=== PATIENT | female | born 1975 | race Caucasian/White ===

== ENCOUNTER 2016-07-17 21:05 | Emergency (ER) | payer OTHER ==
[2016-07-17 21:16] VITALS: BP 144/73
--- NOTE | 2016-07-17 21:48 | UC ---
Complaint Female HPI - HPI Summary HPI Summary: Having pressure and lump coming out of vagina, has noticed for a few days. Worse when she has to pee. - History Of Current Complaint Chief Complaint: UCGU Stated Complaint: PRIVATE ISSUE Time Seen by Provider: 07/17/16 21:17 Hx Obtained From: Patient Hx Last Menstrual Period: 05/14/16 ?: No Onset/Duration: Gradual Onset, Lasting Days Timing: Constant Severity Initially: Mild Severity Currently: Moderate Character: Dull Aggravating Factor(s): Urination Associated Signs And Symptoms: Positive: Vaginal Discharge - Allergies/Home Medications Allergies/Adverse Reactions: Allergies Allergy/AdvReac Type Severity Reaction Status Date / Time Sulfamethoxazole Allergy Rash Verified 05/14/16 19:28 w/Trimethoprim [From Bactrim] Home Medications: Home Medications Ibuprofen [Advil] 200 mg PO 07/17/16 [History] PMH/Surg Hx/FS Hx/Imm Hx Endocrine History Of: Reports: Diabetes - type 1 for about 8 years. Denies: Thyroid Disease, Hyperthyroidism, Hypothyroidism, Dyslipidemia Cardiovascular History Of: Denies: Cardiac Disorders, Hypertension, Pacemaker/ICD, Myocardial Infarction , Congestive Heart Failure, Atrial Fibrillation, Deep Vein Thrombosis, Bleeding Disorders Respiratory History Of: Denies: COPD, Asthma, Bronchitis, Pneumonia, Pulmonary Embolism GI/ History Of: Denies: Gastroesophageal Reflux, Ulcer, Gastrointestinal Bleed, Gall Bladder Disease, Kidney Stones, Diverticulitis, Renal Disease, Urosepsis Neurological History Of: Denies: TIA, CVA, Dementia, Seizures, Migraine Psychological History Of: Denies: Anxiety, Depression, Bipolar Disorder, Schizophrenia, Post Traumatic Stress Disorder Cancer History Of: Denies: Lung Cancer, Colorectal Cancer, Breast Cancer, Prostate Cancer, Cervical Cancer Other History Of: HIV Negative For: Hepatitis B, Hepatitis C, Anticoagulant Therapy - Surgical History Surgical History: Yes Surgery Procedure, Year, and Place: RIGHT THUMB SURGERY 1997, , MOVED LEFT OVARY TO RIGHT SIDE, lymph node removed, mediport -placed and removed - Family History Known Family History: Positive: None, Hypertension, Diabetes Family History: R & n/C - Social History Lives: With Family Alcohol Use: None Substance Use Type: None Smoking Status (MU): Light Every Day Tobacco Smoker Type: Cigarettes Amount Used/How Often: 7-10 cig./day Have You Smoked in the Last Year: Yes Household Exposure Type: Cigarettes - Immunization History Most Recent Influenza Vaccination: unk Most Recent Tetanus Shot: unk Most Recent Pneumonia Vaccination: unk Review of Systems Constitutional: Negative Skin: Negative Eyes: Negative ENT: Negative Respiratory: Negative Cardiovascular: Negative Gastrointestinal: Negative Genitourinary: Other - vaginal lump Motor: Negative Neurovascular: Negative Musculoskeletal: Negative Neurological: Negative Psychological: Negative All Other Systems Reviewed And Are Negative: Yes Physical Exam Triage Information Reviewed: Yes Appearance: Well-Appearing, No Pain Distress, Well-Nourished Vital Signs: Initial Vital Signs Temp 98.2 F 07/17/16 21:10 Pulse 103 07/17/16 21:10 Resp 18 07/17/16 21:10 BP 144/73 07/17/16 21:10 Pulse Ox 99 07/17/16 21:10 Vital Signs Reviewed: Yes Eye Exam: Normal Eyes: Positive: Conjunctiva Clear ENT Exam: Normal ENT: Positive: Normal ENT inspection, Hearing grossly normal, Pharynx normal, TMs normal Dental Exam: Normal Neck exam: Normal Neck: Positive: Supple, Nontender, No Lymphadenopathy Respiratory Exam: Normal Respiratory: Positive: Chest non-tender, Lungs clear, Normal breath sounds, No respiratory distress, No accessory muscle use Cardiovascular Exam: Normal Cardiovascular: Positive: RRR Musculoskeletal Exam: Normal Neurological Exam: Normal Psychological Exam: Normal Skin Exam: Normal - Additional Comments External vaginal exam performed, normal labia without masses or erythema. Significant cystocele noted, fully moving out of body with valsalva maneuver. Complaint Female Dx - Course Course Of Treatment: Pt is concerned about STIs with her current partner, but does not want HIV/Hep C testing tonight. - Differential Dx/Diagnosis Provider Diagnoses: cystocele Discharge - Discharge Plan Condition: Stable Disposition: HOME Patient Education Materials: Cystocele (ED), Kegel Exercises for Women (GEN) Referrals: Melinda Sherman MD [Primary Care Provider] - Kallie Covington MD [Medical Doctor] - 1 Week Additional Instructions: You can start kegel exercises now while you wait for an appointment with the trackman. If you develop pain with urination or blood in the urine, please return right away.
== END 2016-07-17 21:53 | disposition home or self-care (01) ==
LOC: UCEAST 21:05
DX: N81.10 Cystocele, unspecified (principal); Z32.02 Encounter for pregnancy test, result negative; Z88.2 Allergy status to sulfonamides; F17.210 Nicotine dependence, cigarettes, uncomplicated
CPT/HCPCS: 81025; 87491; 87591; 99211; G0463

== ENCOUNTER 2017-07-01 14:36 | Emergency (ER) | payer BC ==
[2017-07-01] MEDS ORDERED: Ketorolac INJ* 30 MG/ML 1 ML VIAL IV PUSH ONE (14:50)
[2017-07-01] MEDS ORDERED: Ondansetron INJ* 2 MG/ML VIAL IV ONE (14:51)
[2017-07-01] MEDS ORDERED: Ondansetron ODT TAB* 4 MG SL ONE ×2 (14:55→15:45)
[2017-07-01] MEDS ORDERED: Acetaminophen TAB* 325 MG PO ONE (14:55)
[2017-07-01 15:34] LABS: ABS Basophils 0 10^3/ul (0-0.2); ABS Eosinophils 0 10^3/ul (0-0.6); ABS Lymphocytes 0.3 10^3/ul (1.0-4.8); ABS Monocytes 0.8 10^3/ul (0-0.8); ABS Neutrophils 9.3 10^3/ul (1.5-7.7); ABS Nucleated RBC 0.01 10^3/ul; Eosinophil % 0.2 % (0-6); Hematocrit 40 % (35-47); Hemoglobin 13.8 g/dl (12.0-16.0); Mean Corpuscular HGB Conc 34 g/dl (31-36); Mean Corpuscular Hemoglobin 34 pg (27-31); Mean Corpuscular Volume 98 fL (80-97); Mean Platelet Volume 8 um3 (7.4-10.4); Nucleated Red Blood Cells % 0.1; Platelet Count 193 10^3/ul (150-450); Red Blood Count 4.12 10^6/ul (4.0-5.4); Red Cell Distribution Width 13 % (10.5-15); White Blood Count 10.4 10^3/ul (3.5-10.8)
[2017-07-01 15:38] LABS: EGFR Non-African American 120.5 (>60)
[2017-07-01 15:45] LABS: Urine Appearance Cloudy; Urine Blood 3+ (Negative); Urine Color Yellow; Urine Ketones 2+ (Negative); Urine Protein 1+(30 mg/dL) (Negative); Urine Specific Gravity 1.015 (1.010-1.030); Urine Urobilinogen Negative (Negative)
[2017-07-01 15:52] VITALS: BP 122/65
[2017-07-01] MEDS ORDERED: Nitrofurantoin Macrocrystals* 50 MG CAP PO ONE (15:54)
[2017-07-01] MEDS ORDERED: Nitrofurantoin Macrocrystals* 100 MG CAP PO ONE (15:55)
--- NOTE | 2017-07-01 16:13 | ED ---
Influenza-Like Illness - HPI Summary HPI Summary: Patient presents to the ED with CC of influenza like symptoms x 2-3 days. She notes to body aches, sweats and chills, pain in bilateral ribs with coughing and extreme fatigue. Denies sick contacts. She denies known fevers. Denies sore throat. She has been otherwise healthy, although has a history of kidney infection and diabetes. She takes insulin daily and checks her sugars. - History of Current Complaint Chief Complaint: EDGeneral Time Seen by Provider: 07/01/17 14:51 Hx Obtained From: Patient Onset/Duration: Sudden Onset Severity: Moderate Associated Signs & Symptoms: F/C, Myalgia, Cough, Headache - Risk Factors Influenza Risk Factors: Negative - Allergy/Home Medications Allergies/Adverse Reactions: Allergies Allergy/AdvReac Type Severity Reaction Status Date / Time Sulfamethoxazole Allergy Rash Verified 05/14/16 19:28 w/Trimethoprim [From Bactrim] PMH/Surg Hx/FS Hx/Imm Hx Previously Healthy: Yes Endocrine/Hematology History: Reports: Hx Diabetes - type 1 for about 8 years. Denies: Hx Anticoagulant Therapy, Hx Thyroid Disease Cardiovascular History: Denies: Hx Congestive Heart Failure, Hx Deep Vein Thrombosis, Hx Embolism, Hx Hypertension, Hx Myocardial Infarction, Hx Pacemaker/ICD Respiratory History: Denies: Hx Asthma, Hx Chronic Obstructive Pulmonary Disease (COPD), Hx Lung Cancer, Hx Pneumonia, Hx Pulmonary Embolism GI History: Reports: Hx Gastroesophageal Reflux Disease - per pt Denies: Hx Gall Bladder Disease, Hx Gastrointestinal Bleed, Hx Ulcer, Hx Urosepsis History: Denies: Hx Kidney Stones, Hx Renal Disease Musculoskeletal History: Reports: Other Musculoskeletal History - Carpal tunnel Denies: Hx Bursitis, Hx Congenital Bone Abnormalities, Hx Fibromyalgia, Hx Gout, Hx Orthopedic Injury, Hx Osteoporosis, Hx Scoliosis, Hx Tendonitis Neurological History: Reports: Other Neuro Impairments/Disorders - CARPAL TUNNEL Denies: Hx Dementia, Hx Developmental Delay, Hx Headaches, Hx Migraine, Hx Nerve Disease, Hx Seizures, Hx Spinal Cord Injury, Hx Transient Ischemic Attacks (TIA) Psychiatric History: Denies: Hx Anxiety, Hx Depression, Hx Schizophrenia, Hx Bipolar Disorder - Cancer History Cancer Type, Location and Year: NON-[facility] Hx Chemotherapy: No Hx Radiation Therapy: No Hx Palliative Cancer Treatment: No - Surgical History Surgery Procedure, Year, and Place: RIGHT THUMB SURGERY 1997, , MOVED LEFT OVARY TO RIGHT SIDE, lymph node removed, mediport -placed and removed Hx Anesthesia Reactions: No - Immunization History Date of Tetanus Vaccine: PT STATES UNSURE Date of Influenza Vaccine: NONE Infectious Disease History: No Infectious Disease History: Denies: Hx Clostridium Difficile, Hx Hepatitis, Hx Human Immunodeficiency Virus (HIV), Hx of Known/Suspected MRSA, Hx Shingles, Hx Tuberculosis, History Other Infectious Disease, Traveled Outside the [place] in Last 30 Days - Family History Known Family History: Positive: None, Hypertension, Diabetes Family History: R & n/C - Social History Occupation: Employed Full-time Lives: With Family Alcohol Use: None Hx Substance Use: No Substance Use Type: Reports: None Hx Tobacco Use: Yes Smoking Status (MU): Light Every Day Tobacco Smoker Type: Cigarettes Amount Used/How Often: 7-10 cig./day Have You Smoked in the Last Year: Yes Review of Systems Positive: Chills, Fatigue. Negative: Fever Eyes: Negative Cardiovascular: Negative Respiratory: Negative Positive: Nausea Positive: no symptoms reported, see HPI Positive: Myalgia Skin: Negative Positive: Headache All Other Systems Reviewed And Are Negative: Yes Physical Exam Triage Information Reviewed: Yes Vital Signs On Initial Exam: Initial Vitals Temp Pulse Resp BP Pulse Ox 97.4 F 98 17 120/62 98 07/01/17 14:39 07/01/17 14:39 07/01/17 14:39 07/01/17 14:39 07/01/17 14:39 Vital Signs Reviewed: Yes Appearance: Positive: Ill-Appearing, Cachectic Skin: Positive: Skin Color Reflects Adequate Perfusion Head/Face: Positive: Temporal Artery Tenderness Eyes: Positive: EOMI, Conjunctiva Clear ENT: Positive: Pharynx normal Neck: Positive: Supple, No Lymphadenopathy Respiratory/Lung Sounds: Positive: Clear to Auscultation, Breath Sounds Present Cardiovascular: Positive: RRR, Pulses are Symmetrical in both Upper and Lower Extremities Musculoskeletal: Positive: Strength/ROM Intact Neurological: Positive: Speech Normal Psychiatric: Positive: Normal, Affect/Mood Appropriate - Angelia Coma Scale Coma Scale Total: 15 Diagnostics - Vital Signs Vital Signs Temp Pulse Resp BP Pulse Ox 07/01/17 15:51 101 F 102 18 122/65 96 07/01/17 14:39 97.4 F 98 17 120/62 98 - Laboratory Lab Results: Lab Results 07/01/17 07/01/17 07/01/17 Range/Units 14:29 14:29 14:29 WBC 10.4 (3.5-10.8) 10^3/ul RBC 4.12 (4.0-5.4) 10^6/ul Hgb 13.8 (12.0-16.0) g/dl Hct 40 (35-47) % MCV 98 H (80-97) fL MCH 34 H (27-31) pg MCHC 34 (31-36) g/dl RDW 13 (10.5-15) % Plt Count 193 (150-450) 10^3/ul MPV 8 (7.4-10.4) um3 Neut % (Auto) 89.1 H (38-83) % Lymph % (Auto) 3.0 L (25-47) % [place] % (Auto) 7.5 (1-9) % Eos % (Auto) 0.2 (0-6) % Baso % (Auto) 0.2 (0-2) % Absolute Neuts (auto) 9.3 H (1.5-7.7) 10^3/ul Absolute Lymphs (auto) 0.3 L (1.0-4.8) 10^3/ul Absolute Monos (auto) 0.8 (0-0.8) 10^3/ul Absolute Eos (auto) 0 (0-0.6) 10^3/ul Absolute Basos (auto) 0 (0-0.2) 10^3/ul Absolute Nucleated RBC 0.01 10^3/ul Nucleated RBC % 0.1 Sodium 131 L (133-145) mmol/L Potassium 3.7 (3.5-5.0) mmol/L Chloride 99 L (101-111) mmol/L Carbon Dioxide 22 (22-32) mmol/L Anion Gap 10 (2-11) mmol/L BUN 9 (6-24) mg/dL Creatinine 0.56 (0.51-0.95) mg/dL Est GFR ( Amer) 155.0 (>60) Est GFR (Non-Af Amer) 120.5 (>60) BUN/Creatinine Ratio 16.1 (8-20) Glucose 239 H (70-100) mg/dL Lactic Acid 0.9 (0.5-2.0) mmol/L Calcium 8.7 (8.6-10.3) mg/dL Total Bilirubin 0.70 (0.2-1.0) mg/dL AST 53 H (13-39) U/L ALT 63 H (7-52) U/L Alkaline Phosphatase 66 (34-104) U/L Total Protein 6.6 (6.4-8.9) g/dL Albumin 3.6 (3.2-5.2) g/dL Globulin 3.0 (2-4) g/dL Albumin/Globulin Ratio 1.2 (1-3) Urine Color Urine Appearance Urine pH (5-9) Ur Specific [place] (1.010-1.030) Urine Protein (Negative) Urine Ketones (Negative) Urine Blood (Negative) Urine Nitrate (Negative) Urine Bilirubin (Negative) Urine Urobilinogen (Negative) Ur Leukocyte Esterase (Negative) Urine WBC (Auto) (Absent) Urine RBC (Auto) (Absent) Ur Squamous Epith Cells (Absent) Urine Bacteria (Absent) Urine Glucose (Negative) Influenza A (Rapid) (Negative) Influenza B (Rapid) (Negative) 07/01/17 07/01/17 Range/Units 14:58 15:20 WBC (3.5-10.8) 10^3/ul RBC (4.0-5.4) 10^6/ul Hgb (12.0-16.0) g/dl Hct (35-47) % MCV (80-97) fL MCH (27-31) pg MCHC (31-36) g/dl RDW (10.5-15) % Plt Count (150-450) 10^3/ul MPV (7.4-10.4) um3 Neut % (Auto) (38-83) % Lymph % (Auto) (25-47) % [place] % (Auto) (1-9) % Eos % (Auto) (0-6) % Baso % (Auto) (0-2) % Absolute Neuts (auto) (1.5-7.7) 10^3/ul Absolute Lymphs (auto) (1.0-4.8) 10^3/ul Absolute Monos (auto) (0-0.8) 10^3/ul Absolute Eos (auto) (0-0.6) 10^3/ul Absolute Basos (auto) (0-0.2) 10^3/ul Absolute Nucleated RBC 10^3/ul Nucleated RBC % Sodium (133-145) mmol/L Potassium (3.5-5.0) mmol/L Chloride (101-111) mmol/L Carbon Dioxide (22-32) mmol/L Anion Gap (2-11) mmol/L BUN (6-24) mg/dL Creatinine (0.51-0.95) mg/dL Est GFR ( Amer) (>60) Est GFR (Non-Af Amer) (>60) BUN/Creatinine Ratio (8-20) Glucose (70-100) mg/dL Lactic Acid (0.5-2.0) mmol/L Calcium (8.6-10.3) mg/dL Total Bilirubin (0.2-1.0) mg/dL AST (13-39) U/L ALT (7-52) U/L Alkaline Phosphatase (34-104) U/L Total Protein (6.4-8.9) g/dL Albumin (3.2-5.2) g/dL Globulin (2-4) g/dL Albumin/Globulin Ratio (1-3) Urine Color Yellow Urine Appearance Cloudy Urine pH 6.0 (5-9) Ur Specific [place] 1.015 (1.010-1.030) Urine Protein 1+(30 mg/dl) H (Negative) Urine Ketones 2+ H (Negative) Urine Blood 3+ H (Negative) Urine Nitrate Positive H (Negative) Urine Bilirubin Negative (Negative) Urine Urobilinogen Negative (Negative) Ur Leukocyte Esterase 2+ H (Negative) Urine WBC (Auto) 3+(>20/hpf) H (Absent) Urine RBC (Auto) 3+(>10/hpf) H (Absent) Ur Squamous Epith Cells Present H (Absent) Urine Bacteria Absent (Absent) Urine Glucose 3+(>=500 mg/dl) H (Negative) Influenza A (Rapid) Positive H (Negative) Influenza B (Rapid) Negative (Negative) Result Diagrams: 07/01/17 14:29 07/01/17 14:29 Lab Statement: Any lab studies that have been ordered have been reviewed, and results considered in the medical decision making process. Flu Symptom Course/Dx - Course Course Of Treatment: Patient presents with flu like symptoms. Flu postivie. UA shows leuks and wbc with glucose. She is a diabetic, but is compliant and checks sugars. She is encouraged plenty of fluid and given note for work. She encouraged ibuprofen and tylenol intermittently. She agrees to these parameters and with history of diabetes strict return precautions given. She is agreeable. She is given 1 dose macrodantin in ED and 1 to go. Prescribed Macrobid x 5 days. - Diagnoses Differential Diagnosis/HQI/PQRI: Positive: Influenza Provider Diagnoses: Influenza Discharge - Discharge Plan Condition: Stable Disposition: HOME Prescriptions: Nitrofurantoin Monohyd Macro [Macrobid] 100 mg PO BID #10 cap MDD 2 Ondansetron ODT TAB* [Zofran 4 MG Odt TAB*] 4 mg PO Q6H PRN #12 tab.odt MDD 4 PRN Reason: Nausea Patient Education Materials: Influenza (ED) Forms: *Work Release Referrals: Percy Zurita MD [Primary Care Provider] - Additional Instructions: Drink small amounts of fluid as tolerated - but drink plenty of it! Zofran as needed for nausea Tylenol 650mg and ibuprofen 600mg intermittently (take one medication every 4 hours, swapping between the two) Nyquil before bed will help *although do NOT take Tylenol in addition to nyquil as it has this ingredient) You should begin to feel better in 2-3 days When able to eat follow BRAT diet: Bananas, rice, applesauce, toast, chicken noodle soup and gingerale Return to ED if develop fever that does not respond to Tylenol or ibuprofen, severe abdominal pain, or any new or worsening symptoms
--- NOTE | 2017-07-03 10:02 | PN ---
Progress Note - Progress Note Date of Service: 07/01/17 Note: Urine culture grew E. Coli Patient placed on Macrobid prior to discharge. Will await sensitivities. Nothing further at this time. Jaja Dominguez PA-C
--- NOTE | 2017-07-04 12:16 | PN ---
Progress Note - Progress Note Date of Service: 07/01/17 Note: Urine culture grew E. Coli Patient placed on Macrobid prior to discharge Macrobid is sensitive to organism. Nothing further at this time. Jaja Dominguez PA-C
== END 2017-07-01 15:51 | disposition home or self-care (01) ==
LOC: ED 14:36
DX: J11.1 Influenza due to unidentified influenza virus with other respiratory manifestations (principal); E11.9 Type 2 diabetes mellitus without complications; C81.00 Nodular lymphocyte predominant Hodgkin lymphoma, unspecified site; F17.210 Nicotine dependence, cigarettes, uncomplicated; N39.0 Urinary tract infection, site not specified; B96.20 Unspecified Escherichia coli [E. coli] as the cause of diseases classified elsewhere
CPT/HCPCS: 36415; 80053; 81003; 81015; 83605; 85025; 87077; 87086; 87186; 87502; 96374; 96375; 99283; A9270-GY

== ENCOUNTER 2017-07-04 10:48 | Inpatient (IN) | payer BC ==
[2017-07-04] MEDS ORDERED: NS 0.9% 1000 ML* 2,000 ML IV ONE (12:10)
[2017-07-04] MEDS ORDERED: Ondansetron INJ* 2 MG/ML VIAL IV ONE (12:10)
[2017-07-04] MEDS ORDERED: cefTRIAXone(*) 1 GM in NS 0.9% 50 ML* 50 ML IVPB ONE (12:17)
[2017-07-04 13:35] LABS: Urine Appearance Clear; Urine Blood 2+ (Negative); Urine Color Yellow; Urine Ketones 2+ (Negative); Urine Protein 2+(100 mg/dL) (Negative); Urine Urobilinogen Positive (Negative)
--- NOTE | 2017-07-04 13:39 | RAD ---
INDICATION: Bilateral flank pain. Recent UTI. Diabetic. COMPARISON: April 29, 2014 TECHNIQUE: Multidetector CT images were obtained from the lung bases to the ischial tuberosities. Evaluation of the viscera is limited without IV contrast. Multiplanar reformation. REPORT: Minimal dependent basilar atelectasis. Mildly enlarged 19.7 cm cephalocaudal liver without additional CT abnormality within limits of noncontrast exam. No CT abnormality of the unenhanced gallbladder, pancreas, or spleen. Negative for CT abnormality of the upper GI, small bowel, appendix visualized along the RIGHT pelvic sidewall, or colon. Moderate volume of stool in the colon. Physiologic small volume of free fluid in the dependent pelvis. Negative for free air or significant hernias. Unremarkable adrenal glands. Mild edema in the LEFT perinephric fat. No renal or ureteral stones evident. Negative for hydronephrosis. Pelvic phleboliths noted. Unremarkable anteverted uterus and adnexal regions. Multiple pelvic surgical clips. Negative for lymphadenopathy. Normal diameter abdominal aorta and iliac arteries with mild calcific plaque. Physiologic distention of the IVC. Negative for suspicious osseous lesions. IMPRESSION: Mild soft tissue edema surrounding the LEFT kidney concerning for potential LEFT pyelonephritis. Correlate with urinalysis. Negative for urolithiasis or hydronephrosis.
[2017-07-04 14:06] LABS: ABS Basophils 0 10^3/ul (0-0.2); ABS Eosinophils 0 10^3/ul (0-0.6); ABS Lymphocytes 0.8 10^3/ul (1.0-4.8); ABS Monocytes 0.9 10^3/ul (0-0.8); ABS Neutrophils 7.1 10^3/ul (1.5-7.7); ABS Nucleated RBC 0 10^3/ul; Eosinophil % 0 % (0-6); Hematocrit 39 % (35-47); Lymphocyte % 9.5 % (25-47); Mean Corpuscular HGB Conc 33 g/dl (31-36); Mean Corpuscular Hemoglobin 33 pg (27-31); Mean Corpuscular Volume 99 fL (80-97); Mean Platelet Volume 8 um3 (7.4-10.4); Nucleated Red Blood Cells % 0; Platelet Count 175 10^3/ul (150-450); Red Blood Count 3.93 10^6/ul (4.0-5.4); Red Cell Distribution Width 13 % (10.5-15); White Blood Count 8.8 10^3/ul (3.5-10.8)
[2017-07-04 14:19] LABS: INR 0.98 (0.77-1.02)
[2017-07-04 14:33] LABS: EGFR Non-African American 109.2 (>60)
[2017-07-04] MEDS ORDERED: Ketorolac INJ* 30 MG/ML 1 ML VIAL IV ONE (14:39)
[2017-07-04] MEDS ORDERED: Insulin REGULAR(*) 1 UNITS UNIT IV PUSH ONE (15:15)
[2017-07-04] MEDS ORDERED: NS 0.9% 1000 ML* 1,000 ML IV ONE (15:23)
[2017-07-04] MEDS ORDERED: NS 0.9% 1000 ML* 1,000 ML IV SCH (15:30)
[2017-07-04] MEDS ORDERED: Mouth Piece, Nicotine* 1 EACH CARTRIDGE INH PRN (16:07)
[2017-07-04] MEDS ORDERED: Nicotine Inhaler* 10 MG AMP INH PRN (16:07)
[2017-07-04] MEDS: Insulin REGULAR(*) 100 UNITS in NS 0.9% 100 ML* 100 ML IVPB ONE ×2 (16:36→17:22)
[2017-07-04] MEDS: Morphine INJ* 4 MG/ML 1 ML CARPUJECT IV PRN ×2 (17:34→21:48)
[2017-07-04] MEDS ORDERED: Insulin REGULAR(*) 100 UNITS in NS 0.9% 100 ML* 100 ML IVPB ONE (17:51)
--- NOTE | 2017-07-04 18:09 | ED ---
Seth Moseley Abhishek, scribed for Cl Gates MD on 07/04/17 at 1216 . Complex/Multi-Sys Presentation - HPI Summary HPI Summary: This patient is a 41 year old F presenting to [facility] with a chief complaint of weakness since 07/01/17. Pt states she is IDDM, and her sugars are in the 260 range. Pt states she has not eaten since Bubba (07/01/17). Pt states she is influenza A positive and has a UTI. The patient rates the pain 7/10 in severity. Symptoms aggravated by nothing. Symptoms alleviated by nothing. Patient reports dehydration, nausea, urinary frequency, decreased appetite, weakness, and back pain. - History Of Current Complaint Chief Complaint: EDAbdPain Time Seen by Provider: 07/04/17 11:55 Hx Obtained From: Patient Onset/Duration: Gradual Onset, Lasting Days - Since 07/01/17, Still Present Timing: Constant, Days - since 07/01/17 Severity Currently: Moderate Severity Initially: Moderate - pain is 7/10 in severity Aggravating Factor(s): nothing Alleviating Factor(s): nothing Associated Signs And Symptoms: Positive: Weakness, Nausea, Back Pain, Other - dehydration, urinary frequency, and decreased appetite - Allergies/Home Medications Allergies/Adverse Reactions: Allergies Allergy/AdvReac Type Severity Reaction Status Date / Time Sulfamethoxazole Allergy Rash Verified 05/14/16 19:28 w/Trimethoprim [From Bactrim] PMH/Surg Hx/FS Hx/Imm Hx Endocrine/Hematology History: Reports: Hx Diabetes - type 1 for about 8 years. Denies: Hx Anticoagulant Therapy, Hx Thyroid Disease Cardiovascular History: Denies: Hx Congestive Heart Failure, Hx Deep Vein Thrombosis, Hx Embolism, Hx Hypertension, Hx Myocardial Infarction, Hx Pacemaker/ICD Respiratory History: Denies: Hx Asthma, Hx Chronic Obstructive Pulmonary Disease (COPD), Hx Lung Cancer, Hx Pneumonia, Hx Pulmonary Embolism GI History: Reports: Hx Gastroesophageal Reflux Disease - per pt Denies: Hx Gall Bladder Disease, Hx Gastrointestinal Bleed, Hx Ulcer, Hx Urosepsis History: Denies: Hx Kidney Stones, Hx Renal Disease Musculoskeletal History: Reports: Other Musculoskeletal History - Carpal tunnel Denies: Hx Bursitis, Hx Congenital Bone Abnormalities, Hx Fibromyalgia, Hx Gout, Hx Orthopedic Injury, Hx Osteoporosis, Hx Scoliosis, Hx Tendonitis Neurological History: Reports: Other Neuro Impairments/Disorders - CARPAL TUNNEL Denies: Hx Dementia, Hx Developmental Delay, Hx Headaches, Hx Migraine, Hx Nerve Disease, Hx Seizures, Hx Spinal Cord Injury, Hx Transient Ischemic Attacks (TIA) Psychiatric History: Denies: Hx Anxiety, Hx Depression, Hx Schizophrenia, Hx Bipolar Disorder - Cancer History Cancer Type, Location and Year: NON-[facility]'S LYMPHOMA Hx Chemotherapy: No Hx Radiation Therapy: No Hx Palliative Cancer Treatment: No - Surgical History Surgery Procedure, Year, and Place: RIGHT THUMB SURGERY 1997, , MOVED LEFT OVARY TO RIGHT SIDE, lymph node removed, mediport -placed and removed Hx Anesthesia Reactions: No - Immunization History Date of Tetanus Vaccine: PT STATES UNSURE Date of Influenza Vaccine: NONE Infectious Disease History: No Infectious Disease History: Denies: Hx Clostridium Difficile, Hx Hepatitis, Hx Human Immunodeficiency Virus (HIV), Hx of Known/Suspected MRSA, Hx Shingles, Hx Tuberculosis, History Other Infectious Disease, Traveled Outside the [place] in Last 30 Days - Family History Known Family History: Positive: Hypertension, Diabetes - Social History Alcohol Use: None Hx Substance Use: No Substance Use Type: Reports: None Hx Tobacco Use: Yes Smoking Status (MU): Light Every Day Tobacco Smoker Type: Cigarettes Amount Used/How Often: 7-10 cig./day Have You Smoked in the Last Year: Yes Review of Systems Positive: Other - dehydration Eyes: Negative ENT: Negative Cardiovascular: Negative Respiratory: Negative Gastrointestinal: Other - decreased appetite Positive: Nausea Positive: frequency Positive: Myalgia - back pain Skin: Negative Positive: Weakness Psychological: Normal All Other Systems Reviewed And Are Negative: Yes Physical Exam - Summary Physical Exam Summary: General: Moderately ill appearing , no pain distress Skin: warm, color reflects adequate perfusion, dry Head: normal Eyes: EOMI, ISMAEL ENT: normal, Oral mucosa dry Neck: supple, nontender Respiratory: CTA, breath sounds present Cardiovascular: Tachycardia Abdomen: Non tender abd Bilateral flank tenderness to percussion Bowel: present Musculoskeletal: normal, strength/ROM intact Neurological: normal, sensory/motor intact, A&O x3 Psychological: affect/mood appropriate Triage Information Reviewed: Yes Vital Signs On Initial Exam: Initial Vitals Temp Pulse Resp BP Pulse Ox 99.4 F 94 22 123/73 100 07/04/17 10:57 07/04/17 10:57 07/04/17 10:57 07/04/17 10:57 07/04/17 10:57 Vital Signs Reviewed: Yes - [place] Coma Scale Coma Scale Total: 15 Diagnostics - Vital Signs Vital Signs Temp Pulse Resp BP Pulse Ox 07/04/17 11:30 97 33 132/70 99 07/04/17 11:13 95 100 07/04/17 11:11 127/72 07/04/17 10:57 99.4 F 94 22 123/73 100 - Laboratory Lab Results: Lab Results 07/04/17 07/04/17 07/04/17 Range/Units 12:44 12:55 12:55 WBC (3.5-10.8) 10^3/ul RBC (4.0-5.4) 10^6/ul Hgb (12.0-16.0) g/dl Hct (35-47) % MCV (80-97) fL MCH (27-31) pg MCHC (31-36) g/dl RDW (10.5-15) % Plt Count (150-450) 10^3/ul MPV (7.4-10.4) um3 Neut % (Auto) (38-83) % Lymph % (Auto) (25-47) % Lane % (Auto) (1-9) % Eos % (Auto) (0-6) % Baso % (Auto) (0-2) % Absolute Neuts (auto) (1.5-7.7) 10^3/ul Absolute Lymphs (auto) (1.0-4.8) 10^3/ul Absolute Monos (auto) (0-0.8) 10^3/ul Absolute Eos (auto) (0-0.6) 10^3/ul Absolute Basos (auto) (0-0.2) 10^3/ul Absolute Nucleated RBC 10^3/ul Nucleated RBC % INR (Anticoag Therapy) 0.98 (0.77-1.02) APTT 23.0 L (26.0-36.3) seconds VBG pH 7.28 L (7.33-7.43) VBG pCO2 38 L (41-51) mmHg VBG pO2 23 L (35-45) mmHg VBG HCO3 17.0 L (24-28) mmol/L VBG O2 Saturation 43.0 L (70-80) % VBG Base Excess -8.2 L (0-4) Sodium 130 L (133-145) mmol/L Potassium 4.0 (3.5-5.0) mmol/L Chloride 100 L (101-111) mmol/L Carbon Dioxide 15 L (22-32) mmol/L Anion Gap 15 H (2-11) mmol/L BUN 10 (6-24) mg/dL Creatinine 0.61 (0.51-0.95) mg/dL Est GFR ( Amer) 140.4 (>60) Est GFR (Non-Af Amer) 109.2 (>60) BUN/Creatinine Ratio 16.4 (8-20) Glucose 237 H (70-100) mg/dL POC Glucose (mg/dL) (70-100) mg/dL Lactic Acid (0.5-2.0) mmol/L Calcium 8.5 L (8.6-10.3) mg/dL Total Bilirubin 0.40 (0.2-1.0) mg/dL AST 26 (13-39) U/L ALT 37 (7-52) U/L Alkaline Phosphatase 125 H (34-104) U/L Troponin I 0.03 (<0.04) ng/mL C-Reactive Protein 287.09 H (< 5.00) mg/L Total Protein 6.8 (6.4-8.9) g/dL Albumin 3.3 (3.2-5.2) g/dL Globulin 3.5 (2-4) g/dL Albumin/Globulin Ratio 0.9 L (1-3) Lipase < 10 L (11.0-82.0) U/L Beta HCG, Quant < 0.60 mIU/mL Urine Color Urine Appearance Urine pH (5-9) Ur Specific [place] (1.010-1.030) Urine Protein (Negative) Urine Ketones (Negative) Urine Blood (Negative) Urine Nitrate (Negative) Urine Bilirubin (Negative) Urine Urobilinogen (Negative) Ur Leukocyte Esterase (Negative) Urine WBC (Auto) (Absent) Urine RBC (Auto) (Absent) Urine Bacteria (Absent) Urine Glucose (Negative) 07/04/17 07/04/17 07/04/17 Range/Units 12:55 12:55 13:00 WBC 8.8 (3.5-10.8) 10^3/ul RBC 3.93 L (4.0-5.4) 10^6/ul Hgb 13.0 (12.0-16.0) g/dl Hct 39 (35-47) % MCV 99 H (80-97) fL MCH 33 H (27-31) pg MCHC 33 (31-36) g/dl RDW 13 (10.5-15) % Plt Count 175 (150-450) 10^3/ul MPV 8 (7.4-10.4) um3 Neut % (Auto) 80.0 (38-83) % Lymph % (Auto) 9.5 L (25-47) % Lane % (Auto) 10.3 H (1-9) % Eos % (Auto) 0 (0-6) % Baso % (Auto) 0.2 (0-2) % Absolute Neuts (auto) 7.1 (1.5-7.7) 10^3/ul Absolute Lymphs (auto) 0.8 L (1.0-4.8) 10^3/ul Absolute Monos (auto) 0.9 H (0-0.8) 10^3/ul Absolute Eos (auto) 0 (0-0.6) 10^3/ul Absolute Basos (auto) 0 (0-0.2) 10^3/ul Absolute Nucleated RBC 0 10^3/ul Nucleated RBC % 0 INR (Anticoag Therapy) (0.77-1.02) APTT (26.0-36.3) seconds VBG pH (7.33-7.43) VBG pCO2 (41-51) mmHg VBG pO2 (35-45) mmHg VBG HCO3 (24-28) mmol/L VBG O2 Saturation (70-80) % VBG Base Excess (0-4) Sodium (133-145) mmol/L Potassium (3.5-5.0) mmol/L Chloride (101-111) mmol/L Carbon Dioxide (22-32) mmol/L Anion Gap (2-11) mmol/L BUN (6-24) mg/dL Creatinine (0.51-0.95) mg/dL Est GFR ( Amer) (>60) Est GFR (Non-Af Amer) (>60) BUN/Creatinine Ratio (8-20) Glucose (70-100) mg/dL POC Glucose (mg/dL) (70-100) mg/dL Lactic Acid 0.7 (0.5-2.0) mmol/L Calcium (8.6-10.3) mg/dL Total Bilirubin (0.2-1.0) mg/dL AST (13-39) U/L ALT (7-52) U/L Alkaline Phosphatase (34-104) U/L Troponin I (<0.04) ng/mL C-Reactive Protein (< 5.00) mg/L Total Protein (6.4-8.9) g/dL Albumin (3.2-5.2) g/dL Globulin (2-4) g/dL Albumin/Globulin Ratio (1-3) Lipase (11.0-82.0) U/L Beta HCG, Quant mIU/mL Urine Color Yellow Urine Appearance Clear Urine pH 6.0 (5-9) Ur Specific [place] 1.020 (1.010-1.030) Urine Protein 2+(100 mg/dl) H (Negative) Urine Ketones 2+ H (Negative) Urine Blood 2+ H (Negative) Urine Nitrate Negative (Negative) Urine Bilirubin Negative (Negative) Urine Urobilinogen Positive H (Negative) Ur Leukocyte Esterase Negative (Negative) Urine WBC (Auto) Trace(0-5/hpf) (Absent) Urine RBC (Auto) 2+(6-10/hpf) H (Absent) Urine Bacteria Absent (Absent) Urine Glucose 3+(>=500 mg/dl) H (Negative) 07/04/ Range/Units 16:17 WBC (3.5-10.8) 10^3/ul RBC (4.0-5.4) 10^6/ul Hgb (12.0-16.0) g/dl Hct (35-47) % MCV (80-97) fL MCH (27-31) pg MCHC (31-36) g/dl RDW (10.5-15) % Plt Count (150-450) 10^3/ul MPV (7.4-10.4) um3 Neut % (Auto) (38-83) % Lymph % (Auto) (25-47) % Lane % (Auto) (1-9) % Eos % (Auto) (0-6) % Baso % (Auto) (0-2) % Absolute Neuts (auto) (1.5-7.7) 10^3/ul Absolute Lymphs (auto) (1.0-4.8) 10^3/ul Absolute Monos (auto) (0-0.8) 10^3/ul Absolute Eos (auto) (0-0.6) 10^3/ul Absolute Basos (auto) (0-0.2) 10^3/ul Absolute Nucleated RBC 10^3/ul Nucleated RBC % INR (Anticoag Therapy) (0.77-1.02) APTT (26.0-36.3) seconds VBG pH (7.33-7.43) VBG pCO2 (41-51) mmHg VBG pO2 (35-45) mmHg VBG HCO3 (24-28) mmol/L VBG O2 Saturation (70-80) % VBG Base Excess (0-4) Sodium (133-145) mmol/L Potassium (3.5-5.0) mmol/L Chloride (101-111) mmol/L Carbon Dioxide (22-32) mmol/L Anion Gap (2-11) mmol/L BUN (6-24) mg/dL Creatinine (0.51-0.95) mg/dL Est GFR ( Amer) (>60) Est GFR (Non-Af Amer) (>60) BUN/Creatinine Ratio (8-20) Glucose (70-100) mg/dL POC Glucose (mg/dL) 245 H (70-100) mg/dL Lactic Acid (0.5-2.0) mmol/L Calcium (8.6-10.3) mg/dL Total Bilirubin (0.2-1.0) mg/dL AST (13-39) U/L ALT (7-52) U/L Alkaline Phosphatase (34-104) U/L Troponin I (<0.04) ng/mL C-Reactive Protein (< 5.00) mg/L Total Protein (6.4-8.9) g/dL Albumin (3.2-5.2) g/dL Globulin (2-4) g/dL Albumin/Globulin Ratio (1-3) Lipase (11.0-82.0) U/L Beta HCG, Quant mIU/mL Urine Color Urine Appearance Urine pH (5-9) Ur Specific [place] (1.010-1.030) Urine Protein (Negative) Urine Ketones (Negative) Urine Blood (Negative) Urine Nitrate (Negative) Urine Bilirubin (Negative) Urine Urobilinogen (Negative) Ur Leukocyte Esterase (Negative) Urine WBC (Auto) (Absent) Urine RBC (Auto) (Absent) Urine Bacteria (Absent) Urine Glucose (Negative) Result Diagrams: 07/04/17 12:55 07/04/17 12:55 Lab Statement: Any lab studies that have been ordered have been reviewed, and results considered in the medical decision making process. - CT CT A/P CT Interpretation Completed By: Radiologist - CT A/P reveals Mild soft tissue edema surrounding the LEFT kidney concerning for potential LEFT pyelonephritis. Correlate with urinalysis. Negative for urolithiasis or hydronephrosis. ED Physician has reviewed the radiology report. - EKG 1224 EKG Rhythm: Sinus Rhythm - 93 bpm Ectopy: None EKG Interpretation: An EKG at 1224 reveals flat T-waves at III (3) and AVF Complex Multi-Symp Course/Dx Course Of Treatment: ADMIT HOSPITALIST. - Diagnoses Provider Diagnoses: DKA (diabetic ketoacidoses), UTI (urinary tract infection) - Critical Care Time Critical Care Time: 30-74 min Discharge - Discharge Plan Condition: Stable Disposition: ADMITTED TO [facility] The documentation as recorded by the Seth price Abhishek accurately reflects the service I personally performed and the decisions made by , Cl Gates MD.
[2017-07-04 18:13] LABS: EGFR Non-African American 125.7 (>60)
[2017-07-04] MEDS ORDERED: Dextrose 50% Syringe 50 ML* 25 GM/50 ML SYRINGE IV PUSH PRN (18:29)
[2017-07-04] MEDS ORDERED: KCL 20 MEQ/100 ML IVPREMIX* 20 MEQ/100 ML BAG IV ONE (18:29)
[2017-07-04] MEDS ORDERED: D5W 1/2 NS 40 Meq KCL 1000 ML* 1,000 ML IV SCH (19:00)
[2017-07-04] MEDS: Insulin GLARGINE(*) 1 UNITS UNIT SUBCUT SCH (19:32)
[2017-07-04] MEDS: KCL premix 10MEQ/50 ML x 2 BAGS IV SCH ×2 (19:33→22:05)
--- NOTE | 2017-07-04 20:39 | HP ---
CC: Dr. Sherman * [facility] MEDICINE HISTORY AND PHYSICAL: DATE OF ADMISSION: 07/04/17 PRIMARY CARE PHYSICIAN: Dr. Sherman. ATTENDING PHYSICIAN: Dr. Genia Berger * (dictation provided by Katerina Koenig NP ). CHIEF COMPLAINT: Left back and flank pain with fever. HISTORY OF PRESENT ILLNESS: Ms. Nash is a 41-year-old female with a past medical history of diabetes with three admissions to our hospital for DKA, who presents today to the hospital with concern for left flank pain and fever. Ms. Nash was in our emergency room on 07/01/17 complaining of left flank pain. At that time, she had a UA which was positive with 2+ leuk esterase and nitrites. She was started on nitrofurantoin and ondansetron for nausea and was discharged to home. The patient states that since returning home she has had persistent left-sided flank pain. She has had fever, she has had malaise. She has felt very dehydrated with very dry oral mucosa. Her blood sugars are running about 260. She states she has been taking her insulin per routine. She decided to come to the hospital today when discomfort in her back was too severe and she felt so dehydrated that she knew she likely had dietetic ketoacidosis again. In the emergency room, Ms. Nash was found to have a blood gas showing an acidosis with pH 7.28, pCO2 of 38, pO2 of 23, and bicarbonate 17. She has an anion gap of 15. Her sodium is 130, potassium is 4.0, BUN and creatinine are normal, blood glucose is 237. Her CRP is 287.09. Her beta hCG is negative. She has no leukocytosis. She has a fever to 101. She is slightly tachycardic and tachypneic. She went on for an abdomen and pelvis CT showing mild soft tissue edema surrounding the left kidney concerning for potential left pyelonephritis. PAST MEDICAL HISTORY: 1. Diabetes, unclear type. 2. Carpal tunnel syndrome. MEDICATIONS: Outpatient are: 1. Lantus insulin 32 units subcutaneously b.i.d. 2. Ondansetron p.r.n. 3. Nitrofurantoin 100 mg p.o. b.i.d. 4. Lispro insulin with meals via sliding scale. 5. Ibuprofen p.r.n. 6. Tylenol p.r.n. ALLERGIES: SULFAMETHOXAZOLE, TRIMETHOPRIM. FAMILY HISTORY: The patient's mother is at the bedside, but they are not really able to provide much in the way of history. There is no history of diabetes in the family. SOCIAL HISTORY: The patient is a continued pack a day smoker. She denies any alcohol or drug use. She states that her sister, Shereen Fischer would be her healthcare proxy. REVIEW OF SYSTEMS: A 14-point review of systems was completed with Ms. Nash and all those not mentioned above were negative. PHYSICAL EXAMINATION GENERAL: Ms. Nash is lying on her stomach in the bed. She is in no acute distress. She is initially drowsy, but awakens well after I speak with her for a few minutes. VITAL SIGNS: Temperature 101, pulse rate 103, respiratory rate 28, O2 saturation 98% on room air, and blood pressure 119/57. LUNGS: Clear to auscultation bilaterally with no accessory muscle use and good aeration. HEART: S1 and S2. No murmur, rub, or gallop and regular. ABDOMEN: Soft and nontender with bowel sounds positive x4. The patient does have flank pain to palpation along the left back at the CVA point. EXTREMITIES: No cyanosis or edema. NEURO: She moves all extremities equally. There is no facial asymmetry or focal weakness. She is oriented x3. Pupils are equal and reactive. SKIN: Intact. DIAGNOSTIC STUDIES/LAB DATA: WBC 8.8, hemoglobin 13.0, hematocrit 39, platelet count 175. INR 0.98. Blood glucose shows pH 7.28, pCO2 of 38, pO2 of 23, bicarbonate 17. Sodium 130, potassium 4.0, chloride 100, serum bicarbonate 15, anion gap 15, BUN 10, creatinine 0.61, glucose 237. Alk phos 125, CRP 287.09. Beta hCG is negative. Urine shows no bacteria, no leuk esterase, and no nitrites. The CT abdomen and pelvis is read as follows: "Mild soft tissue edema surrounding the left kidney concerning for potential left pyelonephritis, correlate with urinalysis, negative for urolithiasis or hydronephrosis. ASSESSMENT: Ms. Nash is a 41-year-old female with a past medical history of diabetes, who presents to the hospital today with left flank pain and fever who has been found to have diabetic ketoacidosis and sepsis secondary to pyelonephritis. Our plans are for inpatient admission as I expect her length of stay to be greater than 2 days for the followin. Diabetic ketoacidosis: The patient will be admitted to the intensive care unit. She will be given 3 L of IV fluid and then on to normal saline at 250 mL per hour. When her blood glucose is consistently below 250, she will switch over to D5 half normal saline. I think she needs this aggressive hydration despite her reasonably low blood sugar based on her anion gap and her sepsis. She will have regular insulin infusion per protocol with adjustment based on q.1 hour blood sugars. She will have a basic metabolic panel q.4 hours until her anion gap is closed. I will monitor her potassium closely. She will have sips of clears only now until she is off the insulin drip. 2. Sepsis secondary to pyelonephritis. CT of the abdomen shows soft tissue edema about the left kidney. The patient has a positive urinalysis from with Escherichia coli. It does show sensitivity to nitrofurantoin, but certainly the patient shows evidence of persistent infection despite her normal UA today. Plan to treat with ceftriaxone. Her lactic acid is normal. She will be given 30 mL/kg fluid. The patient will have morphine p.r.n. for pain. 3. DVT prophylaxis with SCDs given her low risk. TIME SPENT: Approximately 75 minutes were spent on the admission of this patient, more than half the time spent with the patient at the bedside reviewing the events leading up to this hospitalization, performing the physical examination, and reviewing my plan of care. KATERINA KOENIG NP [id number]/[facility] #: [id number] JEAN
[2017-07-04] MEDS: Nicotine Patch Removal NOTE PATCH OFF SCH (20:44)
[2017-07-04] MEDS: Acetaminophen TAB* 325 MG PO PRN (21:00)
[2017-07-04] MEDS: Heparin VIAL(*) 5000 UNITS/ML VIAL (FIVE THOUSAND) SUBCUT SCH (21:01)
[2017-07-04] MEDS: Insulin LISPRO* 1 UNITS UNIT SUBCUT SCH (21:12)
[2017-07-04] MEDS: NS 0.9% 1000 ML* 1,000 ML IV SCH (22:10)
[2017-07-05] MEDS: Insulin LISPRO* 1 UNITS UNIT SUBCUT SCH ×6 (01:01→21:57)
[2017-07-05] MEDS: NS 0.9% 1000 ML* 1,000 ML IV SCH ×4 (01:30→13:57)
[2017-07-05] MEDS: Morphine INJ* 4 MG/ML 1 ML CARPUJECT IV PRN ×4 (03:30→21:12)
[2017-07-05] MEDS: Acetaminophen TAB* 325 MG PO PRN ×4 (04:28→21:57)
[2017-07-05] MEDS: Heparin VIAL(*) 5000 UNITS/ML VIAL (FIVE THOUSAND) SUBCUT SCH ×3 (05:03→21:57)
[2017-07-05 06:15] LABS: EGFR Non-African American 207.3 (>60)
[2017-07-05] MEDS: Insulin GLARGINE(*) 1 UNITS UNIT SUBCUT SCH ×2 (06:58→18:06)
[2017-07-05] MEDS: Nicotine PATCH 14 MG/24 HR* PATCH TRANSDERM SCH (10:30)
--- NOTE | 2017-07-05 10:39 | PN ---
Subjective Date of Service: 07/05/17 Interval History: Patient seen and examined. Sleepy, c/o back and flank pain, no n/v, no headache , no SOB, no chest pain, no urinary complaints. Sugars improved with IVF, states she has overnight sweats and chills. Objective Active Medications: Acetaminophen (Tylenol Tab*) 650 mg PO Q6H PRN PRN Reason: pain/fever Last Admin: 07/05/17 10:12 Dose: 650 mg Device (Nicotine Mouth Piece*) 1 each INH .USE WITH NICOTROL PRN PRN Reason: CRAVING Dextrose (D50w Syringe 50 Ml*) 12.5 gm IV PUSH .FOR FS < 60 - SS PRN PRN Reason: FS < 60 Heparin Sodium (Porcine) (Heparin Vial(*)) 5,000 units SUBCUT Q8HR [facility] Last Admin: 07/05/17 05:03 Dose: 5,000 units Ceftriaxone Sodium 1 gm/ (Sodium Chloride) 50 mls @ 200 mls/hr IVPB Q24H [facility] Potassium Chloride/Dextrose (D5w 1/2 Ns 40 Meq Kcl 1000 Ml*) 1,000 mls @ 75 mls /hr IV PER RATE [facility] Last Admin: 07/04/17 18:31 Dose: 75 mls/hr Sodium Chloride (Ns 0.9% 1000 Ml*) 1,000 mls @ 300 mls/hr IV PER RATE [facility] Stop: 07/07/17 01:19 Last Admin: 07/05/17 10:27 Dose: 300 mls/hr Sodium Chloride (Ns 0.9% 1000 Ml*) 1,000 mls @ 150 mls/hr IV PER RATE [facility] Stop: 07/05/17 15:24 Insulin Glargine (Lantus(*)) 30 units SUBCUT Q12H [facility] Last Admin: 07/05/17 06:58 Dose: 30 units Insulin Human Lispro (Humalog*) 0 units SUBCUT Q4HR [facility] PRN Reason: Protocol Last Admin: 07/05/17 10:32 Dose: 1 units Morphine Sulfate (Morphine Inj (Syringe)*) 4 mg IV Q4H PRN PRN Reason: PAIN Last Admin: 07/05/17 10:24 Dose: 4 mg Nicotine (Nicotine Inhaler*) 10 mg INH Q2H PRN PRN Reason: CRAVING Nicotine (Nicotine Patch 14 Mg/24 Hr*) 1 patch TRANSDERM DAILY [facility] Last Admin: 07/05/17 10:30 Dose: 1 patch Ondansetron HCl (Zofran Inj*) 4 mg IV Q4H PRN PRN Reason: NAUSEA Pharmacy Profile Note (Nicotine Patch Removal Note*) 1 note PATCH OFF 2100 [facility] Last Admin: 07/04/17 20:44 Dose: Not Given Vital Signs - 8 hr 07/05/17 07/05/17 07/05/17 02:47 03:00 03:12 Temperature 99.1 F 99.5 F Pulse Rate 79 80 Respiratory 25 29 30 Rate Blood Pressure 114/68 (mmHg) O2 Sat by Pulse 93 94 Oximetry 07/05/17 07/05/17 07/05/17 03:30 04:00 04:25 Temperature 99.9 F 100.6 F 100.9 F Pulse Rate 84 78 81 Respiratory 25 31 17 Rate Blood Pressure 124/79 111/73 (mmHg) O2 Sat by Pulse 94 94 97 Oximetry 07/05/17 07/05/17 07/05/17 04:31 04:57 05:00 Temperature 101.1 F 101.5 F Pulse Rate 88 91 Respiratory 27 35 21 Rate Blood Pressure 133/80 (mmHg) O2 Sat by Pulse 98 89 Oximetry 07/05/17 07/05/17 07/05/17 05:01 05:30 06:00 Temperature 101.5 F 101.1 F 100.9 F Pulse Rate 84 90 99 Respiratory 32 27 24 Rate Blood Pressure 111/66 118/67 115/71 (mmHg) O2 Sat by Pulse 93 95 94 Oximetry 07/05/17 07/05/17 07/05/17 06:07 06:30 07:00 Temperature 100.8 F 100.4 F 100.2 F Pulse Rate 90 88 86 Respiratory 28 7 29 Rate Blood Pressure 109/68 109/64 (mmHg) O2 Sat by Pulse 96 94 94 Oximetry 07/05/17 07/05/17 07/05/17 07:30 08:00 08:20 Temperature 100.2 F 100.6 F 100.8 F Pulse Rate 96 85 84 Respiratory 25 29 35 Rate Blood Pressure 112/68 119/72 (mmHg) O2 Sat by Pulse 96 92 93 Oximetry 07/05/17 07/05/17 07/05/17 08:30 09:00 09:30 Temperature 100.8 F 101.1 F 101.8 F Pulse Rate 89 95 87 Respiratory 29 20 12 Rate Blood Pressure 115/57 118/76 121/70 (mmHg) O2 Sat by Pulse 92 96 95 Oximetry 07/05/17 07/05/17 07/05/17 09:58 10:00 10:02 Temperature 102.4 F 102.4 F 102.4 F Pulse Rate 92 106 105 Respiratory 42 24 24 Rate Blood Pressure 125/71 (mmHg) O2 Sat by Pulse 95 97 97 Oximetry 07/05/17 10:24 Temperature Pulse Rate Respiratory 22 Rate Blood Pressure (mmHg) O2 Sat by Pulse Oximetry Oxygen Devices in Use Now: None Eyes: No Scleral Icterus, PERRLA Ears/Nose/Mouth/Throat: NL Teeth, Lips, Gums, - - dry oral mucosa Neck: NL Appearance and Movements; NL JVP, Trachea Midline Respiratory: Symmetrical Chest Expansion and Respiratory Effort, Clear to Auscultation Cardiovascular: NL Sounds; No Murmurs; No JVD, No Edema Abdominal: NL Sounds; No Tenderness; No Distention, No Hepatosplenomegaly Extremities: No Edema, No Clubbing, Cyanosis Skin: No Rash or Ulcers Neurological: Alert and Oriented x 3, NL Sensation, NL Muscle Strength and Tone Nutrition: Taking PO's Result Diagrams: 07/04/17 12:55 07/05/17 05:50 Additional Lab and Data: Lab Results 07/04/17 07/04/17 07/04/17 Range/Units 12:44 12:55 12:55 WBC (3.5-10.8) 10^3/ul RBC (4.0-5.4) 10^6/ul Hgb (12.0-16.0) g/dl Hct (35-47) % MCV (80-97) fL MCH (27-31) pg MCHC (31-36) g/dl RDW (10.5-15) % Plt Count (150-450) 10^3/ul MPV (7.4-10.4) um3 Neut % (Auto) (38-83) % Lymph % (Auto) (25-47) % Ashe % (Auto) (1-9) % Eos % (Auto) (0-6) % Baso % (Auto) (0-2) % Absolute Neuts (auto) (1.5-7.7) 10^3/ul Absolute Lymphs (auto) (1.0-4.8) 10^3/ul Absolute Monos (auto) (0-0.8) 10^3/ul Absolute Eos (auto) (0-0.6) 10^3/ul Absolute Basos (auto) (0-0.2) 10^3/ul Absolute Nucleated RBC 10^3/ul Nucleated RBC % INR (Anticoag Therapy) 0.98 (0.77-1.02) APTT 23.0 L (26.0-36.3) seconds VBG pH 7.28 L (7.33-7.43) VBG pCO2 38 L (41-51) mmHg VBG pO2 23 L (35-45) mmHg VBG HCO3 17.0 L (24-28) mmol/L VBG O2 Saturation 43.0 L (70-80) % VBG Base Excess -8.2 L (0-4) Sodium 130 L (133-145) mmol/L Potassium 4.0 (3.5-5.0) mmol/L Chloride 100 L (101-111) mmol/L Carbon Dioxide 15 L (22-32) mmol/L Anion Gap 15 H (2-11) mmol/L BUN 10 (6-24) mg/dL Creatinine 0.61 (0.51-0.95) mg/dL Est GFR ( Amer) 140.4 (>60) Est GFR (Non-Af Amer) 109.2 (>60) BUN/Creatinine Ratio 16.4 (8-20) Glucose 237 H (70-100) mg/dL POC Glucose (mg/dL) (70-100) mg/dL Lactic Acid (0.5-2.0) mmol/L Calcium 8.5 L (8.6-10.3) mg/dL Total Bilirubin 0.40 (0.2-1.0) mg/dL AST 26 (13-39) U/L ALT 37 (7-52) U/L Alkaline Phosphatase 125 H (34-104) U/L Troponin I 0.03 (<0.04) ng/mL C-Reactive Protein 287.09 H (< 5.00) mg/L Total Protein 6.8 (6.4-8.9) g/dL Albumin 3.3 (3.2-5.2) g/dL Globulin 3.5 (2-4) g/dL Albumin/Globulin Ratio 0.9 L (1-3) Lipase < 10 L (11.0-82.0) U/L Beta HCG, Quant < 0.60 mIU/mL Urine Color Urine Appearance Urine pH (5-9) Ur Specific [place] (1.010-1.030) Urine Protein (Negative) Urine Ketones (Negative) Urine Blood (Negative) Urine Nitrate (Negative) Urine Bilirubin (Negative) Urine Urobilinogen (Negative) Ur Leukocyte Esterase (Negative) Urine WBC (Auto) (Absent) Urine RBC (Auto) (Absent) Urine Bacteria (Absent) Urine Glucose (Negative) 07/04/17 07/04/17 07/04/17 Range/Units 12:55 12:55 13:00 WBC 8.8 (3.5-10.8) 10^3/ul RBC 3.93 L (4.0-5.4) 10^6/ul Hgb 13.0 (12.0-16.0) g/dl Hct 39 (35-47) % MCV 99 H (80-97) fL MCH 33 H (27-31) pg MCHC 33 (31-36) g/dl RDW 13 (10.5-15) % Plt Count 175 (150-450) 10^3/ul MPV 8 (7.4-10.4) um3 Neut % (Auto) 80.0 (38-83) % Lymph % (Auto) 9.5 L (25-47) % Ashe % (Auto) 10.3 H (1-9) % Eos % (Auto) 0 (0-6) % Baso % (Auto) 0.2 (0-2) % Absolute Neuts (auto) 7.1 (1.5-7.7) 10^3/ul Absolute Lymphs (auto) 0.8 L (1.0-4.8) 10^3/ul Absolute Monos (auto) 0.9 H (0-0.8) 10^3/ul Absolute Eos (auto) 0 (0-0.6) 10^3/ul Absolute Basos (auto) 0 (0-0.2) 10^3/ul Absolute Nucleated RBC 0 10^3/ul Nucleated RBC % 0 INR (Anticoag Therapy) (0.77-1.02) APTT (26.0-36.3) seconds VBG pH (7.33-7.43) VBG pCO2 (41-51) mmHg VBG pO2 (35-45) mmHg VBG HCO3 (24-28) mmol/L VBG O2 Saturation (70-80) % VBG Base Excess (0-4) Sodium (133-145) mmol/L Potassium (3.5-5.0) mmol/L Chloride (101-111) mmol/L Carbon Dioxide (22-32) mmol/L Anion Gap (2-11) mmol/L BUN (6-24) mg/dL Creatinine (0.51-0.95) mg/dL Est GFR ( Amer) (>60) Est GFR (Non-Af Amer) (>60) BUN/Creatinine Ratio (8-20) Glucose (70-100) mg/dL POC Glucose (mg/dL) (70-100) mg/dL Lactic Acid 0.7 (0.5-2.0) mmol/L Calcium (8.6-10.3) mg/dL Total Bilirubin (0.2-1.0) mg/dL AST (13-39) U/L ALT (7-52) U/L Alkaline Phosphatase (34-104) U/L Troponin I (<0.04) ng/mL C-Reactive Protein (< 5.00) mg/L Total Protein (6.4-8.9) g/dL Albumin (3.2-5.2) g/dL Globulin (2-4) g/dL Albumin/Globulin Ratio (1-3) Lipase (11.0-82.0) U/L Beta HCG, Quant mIU/mL Urine Color Yellow Urine Appearance Clear Urine pH 6.0 (5-9) Ur Specific [place] 1.020 (1.010-1.030) Urine Protein 2+(100 mg/dl) H (Negative) Urine Ketones 2+ H (Negative) Urine Blood 2+ H (Negative) Urine Nitrate Negative (Negative) Urine Bilirubin Negative (Negative) Urine Urobilinogen Positive H (Negative) Ur Leukocyte Esterase Negative (Negative) Urine WBC (Auto) Trace(0-5/hpf) (Absent) Urine RBC (Auto) 2+(6-10/hpf) H (Absent) Urine Bacteria Absent (Absent) Urine Glucose 3+(>=500 mg/dl) H (Negative) 07/04/17 Range/Units 16:17 WBC (3.5-10.8) 10^3/ul RBC (4.0-5.4) 10^6/ul Hgb (12.0-16.0) g/dl Hct (35-47) % MCV (80-97) fL MCH (27-31) pg MCHC (31-36) g/dl RDW (10.5-15) % Plt Count (150-450) 10^3/ul MPV (7.4-10.4) um3 Neut % (Auto) (38-83) % Lymph % (Auto) (25-47) % Ashe % (Auto) (1-9) % Eos % (Auto) (0-6) % Baso % (Auto) (0-2) % Absolute Neuts (auto) (1.5-7.7) 10^3/ul Absolute Lymphs (auto) (1.0-4.8) 10^3/ul Absolute Monos (auto) (0-0.8) 10^3/ul Absolute Eos (auto) (0-0.6) 10^3/ul Absolute Basos (auto) (0-0.2) 10^3/ul Absolute Nucleated RBC 10^3/ul Nucleated RBC % INR (Anticoag Therapy) (0.77-1.02) APTT (26.0-36.3) seconds VBG pH (7.33-7.43) VBG pCO2 (41-51) mmHg VBG pO2 (35-45) mmHg VBG HCO3 (24-28) mmol/L VBG O2 Saturation (70-80) % VBG Base Excess (0-4) Sodium (133-145) mmol/L Potassium (3.5-5.0) mmol/L Chloride (101-111) mmol/L Carbon Dioxide (22-32) mmol/L Anion Gap (2-11) mmol/L BUN (6-24) mg/dL Creatinine (0.51-0.95) mg/dL Est GFR ( Amer) (>60) Est GFR (Non-Af Amer) (>60) BUN/Creatinine Ratio (8-20) Glucose (70-100) mg/dL POC Glucose (mg/dL) 245 H (70-100) mg/dL Lactic Acid (0.5-2.0) mmol/L Calcium (8.6-10.3) mg/dL Total Bilirubin (0.2-1.0) mg/dL AST (13-39) U/L ALT (7-52) U/L Alkaline Phosphatase (34-104) U/L Troponin I (<0.04) ng/mL C-Reactive Protein (< 5.00) mg/L Total Protein (6.4-8.9) g/dL Albumin (3.2-5.2) g/dL Globulin (2-4) g/dL Albumin/Globulin Ratio (1-3) Lipase (11.0-82.0) U/L Beta HCG, Quant mIU/mL Urine Color Urine Appearance Urine pH (5-9) Ur Specific [place] (1.010-1.030) Urine Protein (Negative) Urine Ketones (Negative) Urine Blood (Negative) Urine Nitrate (Negative) Urine Bilirubin (Negative) Urine Urobilinogen (Negative) Ur Leukocyte Esterase (Negative) Urine WBC (Auto) (Absent) Urine RBC (Auto) (Absent) Urine Bacteria (Absent) Urine Glucose (Negative) Microbiology and Other Data: Microbiology 07/04/17 17:15 Nasal Screen MRSA (PCR)(PRACHI) - Final Nasal Mrsa Negative Diagnostic Imaging: Patient Name: SHAWN ZHOU Medical Record#: [id number] Ordering Physician: Cl Gates MD Acct.#: [id number] : 1975 Age: 41 Sex: F Location: EMERGENCY DEPARTMENT Exam Date: 07/04/17 1211 ADM Status: REG ER Order Information: CT ABD/PEL W/O Accession Number: [id number] CPT: 67200 INDICATION: Bilateral flank pain. Recent UTI. Diabetic. COMPARISON: April 29, 2014 TECHNIQUE: Multidetector CT images were obtained from the lung bases to the ischial tuberosities. Evaluation of the viscera is limited without IV contrast. Multiplanar reformation. REPORT: Minimal dependent basilar atelectasis. Mildly enlarged 19.7 cm cephalocaudal liver without additional CT abnormality within limits of noncontrast exam. No CT abnormality of the unenhanced gallbladder, pancreas, or spleen. Negative for CT abnormality of the upper GI, small bowel, appendix visualized along the RIGHT pelvic sidewall, or colon. Moderate volume of stool in the colon. Physiologic small volume of free fluid in the dependent pelvis. Negative for free air or significant hernias. Unremarkable adrenal glands. Mild edema in the LEFT perinephric fat. No renal or ureteral stones evident. Negative for hydronephrosis. Pelvic phleboliths noted. Unremarkable anteverted uterus and adnexal regions. Multiple pelvic surgical clips. Negative for lymphadenopathy. Normal diameter abdominal aorta and iliac arteries with mild calcific plaque. Physiologic distention of the IVC. Negative for suspicious osseous lesions. IMPRESSION: Mild soft tissue edema surrounding the LEFT kidney concerning for potential LEFT pyelonephritis. Correlate with urinalysis. Negative for urolithiasis or hydronephrosis. <Electronically signed by Erick Robbins MD in [place]> 07/04/17 1336 Dictated By: Erick Robbins MD Dictated Date/Time: 07/04/17 1336 Transcribed Date/Time: 07/04/17 1328 Copy to: CC:Percy Zurita MD; Cl Gates MD Imaging - [facility] Imaging - [place] [facility] - [facility] [address] [address] ph [phone] ph [phone] ph [phone]) 1 of 1 Assess/Plan/Problems-Billing Assessment: - Patient Problems (1) Pyelonephritis Code(s): N12 - TUBULO-INTERSTITIAL NEPHRITIS, NOT SPCF ACUTE OR CHRONIC SNOMED Code(s): 80923076 Comment: - Failed outpatient tx for UTI - Pending consult with Dr. Cassidy - Continue ceftriaxone for now - trend temps and WBCs - Morphine PRN pain (2) Ketoacidosis in insulin-dependent diabetes mellitus without coma Code(s): E11.10 - TYPE 2 DIABETES MELLITUS WITH KETOACIDOSIS WITHOUT COMA; Z79.4 - MDS RN (CURRENT) USE OF INSULIN SNOMED Code(s): 28209737 Comment: - s/p 3L IVNS for fluid resuscitation - Continue 4th bag IVNS at 150ml per hour, gap was 15 now 6 - VBG at 1300 - Last BG 138 - Insulin drip DCd last night - continue to monitor BG Q4 h with long acting insulin with SS coverage (3) Urinary tract infection Comment: - Failed outpatient tx - Continue ceftriaxone (4) Fever Code(s): R50.9 - FEVER, UNSPECIFIED SNOMED Code(s): 331948277 Comment: - 2/2 Pyelo/UTI - Tylenol PRN - Continue IVF - Supportive care (5) Tachycardia Code(s): R00.0 - TACHYCARDIA, UNSPECIFIED SNOMED Code(s): 7050155 Comment: - 2/2 Fever and dehydration - Tylenol PRN - Continue fluids - Telemetry monitoring Status and Disposition: Remain inpatient for IVF and antibiotic therapy. Counseling and/or Coordination of Care Minutes: Coordinated with patient and staff. Time spent >45mins
[2017-07-05] MEDS: cefTRIAXone(*) 1 GM in NS 0.9% 50 ML* 50 ML IVPB SCH (12:50)
[2017-07-05] MEDS: Nicotine Patch Removal NOTE PATCH OFF SCH (21:15)
[2017-07-06] MEDS: Morphine INJ* 4 MG/ML 1 ML CARPUJECT IV PRN ×3 (01:14→17:13)
[2017-07-06] MEDS: Insulin LISPRO* 1 UNITS UNIT SUBCUT SCH ×6 (01:19→23:18)
[2017-07-06] MEDS: Acetaminophen TAB* 325 MG PO PRN ×3 (03:53→20:35)
[2017-07-06] MEDS: Heparin VIAL(*) 5000 UNITS/ML VIAL (FIVE THOUSAND) SUBCUT SCH ×3 (06:21→23:17)
[2017-07-06] MEDS: Insulin GLARGINE(*) 1 UNITS UNIT SUBCUT SCH ×2 (08:03→17:50)
[2017-07-06] MEDS: Nicotine PATCH 14 MG/24 HR* PATCH TRANSDERM SCH (08:03)
--- NOTE | 2017-07-06 12:03 | PN ---
Subjective Date of Service: 07/06/17 Interval History: Ms. Zhou states that she feels about the same. Her biggest complaint today is of a persistent headache. She continues to have some left flank pain but it is less. She denies chest pain or SOB. She is tolerating oral intake. Objective Active Medications: Acetaminophen (Tylenol Tab*) 650 mg PO Q6H PRN Device (Nicotine Mouth Piece*) 1 each INH .USE WITH NICOTROL PRN Dextrose (D50w Syringe 50 Ml*) 12.5 gm IV PUSH .FOR FS < 60 - SS PRN Heparin Sodium (Porcine) (Heparin Vial(*)) 5,000 units SUBCUT Q8HR [facility] Ceftriaxone Sodium 1 gm/ (Sodium Chloride) 50 mls @ 200 mls/hr IVPB Q24H [facility] Sodium Chloride (Ns 0.9% 1000 Ml*) 1,000 mls @ 300 mls/hr IV PER RATE [facility] Insulin Glargine (Lantus(*)) 30 units SUBCUT Q12H [facility] Insulin Human Lispro (Humalog*) 0 units SUBCUT Q4HR [facility] Morphine Sulfate (Morphine Inj (Syringe)*) 4 mg IV Q4H PRN Nicotine (Nicotine Inhaler*) 10 mg INH Q2H PRN Nicotine (Nicotine Patch 14 Mg/24 Hr*) 1 patch TRANSDERM DAILY [facility] Ondansetron HCl (Zofran Inj*) 4 mg IV Q4H PRN Pharmacy Profile Note (Nicotine Patch Removal Note*) 1 note PATCH OFF 2100 [facility] Vital Signs: Temp Pulse Resp BP Pulse Ox 102.0 F 97 22 115/80 95 07/06/17 11:00 07/06/17 11:00 07/06/17 11:00 07/06/17 11:00 07/06/17 11:00 Oxygen Devices in Use Now: None, Nasal Cannula, Other - Wears NC when sleeping Appearance: Female lying in bed, appears tired but in no acute distress Eyes: No Scleral Icterus Ears/Nose/Mouth/Throat: Mucous Membranes Moist Neck: Trachea Midline Respiratory: Symmetrical Chest Expansion and Respiratory Effort, Clear to Auscultation Cardiovascular: NL Sounds; No Murmurs; No JVD, No Edema Abdominal: NL Sounds; No Tenderness; No Distention Lymphatic: No Cervical Adenopathy Extremities: No Edema Skin: No Rash or Ulcers Neurological: NL Muscle Strength and Tone, - - Drowsy but oriented x 3 and appropriate in conversation, follows all commands Nutrition: Taking PO's Result Diagrams: 07/06/17 12:40 07/06/17 12:40 Additional Lab and Data: . Microbiology and Other Data: . Diagnostic Imaging: Patient Name: SHAWN ZHOU Medical Record#: [id number] Ordering Physician: Cl Gates MD Acct.#: [id number] : 1975 Age: 41 Sex: F Location: EMERGENCY DEPARTMENT Exam Date: 07/04/17 1211 ADM Status: REG ER Order Information: CT ABD/PEL W/O Accession Number: [id number] CPT: 54682 INDICATION: Bilateral flank pain. Recent UTI. Diabetic. COMPARISON: April 29, 2014 TECHNIQUE: Multidetector CT images were obtained from the lung bases to the ischial tuberosities. Evaluation of the viscera is limited without IV contrast. Multiplanar reformation. REPORT: Minimal dependent basilar atelectasis. Mildly enlarged 19.7 cm cephalocaudal liver without additional CT abnormality within limits of noncontrast exam. No CT abnormality of the unenhanced gallbladder, pancreas, or spleen. Negative for CT abnormality of the upper GI, small bowel, appendix visualized along the RIGHT pelvic sidewall, or colon. Moderate volume of stool in the colon. Physiologic small volume of free fluid in the dependent pelvis. Negative for free air or significant hernias. Unremarkable adrenal glands. Mild edema in the LEFT perinephric fat. No renal or ureteral stones evident. Negative for hydronephrosis. Pelvic phleboliths noted. Unremarkable anteverted uterus and adnexal regions. Multiple pelvic surgical clips. Negative for lymphadenopathy. Normal diameter abdominal aorta and iliac arteries with mild calcific plaque. Physiologic distention of the IVC. Negative for suspicious osseous lesions. IMPRESSION: Mild soft tissue edema surrounding the LEFT kidney concerning for potential LEFT pyelonephritis. Correlate with urinalysis. Negative for urolithiasis or hydronephrosis. <Electronically signed by Erick Robbins MD in [facility]> 07/04/17 1336 Dictated By: Erick Robbins MD Dictated Date/Time: 07/04/17 1336 Transcribed Date/Time: 07/04/17 1328 Copy to: Assess/Plan/Problems-Billing Assessment: Ms. Zhou is a 41 yo female with a PMH of DM with frequent episodes of DKA who was admitted on 07/04/17 with DKA with sepsis secondary to pyelonephritis. - Patient Problems (1) Sepsis Comment: - Persistent fevers with tachypnea. - Continue to suspect secondary to pyelonephritis, continue ceftriaxone awaiting ID consult. - Will check cxray now to r/o pneumonia, pleural effusions. (2) DKA (diabetic ketoacidoses) Comment: - Resolved. - BGs 60-70 this AM. Decrease lantus, suspect patient with less oral intake while ill and inpatient. Continue lispro SSI coverage with meals. - Consistent carb diet. (3) Pyelonephritis Comment: - Persistent fevers. - Failed outpatient tx with nitrofurantoin for UTI. - CT with mild soft tissue edema around left kidney only. - Pending consult with Dr. Cassidy. - Continue ceftriaxone. - Morphine PRN pain. (4) DVT prophylaxis Comment: - SQ Heparin (5) Full code status Status and Disposition: Remain inpatient for IVF and antibiotic therapy. Transfer to medical floor.
[2017-07-06] MEDS: cefTRIAXone(*) 1 GM in NS 0.9% 50 ML* 50 ML IVPB SCH (12:10)
[2017-07-06 13:08] LABS: ABS Basophils 0 10^3/ul (0-0.2); ABS Eosinophils 0 10^3/ul (0-0.6); ABS Lymphocytes 1.1 10^3/ul (1.0-4.8); ABS Monocytes 0.5 10^3/ul (0-0.8); ABS Neutrophils 4.9 10^3/ul (1.5-7.7); ABS Nucleated RBC 0 10^3/ul; Eosinophil % 0.2 % (0-6); Hematocrit 33 % (35-47); Hemoglobin 11.2 g/dl (12.0-16.0); Lymphocyte % 16.6 % (25-47); Mean Corpuscular HGB Conc 34 g/dl (31-36); Mean Corpuscular Hemoglobin 33 pg (27-31); Mean Corpuscular Volume 97 fL (80-97); Mean Platelet Volume 8 um3 (7.4-10.4); Nucleated Red Blood Cells % 0; Platelet Count 171 10^3/ul (150-450); Red Blood Count 3.36 10^6/ul (4.0-5.4); Red Cell Distribution Width 13 % (10.5-15); White Blood Count 6.5 10^3/ul (3.5-10.8)
[2017-07-06 13:20] LABS: EGFR Non-African American 172.7 (>60)
--- NOTE | 2017-07-06 13:34 | RAD ---
INDICATION: Hypoxia COMPARISON: Most recent comparison chest x-ray is dated May 14, 2016 TECHNIQUE: Single AP portable view of the chest was obtained. FINDINGS: Image quality is compromised due to the relative inferiority of a portable chest x-ray. The heart and mediastinum exhibit normal size and contour. Faint densities obscuring the bilateral lower lungs not seen on the previous chest x-ray. Otherwise the lungs are grossly clear. There is no evidence of a large pleural effusion. Visualized bones are normal for the patient's age. IMPRESSION: Faint density seen in the bilateral lung bases could be seen in the setting of mild pulmonary edema or may simply be the consequence of the relatively poor penetration of portable chest x-ray.
[2017-07-06] MEDS: Nicotine Patch Removal NOTE PATCH OFF SCH (22:26)
[2017-07-07] MEDS: Insulin LISPRO* 1 UNITS UNIT SUBCUT SCH ×6 (02:11→21:45)
[2017-07-07] MEDS: Acetaminophen TAB* 325 MG PO PRN ×2 (04:15→17:29)
[2017-07-07] MEDS: Morphine INJ* 4 MG/ML 1 ML CARPUJECT IV PRN ×3 (05:22→21:45)
[2017-07-07] MEDS: Insulin GLARGINE(*) 1 UNITS UNIT SUBCUT SCH ×2 (05:35→17:22)
[2017-07-07] MEDS: Heparin VIAL(*) 5000 UNITS/ML VIAL (FIVE THOUSAND) SUBCUT SCH ×3 (05:36→21:45)
[2017-07-07] MEDS: Nicotine PATCH 14 MG/24 HR* PATCH TRANSDERM SCH (08:50)
[2017-07-07] MEDS: Ondansetron INJ* 2 MG/ML VIAL IV PRN ×2 (11:00→17:22)
[2017-07-07] MEDS ORDERED: Metoclopramide IV* 5 MG/ML 2 ML VIAL IV PRN (11:42)
[2017-07-07] MEDS: D5W 1/2 NS 1000 ML BAG* 1,000 ML IV SCH (11:53)
[2017-07-07] MEDS: cefTRIAXone(*) 1 GM in NS 0.9% 50 ML* 50 ML IVPB SCH (11:53)
--- NOTE | 2017-07-07 19:07 | PN ---
Subjective Date of Service: 07/07/17 Interval History: Patient seen and examined. Intermittent vomiting today with headache. Unable to keep much down, sugars labile. No fever, no chills, pain improved. Overall malaise, less fatigue. No SOB, no chest pain. No further complaints. Objective Active Medications: Acetaminophen (Tylenol Tab*) 650 mg PO Q6H PRN PRN Reason: pain/fever Last Admin: 07/07/17 17:29 Dose: 650 mg Device (Nicotine Mouth Piece*) 1 each INH .USE WITH NICOTROL PRN PRN Reason: CRAVING Dextrose (D50w Syringe 50 Ml*) 12.5 gm IV PUSH .FOR FS < 60 - SS PRN PRN Reason: FS < 60 Heparin Sodium (Porcine) (Heparin Vial(*)) 5,000 units SUBCUT Q8HR [facility] Last Admin: 07/07/17 13:27 Dose: 5,000 units Ceftriaxone Sodium 1 gm/ (Sodium Chloride) 50 mls @ 200 mls/hr IVPB Q24H [facility] Last Admin: 07/07/17 11:53 Dose: 200 mls/hr Dextrose/Sodium Chloride (D5w 1/2 Ns 1000 Ml Bag*) 1,000 mls @ 75 mls/hr IV PER RATE [facility] Last Admin: 07/07/17 11:53 Dose: 75 mls/hr Insulin Glargine (Lantus(*)) 25 units SUBCUT Q12H [facility] Last Admin: 07/07/17 17:22 Dose: 25 units Insulin Human Lispro (Humalog*) 0 units SUBCUT Q4HR [facility] PRN Reason: Protocol Last Admin: 07/07/17 17:22 Dose: 4 units Metoclopramide HCl (Reglan Iv*) 10 mg IV Q6H PRN PRN Reason: NAUSEA/VOMITING Last Admin: 07/07/17 11:53 Dose: 10 mg Morphine Sulfate (Morphine Inj (Syringe)*) 4 mg IV Q4H PRN PRN Reason: PAIN Last Admin: 07/07/17 11:53 Dose: 4 mg Nicotine (Nicotine Inhaler*) 10 mg INH Q2H PRN PRN Reason: CRAVING Nicotine (Nicotine Patch 14 Mg/24 Hr*) 1 patch TRANSDERM DAILY [facility] Last Admin: 07/07/17 08:50 Dose: 1 patch Ondansetron HCl (Zofran Inj*) 4 mg IV Q4H PRN PRN Reason: NAUSEA Last Admin: 07/07/17 17:22 Dose: 4 mg Pharmacy Profile Note (Nicotine Patch Removal Note*) 1 note PATCH OFF [address] [facility] Last Admin: 07/06/17 22:26 Dose: 1 note Vital Signs - 8 hr 07/07/17 07/07/17 07/07/17 11:53 12:59 13:16 Temperature 98.2 F Pulse Rate 84 Respiratory 16 16 14 Rate Blood Pressure 121/67 (mmHg) O2 Sat by Pulse 97 Oximetry 07/07/17 16:12 Temperature 98.8 F Pulse Rate 88 Respiratory 17 Rate Blood Pressure 126/72 (mmHg) O2 Sat by Pulse 86 Oximetry Oxygen Devices in Use Now: None Appearance: Alert, NAD Eyes: No Scleral Icterus, PERRLA Ears/Nose/Mouth/Throat: NL Teeth, Lips, Gums, Mucous Membranes Moist Neck: NL Appearance and Movements; NL JVP, Trachea Midline Respiratory: Symmetrical Chest Expansion and Respiratory Effort, Clear to Auscultation Cardiovascular: NL Sounds; No Murmurs; No JVD, RRR Abdominal: NL Sounds; No Tenderness; No Distention, No Hepatosplenomegaly Extremities: No Edema, No Clubbing, Cyanosis Skin: No Rash or Ulcers Neurological: Alert and Oriented x 3, NL Sensation, NL Muscle Strength and Tone Result Diagrams: 07/06/17 12:40 07/06/17 12:40 Additional Lab and Data: . Microbiology and Other Data: . Diagnostic Imaging: Patient Name: SHAWN ZHOU Medical Record#: [id number] Ordering Physician: Cl Gates MD Acct.#: [id number] : 1975 Age: 41 Sex: F Location: EMERGENCY DEPARTMENT Exam Date: 07/04/171 ADM Status: REG ER Order Information: CT ABD/PEL W/O Accession Number: [id number] CPT: 12519 INDICATION: Bilateral flank pain. Recent UTI. Diabetic. COMPARISON: April 29, 2014 TECHNIQUE: Multidetector CT images were obtained from the lung bases to the ischial tuberosities. Evaluation of the viscera is limited without IV contrast. Multiplanar reformation. REPORT: Minimal dependent basilar atelectasis. Mildly enlarged 19.7 cm cephalocaudal liver without additional CT abnormality within limits of noncontrast exam. No CT abnormality of the unenhanced gallbladder, pancreas, or spleen. Negative for CT abnormality of the upper GI, small bowel, appendix visualized along the RIGHT pelvic sidewall, or colon. Moderate volume of stool in the colon. Physiologic small volume of free fluid in the dependent pelvis. Negative for free air or significant hernias. Unremarkable adrenal glands. Mild edema in the LEFT perinephric fat. No renal or ureteral stones evident. Negative for hydronephrosis. Pelvic phleboliths noted. Unremarkable anteverted uterus and adnexal regions. Multiple pelvic surgical clips. Negative for lymphadenopathy. Normal diameter abdominal aorta and iliac arteries with mild calcific plaque. Physiologic distention of the IVC. Negative for suspicious osseous lesions. IMPRESSION: Mild soft tissue edema surrounding the LEFT kidney concerning for potential LEFT pyelonephritis. Correlate with urinalysis. Negative for urolithiasis or hydronephrosis. <Electronically signed by Erick Robbins MD in [place]> 07/04/17 1336 Dictated By: Erick Robbins MD Dictated Date/Time: 07/04/17 1336 Transcribed Date/Time: 07/04/17 1328 Copy to: Assess/Plan/Problems-Billing Assessment: Ms. Zhou is a 41 yo female with a PMH of DM with frequent episodes of DKA who was admitted on 07/04/17 with DKA with sepsis secondary to pyelonephritis, now with recurrent vomiting and headache. - Patient Problems (1) Pyelonephritis Code(s): N12 - TUBULO-INTERSTITIAL NEPHRITIS, NOT SPCF ACUTE OR CHRONIC SNOMED Code(s): 21603499 Comment: - Fevers improved - CT as above - Pending consult with Dr. Cassidy/ID, continue ceftriaxone. 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 SNOMED Code(s): 72487864 Comment: - Resolved with fluid resuscitation in ICU - Started D51/2NS as patient is vomiting and not tolerating PO - continue insulin regimen and BG AC and HS (3) Urinary tract infection Comment: - Failed outpatient tx with macrobid - Continue ceftriaxone (4) Fever Code(s): R50.9 - FEVER, UNSPECIFIED SNOMED Code(s): 129808273 Comment: - resolved (5) Tachycardia Code(s): R00.0 - TACHYCARDIA, UNSPECIFIED SNOMED Code(s): 3543059 Comment: - resolved (6) Nausea & vomiting Code(s): R11.2 - NAUSEA WITH VOMITING, UNSPECIFIED SNOMED Code(s): 39215468 Comment: - alternate zofran and reglan Status and Disposition: Remain inpatient for atbx and diabetic care. Counseling and/or Coordination of Care Minutes: coordinated with patient and staff
[2017-07-07] MEDS: Nicotine Patch Removal NOTE PATCH OFF SCH (21:46)
[2017-07-08] MEDS: Ondansetron INJ* 2 MG/ML VIAL IV PRN (01:34)
[2017-07-08] MEDS: D5W 1/2 NS 1000 ML BAG* 1,000 ML IV SCH ×2 (01:34→16:35)
[2017-07-08] MEDS: Insulin LISPRO* 1 UNITS UNIT SUBCUT SCH ×6 (02:00→21:16)
[2017-07-08] MEDS: Acetaminophen TAB* 325 MG PO PRN ×2 (02:03→11:30)
[2017-07-08] MEDS: Insulin GLARGINE(*) 1 UNITS UNIT SUBCUT SCH ×2 (05:55→18:04)
[2017-07-08] MEDS: Heparin VIAL(*) 5000 UNITS/ML VIAL (FIVE THOUSAND) SUBCUT SCH ×3 (05:55→22:25)
[2017-07-08] MEDS: Nicotine PATCH 14 MG/24 HR* PATCH TRANSDERM SCH (08:49)
[2017-07-08] MEDS: cefTRIAXone(*) 1 GM in NS 0.9% 50 ML* 50 ML IVPB SCH (11:36)
--- NOTE | 2017-07-08 17:53 | PN ---
Subjective Date of Service: 07/08/17 Interval History: Patient seen and examined. Vomiting ceased. Tolerating PO intake again so sugars running higher. No chest pain, no SOB, no abdominal pain. No acute overnight events. Afebrile, no chills. Daughter at bedside for visit, patient seems much more upbeat and alert. Objective Active Medications: Acetaminophen (Tylenol Tab*) 650 mg PO Q6H PRN PRN Reason: pain/fever Last Admin: 07/08/17 11:30 Dose: 650 mg Device (Nicotine Mouth Piece*) 1 each INH .USE WITH NICOTROL PRN PRN Reason: CRAVING Dextrose (D50w Syringe 50 Ml*) 12.5 gm IV PUSH .FOR FS < 60 - SS PRN PRN Reason: FS < 60 Heparin Sodium (Porcine) (Heparin Vial(*)) 5,000 units SUBCUT Q8HR [facility] Last Admin: 07/08/17 14:26 Dose: 5,000 units Ceftriaxone Sodium 1 gm/ (Sodium Chloride) 50 mls @ 200 mls/hr IVPB Q24H [facility] Last Admin: 07/08/17 11:36 Dose: 200 mls/hr Insulin Glargine (Lantus(*)) 25 units SUBCUT Q12H [facility] Last Admin: 07/08/17 05:55 Dose: 25 units Insulin Human Lispro (Humalog*) 0 units SUBCUT Q4HR [facility] PRN Reason: Protocol Last Admin: 07/08/17 14:26 Dose: 6 units Metoclopramide HCl (Reglan Iv*) 10 mg IV Q6H PRN PRN Reason: NAUSEA/VOMITING Last Admin: 07/07/17 11:53 Dose: 10 mg Morphine Sulfate (Morphine Inj (Syringe)*) 4 mg IV Q4H PRN PRN Reason: PAIN Last Admin: 07/07/17 21:45 Dose: 4 mg Nicotine (Nicotine Inhaler*) 10 mg INH Q2H PRN PRN Reason: CRAVING Nicotine (Nicotine Patch 14 Mg/24 Hr*) 1 patch TRANSDERM DAILY [facility] Last Admin: 07/08/17 08:49 Dose: Not Given Ondansetron HCl (Zofran Inj*) 4 mg IV Q4H PRN PRN Reason: NAUSEA Last Admin: 07/08/17 01:34 Dose: 4 mg Pharmacy Profile Note (Nicotine Patch Removal Note*) 1 note PATCH OFF [address] Last Admin: 07/07/17 21:46 Dose: 1 note Vital Signs - 8 hr 07/08/17 07/08/17 09:55 15:56 Temperature 98.3 F 98.8 F Pulse Rate 69 76 Respiratory 16 16 Rate Blood Pressure 106/53 116/71 (mmHg) O2 Sat by Pulse 91 92 Oximetry Oxygen Devices in Use Now: None Appearance: Alert, NAD Eyes: No Scleral Icterus, PERRLA Ears/Nose/Mouth/Throat: NL Teeth, Lips, Gums, Mucous Membranes Moist Neck: NL Appearance and Movements; NL JVP, Trachea Midline Respiratory: Symmetrical Chest Expansion and Respiratory Effort, Clear to Auscultation Cardiovascular: NL Sounds; No Murmurs; No JVD, RRR Abdominal: NL Sounds; No Tenderness; No Distention, - - no CVA tenderness Extremities: No Edema, No Clubbing, Cyanosis Skin: No Rash or Ulcers, No Nodules or Sclerosis Neurological: Alert and Oriented x 3, NL Muscle Strength and Tone Nutrition: Taking PO's Result Diagrams: 07/06/17 12:40 07/06/17 12:40 Additional Lab and Data: . Microbiology and Other Data: . Diagnostic Imaging: Patient Name: SHAWN ZHOU Medical Record#: [id number] Ordering Physician: Cl Gates MD Acct.#: [id number] : 1975 Age: 41 Sex: F Location: EMERGENCY DEPARTMENT Exam Date: 07/04/17 1211 ADM Status: REG ER Order Information: CT ABD/PEL W/O Accession Number: [id number] CPT: 86655 INDICATION: Bilateral flank pain. Recent UTI. Diabetic. COMPARISON: April 29, 2014 TECHNIQUE: Multidetector CT images were obtained from the lung bases to the ischial tuberosities. Evaluation of the viscera is limited without IV contrast. Multiplanar reformation. REPORT: Minimal dependent basilar atelectasis. Mildly enlarged 19.7 cm cephalocaudal liver without additional CT abnormality within limits of noncontrast exam. No CT abnormality of the unenhanced gallbladder, pancreas, or spleen. Negative for CT abnormality of the upper GI, small bowel, appendix visualized along the RIGHT pelvic sidewall, or colon. Moderate volume of stool in the colon. Physiologic small volume of free fluid in the dependent pelvis. Negative for free air or significant hernias. Unremarkable adrenal glands. Mild edema in the LEFT perinephric fat. No renal or ureteral stones evident. Negative for hydronephrosis. Pelvic phleboliths noted. Unremarkable anteverted uterus and adnexal regions. Multiple pelvic surgical clips. Negative for lymphadenopathy. Normal diameter abdominal aorta and iliac arteries with mild calcific plaque. Physiologic distention of the IVC. Negative for suspicious osseous lesions. IMPRESSION: Mild soft tissue edema surrounding the LEFT kidney concerning for potential LEFT pyelonephritis. Correlate with urinalysis. Negative for urolithiasis or hydronephrosis. <Electronically signed by Erick Robbins MD in [place]> 07/04/17 1336 Dictated By: Erick Robbins MD Dictated Date/Time: 07/04/17 1336 Transcribed Date/Time: 07/04/17 1328 Copy to: Assess/Plan/Problems-Billing Assessment: Ms. Zhou is a 41 yo female with a PMH of DM with frequent episodes of DKA who was admitted on 07/04/17 with DKA with sepsis secondary to pyelonephritis, and last 24 hours with recurrent vomiting and headache which seems to be improving. - Patient Problems (1) Pyelonephritis Code(s): N12 - TUBULO-INTERSTITIAL NEPHRITIS, NOT SPCF ACUTE OR CHRONIC SNOMED Code(s): 34484703 Comment: - Fevers improved - CT as above - Pending consult with Dr. 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 SNOMED Code(s): 49817648 Comment: - Resolved with fluid resuscitation in ICU - DC D51/2NS as patient is tolerating PO and vomiting has ceased - Continue insulin regimen and BG AC and HS, BG 148 at present - DC mullen catheter - Check A1c, CBC and CMP in AM (3) Urinary tract infection Comment: - Failed outpatient tx with macrobid - Continue ceftriaxone day 5 (4) Fever Code(s): R50.9 - FEVER, UNSPECIFIED SNOMED Code(s): 626642394 Comment: - resolved (5) Tachycardia Code(s): R00.0 - TACHYCARDIA, UNSPECIFIED SNOMED Code(s): 9761284 Comment: - resolved (6) Nausea & vomiting Code(s): R11.2 - NAUSEA WITH VOMITING, UNSPECIFIED SNOMED Code(s): 13461088 Comment: - alternate zofran and reglan - improved today Status and Disposition: Remain inpatient for continued IV atbx Counseling and/or Coordination of Care Minutes: Coordinated with patient and staff.
[2017-07-08] MEDS ORDERED: Potassium Chlor TAB* 20 MEQ TAB.ER PO ONE (18:39)
[2017-07-08] MEDS: Nicotine Patch Removal NOTE PATCH OFF SCH (22:59)
[2017-07-09] MEDS: Insulin LISPRO* 1 UNITS UNIT SUBCUT SCH ×6 (01:37→21:38)
[2017-07-09] MEDS: Acetaminophen TAB* 325 MG PO PRN ×2 (03:36→09:47)
--- NOTE | 2017-07-09 03:53 | CONS ---
CONSULTATION REPORT: DATE OF CONSULT: 07/06/17 REQUESTING PHYSICIAN: Shannan Cheney NP. CONSULTING SERVICE: Infectious Disease. REASON FOR CONSULT: Fever and sepsis. IMPRESSION: 1. Left flank pain, recently diagnosed with urinary tract infection at the beginning of her illness, at which time she had a urinalysis that showed blood, leukocyte esterase, and nitrites on 07/01/17. Urine culture at that time grew E. coli, which was sensitive to everything other than ampicillin and Bactrim. She was given Macrodantin, which has good bladder penetration, but does not penetrate the kidney. Now she is here with left flank pain, sepsis, and diabetic ketoacidosis. Blood cultures are negative. She has left-sided pyelonephritis. There was no hydronephrosis, obstruction, or stone disease seen on the CT scan on 07/04/17. She has ongoing fevers despite being on ceftriaxone which is expected of pyelonephritis. 2. Neck pain, headache, myalgia secondary to infection. There is no focal spine tenderness to palpation and she does not have nuchal rigidity. 3. Diabetes, type 2, insulin dependent, admitted with anion gap acidosis. Blood sugar of 237. 4. Sepsis present on admission, ongoing due to pyelonephritis. RECOMMENDATIONS: Continue ceftriaxone 1 g a day, expect over the next 2 or 3 days her fever, overall malaise, and left-sided flank pain will gradually improve. HISTORY OF PRESENT ILLNESS: This is a 41-year-old diabetic woman admitted with fever, malaise, DKA. She was well until last week, she developed malaise, fever , aches, decreased appetite and she was seen in the ER, diagnosed with urinary tract infection and treated with Macrobid for a E. coli urinary tract infection , which she started on 07/02/17 and has taken until yesterday. She also had a positive influenza PCR and I do not see the history of Tamiflu, she cannot remember. She returned to the hospital because of worsening fever and the development of severe left flank pain on 07/03/17, persisted to 07/04/17. She had a CT scan on 07/04/17 with findings as above. She has not had a cough until today. She is going to have a chest x- ray shortly. She does not have any chest pain. The left flank pain is still improving. She has headache, neck pain, diffuse body aches which are overall improved compared to a week ago. She has had fever every few hours and was treated with insulin infusion, IV hydration. She ate some this afternoon. PAST MEDICAL HISTORY: 1. Insulin dependent diabetes. 2. Carpal tunnel syndrome. MEDICATIONS: 1. Tylenol. 2. Heparin subcutaneous injection. 3. Insulin glargine. 4. Nicotine patch. 5. Nicotine inhaler. 6. Ceftriaxone 1 g a day. ALLERGIES: BACTRIM. FAMILY HISTORY: Mother is healthy and there is no diabetes. Unclear of father' s history. SOCIAL HISTORY: She smokes a pack a day. She does not drink alcohol or use injection drugs. REVIEW OF SYSTEMS: A 14-point review of systems was negative except as noted above. PHYSICAL EXAM: Vital Signs: Temperature 38.2, heart rate 96, respiratory rate 20, blood pressure 116/79, O2 sat 95% on 2 L of oxygen. General: She is awake , not in distress. Neurologic: She is oriented x3. Follows commands. Moves all extremities. HEENT: There is no conjunctival hemorrhage. Oropharynx without lesions. Neck: Supple without nuchal rigidity. Lymph Nodes: There is no inguinal, axillary, or epitrochlear lymphadenopathy. Heart: Regular and tachycardic without murmurs. Lungs: Clear to auscultation bilaterally. Abdomen: Soft, nontender, and nondistended. There is left flank tenderness to palpation. No right flank tenderness to palpation. Skin: There is no rash or splinter hemorrhages. Musculoskeletal: There is no joint synovitis. On exam, there is cervical paraspinal muscle tenderness to palpation in left and right. There is no spine tenderness to palpation. LABORATORY DATA: Creatinine 0.4, ALT 118, alkaline phosphatase 192. CRP 145, down from 290 on 07/04/17. White blood cell count 6, hemoglobin 11, and platelets of 171,000. Please see impressions and recommendations outlined above. Thanks for asking me to see Ms. Nash in consultation. [id number]/[facility] #: [id number] [facility] CENTERElsy
[2017-07-09] MEDS: Insulin GLARGINE(*) 1 UNITS UNIT SUBCUT SCH ×2 (06:12→18:11)
[2017-07-09] MEDS: Heparin VIAL(*) 5000 UNITS/ML VIAL (FIVE THOUSAND) SUBCUT SCH ×3 (06:12→21:38)
[2017-07-09 06:59] LABS: ABS Basophils 0 10^3/ul (0-0.2); ABS Eosinophils 0.1 10^3/ul (0-0.6); ABS Lymphocytes 2.2 10^3/ul (1.0-4.8); ABS Monocytes 0.4 10^3/ul (0-0.8); ABS Neutrophils 2.5 10^3/ul (1.5-7.7); ABS Nucleated RBC 0 10^3/ul; Eosinophil % 2.8 % (0-6); Hematocrit 31 % (35-47); Hemoglobin 10.7 g/dl (12.0-16.0); Lymphocyte % 40.9 % (25-47); Mean Corpuscular HGB Conc 34 g/dl (31-36); Mean Corpuscular Hemoglobin 33 pg (27-31); Mean Corpuscular Volume 96 fL (80-97); Mean Platelet Volume 8 um3 (7.4-10.4); Nucleated Red Blood Cells % 0.1; Platelet Count 310 10^3/ul (150-450); Red Blood Count 3.25 10^6/ul (4.0-5.4); Red Cell Distribution Width 13 % (10.5-15); White Blood Count 5.3 10^3/ul (3.5-10.8)
[2017-07-09 07:26] LABS: EGFR Non-African American 137.4 (>60)
[2017-07-09] MEDS: Nicotine PATCH 14 MG/24 HR* PATCH TRANSDERM SCH (08:59)
[2017-07-09] MEDS: cefTRIAXone(*) 1 GM in NS 0.9% 50 ML* 50 ML IVPB SCH (12:19)
--- NOTE | 2017-07-09 21:22 | PN ---
Subjective Date of Service: 07/09/17 Interval History: Patient has no complaints. No Back pain, Fevers, Dysuria, N/V. Patient has no abdominal pain, constipation, diarrhea, heartburn or other gastrointestinal abnormality. Family History: Unchanged from Admission Social History: Unchanged from Admission Past Medical History: Unchanged from Admission Objective Active Medications: Acetaminophen (Tylenol Tab*) 650 mg PO Q6H PRN PRN Reason: pain/fever Last Admin: 07/09/17 09:47 Dose: 650 mg Ciprofloxacin (Cipro Tab*) 500 mg PO Q12HR [facility] Device (Nicotine Mouth Piece*) 1 each INH .USE WITH NICOTROL PRN PRN Reason: CRAVING Dextrose (D50w Syringe 50 Ml*) 12.5 gm IV PUSH .FOR FS < 60 - SS PRN PRN Reason: FS < 60 Heparin Sodium (Porcine) (Heparin Vial(*)) 5,000 units SUBCUT Q8HR [facility] Last Admin: 07/09/17 14:26 Dose: 5,000 units Insulin Glargine (Lantus(*)) 25 units SUBCUT Q12H [facility] Last Admin: 07/09/17 18:11 Dose: 25 units Insulin Human Lispro (Humalog*) 0 units SUBCUT Q4HR [facility] PRN Reason: Protocol Last Admin: 07/09/17 18:11 Dose: 2 units Metoclopramide HCl (Reglan Iv*) 10 mg IV Q6H PRN PRN Reason: NAUSEA/VOMITING Last Admin: 07/07/17 11:53 Dose: 10 mg Morphine Sulfate (Morphine Inj (Syringe)*) 4 mg IV Q4H PRN PRN Reason: PAIN Last Admin: 07/07/17 21:45 Dose: 4 mg Nicotine (Nicotine Inhaler*) 10 mg INH Q2H PRN PRN Reason: CRAVING Nicotine (Nicotine Patch 14 Mg/24 Hr*) 1 patch TRANSDERM DAILY [facility] Last Admin: 07/09/17 08:59 Dose: Not Given Ondansetron HCl (Zofran Inj*) 4 mg IV Q4H PRN PRN Reason: NAUSEA Last Admin: 07/08/17 01:34 Dose: 4 mg Pharmacy Profile Note (Nicotine Patch Removal Note*) 1 note PATCH OFF 2100 [facility] Last Admin: 07/08/17 22:59 Dose: Not Given Vital Signs - 8 hr 07/09/17 07/09/17 15:20 20:06 Temperature 98.2 F 97.8 F Pulse Rate 64 80 Respiratory 16 20 Rate Blood Pressure 131/79 113/56 (mmHg) O2 Sat by Pulse 99 95 Oximetry Oxygen Devices in Use Now: None Appearance: Patient is a 41yo female who appears stated age and is sitting in the bed in NAD. Eyes: No Scleral Icterus, PERRLA Ears/Nose/Mouth/Throat: NL Teeth, Lips, Gums, Clear Oropharnyx, Mucous Membranes Moist Neck: NL Appearance and Movements; NL JVP, Trachea Midline, No Thyroid Enlargement, Masses Respiratory: Symmetrical Chest Expansion and Respiratory Effort, Clear to Auscultation Cardiovascular: NL Sounds; No Murmurs; No JVD, RRR, No Edema Abdominal: NL Sounds; No Tenderness; No Distention, No Hepatosplenomegaly, - - Negative Delcid's sign Lymphatic: No Cervical Adenopathy Extremities: No Edema, No Clubbing, Cyanosis Skin: No Rash or Ulcers, No Nodules or Sclerosis Neurological: Alert and Oriented x 3, NL Sensation, NL Muscle Strength and Tone Result Diagrams: 07/09/17 06:50 07/09/17 06:50 Additional Lab and Data: . Microbiology and Other Data: . Diagnostic Imaging: Patient Name: SHAWN ZHOU Medical Record#: [id number] Ordering Physician: Cl Gates MD Acct.#: [id number] : 1975 Age: 41 Sex: F Location: EMERGENCY DEPARTMENT Exam Date: 07/04/17 1211 ADM Status: REG ER Order Information: CT ABD/PEL W/O Accession Number: [id number] CPT: 40370 INDICATION: Bilateral flank pain. Recent UTI. Diabetic. COMPARISON: April 29, 2014 TECHNIQUE: Multidetector CT images were obtained from the lung bases to the ischial tuberosities. Evaluation of the viscera is limited without IV contrast. Multiplanar reformation. REPORT: Minimal dependent basilar atelectasis. Mildly enlarged 19.7 cm cephalocaudal liver without additional CT abnormality within limits of noncontrast exam. No CT abnormality of the unenhanced gallbladder, pancreas, or spleen. Negative for CT abnormality of the upper GI, small bowel, appendix visualized along the RIGHT pelvic sidewall, or colon. Moderate volume of stool in the colon. Physiologic small volume of free fluid in the dependent pelvis. Negative for free air or significant hernias. Unremarkable adrenal glands. Mild edema in the LEFT perinephric fat. No renal or ureteral stones evident. Negative for hydronephrosis. Pelvic phleboliths noted. Unremarkable anteverted uterus and adnexal regions. Multiple pelvic surgical clips. Negative for lymphadenopathy. Normal diameter abdominal aorta and iliac arteries with mild calcific plaque. Physiologic distention of the IVC. Negative for suspicious osseous lesions. IMPRESSION: Mild soft tissue edema surrounding the LEFT kidney concerning for potential LEFT pyelonephritis. Correlate with urinalysis. Negative for urolithiasis or hydronephrosis. <Electronically signed by Erick Robbins MD in [place]> 07/04/17 1336 Dictated By: Erick Robbins MD Dictated Date/Time: 07/04/17 1336 Transcribed Date/Time: 07/04/17 1328 Copy to: Assess/Plan/Problems-Billing Assessment: Ms. Zhou is a 41 yo female with a PMH of DM with frequent episodes of DKA who was admitted on 07/04/17 with DKA with sepsis secondary to pyelonephritis, and last 24 hours with recurrent vomiting and headache which seems to be improving. - Patient Problems (1) Pyelonephritis Current Visit: Yes Status: Acute Code(s): N12 - TUBULO-INTERSTITIAL NEPHRITIS, NOT SPCF ACUTE OR CHRONIC SNOMED Code(s): 76417353 Comment: Was Septic, now resolved. Much improved on Ceftriaxone. Apprecaite ID consult. Switched to Ciprofloxacin for 1 week. (2) Transaminitis Current Visit: Yes Status: Acute Code(s): R74.0 - NONSPEC ELEV OF LEVELS OF TRANSAMNS & LACTIC ACID DEHYDRGNSE SNOMED Code(s): 488327210 Comment: Progressively elevated transaminases. Viral hepatitis panel ordered. Possibly due to Ceftriaxone. Will switch to Ciprofloxacin and recheck in AM. 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 HbA1c 10.4 (4) Nausea & vomiting Current Visit: Yes Status: Acute Code(s): R11.2 - NAUSEA WITH VOMITING, UNSPECIFIED SNOMED Code(s): 88410612 Comment: Improved, continue antiemetics PRN. (5) Sepsis Current Visit: Yes Status: Acute Comment: Resolved, likely due to pyelonephritis. (6) DVT prophylaxis Current Visit: No Status: Acute Priority: Medium Code(s): QSE2867 - SNOMED Code(s): 873571980 Comment: - SQ Heparin (7) Full code status Current Visit: No Status: Acute Priority: Medium Code(s): Z78.9 - OTHER SPECIFIED HEALTH STATUS SNOMED Code(s): 240101299 Status and Disposition: Inpatient, hopeful discharge tomorrow.
[2017-07-09] MEDS: Ciprofloxacin TAB* 500 MG PO SCH (21:38)
[2017-07-09] MEDS: Nicotine Patch Removal NOTE PATCH OFF SCH (21:41)
[2017-07-10] MEDS: Insulin LISPRO* 1 UNITS UNIT SUBCUT SCH ×3 (01:40→09:39)
[2017-07-10] MEDS ORDERED: Insulin GLARGINE(*) 1 UNITS UNIT ONE (05:54)
[2017-07-10] MEDS: Heparin VIAL(*) 5000 UNITS/ML VIAL (FIVE THOUSAND) SUBCUT SCH ×2 (05:59→13:52)
[2017-07-10] MEDS ORDERED: Insulin GLARGINE(*) 1 UNITS UNIT SUBCUT SCH (06:00)
[2017-07-10 08:51] LABS: ABS Basophils 0 10^3/ul (0-0.2); ABS Eosinophils 0.2 10^3/ul (0-0.6); ABS Monocytes 0.4 10^3/ul (0-0.8); ABS Neutrophils 3.4 10^3/ul (1.5-7.7); ABS Nucleated RBC 0 10^3/ul; Eosinophil % 3.1 % (0-6); Hematocrit 32 % (35-47); Lymphocyte % 33.2 % (25-47); Mean Corpuscular HGB Conc 34 g/dl (31-36); Mean Corpuscular Hemoglobin 33 pg (27-31); Mean Corpuscular Volume 97 fL (80-97); Mean Platelet Volume 8 um3 (7.4-10.4); Nucleated Red Blood Cells % 0; Platelet Count 367 10^3/ul (150-450); Red Blood Count 3.33 10^6/ul (4.0-5.4); Red Cell Distribution Width 13 % (10.5-15)
[2017-07-10] MEDS: Ciprofloxacin TAB* 500 MG PO SCH (09:10)
[2017-07-10] MEDS: Nicotine PATCH 14 MG/24 HR* PATCH TRANSDERM SCH (09:12)
[2017-07-10] MEDS: Acetaminophen TAB* 325 MG PO PRN (09:40)
[2017-07-10 12:25] VITALS: BP 122/68
[2017-07-10 13:16] LABS: EGFR Non-African American 163.5 (>60)
[2017-07-10] MEDS ORDERED: Insulin LISPRO* 1 UNITS UNIT SUBCUT SCH (16:30)
--- NOTE | 2017-07-11 12:40 | DS ---
CC: Dr. Sherman * DISCHARGE SUMMARY: DATE OF ADMISSION: 07/04/17 DATE OF DISCHARGE: 07/10/17 PRIMARY CARE PROVIDER: Dr. Sherman. MY ATTENDING WHILE IN THE HOSPITAL: Dr. Andres Roman * (DICTATED BY OCHOA RUBALCAVA) CONSULTING PROVIDER: Dr. Morgan Cassidy. PRIMARY DISCHARGE DIAGNOSES: 1. Pyelonephritis. 2. Diabetic ketoacidosis. 3. Acute liver injury. SECONDARY DISCHARGE DIAGNOSIS: Diabetes, type 2. STUDIES DONE WHILE IN THE HOSPITAL: Electrocardiogram from 07/04/17 shows normal sinus rhythm, no ST-segment changes, normal axis, no other abnormality. Abdomen and pelvis CT from 07/04/17 read as mild soft tissue edema surrounding the left kidney concerning for potential left pyelonephritis, correlate with urinalysis, negative for urolithiasis or hydronephrosis. Chest x-ray from 07/06/17 read as faint density seen in the bilateral lung base , mild pulmonary edema or may simply be consequence of relatively poor penetration of portable chest x-ray. MEDICATIONS AT DISCHARGE: 1. Insulin lispro 1 unit subcutaneous t.i.d. with meals on a sliding scale. 2. Advil 200 mg p.o. q.6 hours as needed. 3. Zofran ODT 4 mg p.o. q.6 hours as needed. 4. Tylenol 650 mg p.o. q.6 hours as needed. 5. Ciprofloxacin 500 mg p.o. q.12 hours x11. 6. Insulin glargine 22 units subcutaneously q.12 hours. New medications at discharge: 1. Tylenol. 2. Ciprofloxacin. 3. Insulin glargine. Medications discontinued at discharge: 1. Insulin glargine 32 units b.i.d. 2. Nitrofurantoin 100 mg p.o. b.i.d. HOSPITAL COURSE: This is a brief summary of the patient's presentation. For more details, please see the history and physical from Katerina Koenig NP, from . In brief, the patient is a 41-year-old female with past medical history significant for the above, who presented to the hospital on 07/04/17 with left flank pain. The patient had been in the emergency room on 07/01/17 with complaint of flank pain. She had positive urinalysis with leukocyte esterase and nitrites, was started on Macrobid. Continued to worsen clinically. The patient had 5 blood sugars around 260. She had been taking her insulin and felt nausea and vomiting, felt that she had diabetic ketoacidosis and came into the emergency department, it was found that she was acidotic, anion gap of 15, fever, tachycardia, tachypnea. Abdomen and pelvis CT was read as above. The patient was admitted for an insulin drip. The patient was lethargic. The patient was able to continue off the insulin drip on her first day in the ICU and given 6 units of normal saline. The patient was started on ceftriaxone for her pyelonephritis, Infectious Disease was consulted. The patient improved greatly over her first 2 days in the hospital. The patient had some hypoglycemia and her Lantus was decreased. The patient had no other symptoms. The patient was recommended to continue ceftriaxone from Infectious Disease. The patient at this time continued to have general malaise, fevers. The patient 's hemoglobin A1c was found to be 10.4, the patient continued to improve. The patient was transferred to the floor. The patient had intermittent vomiting, which responded to Reglan and Zofran IV. It was related to her diabetic ketoacidosis. The patient had elevated transaminases on 07/08/17, which was read as AST of 177, ALT of 162. The patient also had an elevated alkaline phosphatase, normal bilirubin. On 07/10/17, the patient's AST decreased to 149 , the patient's ALT increased to 227. This was believed at the time of a rare adverse reaction to ceftriaxone. The patient had viral hepatitis panel, which was negative. The patient had no symptoms. There is only mild upper abdominal pain, which she described as aching more in the epigastric area than the right upper quadrant. The patient had no other complaints until 07/10/17 and states she liked to go home. PHYSICAL EXAMINATION ON DAY OF DISCHARGE: General: The patient is a 41-year- old female, who appears stated age and sitting comfortably in the bed, in no acute distress. Vital Signs: At the time of discharge, temperature 98.1, heart rate 61, respiratory rate 15, oxygen saturation 94% on room air, blood pressure 122/68. HEENT: Head: Normocephalic, atraumatic. Sclerae anicteric. No conjunctival injection. Nasal mucosa moist. Oral mucosa moist. No pharyngeal erythema. Neck: Supple, nontender. No lymphadenopathy. No carotid bruit auscultated. Cardiac: Regular rate and rhythm without clicks, murmurs, gallops, or rubs. Pulses 2+ in the bilateral dorsalis pedis, posterior tibialis , and radial areas. No edema in bilateral lower extremities. Respiratory: Clear to auscultation bilaterally. No wheezes, rales, or rhonchi. Good air exchange bilaterally. Abdomen: Soft, nondistended. No hepatosplenomegaly. Bowel sounds present and normoactive in all 4 quadrants. Slight tenderness to palpation about the epigastric area, no Delcid's sign. No abdominal bruits auscultated. Genitourinary: No suprapubic tenderness or CVA tenderness. Skin : Clean, dry, intact. No rash. Neuro: Cranial nerves II through XII grossly intact. Alert and oriented x3. No focal deficits. Psychiatric: Pleasant and cooperative. LABORATORY DATA: On day of discharge, white blood cell count 6.0, hemoglobin 11.0, platelet count 367. Sodium 136, potassium 3.8, chloride 102, carbon dioxide 29, anion gap 5, BUN 8, creatinine 0.43, glucose 63, magnesium 1.8, calcium 8.6. Bilirubin 0.4, AST 149, ALT 227, alkaline phosphatase 316. Protein 5.8, albumin 2.7, globulin 3.1. Other laboratory abnormalities, of note , positive hepatitis B antibody, negative core antibody, hepatitis C antibody nonreactive. Impaired blood glucoses ranging from 245 down to 61, right down to 57, labile. DISCHARGE PLAN: The patient will be discharged to home. The patient should follow up with primary care provider within 1 week for general medical management with repeat CMP to assess for resolution of transaminitis. The patient should follow up with her bag sealer as soon as possible for long- term control of her blood glucoses. The patient's hemoglobin was 10.4, which shows very poor control of her blood sugars. The patient's Lantus decreased due to well-controlled morning preprandial insulin. However, the patient's diet is probably worse outside the hospital and the patient should plan to check her blood sugars 3 times a day for the first week after discharge from the hospital until her primary care provider increases her Lantus if she is having persistently elevated blood sugars above 200. The patient is to return to hospital for alarming symptoms such as chest pain, shortness of breath, or symptoms of recurrent diabetic ketoacidosis. The patient should continue her ciprofloxacin for 11 additional doses 12 hours apart. The patient should engage in activity as tolerated and have consistent carbohydrate diet. TIME SPENT: Approximately 60 minutes was spent on this discharge, 30 of which was spent [id number] with the patient obtaining history and physical and discussing treatment plan. OCHOA RUBALCAVA [id number]/[facility] #: [id number] MTDElsy
== END 2017-07-10 16:15 | disposition home or self-care (01) | DRG 420 ==
LOC: ED 10:48 → ICU 17:00 → MED 07-06 11:59
PROVIDERS: ADMIT Hospitalist; ATTEND Internal Medicine
DX: E11.10 Type 2 diabetes mellitus with ketoacidosis without coma (principal); A41.9 Sepsis, unspecified organism; N17.9 Acute kidney failure, unspecified; N12 Tubulo-interstitial nephritis, not specified as acute or chronic; N39.0 Urinary tract infection, site not specified; B96.20 Unspecified Escherichia coli [E. coli] as the cause of diseases classified elsewhere; F17.210 Nicotine dependence, cigarettes, uncomplicated; R74.0 Nonspecific elevation of levels of transaminase and lactic acid dehydrogenase [LDH]; G56.00 Carpal tunnel syndrome, unspecified upper limb; Z79.1 Long term (current) use of non-steroidal anti-inflammatories (NSAID); Z79.899 Other long term (current) drug therapy; Z88.2 Allergy status to sulfonamides; Z79.4 Long term (current) use of insulin; Z88.8 Allergy status to other drugs, medicaments and biological substances
CPT/HCPCS: 36415; 71010; 74176; 80048; 80053; 81003; 81015; 82803; 83036; 83605; 83690; 83735; 84484; 84702; 85025; 85610; 85730; 86140; 86704; 86706; 86803; 87040; 87340; 87641; 93005; 99406; A9270-GY; J0696; J1644; J1815; J1885; J2270; J2405; J2765; J3480

== ENCOUNTER 2017-12-22 21:09 | Emergency (ER) | payer BC ==
[2017-12-22 21:27] VITALS: BP 116/74
[2017-12-22] MEDS ORDERED: Cephalexin CAP* 500 MG PO ONE (21:35)
--- NOTE | 2017-12-22 21:41 | UC ---
Skin Complaint HPI - HPI Summary HPI Summary: Has area on L lower lip that she routinely picks at (calls it a "white head"); states she did this a little over a week ago, then there was a flap of skin that she pulled and it bled a lot. The next day the area started getting red and sore. Continues to be swollen and red, says she has tried picking at it in recent days, nothing is draining. Has T1DM, blood sugars overall improved from usual but still has some highs and lows. - History of Current Complaint Chief Complaint: UCSkin Time Seen by Provider: 12/22/17 21:22 Stated Complaint: LIP COMPLAINT Hx Obtained From: Patient Hx Last Menstrual Period: [id number] Onset/Duration: Gradual Onset, Lasting Days Skin Exposure Onset/Duration: Days Ago Timing: Constant Onset Severity: Mild Current Severity: Mild Pain Intensity: 5 Location: Discrete Character: Swelling, Pain, Redness, Raised, Painful Aggravating Factor(s): Touch Associated Signs & Symptoms: Positive: Tenderness. Negative: Thirst, Fever, Chills, Syncope Related History: Trauma - Allergy/Home Medications Allergies/Adverse Reactions: Allergies Allergy/AdvReac Type Severity Reaction Status Date / Time sulfamethoxazole Allergy Rash Verified 12/22/17 21:29 [From Bactrim] trimethoprim [From Bactrim] Allergy Rash Verified 12/22/17 21:29 Review of Systems Constitutional: Negative Skin: Other - painful bump Eyes: Negative ENT: Negative Respiratory: Negative Cardiovascular: Negative Gastrointestinal: Negative Genitourinary: Negative Motor: Negative Neurovascular: Negative Musculoskeletal: Negative Neurological: Negative Psychological: Negative Is Patient Immunocompromised?: No All Other Systems Reviewed And Are Negative: Yes PMH/Surg Hx/FS Hx/Imm Hx Endocrine History: Diabetes Other Cancer History: Non-hudgkins lymphoma Other History Of: HIV Negative For: Hepatitis B, Hepatitis C, Anticoagulant Therapy - Surgical History Surgical History: Yes Surgery Procedure, Year, and Place: RIGHT THUMB SURGERY 1997, , MOVED LEFT OVARY TO RIGHT SIDE, lymph node removed, mediport -placed and removed - Family History Known Family History: Positive: Hypertension, Diabetes - Social History Alcohol Use: None Substance Use Type: None Smoking Status (MU): Light Every Day Tobacco Smoker Type: Cigarettes Amount Used/How Often: 7-10 cig./day Have You Smoked in the Last Year: Yes Household Exposure Type: Cigarettes Cessation Counseling: Patient Advised to Stop - Immunization History Most Recent Influenza Vaccination: unk Most Recent Tetanus Shot: unk Most Recent Pneumonia Vaccination: unk Physical Exam Triage Information Reviewed: Yes Appearance: Well-Appearing, No Pain Distress, Well-Nourished Vital Signs: Initial Vital Signs Temp 98.2 F 12/22/17 21:21 Pulse 96 12/22/17 21:21 Resp 16 12/22/17 21:21 BP 116/74 12/22/17 21:21 Pulse Ox 97 12/22/17 21:21 Vital Signs Reviewed: Yes Eye Exam: Normal Eyes: Positive: Conjunctiva Clear ENT: Positive: Pharynx normal, Other - indurated, erythematous nodule on L corner of lower lip. No drainage or pointing.. Negative: Nasal congestion, Nasal drainage Dental: Positive: Gross Decay/Caries @ Neck exam: Normal Neck: Positive: Supple, Nontender, No Lymphadenopathy Respiratory Exam: Normal Respiratory: Positive: Chest non-tender, Lungs clear, Normal breath sounds, No respiratory distress, No accessory muscle use Cardiovascular Exam: Normal Cardiovascular: Positive: RRR, No Murmur Musculoskeletal Exam: Normal Neurological Exam: Normal Neurological: Positive: Alert Psychological Exam: Normal Skin Exam: Other - Lower lip as above Course/Dx - Differential Diagnoses - Skin Complaint Differential Diagnoses: Cellulitis, Drug Rash, Impetigo, Local Allergic Reaction , MRSA, Poison [place], Viral Ex[place]hem - Diagnoses Provider Diagnoses: Skin infection L lower lip Discharge - Sign-Out/Discharge Documenting (check all that apply): Discharge/Admit/Transfer - Discharge Plan Condition: Stable Disposition: HOME Prescriptions: Cephalexin CAP* [Keflex 500 CAP*] 1,000 mg PO BID #24 cap Patient Education Materials: Cellulitis (ED) Referrals: Melinda Sherman MD [Primary Care Provider] - - Billing Disposition and Condition Condition: STABLE Disposition: Home
== END 2017-12-22 21:50 | disposition home or self-care (01) ==
LOC: UCEAST 21:09
DX: K13.0 Diseases of lips (principal); E10.9 Type 1 diabetes mellitus without complications; Z79.4 Long term (current) use of insulin; Z85.72 Personal history of non-Hodgkin lymphomas; Z21 Asymptomatic human immunodeficiency virus [HIV] infection status; Z88.2 Allergy status to sulfonamides; F17.210 Nicotine dependence, cigarettes, uncomplicated; Z82.49 Family history of ischemic heart disease and other diseases of the circulatory system; Z83.3 Family history of diabetes mellitus
CPT/HCPCS: 99212; A9270-GY; G0463

== ENCOUNTER 2018-01-14 21:55 | Emergency (ER) | payer BC ==
[2018-01-14] MEDS ORDERED: Ketorolac INJ* 60 MG/2 ML VIAL IM ONE (23:37)
[2018-01-14] MEDS ORDERED: Cyclobenzaprine TAB* 10 MG PO ONE (23:38)
--- NOTE | 2018-01-14 23:40 | ED ---
Upper Extremity Pain - HPI Summary HPI Summary: 42-year-old female presents to ER with complaints of left shoulder pain that has been ongoing for the past 2 weeks. Patient states over the past couple days. More painful. Denies any known trauma or specific injury. States she has low heavy lifting at work and believes that from overuse. Denies any recent falls. Denies any numbness or tingling. Denies neck pain. Is right- hand dominant. Has not taken any medication for the pain. States pain is exacerbated by movement. No past medical history other than diabetes. No other complaints. - History of Current Complaint Chief Complaint: EDShouRicardo Stated Complaint: LT SHOULDER PAIN Time Seen by Provider: 01/14/18 22:29 Hx Obtained From: Patient Hx Last Menstrual Period: [id number] Mechanism Of Injury: Unknown Onset/Duration: Started Weeks Ago, Still Present, Worse Since Timing: Intermittent Severity Initially: Mild Severity Currently: Mild Pain Location: Shoulder - Last Character: Sharp, Aching Aggravating Factor(s): Movement, Lifting Alleviating Factor(s): Rest Associated Signs & Symptoms: Negative: Swelling, Redness, Bruising, Numbness/ Tingling, Nausea, Vomiting Related History: Dominant Hand Right - Allergies/Home Medications Allergies/Adverse Reactions: Allergies Allergy/AdvReac Type Severity Reaction Status Date / Time sulfamethoxazole Allergy Rash Verified 01/14/18 22:04 [From Bactrim] trimethoprim [From Bactrim] Allergy Rash Verified 01/14/18 22:04 PMH/Surg Hx/FS Hx/Imm Hx Endocrine/Hematology History: Reports: Hx Diabetes - type 1 for about 10 years. Denies: Hx Anticoagulant Therapy, Hx Thyroid Disease Cardiovascular History: Denies: Hx Congestive Heart Failure, Hx Deep Vein Thrombosis, Hx Embolism, Hx Hypertension, Hx Myocardial Infarction, Hx Pacemaker/ICD, Other Cardiovascular Problems/Disorders Respiratory History: Denies: Hx Asthma, Hx Chronic Obstructive Pulmonary Disease (COPD), Hx Lung Cancer, Hx Pneumonia, Hx Pulmonary Embolism GI History: Reports: Hx Gastroesophageal Reflux Disease - per pt Denies: Hx Gall Bladder Disease, Hx Gastrointestinal Bleed, Hx Ulcer, Hx Urosepsis History: Reports: Other Problems/Disorders - States has stress incontinence with cough/sneeze Denies: Hx Kidney Stones, Hx Renal Disease Musculoskeletal History: Reports: Other Musculoskeletal History - Carpal tunnel Denies: Hx Bursitis, Hx Congenital Bone Abnormalities, Hx Fibromyalgia, Hx Gout, Hx Orthopedic Injury, Hx Osteoporosis, Hx Scoliosis, Hx Tendonitis Sensory History: Denies: Hx Contacts or Glasses, Hx Hearing Aid Opthamlomology History: Denies: Hx Contacts or Glasses Neurological History: Reports: Other Neuro Impairments/Disorders - CARPAL TUNNEL Denies: Hx Dementia, Hx Developmental Delay, Hx Headaches, Hx Migraine, Hx Nerve Disease, Hx Seizures, Hx Spinal Cord Injury, Hx Transient Ischemic Attacks (TIA) Psychiatric History: Denies: Hx Anxiety, Hx Depression, Hx Schizophrenia, Hx Bipolar Disorder - Cancer History Cancer Type, Location and Year: NON-HODGKIN'S LYMPHOMA Hx Chemotherapy: No Hx Radiation Therapy: No Hx Palliative Cancer Treatment: No - Surgical History Surgery Procedure, Year, and Place: RIGHT THUMB SURGERY 1997, , MOVED LEFT OVARY TO RIGHT SIDE, lymph node removed, mediport -placed and removed Hx Anesthesia Reactions: No - Immunization History Date of Tetanus Vaccine: PT STATES UNSURE Date of Influenza Vaccine: Never Infectious Disease History: No Infectious Disease History: Denies: Hx Clostridium Difficile, Hx Hepatitis, Hx Human Immunodeficiency Virus (HIV), Hx of Known/Suspected MRSA, Hx Shingles, Hx Tuberculosis, History Other Infectious Disease, Traveled Outside the [place] in Last 30 Days - Family History Known Family History: Positive: Hypertension, Diabetes - Social History Alcohol Use: Rare Hx Substance Use: No Substance Use Type: Reports: None Hx Tobacco Use: Yes Smoking Status (MU): Light Every Day Tobacco Smoker Type: Cigarettes Amount Used/How Often: 7-10 cig./day Have You Smoked in the Last Year: Yes Review of Systems Constitutional: Negative Cardiovascular: Negative Respiratory: Negative Positive: Arthralgia, Myalgia, Decreased ROM - left shoulder Skin: Negative Neurological: Negative All Other Systems Reviewed And Are Negative: Yes Physical Exam Triage Information Reviewed: Yes Vital Signs On Initial Exam: Initial Vitals Temp Pulse Resp BP Pulse Ox 97.6 F 82 16 124/73 98 01/14/18 21:59 01/14/18 21:59 01/14/18 21:59 01/14/18 21:59 01/14/18 21:59 Vital Signs Reviewed: Yes Appearance: Positive: Well-Appearing, No Pain Distress, Well-Nourished Skin: Positive: Warm, Skin Color Reflects Adequate Perfusion, Dry. Negative: Cold, Numb, Cyanosis @, Pale, Dharmesh Tracts - disease given Head/Face: Positive: Normal Head/Face Inspection Eyes: Positive: Normal ENT: Positive: Pharynx normal Neck: Positive: Supple, Nontender Respiratory/Lung Sounds: Positive: Clear to Auscultation, Breath Sounds Present. Negative: Rales, Rhonchi, Wheezes Cardiovascular: Positive: Normal, RRR, Pulses are Symmetrical in both Upper and Lower Extremities. Negative: Murmur, Rub Abdomen Description: Positive: Soft Bowel Sounds: Positive: Present Musculoskeletal: Positive: Limited @ - ROM with left shoulder flexion and extension due to pain, Pain @ - left shoulder anterior, Other - no crepitus step off or obvious deformity. rest of MSK exam normal. Negative: Interruption @, Edema Left, Edema Right Neurological: Positive: Normal, Sensory/Motor Intact, Alert, Oriented to Person Place, Time, Reflexes Intact, NV Bundle Intact Distally Diagnostics - Vital Signs Vital Signs Temp Pulse Resp BP Pulse Ox 01/14/18 21:59 97.6 F 82 16 124/73 98 - Laboratory Lab Statement: Any lab studies that have been ordered have been reviewed, and results considered in the medical decision making process. - Radiology left shoulder Xray Interpretation: No Acute Changes - normal Radiology Interpretation Completed By: ED Physician - Dr Vences and Myself Course/Dx - Course Course Of Treatment: given toradol and sling. muscle relaxer. continue at home. RICE and topical OTC anesthetics. follow up ortho. recommended PT. no concern for other emergent etiology at this time. no other complaints. aware of worsening signs and symptoms to watch out for. - Diagnoses Differential Diagnosis/HQI/PQRI: Positive: Strain, Sprain Provider Diagnoses: Shoulder pain, left Discharge - Sign-Out/Discharge Documenting (check all that apply): Patient Departure - Discharge Plan Condition: Good Disposition: HOME Prescriptions: Cyclobenzaprine TAB* [Flexeril 10 MG TAB*] 10 mg PO BEDTIME PRN #[id number] tab PRN Reason: Spasms Patient Education Materials: Shoulder Pain (ED) Forms: *Work Release Referrals: Melinda Sherman MD [Primary Care Provider] - Additional Instructions: Take prescribed medication as directed. Recommend taking ibuprofen 600 mg every 6 hours with food. Starting tomorrow at noon. Rest, ice/heat, use topical anesthetics such as Icey/hot sold [id number]. Avoid heavy lifting. Follow-up with orthopedics, call make an appointment tomorrow. Recommend trying physical therapy. Any new or worsening symptoms please seek medical attention as we discussed. Follow-up with primary care provider. - Billing Disposition and Condition Condition: GOOD Disposition: Home
[2018-01-15 05:42] VITALS: BP 126/73
--- NOTE | 2018-01-15 07:31 | RAD ---
INDICATION: 2 weeks of left shoulder pain COMPARISON: None. TECHNIQUE: 5 views of the left shoulder were obtained. FINDINGS: The adequately corticated bones are in normal alignment. Joint spaces appear maintained. No fracture, dislocation or focal bony abnormality is seen. IMPRESSION: Normal radiograph of the left shoulder. If the patient's symptoms persist, follow-up imaging is recommended.
== END 2018-01-14 23:53 | disposition home or self-care (01) ==
LOC: ED 21:55
DX: M25.512 Pain in left shoulder (principal); F17.210 Nicotine dependence, cigarettes, uncomplicated
CPT/HCPCS: 99282; A9270-GY; J1885

== ENCOUNTER → 2018-06-10 12:16 | Emergency (ER) | payer BC ==
[~2018-06-10 12:16] MED LIST: Acetaminophen TAB* 325 MG PO ONE; NS 0.9% 1000 ML* 1,000 ML IV ONE; cefTRIAXone(*) 1 GM in NS 0.9% 50 ML* 50 ML IVPB ONE
--- OUTSIDE RECORDS SUMMARY | 2018-06-10 12:32 | XMS REPORT ---
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 Phosphatase 59 U/L 34-104 Alt 18 U/L 7-52 Ast 16 U/L 13-39 Egfr Non- 126.3 >60 Egfr 162.5 >60 34 Laboratory test finding 12/13/2015 Magnesium 1.5 mg/dL Low 1.9-2.7 CBC Auto Diff 12/13/2015 White Blood Count 12.3 10^3/uL High 3.5-10.8 Red Blood Count 4.31 10^6/uL 4.0-5.4 Hemoglobin 14.0 g/dL 12.0-16.0 Hematocrit 42 % 35-47 Mean Corpuscular Volume 98 fL High 80-97 Mean Corpuscular Hemoglobin 32 pg High 27-31 Mean Corpuscular HGB Conc 33 g/dL 31-36 Red Cell Distribution Width 13 % 10.5-15 Platelet Count 207 10^3/uL 150-450 Mean Platelet Volume 8 um3 7.4-10.4 Abs Neutrophils 10.6 10^3/uL High 1.5-7.7 Abs Lymphocytes 1.3 10^3/uL 1.0-4.8 Abs Monocytes 0.5 10^3/uL 0-0.8 Abs Eosinophils 0 10^3/uL 0-0.6 Abs Basophils 0 10^3/uL 0-0.2 Abs Nucleated RBC 0 10^3/uL Granulocyte % 85.5 % High 38-83 Lymphocyte % 10.3 % Low 25-47 Monocyte % 4.0 % 1-9 Eosinophil % 0 % 0-6 Basophil % 0.2 % 0-2 Nucleated Red Blood Cells % 0 Laboratory test 12/13/2015 Blood Culture SEE RESULT BELOW 35 finding Rapid Influenza A & B 10/05/2015 Influenza A NEGATIVE Negative 36 Molecular Molecular Influenza B Molecular NEGATIVE Negative HIV 1/2 AB Evaluation 10/05/2015 HIV 1 2 Antibody Nonreactive Nonreactive 37 Laboratory test 10/05/2015 Blood Culture SEE RESULT BELOW 38 finding CBC Auto Diff 10/05/2015 White Blood Count 4.7 10^3/uL 3.5-10.8 Red Blood Count 4.53 10^6/uL 4.0-5.4 Hemoglobin 14.7 g/dL 12.0-16.0 Hematocrit 44 % 35-47 Mean Corpuscular Volume 96 fL 80-97 Mean Corpuscular Hemoglobin 33 pg High 27-31 Mean Corpuscular HGB Conc 34 g/dL 31-36 Red Cell Distribution Width 13 % 10.5-15 Platelet Count 195 10^3/uL 150-450 Mean Platelet Volume 8 um3 7.4-10.4 Abs Neutrophils 2.8 10^3/uL 1.5-7.7 Abs Lymphocytes 1.6 10^3/uL 1.0-4.8 Abs Monocytes 0.2 10^3/uL 0-0.8 Abs Eosinophils 0 10^3/uL 0-0.6 Abs Basophils 0 10^3/uL 0-0.2 Abs Nucleated RBC 0.01 10^3/uL Granulocyte % 59.5 % 38-83 Lymphocyte % 33.7 % 25-47 Monocyte % 5.2 % 1-9 Eosinophil % 1.0 % 0-6 Basophil % 0.6 % 0-2 Nucleated Red Blood Cells % 0.1 Comp Metabolic Panel 10/05/2015 Sodium 136 mmol/L 133-145 Potassium 4.2 mmol/L 3.5-5.0 Chloride 103 mmol/L 101-111 Co2 Carbon Dioxide 26 mmol/L 22-32 Anion Gap 7 mmol/L 2-11 Glucose 141 mg/dL High 70-100 Blood Urea Nitrogen 9 mg/dL 6-24 Creatinine 0.58 mg/dL 0.51-0.95 BUN/Creatinine Ratio 15.5 8-20 Calcium 9.1 mg/dL 8.6-10.3 Total Protein 6.7 g/dL 6.4-8.9 Albumin 4.1 g/dL 3.2-5.2 Globulin 2.6 g/dL 2-4 Albumin/Globulin Ratio 1.6 1-3 Total Bilirubin 0.40 mg/dL 0.2-1.0 Alkaline Phosphatase 54 U/L 34-104 Alt 17 U/L 7-52 Ast 16 U/L 13-39 Egfr Non- 117.0 >60 Egfr 150.4 >60 39 Laboratory test 10/05/2015 Rapid Influenza A B SEE RESULT BELOW 40 finding Antigen CBC Auto Diff 03/21/2015 White Blood Count 5.9 10^3/uL 4.8-10.8 Red Blood Count 3.96 10^6/uL Low 4.0-5.4 Hemoglobin 13.3 g/dL 12.0-16.0 Hematocrit 40 % 35-47 Mean Corpuscular Volume 100 fL High 80-97 Mean Corpuscular Hemoglobin 34 pg High 27-31 Mean Corpuscular HGB Conc 34 g/dL 31-36 Red Cell Distribution Width 13 % 10.5-15 Platelet Count 222 10^3/uL 150-450 Mean Platelet Volume 7 um3 Low 7.4-10.4 Abs Neutrophils 4.6 10^3/uL 1.5-7.7 Abs Lymphocytes 1.1 10^3/uL 1.0-4.8 Abs Monocytes 0.1 10^3/uL 0-0.8 Abs Eosinophils 0 10^3/uL 0-0.6 Abs Basophils 0 10^3/uL 0-0.2 Abs Nucleated RBC 0 10^3/uL Granulocyte % 78.6 % 38-83 Lymphocyte % 18.1 % Low 25-47 Monocyte % 2.2 % 1-9 Eosinophil % 0.8 % 0-6 Basophil % 0.3 % 0-2 Nucleated Red Blood Cells % 0 Laboratory test finding 03/21/2015 Lactic Acid 0.8 mmol/L 0.5-2.2 Comp Metabolic Panel 03/21/2015 Sodium 135 mmol/L 133-145 Potassium 3.8 mmol/L 3.5-5.0 Chloride 101 mmol/L 101-111 Co2 Carbon Dioxide 30 mmol/L 22-32 Anion Gap 4 mmol/L 2-11 Glucose 136 mg/dL High 70-100 Blood Urea Nitrogen 8 mg/dL 6-24 Creatinine 0.51 mg/dL 0.51-0.95 BUN/Creatinine Ratio 15.7 8-20 Calcium 8.9 mg/dL 8.6-10.3 Total Protein 6.5 g/dL 6.4-8.9 Albumin 3.9 g/dL 3.2-5.2 Globulin 2.6 g/dL 2-4 Albumin/Globulin Ratio 1.5 1-3 Total Bilirubin 0.50 mg/dL 0.2-1.0 Alkaline Phosphatase 51 U/L 34-104 Alt 37 U/L 7-52 Ast 26 U/L 13-39 Egfr Non- 135.7 >60 Egfr 174.5 >60 41 Laboratory test finding 03/21/2015 C Reactive Protein 9.03 mg/L High < 5.00 42 Laboratory test finding 03/21/2015 Point of Care Glucose 130 mg/dL High 74 -106 43 Laboratory test finding 03/19/2015 Point of Care Glucose 395 mg/dL High 74 -106 44 Urinalysis Profile 03/19/2015 Urine Color Straw Urine Appearance Clear Urine Specific Souris 1.025 1.010-1.030 Urine pH 5.0 5-9 Urine Urobilinogen Negative Negative Urine Ketones 2+ Negative Urine Protein Negative Negative Urine Leukocytes Negative Negative Urine Blood 1+ Negative Urine Nitrite Negative Negative Urine Bilirubin Negative Negative Urine Glucose 3+(>=500 mg/dL) Negative Urine White Blood Cell Absent Absent Urine Red Blood Cell 1+(3-5/hpf) Absent Urine Bacteria Absent Absent CBC Auto Diff 03/19/2015 White Blood Count 13.7 10^3/uL High 4.8-10.8 Red Blood Count 4.07 10^6/uL 4.0-5.4 Hemoglobin 13.2 g/dL 12.0-16.0 Hematocrit 41 % 35-47 Mean Corpuscular Volume 101 fL High 80-97 Mean Corpuscular Hemoglobin 32 pg High 27-31 Mean Corpuscular HGB Conc 32 g/dL 31-36 Red Cell Distribution Width 13 % 10.5-15 Platelet Count 231 10^3/uL 150-450 Mean Platelet Volume 8 um3 7.4-10.4 Abs Neutrophils 12.3 10^3/uL High 1.5-7.7 Abs Lymphocytes 0.9 10^3/uL Low 1.0-4.8 Abs Monocytes 0.5 10^3/uL 0-0.8 Abs Eosinophils 0 10^3/uL 0-0.6 Abs Basophils 0 10^3/uL 0-0.2 Abs Nucleated RBC 0.01 10^3/uL Granulocyte % 89.7 % High 38-83 Lymphocyte % 6.5 % Low 25-47 Monocyte % 3.4 % 1-9 Eosinophil % 0.1 % 0-6 Basophil % 0.3 % 0-2 Nucleated Red Blood Cells % 0 Laboratory test finding 03/19/2015 Lactic Acid 2.0 mmol/L 0.5-2.2 Comp Metabolic Panel 03/19/2015 Sodium 129 mmol/L Low 133-145 Potassium 4.6 mmol/L 3.5-5.0 Chloride 94 mmol/L Low 101-111 Co2 Carbon Dioxide 18 mmol/L Low 22-32 Anion Gap 17 mmol/L High 2-11 Blood Urea Nitrogen 21 mg/dL 6-24 Creatinine 0.89 mg/dL 0.51-0.95 BUN/Creatinine Ratio 23.6 High 8-20 Calcium 8.9 mg/dL 8.6-10.3 Total Protein 6.4 g/dL 6.4-8.9 Albumin 3.9 g/dL 3.2-5.2 Globulin 2.5 g/dL 2-4 Albumin/Globulin Ratio 1.6 1-3 Total Bilirubin 0.90 mg/dL 0.2-1.0 Alkaline Phosphatase 58 U/L 34-104 Alt 15 U/L 7-52 Ast 13 U/L 13-39 Egfr Non- 71.4 >60 Egfr 91.8 >60 45 Glucose 598 mg/dL High 70-100 46 Laboratory test finding 03/19/2015 C Reactive Protein 11.88 mg/L High < 5.00 47 Venous Blood Gas 03/19/2015 Venous Blood pH 7.29 Low 7.33-7.43 Venous Pco2 36 mmHg Low 41-51 Venous Po2 173 mmHg High 35-45 Venous O2 Saturation 98.3 % High 70-80 Venous Blood Base Excess -8.5 Low 0-4 48 Venous Bicarbonate Hco3 18.2 mmol/L Low 24-28 Laboratory test finding 03/19/2015 Point of Care Glucose > 444 mg/dL High 74-106 49 Basic Metabolic Panel 08/17/2014 Sodium 137 mmol/L 133-145 Potassium 4.2 mmol/L 3.5-5.0 Chloride 103 mmol/L 101-111 Co2 Carbon Dioxide 29 mmol/L 22-32 Anion Gap 5 mmol/L 2-11 Glucose 87 mg/dL 70-100 Blood Urea Nitrogen 13 mg/dL 6-24 Creatinine 0.64 mg/dL 0.51-0.95 BUN/Creatinine Ratio 20.3 High 8-20 Calcium 9.4 mg/dL 8.6-10.3 Egfr Non- 105.0 >60 Egfr 135.0 >60 50 Laboratory test 08/17/2014 Gardnerella/Yeast: Vaginal (SEE NOTE) 51 finding Dna GC/Chlamydia 08/17/2014 Chlamydia trachomatis Rna Negative Negative Amplified Rna Neisseria gonorrhoeae (GC) Rna Negative Negative 52 Laboratory test finding 08/17/2014 Trichomonas vaginalis Rna Positive Negative 53 Ua Routine 08/17/2014 Ua Specific Souris 1.000 Ua PH 5 Ua Color lt yellow Ua Appera clear Ua WBC small Ua Protein negative Ua Glucose negative Ua Ketones negative Ua Bilirubin negative Ua Urobilinogen normal Ua Nitrite negative Ua Occult Blood negative Venous Blood Gas 08/07/2014 Venous Blood pH 7.08 Low 7.33-7.43 Venous Pco2 29 mmHg Low 41-51 Venous Po2 141 mmHg High 35-45 Venous O2 Saturation 98.8 % High 70-80 Venous Blood Base Excess -20.2 Low 0-4 54 Venous Bicarbonate Hco3 9.1 mmol/L Low 24-28 Arterial Blood Gas 08/07/2014 PH Arterial 7.15 Low 7.35-7.45 55 Pco2 Arterial 21 mmHg Low 35-45 Po2 Arterial 110 mmHg High 80-100 O2 Saturation Arterial 98.4 % High 95-98 Base Excess Arterial -19.6 Low -2.0-2.0 56 Hco3 Arterial 9.5 mmol/L Low 19-31 Urinalysis Profile 08/07/2014 Urine Color Straw Urine Appearance Cloudy Urine Specific Souris 1.021 1.010-1.030 Urine pH 5.0 5-9 Urine Urobilinogen Negative Negative Urine Ketones 2+ Negative Urine Protein Negative Negative Urine Leukocytes 2+ Negative Urine Blood 2+ Negative Urine Nitrite Negative Negative Urine Bilirubin Negative Negative Urine Glucose 3+(>=500 mg/dL) Negative Urine White Blood Cell 3+(>20/hpf) Absent Urine Red Blood Cell 3+(>10/hpf) Absent Urine Bacteria 1+ Absent Urine Squamous Epithelial Cell Present Absent Urine Hyaline Casts Present Absent Urine Amorphous Crystals Present Absent Laboratory test finding 08/07/2014 Potassium Redraw 5.6 mmol/L High 3.5- 5.0 Ast Redraw 22 U/L 13-39 CBC Auto Diff 08/07/2014 White Blood Count 19.8 10^3/uL High 4.8-10.8 57 Red Blood Count 4.47 10^6/uL 4.0-5.4 57 Hemoglobin 14.8 g/dL 12.0-16.0 57 Hematocrit 45 % 35-47 57 Mean Corpuscular Volume 100 fL High 80-97 57 Mean Corpuscular Hemoglobin 33 pg High 27-31 57 Mean Corpuscular HGB Conc 33 g/dL 31-36 57 Red Cell Distribution Width 13 % 10.5-15 57 Platelet Count 255 10^3/uL 150-450 57 Mean Platelet Volume 8 um3 7.4-10.4 57 Abs Neutrophils 18.4 10^3/uL High 1.5-7.7 57 Abs Lymphocytes 0.8 10^3/uL Low 1.0-4.8 57 Abs Monocytes 0.6 10^3/uL 0-0.8 57 Abs Eosinophils 0 10^3/uL 0-0.6 57 Abs Basophils 0 10^3/uL 0-0.2 57 Abs Nucleated RBC 0 10^3/uL 57 Granulocyte % 92.9 % High 38-83 57 Lymphocyte % 4.0 % Low 25-47 57 Monocyte % 2.9 % 1-9 57 Eosinophil % 0 % 0-6 57 Basophil % 0.2 % 0-2 57 Nucleated Red Blood Cells % 0 57 Laboratory test finding 08/07/2014 Serum Negative Negative 57 , 58 Comp Metabolic Panel 08/07/2014 Sodium 126 mmol/L Low 133-145 57 Potassium TNP mmol/L 3.5-5.0 57, 59 Chloride 93 mmol/L Low 101-111 57 Co2 Carbon Dioxide 11 mmol/L Low 22-32 57, 60 Anion Gap TNP mmol/L 2-11 57 Glucose 540 mg/dL High 70-100 57, 61 Blood Urea Nitrogen 26 mg/dL High 6-24 57 Creatinine 1.16 mg/dL High 0.51-0.95 57 BUN/Creatinine Ratio 22.4 High 8-20 57 Calcium 9.4 mg/dL 8.6-10.3 57 Total Protein 7.5 g/dL 6.4-8.9 57 Albumin 4.4 g/dL 3.2-5.2 57 Globulin 3.1 g/dL 2-4 57 Albumin/Globulin Ratio 1.4 1-3 57 Total Bilirubin 0.50 mg/dL 0.2-1.0 57 Alkaline Phosphatase 80 U/L 34-104 57 Alt 31 U/L 7-52 57 Ast TNP U/L 13-39 57, 62 Egfr Non- 52.9 >60 57 Egfr 68.0 >60 57, 63 Laboratory test finding 08/07/2014 C Reactive Protein 10.84 mg/L High < 5.00 57, 64 Rapid Influenza A B 08/06/2014 Rapid Influenza A (SEE NOTE) 65 Antigen B Antigen Urine Culture And 08/06/2014 Urine Culture (SEE NOTE) 66 Sensitivities CBC Auto Diff 06/09/2014 White Blood Count 6.7 10^3/uL 4.8-10.8 Red Blood Count 4.43 10^6/uL 4.0-5.4 Hemoglobin 14.8 g/dL 12.0-16.0 Hematocrit 43 % 35-47 Mean Corpuscular Volume 98 fL High 80-97 Mean Corpuscular Hemoglobin 33 pg High 27-31 Mean Corpuscular HGB Conc 34 g/dL 31-36 Red Cell Distribution Width 13 % 10.5-15 Platelet Count 260 10^3/uL 150-450 Mean Platelet Volume 8 um3 7.4-10.4 Abs Neutrophils 3.9 10^3/uL 1.5-7.7 Abs Lymphocytes 2.3 10^3/uL 1.0-4.8 Abs Monocytes 0.3 10^3/uL 0-0.8 Abs Eosinophils 0.1 10^3/uL 0-0.6 Abs Basophils 0 10^3/uL 0-0.2 Abs Nucleated RBC 0 10^3/uL Granulocyte % 58.8 % 38-83 Lymphocyte % 34.4 % 25-47 Monocyte % 4.5 % 1-9 Eosinophil % 1.7 % 0-6 Basophil % 0.6 % 0-2 Nucleated Red Blood Cells % 0.1 Comp Metabolic Panel 06/09/2014 Sodium 131 mmol/L Low 133-145 Potassium 4.9 mmol/L 3.5-5.0 Chloride 99 mmol/L Low 101-111 Co2 Carbon Dioxide 28 mmol/L 22-32 Anion Gap 4 mmol/L 2-11 Glucose 346 mg/dL High 70-100 Blood Urea Nitrogen 15 mg/dL 6-24 Creatinine 0.70 mg/dL 0.51-0.95 BUN/Creatinine Ratio 21.4 High 8-20 Calcium 9.6 mg/dL 8.6-10.3 Total Protein 6.8 g/dL 6.4-8.9 Albumin 4.2 g/dL 3.2-5.2 Globulin 2.6 g/dL 2-4 Albumin/Globulin Ratio 1.6 1-3 Total Bilirubin 0.60 mg/dL 0.2-1.0 Alkaline Phosphatase 54 U/L 34-104 Alt 21 U/L 7-52 Ast 14 U/L 13-39 Egfr Non- 94.7 >60 Egfr 121.8 >60 67 Laboratory test finding 06/09/2014 C Reactive Protein < 1.00 mg/L < 5.00 68 Arterial Blood Gas 04/28/2014 PH Arterial 7.36 7.35-7.45 Pco2 Arterial 30 mmHg Low 35-45 Po2 Arterial 80 mmHg 80-100 O2 Saturation Arterial 97.6 % 95-98 Base Excess Arterial -7.3 Low -2.0-2.0 69 Hco3 Arterial 19.1 mmol/L 19-31 Urinalysis Profile 04/28/2014 Urine Color Yellow Urine Appearance Clear Urine Specific Souris 1.025 1.010-1.030 Urine pH 6.0 5-9 Urine Urobilinogen Negative Negative Urine Ketones 2+ Negative Urine Protein 1+(30 mg/dL) Negative Urine Leukocytes Negative Negative Urine Blood 2+ Negative Urine Nitrite Negative Negative Urine Bilirubin Negative Negative Urine Glucose 3+(>=500 mg/dL) Negative Urine White Blood Cell 1+(6-10/hpf) Absent Urine Red Blood Cell 2+(6-10/hpf) Absent Urine Bacteria Absent Absent Urine Squamous Epithelial Cell Present Absent CBC Auto Diff 04/28/2014 White Blood Count 6.0 10^3/uL 4.8-10.8 Red Blood Count 4.43 10^6/uL 4.0-5.4 Hemoglobin 14.6 g/dL 12.0-16.0 Hematocrit 43 % 35-47 Mean Corpuscular Volume 97 fL 80-97 Mean Corpuscular Hemoglobin 33 pg High 27-31 Mean Corpuscular HGB Conc 34 g/dL 31-36 Red Cell Distribution Width 13 % 10.5-15 Platelet Count 246 10^3/uL 150-450 Mean Platelet Volume 7 um3 Low 7.4-10.4 Abs Neutrophils 4.1 10^3/uL 1.5-7.7 Abs Lymphocytes 1.4 10^3/uL 1.0-4.8 Abs Monocytes 0.4 10^3/uL 0-0.8 Abs Eosinophils 0 10^3/uL 0-0.6 Abs Basophils 0 10^3/uL 0-0.2 Abs Nucleated RBC 0 10^3/uL Granulocyte % 68.8 % 38-83 Lymphocyte % 23.6 % Low 25-47 Monocyte % 7.0 % 1-9 Eosinophil % 0.3 % 0-6 Basophil % 0.3 % 0-2 Nucleated Red Blood Cells % 0 Comp Metabolic Panel 04/28/2014 Sodium 132 mmol/L Low 133-145 Potassium 3.6 mmol/L Low 3.7-5.6 Chloride 97 mmol/L Low 101-111 Co2 Carbon Dioxide 19 mmol/L Low 22-32 Anion Gap 16 mmol/L High 2-11 Glucose 317 mg/dL High 70-100 Blood Urea Nitrogen 22 mg/dL 6-24 Creatinine 0.77 mg/dL 0.51-0.95 BUN/Creatinine Ratio 28.6 High 8-20 Calcium 8.8 mg/dL 8.6-10.3 Total Protein 7.3 g/dL 6.4-8.9 Albumin 3.7 g/dL 3.2-5.2 Globulin 3.6 g/dL 2-4 Albumin/Globulin Ratio 1.0 1-3 Total Bilirubin 0.40 mg/dL 0.2-1.0 Alkaline Phosphatase 86 U/L 34-104 Alt 15 U/L 7-52 Ast 5 U/L Low 13-39 Egfr Non- 84.8 >60 Egfr 109.1 >60 70 Laboratory test finding 04/28/2014 C Reactive Protein 119.19 mg/L High < 5.00 71 Urine Culture And 04/25/2014 Urine Culture (SEE NOTE) 72 Sensitivities Laboratory test finding 01/27/2014 Erythrocyte Sed Rate 11 mm/Hr 0-14 C Reactive Protein 1.04 mg/L < 5.00 73 Creatine Kinase 46 U/L 10-223 Lyme Disease Serology Negative Negative 74 CBC Auto Diff 01/26/2014 White Blood Count 5.0 10^3/uL 4.8-10.8 Red Blood Count 4.18 10^6/uL 4.0-5.4 Hemoglobin 14.0 g/dL 12.0-16.0 Hematocrit 41 % 35-47 Mean Corpuscular Volume 97 fL 80-97 Mean Corpuscular Hemoglobin 34 pg High 27-31 Mean Corpuscular HGB Conc 34 g/dL 31-36 Red Cell Distribution Width 13 % 10.5-15 Platelet Count 180 10^3/uL 150-450 Mean Platelet Volume 7 um3 Low 7.4-10.4 Abs Neutrophils 2.3 10^3/uL 1.5-7.7 Abs Lymphocytes 2.1 10^3/uL 1.0-4.8 Abs Monocytes 0.4 10^3/uL 0-0.8 Abs Eosinophils 0.2 10^3/uL 0-0.6 Abs Basophils 0 10^3/uL 0-0.2 Abs Nucleated RBC 0 10^3/uL Granulocyte % 46.3 % 38-83 Lymphocyte % 41.5 % 25-47 Monocyte % 7.2 % 1-9 Eosinophil % 4.3 % 0-6 Basophil % 0.7 % 0-2 Nucleated Red Blood Cells % 0.1 Comp Metabolic Panel 01/26/2014 Sodium 133 mmol/L 133-145 Potassium 3.8 mmol/L 3.7-5.6 Chloride 102 mmol/L 101-111 Co2 Carbon Dioxide 26 mmol/L 22-32 Anion Gap 5 mmol/L 2-11 Glucose 188 mg/dL High 70-100 Blood Urea Nitrogen 14 mg/dL 6-24 Creatinine 0.63 mg/dL 0.51-0.95 BUN/Creatinine Ratio 22.2 High 8-20 Calcium 8.9 mg/dL 8.6-10.3 Total Protein 6.8 g/dL 6.4-8.9 Albumin 4.0 g/dL 3.2-5.2 Globulin 2.8 g/dL 2-4 Albumin/Globulin Ratio 1.4 1-3 Total Bilirubin 0.30 mg/dL 0.2-1.0 Alkaline Phosphatase 54 U/L 34-104 Alt 19 U/L 7-52 Ast 15 U/L 13-39 Egfr Non- 106.9 >60 Egfr 137.5 >60 75 Laboratory test finding 01/26/2014 Lipase 10 U/L Low 11.0-82.0 D Dimer Quantitative 464 ng/mL High Less Than 230 76 Comp Metabolic Panel 01/20/2014 Sodium 137 mmol/L 133-145 Potassium 4.6 mmol/L 3.7-5.6 Chloride 103 mmol/L 101-111 Co2 Carbon Dioxide 28 mmol/L 22-32 Anion Gap 6 mmol/L 2-11 Glucose 39 mg/dL Low 70-100 Blood Urea Nitrogen 7 mg/dL 6-24 Creatinine 0.70 mg/dL 0.51-0.95 BUN/Creatinine Ratio 10.0 8-20 Calcium 9.4 mg/dL 8.6-10.3 Total Protein 6.5 g/dL 6.4-8.9 Albumin 4.0 g/dL 3.2-5.2 Globulin 2.5 g/dL 2-4 Albumin/Globulin Ratio 1.6 1-3 Total Bilirubin 0.30 mg/dL 0.2-1.0 Alkaline Phosphatase 57 U/L 34-104 Alt 17 U/L 7-52 Ast 19 U/L 13-39 Egfr Non- 94.7 >60 Egfr 121.8 >60 77 Lipid Profile (Trig/Chol/HDL) 01/20/2014 Triglycerides 38 mg/dL 78 Cholesterol 173 mg/dL 79 HDL Cholesterol 43.4 mg/dL 80 LDL Cholesterol 122 mg/dL 81 Liver Function Panel 01/20/2014 Direct Bilirubin 0.10 mg/dL 0.03-0.18 Indirect Bilirubin 0.2 mg/dL Low 0.3-1.0 Laboratory test finding 01/20/2014 TSH (Thyroid 0.97 IU/mL 0.34-5.60 Stimulating Horm) Affirm Vaginal Dna Probe 01/17/2014 Affirm Vaginal Dna (SEE NOTE) 82 Probe GC/Chlamydia Amplified 01/17/2014 GC/Chlamydia Rna (SEE NOTE) 83 Rna Urine Culture And 01/17/2014 Urine Culture (SEE NOTE) 84 Sensitivities CBC Auto Diff 02/01/2013 White Blood Count 7.1 10^3/uL 4.8-10.8 Red Blood Count 3.94 10^6/uL Low 4.0-5.4 Hemoglobin 13.3 g/dL 12.0-16.0 Hematocrit 39 % 35-47 Mean Corpuscular Volume 99 fL High 80-97 Mean Corpuscular Hemoglobin 34 pg High 27-31 Mean Corpuscular HGB Conc 34 g/dL 31-36 Red Cell Distribution Width 13 % 10.5-15 Platelet Count 218 10^3/uL 150-450 Mean Platelet Volume 8 um3 7.4-10.4 Abs Neutrophils 4.6 10^3/uL 1.5-7.7 Abs Lymphocytes 1.8 10^3/uL 1.0-4.8 Abs Monocytes 0.6 10^3/uL 0-0.8 Abs Eosinophils 0.2 10^3/uL 0-0.6 Abs Basophils 0 10^3/uL 0-0.2 Abs Nucleated RBC 0 10^3/uL Granulocyte % 64.7 % 38-83 Lymphocyte % 24.6 % Low 25-47 Monocyte % 8.1 % 1-9 Eosinophil % 2.2 % 0-6 Basophil % 0.4 % 0-2 Nucleated Red Blood Cells % 0 Comp Metabolic Panel 02/01/2013 Sodium 136 mmol/L 133-145 Potassium 4.0 mmol/L 3.5-5.0 Chloride 101 mmol/L 101-111 Co2 Carbon Dioxide 31.0 mmol/L 22-32 Anion Gap 4.0 mmol/L 2-11 Glucose 302 mg/dL High 70-100 Blood Urea Nitrogen 10 mg/dL 6-24 Creatinine 0.70 mg/dL 0.50-1.40 BUN/Creatinine Ratio 14.3 8-20 Calcium 8.8 mg/dL 8.1-9.9 Total Protein 6.3 g/dL 6.2-8.1 Albumin 3.1 g/dL Low 3.6-5.4 Globulin 3.2 g/dL 2-4 Albumin/Globulin Ratio 1.0 1-3 Total Bilirubin 0.8 mg/dL 0.4-1.5 Alkaline Phosphatase 65 U/L 30-110 Alt 19 U/L 14-54 Ast 17 U/L 12-42 Egfr Non- 95.2 >60 Egfr 122.5 >60 85 Affirm Vaginal Dna 02/01/2013 Affirm Vaginal Dna (SEE NOTE) 86 Probe Probe GC/Chlamydia Amplified 02/01/2013 GC/Chlamydia Rna (SEE NOTE) 87 Rna Laboratory test finding 09/09/2012 C Reactive Protein < 0.5 mg/dL Less than 0.5 Creatine Kinase 56 U/L 0-200 CBC Auto Diff 09/09/2012 White Blood Count 7.5 10^3/uL 4.8-10.8 Red Blood Count 4.37 10^6/uL 4.0-5.4 Hemoglobin 14.9 g/dL 12.0-16.0 Hematocrit 43 % 35-47 Mean Corpuscular Volume 98 fL High 80-97 Mean Corpuscular Hemoglobin 34 pg High 27-31 Mean Corpuscular HGB Conc 35 g/dL 31-36 Red Cell Distribution Width 13 % 10.5-15 Platelet Count 202 10^3/uL 150-450 Mean Platelet Volume 9 um3 7.4-10.4 Abs Neutrophils 5.2 10^3/uL 1.5-7.7 Abs Lymphocytes 1.8 10^3/uL 1.0-4.8 Abs Monocytes 0.4 10^3/uL 0-0.8 Abs Eosinophils 0.1 10^3/uL 0-0.6 Abs Basophils 0 10^3/uL 0-0.2 Abs Nucleated RBC 0 10^3/uL Granulocyte % 69.7 % 38-83 Lymphocyte % 23.6 % Low 25-47 Monocyte % 4.7 % 1-9 Eosinophil % 1.5 % 0-6 Basophil % 0.5 % 0-2 Nucleated Red Blood Cells % 0 Laboratory test finding 08/28/2012 Vitamin B12 919 pg/mL High 180-914 TSH (Thyroid Stimulating Horm) 0.82 miu/mL 0.34-5.60 Thyroid Peroxidase Antibodies 0.2 IU/mL Less Than 9.0 Laboratory test finding 08/28/2012 Gliadin IgA <10.0 U 88 Comp Metabolic Panel 08/28/2012 Sodium 135 mmol/L 133-145 Potassium 4.6 mmol/L 3.5-5.0 Chloride 101 mmol/L 101-111 Co2 Carbon Dioxide 26.0 mmol/L 22-32 Anion Gap 8.0 mmol/L 2-11 Glucose 285 mg/dL High 70-100 Blood Urea Nitrogen 10 mg/dL 6-24 Creatinine 0.60 mg/dL 0.50-1.40 BUN/Creatinine Ratio 16.7 8-20 Calcium 9.3 mg/dL 8.1-9.9 Total Protein 6.7 g/dL 6.2-8.1 Albumin 3.8 g/dL 3.6-5.4 Globulin 2.9 g/dL 2-4 Albumin/Globulin Ratio 1.3 1-3 Total Bilirubin 0.7 mg/dL 0.4-1.5 Alkaline Phosphatase 65 U/L 30-110 Alt 19 U/L 14-54 Ast 15 U/L 12-42 Egfr Non- 114.4 >60 Egfr 147.2 >60 89 Transglutaminase Igg & Iga 08/28/2012 Tissue Transglutaminase IgA Ab <1.2 U/ mL 90 Tissue Transglutaminase IgG Ab 15.3 U/mL 91 Urine Microalbumin Random 08/28/2012 Ur Microalbumin (Mg/L) 9.0 mg/L 92 Urine Creatinine 76.3 mg/dL Urine Microalbumin/Creatinine 11.8 ug/mg Less Than 31 Lipid Profile (Trig/Chol/HDL) 08/28/2012 Triglycerides 65 mg/dL 40-200 Cholesterol 198 mg/dL Less than 200 HDL Cholesterol 42 mg/dL 40-60 93 Cholesterol/HDL Ratio 4.7 Average High 1-4.44 LDL Cholesterol 143.0 mg/dL High Less Than 100 94 Laboratory test finding 08/28/2012 Adrenal 21 Hydoxylase <1 U/mL <1 95 Immunoglobulin A 219 mg/dL 61 - 356 96 Laboratory test finding 06/02/2012 Erythrocyte Sed Rate 11 MM/HR 0-14 CBC With Manual Diff 06/02/2012 White Blood Count 8.7 10^3/uL 4.8-10.8 Red Blood Count 4.19 10^6/uL 4.0-5.4 Hemoglobin 14.3 g/dL 12.0-16.0 Hematocrit 42 % 35-47 Mean Corpuscular Volume 99 fL High 80-97 Mean Corpuscular Hemoglobin 34 pg High 27-31 Mean Corpuscular HGB Conc 35 g/dL 31-36 Red Cell Distribution Width 13 % 10.5-15 Platelet Count 188 10^3/uL 150-450 Mean Platelet Volume 8 um3 7.4-10.4 Abs Neutrophils 5.6 10^3/uL 1.5-7.7 Abs Lymphocytes 2.3 10^3/uL 1.0-4.8 Abs Monocytes 0.5 10^3/uL 0-0.8 Abs Eosinophils 0.2 10^3/uL 0-0.6 Abs Basophils 0 10^3/uL 0-0.2 Abs Nucleated RBC 0 10^3/uL Neutrophil % 66.0 % 38-83 Band % 4.0 % 0-8 Lymphocytes % 18.0 % Low 25-47 Monocytes % 3.0 % 0-13 Eosinophils % 1.0 % 0-6 Basophil % 0 % 0-2 Reactive Lymph % 8.0 % High 0-6 Metamyelocytes % 0 % 0-2 Myelocytes % 0 % 0-1 Promyelocytes % 0 % Blast % 0 % RBC Morphology Normal Normal Comp Metabolic Panel 06/02/2012 Sodium 135 mmol/L 133-145 Potassium 4.7 mmol/L 3.5-5.0 Chloride 99 mmol/L Low 101-111 Co2 Carbon Dioxide 28.0 mmol/L 22-32 Anion Gap 8.0 mmol/L 2-11 Glucose 166 mg/dL High 70-100 Blood Urea Nitrogen 10 mg/dL 6-24 Creatinine 0.70 mg/dL 0.50-1.40 BUN/Creatinine Ratio 14.3 8-20 Calcium 8.9 mg/dL 8.1-9.9 Total Protein 5.9 GM/DL Low 6.2-8.1 Albumin 3.6 GM/DL 3.6-5.4 Globulin 2.3 GM/DL 2-4 Albumin/Globulin Ratio 1.6 1-3 Total Bilirubin 0.6 mg/dL 0.1-1.0 97 Alkaline Phosphatase 49 U/L 30-110 Alt 14 U/L 14-54 Ast 15 U/L 12-42 Egfr Non- 95.8 >60 Egfr 123.2 >60 98 CBC Auto Diff 01/07/2012 White Blood Count 5.9 CUMM 4.8-10.8 Red Cell Count 4.48 CUMM 4.2-5.4 Hemoglobin 14.9 g/dL 12.0-16.0 Hematocrit 43 % 35-47 Mean Corpuscular Volume 96 um3 79-97 Mean Corpuscular Hemoglob 33 pg High 27-31 Mean Corpuscular HGB Cone 35 g/dL 32-36 Redcell Distribution WDTH 13 % 10.5-15 Platelet Count 261 CUMM 150-450 Mean Platelet Volume 7.9 um3 7.4-10.4 Gran % 58.9 % 38-83 Lymph % 32.7 % 25-47 Mononuclear % 5.9 % 1-9 Eosinophil % 2.2 % 0-6 Basophil % 0.3 % 0-2 Abs Lymphs 1.9 1.0-4.8 Abs Mononuclear 0.4 0-0.8 Absolute Neutrophil Count 3.5 1.5-7.7 Abs Eosinophils 0.1 0-0.6 Abs Basophils 0 0-0.2 Laboratory test 12/04/2011 Cytology <SEE 99 finding NOTE> GC/Chlamydia 12/04/2011 M <SEE 100 Aptima NOTE> Vaginal Dna 12/04/2011 M <SEE 101 Probe NOTE> Vad 12/04/2011 Vad Final Nonreactive Nonreactive 102 Laboratory test 10/16/2011 Hemoglobin A1c 8.5 High 5-7 finding Lipid Profile 07/19/2011 Triglyceride 39 mg/dL Low 40-200 (Trig/Chol/HDL) Cholesterol 170 mg/dL Less Than 200 103 High Density Lipoprotein 56 mg/dL 40-60 104 Cholesterol/HDL Ratio 3.04 AVERAGE 1-4.44 Low Density Lipoprotein 106 mg/dL High Less Than 100 105 Comp Metabolic Panel 07/19/2011 Sodium 133 mmol/L Low 135-145 Potassium 4.6 mmol/L 3.5-5.0 Chloride 97 mmol/L Low 101-111 Co2 (Carbon Dioxide) 27.0 mmol/L 22-32 Anion Gap 9.0 mmol/L 2-11 106 Glucose 321 mg/dL High 70-100 BUN 13 mg/dL 6-24 Creatinine 0.8 mg/dL 0.50-1.40 One Over Creatinine 1.25 BUN/Creatinine Ratio 16.3 8-20 Calcium 8.7 mg/dL 8.1-9.9 Total Protein 6.8 GM/DL 6.2-8.1 Albumin 3.7 GM/DL 3.6-5.4 Globulin 3.1 GM/DL 2-4 Albumin/Globulin Ratio 1.2 1-3 Bilirubin Total 1.1 mg/dL 0.4-1.5 107 Alkaline Phosphatase 55 U/L 30-110 Alt (SGPT) 24 U/L 14-54 Ast (Sgot) 19 U/L 12-42 eGFR Non- 82.6 > 60 eGFR 106.2 > 60 108 Laboratory test 07/19/2011 Hemoglobin A1c 7.8 High 5-7 finding Culture And 03/07/2011 Gram Stain Smear FEW EPITHELIAL C <SEE 109 Sensitivity NOTE> Laboratory test 03/07/2011 Culture STAPHYLOCOCCUS A <SEE 110 finding Sensitivity NOTE> [facility] Clindamycin <=0.25 Culture Ciprofloxacin <=0.5 Erythromycin >=8 Gentamicin <=0.5 Levofloxacin <=0.12 Linezolid 2 Oxacillin 2 Rifampin <=0.5 Trimeth-Sulfa <=10 Tetracycline <=1 Tigecycline <=0.12 Vancomycin 1 1 Coverage Analyst: [id number] SEE RESULT BELOW Name: SHAWN ZHOU JO : [address]: Melinda Sherman MD Acct: [id number] Unit: [id number] AGE: 40 Location: [facility] Re07/30/16 SEX: F Status: REG REF SPEC: [id number] MATT: 07/30/[address] [facility] [address]: Melinda Sherman MD REQ: [id number] RECD: 07/30/16 STATUS: COMP _ SOURCE: VAGINAL SPDESC: ORDERED: Marques,Yeast DNA COMMENTS: [id number] Procedure Result Reported Site Gardnerella/Yeast: Vaginal DNA Final 07/31/16- 0855 ML Organism 1 POSITIVE GARDNERELLA Organism 2 Negative Shelly The presence of G. vaginalis, although suggestive, is not diagnostic for bacterial vaginosis. Results should be interpreted in conjuction with other clinical and laboratory data available. Women with vaginal discharge should be evaluated for risk factors of cervicitis and pelvic inflammatory disease, toxic shock syndrome (S.aureus), and if present, evaluated for organisms not included in this assay such as N. gonorrhoeae, C. trachomatis, Mobiluncus, Mycoplasma and/or Prevotella. Mixed infections may occur. The performance of this test on patient specimens collected during or immediately after antimicrobial therapy is unknown. The presence or absence of Shelly species, or G. vaginalis cannot be used as a test for therapeutic success or failure. * ML - MAIN LAB ([facility]) . END OF REPORT * ML=Testing performed at Main Lab DEPARTMENT OF PATHOLOGY, [address] [place] [address] Gopal Flores M.D. Director [facility] # [id number] GC/Chlamydia Source?: Endocervical Trichomonas Source: Endocervical 5 [id number] 6 Because ethnic data is not always readily available, this report includes an eGFR for both -Americans and non- Americans. The National Kidney Disease Education Program (NKDEP) does not endorse the use of the MDRD equation for patients that are not between the ages of 18 and 70, are , have extremes of body size, muscle mass, or nutritional status, or are non- or non-. According to the National Kidney Foundation, irrespective of diagnosis, the stage of the disease is based on the level of kidney function: Stage Description GFR(mL/min/1.73 m(2)) 1 Kidney damage with normal or decreased GFR 90 2 Kidney damage with mild decrease in GFR 60-89 3 Moderate decrease in GFR 30-59 4 Severe decrease in GFR 15-29 5 Kidney failure <15 (or dialysis) 7 Acute inflammation: >10.00 8 Coverage Analyst: [id number] MARRERO BAGUM 9 Coverage Analyst: AUDIE MARRERO BAGUM 10 The urine specimen was tested at the listed cutoffs: Drug class test level (ng/mL) Amphetamines 500 Barbiturates 200 Benzodiazepine metabolites 200 Cocaine metabolites 150 Cannabinoids 50 Opiates 300 Pcp 25 Specimen was received without chain of custody. Results should be used for medical purposes only. 11 SEE RESULT BELOW Name: SHAWN ZHOU : [address]: Reema Almodovar MD Acct: [id number] Unit: [id number] AGE: 40 Location: [place] [address] Re05/15/16 Dis: 05/16/16 SEX: F Status: DIS Jacquelyn SPEC: [id number] MATT: 05/14/16-[address] [facility] [address]: Erick Ricci MD REQ: [id number] RECD: 05/14/16 STATUS: RAHEL VERGARA DR: Melinda Sherman MD _ SOURCE: BLOOD,VENO SPDESC: ORDERED: Blood Cult Procedure Result Reported Site Aerobic Culture Bottle Final 05/19/16- 2334 ML No Growth Day 5 Anaerobic Culture Bottle Final 05/19/16- 2334 ML No Growth Day 5 * ML - MAIN LAB ([facility]) . END OF REPORT * ML=Testing performed at Main Lab DEPARTMENT OF PATHOLOGY, [address] [place] [address] Gopal Flores M.D. Director [facility] # [id number] 12 Because ethnic data is not always readily available, this report includes an eGFR for both -Americans and non- Americans. The National Kidney Disease Education Program (NKDEP) does not endorse the use of the MDRD equation for patients that are not between the ages of 18 and 70, are , have extremes of body size, muscle mass, or nutritional status, or are non- or non-. According to the National Kidney Foundation, irrespective of diagnosis, the stage of the disease is based on the level of kidney function: Stage Description GFR(mL/min/1.73 m(2)) 1 Kidney damage with normal or decreased GFR 90 2 Kidney damage with mild decrease in GFR 60-89 3 Moderate decrease in GFR 30-59 4 Severe decrease in GFR 15-29 5 Kidney failure <15 (or dialysis) 13 Critical Result CO2:9 Called to [id number] at: 22:40:25 by:[id number] Read back by:[id number] 14 Critical Result GLU:561 Called to [id number] at: 22:40:25 by:[id number] Read back by:[id number] 15 Acute inflammation: >10.00 16 <5.0 Negative 5.0 - 25.0 Indeterminate (Repeat testing recommended after 72 hours) >25.0 Positive Perimenopausal women can display HCG levels of up to 20 mIU/mL 17 It is recognized that currently available assays for the detection of antibodies to HIV-1 and/or HIV-2 may not detect all infected individuals. HIV antibodies may be undetectable in some stages of the infection and in some clinical conditions. The performance of this assay has not been established for populations of infants or children. Assayed by Chemiluminescence Microparticle Immunoassay on the Siemens Advia Centaur CP. Values obtained with different methods or kits cannot be used interchangeably.The diagnostic specificity of the ADVIA Centaur 1/O/2 Enhanced assay in the low risk population was 99.90% (6052/6058) with a 95% confidence interval of 99.78 to 99.96%. 18 SEE RESULT BELOW Name: SHAWN ZHOU : [address]: Reema Almodovar MD Acct: [id number] Unit: [id number] AGE: 40 Location: [place] [address] Re05/15/16 Dis: 05/16/16 SEX: F Status: DIS Jacquelyn SPEC: [id number] MATT: 05/14/[address] [facility] [address]: Erick Ricci MD REQ: [id number] RECD: 05/14/16 STATUS: RAHEL VERGARA DR: Melinda Sherman MD _ SOURCE: BLOOD,VENO [facility]: ORDERED: Blood Cult Procedure Result Reported Site Aerobic Culture Bottle Final 05/19/16- 2222 ML No Growth Day 5 Anaerobic Culture Bottle Final 05/19/162222 ML No Growth Day 5 * ML - MAIN LAB ([facility]) . END OF REPORT * ML=Testing performed at Main Lab DEPARTMENT OF PATHOLOGY, [address] [place] [address] Gopal Flores M.D. Director [facility] # [id number] 19 Reference ranges based on room air. 20 Because ethnic data is not always readily available, this report includes an eGFR for both -Americans and non- Americans. The National Kidney Disease Education Program (NKDEP) does not endorse the use of the MDRD equation for patients that are not between the ages of 18 and 70, are , have extremes of body size, muscle mass, or nutritional status, or are non- or non-. According to the National Kidney Foundation, irrespective of diagnosis, the stage of the disease is based on the level of kidney function: Stage Description GFR(mL/min/1.73 m(2)) 1 Kidney damage with normal or decreased GFR 90 2 Kidney damage with mild decrease in GFR 60-89 3 Moderate decrease in GFR 30-59 4 Severe decrease in GFR 15-29 5 Kidney failure <15 (or dialysis) 21 Acute inflammation: >10.00 22 REFERENCE VALUE <=1.0 (Negative) 23 REFERENCE VALUE <20.0 (Negative) 24 Tests for antibodies to dsDNA and ALEXEY antigens are not performed automatically unless the YUNG result is > or= 3.0 U. Studies performed at [facility] indicate that positive YUNG results <3.0 U are rarely accompanied by positive second order tests. Test Performed by: [facility] [place] [address] Media Center Assistant: Cl Ramírez II, M.D., Ph.D. 25 Acute inflammation: >10.00 26 Consistent with previous results on 12/21/15. 27 Because ethnic data is not always readily available, this report includes an eGFR for both -Americans and non- Americans. The National Kidney Disease Education Program (NKDEP) does not endorse the use of the MDRD equation for patients that are not between the ages of 18 and 70, are , have extremes of body size, muscle mass, or nutritional status, or are non- or non-. According to the National Kidney Foundation, irrespective of diagnosis, the stage of the disease is based on the level of kidney function: Stage Description GFR(mL/min/1.73 m(2)) 1 Kidney damage with normal or decreased GFR 90 2 Kidney damage with mild decrease in GFR 60-89 3 Moderate decrease in GFR 30-59 4 Severe decrease in GFR 15-29 5 Kidney failure <15 (or dialysis) 28 Serologic response to B. burgdorferi infection is not detected, but cannot rule out early infection during which low or undetectable antibody levels to B. burgdorferi may be present. If clinically indicated, a new serum specimen should be submitted in 7-14 days. Test Performed by: [place] [address] Media Center Assistant: Cl Ramírez II, M.D., Ph.D. 29 Because ethnic data is not always readily available, this report includes an eGFR for both -Americans and non- Americans. The National Kidney Disease Education Program (NKDEP) does not endorse the use of the MDRD equation for patients that are not between the ages of 18 and 70, are , have extremes of body size, muscle mass, or nutritional status, or are non- or non-. According to the National Kidney Foundation, irrespective of diagnosis, the stage of the disease is based on the level of kidney function: Stage Description GFR(mL/min/1.73 m(2)) 1 Kidney damage with normal or decreased GFR 90 2 Kidney damage with mild decrease in GFR 60-89 3 Moderate decrease in GFR 30-59 4 Severe decrease in GFR 15-29 5 Kidney failure <15 (or dialysis) 30 [facility] Severe Sepsis and Septic Shock Management Bundle Measure requires all lactic acids initially measuring >2.0 mmol/L be repeated. 31 Acute inflammation: >10.00 32 SEE RESULT BELOW Name: SHAWN ZHOU : [address]: Erick Harris III, MD Acct: [id number] Unit: [id number] AGE: 40 Location: [facility] Re12/15/15 SEX: F Status: REG REF SPEC: [id number] MATT: 12/15/15-[address] [facility] [address]: Erick Harris III, MD REQ: [id number] RECD: 12/15/15 STATUS: COMP _ SOURCE: BLOOD,VENO SPDESC: ORDERED: Blood Cult Procedure Result Reported Site Aerobic Culture Bottle Final 12/20/15- 1251 ML No Growth Day 5 Anaerobic Culture Bottle Final 12/20/15- 1251 ML No Growth Day 5 * ML - MAIN LAB ([facility]) . END OF REPORT * ML=Testing performed at Main Lab DEPARTMENT OF PATHOLOGY, [address] [place] [address] Gopal Flores M.D. Director [facility] # [id number] 33 [facility] Severe Sepsis and Septic Shock Management Bundle Measure requires all lactic acids initially measuring >2.0 mmol/L be repeated. 34 Because ethnic data is not always readily available, this report includes an eGFR for both -Americans and non- Americans. The National Kidney Disease Education Program (NKDEP) does not endorse the use of the MDRD equation for patients that are not between the ages of 18 and 70, are , have extremes of body size, muscle mass, or nutritional status, or are non- or non-. According to the National Kidney Foundation, irrespective of diagnosis, the stage of the disease is based on the level of kidney function: Stage Description GFR(mL/min/1.73 m(2)) 1 Kidney damage with normal or decreased GFR 90 2 Kidney damage with mild decrease in GFR 60-89 3 Moderate decrease in GFR 30-59 4 Severe decrease in GFR 15-29 5 Kidney failure <15 (or dialysis) 35 SEE RESULT BELOW Name: SHAWN ZHOU : [address]: Tammie Altamirnao MD Acct: [id number] Unit: [id number] AGE: 40 Location: ED Re12/13/15 SEX: F Status: DEP ER SPEC: [id number] MATT: 12/13/15-[address] [facility] [address]: Tammie Altamirano MD REQ: [id number] RECD: 12/14/15-4 STATUS: COMP JAI DR: Melinda Sherman MD _ SOURCE: BLOOD,VENO SPDES: ORDERED: Blood Cult Procedure Result Reported Site Aerobic Culture Bottle Final 12/19/15- 0005 ML No Growth Day 5 Anaerobic Culture Bottle Final 12/19/15- 0005 ML No Growth Day 5 * ML - MAIN LAB ([facility]) . END OF REPORT * ML=Testing performed at Main Lab DEPARTMENT OF PATHOLOGY, [address] [place] [address] Gopal Flores M.D. Director [facility] # [id number] 36 Coverage Analyst: LISS NINA 37 It is recognized that currently available assays for the detection of antibodies to HIV-1 and/or HIV-2 may not detect all infected individuals. HIV antibodies may be undetectable in some stages of the infection and in some clinical conditions. The performance of this assay has not been established for populations of infants or children. Assayed by Chemiluminescence Microparticle Immunoassay on the Siemens Advia Centaur CP. Values obtained with different methods or kits cannot be used interchangeably.The diagnostic specificity of the ADVIA Centaur 1/O/2 Enhanced assay in the low risk population was 99.90% (6052/6058) with a 95% confidence interval of 99.78 to 99.96%. 38 SEE RESULT BELOW Name: ABELARDOKLAUDIA : [address]: Melinda Sherman MD Acct: [id number] Unit: [id number] AGE: 39 Location: [facility] Re10/05/15 SEX: F Status: REG REF SPEC: [id number] MATT: 10/05/15-[address] [facility] [address]: Melinda Sherman MD REQ: [id number] RECD: 10/05/15 STATUS: RAHEL VERGARA DR: Percy Zurita MD _ SOURCE: BLOOD,VENO [facility]: ORDERED: Blood Cult Procedure Result Reported Site Aerobic Culture Bottle Final 10/10/15- 1308 ML No Growth Day 5 Anaerobic Culture Bottle Final 10/10/15- 1308 ML No Growth Day 5 * ML - [facility] ([facility]) . END OF REPORT * ML=Testing performed at Main Lab DEPARTMENT OF PATHOLOGY, [address] [place] [address] Gopal Flores M.D. Director [facility] # [id number] 39 Because ethnic data is not always readily available, this report includes an eGFR for both -Americans and non- Americans. The National Kidney Disease Education Program (NKDEP) does not endorse the use of the MDRD equation for patients that are not between the ages of 18 and 70, are , have extremes of body size, muscle mass, or nutritional status, or are non- or non-. According to the National Kidney Foundation, irrespective of diagnosis, the stage of the disease is based on the level of kidney function: Stage Description GFR(mL/min/1.73 m(2)) 1 Kidney damage with normal or decreased GFR 90 2 Kidney damage with mild decrease in GFR 60-89 3 Moderate decrease in GFR 30-59 4 Severe decrease in GFR 15-29 5 Kidney failure <15 (or dialysis) 40 SEE RESULT BELOW Name: SHAWN ZHOU : [address]: Melinda Sherman MD Acct: [id number] Unit: [id number] AGE: 39 Location: [facility] Re10/05/15 SEX: F Status: REG REF SPEC: [id number] MATT: 10/05/15-[address] [facility] [address]: Melinda Sherman MD REQ: [id number] RECD: 10/05/15 STATUS: COMP _ SOURCE: KLAUDIA [facility]: ORDERED: Flu A B Request Procedure Result Reported Site Rapid Influenza A B Request Final 10/05/15- 1920 ML Specimen received for Influenza A/B Molecular testing * ML - MAIN LAB ([facility]) . END OF REPORT * ML=Testing performed at Main Lab DEPARTMENT OF PATHOLOGY, [address] [place] [address] Gopal Flores M.D. Director [facility] # [id number] 41 Because ethnic data is not always readily available, this report includes an eGFR for both -Americans and non- Americans. The National Kidney Disease Education Program (NKDEP) does not endorse the use of the MDRD equation for patients that are not between the ages of 18 and 70, are , have extremes of body size, muscle mass, or nutritional status, or are non- or non-. According to the National Kidney Foundation, irrespective of diagnosis, the stage of the disease is based on the level of kidney function: Stage Description GFR(mL/min/1.73 m(2)) 1 Kidney damage with normal or decreased GFR 90 2 Kidney damage with mild decrease in GFR 60-89 3 Moderate decrease in GFR 30-59 4 Severe decrease in GFR 15-29 5 Kidney failure <15 (or dialysis) 42 Acute inflammation: >10.00 43 Coverage Analyst: [id number] MICHAEL WICK 44 Coverage Analyst: [id number] LANDEN LAVELLE 45 Because ethnic data is not always readily available, this report includes an eGFR for both -Americans and non- Americans. The National Kidney Disease Education Program (NKDEP) does not endorse the use of the MDRD equation for patients that are not between the ages of 18 and 70, are , have extremes of body size, muscle mass, or nutritional status, or are non- or non-. According to the National Kidney Foundation, irrespective of diagnosis, the stage of the disease is based on the level of kidney function: Stage Description GFR(mL/min/1.73 m(2)) 1 Kidney damage with normal or decreased GFR 90 2 Kidney damage with mild decrease in GFR 60-89 3 Moderate decrease in GFR 30-59 4 Severe decrease in GFR 15-29 5 Kidney failure <15 (or dialysis) 46 Critical Result GLU:598 Called to MADDI/ED at: 13:30:40 by:[id number] Read back by:[email or web address] 47 Acute inflammation: >10.00 48 Reference ranges based on room air. 49 Coverage Analyst: [id number] DAINA COLLINS 50 Because ethnic data is not always readily available, this report includes an eGFR for both -Americans and non- Americans. The National Kidney Disease Education Program (NKDEP) does not endorse the use of the MDRD equation for patients that are not between the ages of 18 and 70, are , have extremes of body size, muscle mass, or nutritional status, or are non- or non-. According to the National Kidney Foundation, irrespective of diagnosis, the stage of the disease is based on the level of kidney function: Stage Description GFR(mL/min/1.73 m(2)) 1 Kidney damage with normal or decreased GFR 90 2 Kidney damage with mild decrease in GFR 60-89 3 Moderate decrease in GFR 30-59 4 Severe decrease in GFR 15-29 5 Kidney failure <15 (or dialysis) 51 RUN DATE: 08/18/14 [facility] LAB LIVE PAGE 1 RUN TIME: [address] [place], [place] [address] Specimen Inquiry Name: SHAWN ZHOU : [address]: Melinda Sherman MD Acct: [id number] Unit: [id number] AGE: 38 Location: [facility] Re08/17/14 SEX: F Status: REG REF SPEC: [id number] MATT: 08/17/14-[address]: Melinda Sherman MD REQ: [id number] RECD: 08/17/14 STATUS: COMP _ SOURCE: VAGINAL SPDESC: ORDERED: MarquesYeast DNA QUERIES: Provider Requisition # [id number] Procedure Result Verified Site Gardnerella/Yeast: Vaginal DNA Final 08/18/14- 1326 ML Organism 1 Negative Gardnerella Organism 2 Negative Shelly The presence of G. vaginalis, although suggestive, is not diagnostic for bacterial vaginosis. Results should be interpreted in conjuction with other clinical and laboratory data available. Women with vaginal discharge should be evaluated for risk factors of cervicitis and pelvic inflammatory disease, toxic shock syndrome (S.aureus), and if present, evaluated for organisms not included in this assay such as N. gonorrhoeae, C. trachomatis, Mobiluncus, Mycoplasma and/or Prevotella. Mixed infections may occur. The performance of this test on patient specimens collected during or immediately after antimicrobial therapy is unknown. The presence or absence of Shelly species, or G. vaginalis cannot be used as a test for therapeutic success or failure. END OF REPORT * ML=Testing performed at Main Lab DEPARTMENT OF PATHOLOGY, [address] [place] [address] Gopal Flores M.D. Director [facility] # [id number] 52 Female urine specimens have been self-validated by [facility] and have been granted conditional assay approval by [facility]. 53 Endocervical Endocervical 54 Reference ranges based on room air. 55 Verbal to [id number] by [id number] at 0256 on 08/07/14. Results read back accurately. 56 Reference ranges based on room air. 57 Specimen hemolyzed. Unable to perform test requested.~Reorder for specimen recollection. [id number] 58 This test detects intact HCG only and is indicated for the early detection of . 59 Unable to report test result due to hemolysis. 60 Critical Result CO2:11 Called to [id number] at: 01:35:43 by:[id number] Read back by:[id number] 61 Critical Result GLU:540 Called to [id number] at: 01:35:43 by:[id number] Read back by:[id number] 62 Unable to report test result due to hemolysis. 63 Because ethnic data is not always readily available, this report includes an eGFR for both -Americans and non- Americans. The National Kidney Disease Education Program (NKDEP) does not endorse the use of the MDRD equation for patients that are not between the ages of 18 and 70, are , have extremes of body size, muscle mass, or nutritional status, or are non- or non-. According to the National Kidney Foundation, irrespective of diagnosis, the stage of the disease is based on the level of kidney function: Stage Description GFR(mL/min/1.73 m(2)) 1 Kidney damage with normal or decreased GFR 90 2 Kidney damage with mild decrease in GFR 60-89 3 Moderate decrease in GFR 30-59 4 Severe decrease in GFR 15-29 5 Kidney failure <15 (or dialysis) 64 Acute inflammation: >10.00 65 RUN DATE: 08/07/14 [facility] LAB LIVE PAGE 1 RUN TIME: [address] [place], [place] [address] Specimen Inquiry Name: SHAWN ZHOU : [address]: Ramirez Duarte MD Acct: [id number] Unit: [id number] AGE: 38 Location: ED Re08/06/14 SEX: F Status: REG ER SPEC: [id number] MATT: 08/06/[address] [facility] [address]: Ramirez Bardales MD REQ: [id number] RECD: 08/06/14 STATUS: RAHEL VERGARA DR: [facility] Melinda Sherman MD _ SOURCE: ALEX [facility]: ORDERED: Rapid Flu A B Procedure Result Verified Site Rapid Influenza A B Antigen Final 08/07/14- 26 ML Organism 1 Negative Influenza A Organism 2 Negative Influenza B Antigen testing by enzyme immunoassay. Cell culture testing can be performed to confirm negative test results and to assist in detecting other viruses that can produce similar clinical symptoms. Please notify Microbiology Lab if further testing is desired. END OF REPORT * ML=Testing performed at Main Lab DEPARTMENT OF PATHOLOGY, [address] [place] [address] Gopal Flores M.D. Director [facility] # [id number] 66 RUN DATE: 08/09/14 [facility] LAB LIVE PAGE 1 RUN TIME: 10[address] [facility], [place], [place] [address] Specimen Inquiry Name: SHAWN ZHOU JO : [address]: Kilo Fleming MD Acct: [id number] Unit: [id number] AGE: 38 Location: [facility] Re08/06/14 SEX: F Status: DEP ER SPEC: [id number] MATT: 08/06/14-[address] [facility] [address]: Kilo Fleming MD REQ: [id number] RECD: 08/07/14-1242 STATUS: RAHEL VERGARA DR: Melinda Sherman MD _ SOURCE: URINE SPDESC: ORDERED: Urine Culture Procedure Result Verified Site Urine Culture Final 08/09/14- 1032 ML Organism 1 NORMAL MANUEL Makinen Count 10-25,000 (Moderate) CFU/ML END OF REPORT * ML=Testing performed at Main Lab DEPARTMENT OF PATHOLOGY, [address] [place] [address] Gopal Flores M.D. Director [facility] # [id number] 67 Because ethnic data is not always readily available, this report includes an eGFR for both -Americans and non- Americans. The National Kidney Disease Education Program (NKDEP) does not endorse the use of the MDRD equation for patients that are not between the ages of 18 and 70, are , have extremes of body size, muscle mass, or nutritional status, or are non- or non-. According to the National Kidney Foundation, irrespective of diagnosis, the stage of the disease is based on the level of kidney function: Stage Description GFR(mL/min/1.73 m(2)) 1 Kidney damage with normal or decreased GFR 90 2 Kidney damage with mild decrease in GFR 60-89 3 Moderate decrease in GFR 30-59 4 Severe decrease in GFR 15-29 5 Kidney failure <15 (or dialysis) 68 Acute inflammation: >10.00 69 Reference ranges based on room air. 70 Because ethnic data is not always readily available, this report includes an eGFR for both -Americans and non- Americans. The National Kidney Disease Education Program (NKDEP) does not endorse the use of the MDRD equation for patients that are not between the ages of 18 and 70, are , have extremes of body size, muscle mass, or nutritional status, or are non- or non-. According to the National Kidney Foundation, irrespective of diagnosis, the stage of the disease is based on the level of kidney function: Stage Description GFR(mL/min/1.73 m(2)) 1 Kidney damage with normal or decreased GFR 90 2 Kidney damage with mild decrease in GFR 60-89 3 Moderate decrease in GFR 30-59 4 Severe decrease in GFR 15-29 5 Kidney failure <15 (or dialysis) 71 Acute inflammation: >10.00 72 RUN DATE: 04/28/14 [facility] LAB LIVE PAGE 1 RUN TIME: [address] [place] [address] Specimen Inquiry Name: SHAWN ZHOU : [address]: Brandy Palacio MD Acct: [id number] Unit: [id number] AGE: 38 Location: [facility] Re04/25/14 SEX: F Status: DEP ER SPEC: [id number] MATT: 04/25/[address] [facility] [address]: Brandy Palacio MD REQ: [id number] RECD: 04/26/14-1221 STATUS: RAHEL VERGARA DR: Melinda Sherman MD _ SOURCE: URINE SPDESC: ORDERED: Urine Culture Procedure Result Verified Site Urine Culture Final 04/28/14- 930 ML Organism 1 ESCHERICHIA COLI Makinen Count >100,000 (Many) CFU/ML 1. ESCHERICHIA COLI M.I.C. RX --------- ------ Ampicillin >=32 R Cefazolin 8 S Cefepime <=1 S Ceftriaxone <=1 S Ciprofloxacin <=0.25 S Gentamicin <=1 S Levofloxacin <=0.12 S Meropenem <=0.25 S Nitrofurantoin <=16 S Tetracycline <=1 S Pipercillin/Tazobactam <=4 S Trimethoprim/Sulfamethoxazole <=20 S Amoxicillin/Clavulanic Acid 16 I Aztreonam <=1 S Contact the Microbiology Department for any additional antibiotic reporting. END OF REPORT * ML=Testing performed at Main Lab DEPARTMENT OF PATHOLOGY, [address] [place] [address] Gopal Flores M.D. Director [facility] # [id number] 73 Acute inflammation: >10.00 74 Serologic response to B. burgdorferi infection is not detected, but cannot rule out early infection during which low or undetectable antibody levels to B. burgdorferi may be present. If clinically indicated, a new serum specimen should be submitted in 7-14 days. Test Performed by: [address] [address] [employer] Assistant: Abe Bonilla III, M.D. 75 Because ethnic data is not always readily available, this report includes an eGFR for both -Americans and non- Americans. The National Kidney Disease Education Program (NKDEP) does not endorse the use of the MDRD equation for patients that are not between the ages of 18 and 70, are , have extremes of body size, muscle mass, or nutritional status, or are non- or non-. According to the National Kidney Foundation, irrespective of diagnosis, the stage of the disease is based on the level of kidney function: Stage Description GFR(mL/min/1.73 m(2)) 1 Kidney damage with normal or decreased GFR 90 2 Kidney damage with mild decrease in GFR 60-89 3 Moderate decrease in GFR 30-59 4 Severe decrease in GFR 15-29 5 Kidney failure <15 (or dialysis) 76 Verbal to [id number] by [id number] at 2308 on 01/26/14. Results read back accurately. Please note: The following may produce a false positive D Dimer test: - Rheumatoid factor greater than 60 IU/ml - Plasma hemoglobin greater than 0.05 gm/dl - Bilirubin greater than 50 mg/dl - Lipids greater than 1000 mg/dl - FDP greater than 20 ug/ml 77 Because ethnic data is not always readily available, this report includes an eGFR for both -Americans and non- Americans. The National Kidney Disease Education Program (NKDEP) does not endorse the use of the MDRD equation for patients that are not between the ages of 18 and 70, are , have extremes of body size, muscle mass, or nutritional status, or are non- or non-. According to the National Kidney Foundation, irrespective of diagnosis, the stage of the disease is based on the level of kidney function: Stage Description GFR(mL/min/1.73 m(2)) 1 Kidney damage with normal or decreased GFR 90 2 Kidney damage with mild decrease in GFR 60-89 3 Moderate decrease in GFR 30-59 4 Severe decrease in GFR 15-29 5 Kidney failure <15 (or dialysis) 78 Desirable <150 Borderline high 150-199 High 200-499 Very High >500 79 Desirable <200 Borderline high 200-239 High >239 80 Low <40 Desirable: 40-60 High: >60 81 Desirable <100 Near Optimal 100-129 Borderline high 130-159 High 160-189 Very High >189 82 RUN DATE: 01/18/14 [facility] LAB LIVE PAGE 1 RUN TIME: 1064 [address] [place], [place] [address] Specimen Inquiry Name: SHAWN ZHOU : [address]: Liana Valero MD Acct: [id number] Unit: [id number] AGE: 38 Location: [facility] Re01/17/14 SEX: F Status: DEP ER SPEC: [id number] MATT: 01/17/14-[address] [facility] [address]: Azalea John NP REQ: [id number] RECD: 01/18/14-1110 STATUS: RAHEL VERGARA DR: Melinda Valero MD _ SOURCE: VAGINAL SPDESC: ORDERED: Affirm Procedure Result Verified Site Affirm Vaginal DNA Probe Final 01/18/14- 1452 ML Organism 1 Negative Trichomonas Organism 2 POSITIVE GARDNERELLA Organism 3 Negative Shelly The presence of G. vaginalis, although suggestive, is not diagnostic for bacterial vaginosis. Results should be interpreted in conjunction with other clinical and laboratory data available. Women with vaginal discharge should be evaluated for risk factors of cervicitis and pelvic inflammatory disease, toxic shock syndrome (S.aureus), and if present, evaluated for organisms not included in this assay such as N. gonorrhoeae, C. trachomatis, Mobiluncus, Mycoplasma and/or Prevotella. Mixed infections may occur. The performance of this test on patient specimens collected during or immediately after antimicrobial therapy is unknown. The presence or absence of Shelly species, G. vaginalis or T. vaginalis cannot be used as a test for therapeutic success or failure. END OF REPORT * ML=Testing performed at Main Lab DEPARTMENT OF PATHOLOGY, [address] [place] [address] Gopal Flores M.D. Director [facility] # [id number] RUN DATE: 01/22/14 [facility] LAB LIVE PAGE 1 RUN TIME: [address] [place], [place] [address] Specimen Inquiry Name: SHAWN ZHOU JO : [address]: Liana Valero MD Acct: [id number] Unit: [id number] AGE: 38 Location: [facility] Re01/17/14 SEX: F Status: DEP ER SPEC: [id number] MATT: 01/17/14-[address] [facility] [address]: Azalea John NP REQ: [id number] RECD: 01/18/14 STATUS: COMP OTHR DR: Melinda Valero MD _ SOURCE: URINE SPDESC: ORDERED: GC/Chlam RNA QUERIES: Medent Number [id number] Procedure Result Verified Site Chlamydia Trachomatis RNA Final 01/22/14- 1329 ML NEGATIVE for Chlamydia trachomatis rRNA GC (N. gonorrhoeae) RNA Final 01/22/14- 1329 ML NEGATIVE for Neisseria gonorrhoeae rRNA A negative result does not preclude the presence of a C. trachomatis or N. gonorrhoeae infection because results are dependent on adequate specimen collection, absence of inhibitors, and sufficient rRNA to be detected. Test results may be affected by improper specimen collection, improper storage, technical error, or specimen mixup. Limitations of the Procedure: The Aptima Combo 2 Assay is not intended for the evaluation of suspected sexual abuse or for other medico-legal indications. For those patients for whom a false positive result may have adverse psychosocial impact, the CDC recommends retesting by a method using an alternate technology. Therapeutic failure or success cannot be determined with the Aptima Combo 2 Assay since nucleic acid may persist following appropriate antimicrobial therapy. Results from the Aptima Combo 2 Assay should be interpreted in conjunction with other laboratory and clinical data available to the clinican. CONTINUED ON NEXT PAGE * ML=Testing performed at Main Lab DEPARTMENT OF PATHOLOGY, [facility] [place], [place] [address] Gopal Flores M.D. Director [facility] # [id number] RUN DATE: 01/22/14 [facility] LAB LIVE PAGE 2 RUN TIME: 5764 [facility] [place] [facility] [place], [place] [address] Specimen Inquiry Patient: SHAWN ZHOU JO [id number] (Continued) Specimen: [id number] Collected: 01/17/14 Received: 01/18/14 (Continued) Procedure Result Verified Site GC (N. gonorrhoeae) RNA Final (continued) 01/22/14- 1325 Performance characteristics for detecting C. trachomatis and N. gonorrhoeae are derived from high prevalence populations. Positive results in low prevalence populations should be interpreted carefully with the understanding that the likelihood of a false positive may be higher than a true positive. END OF REPORT * ML=Testing performed at Main Lab DEPARTMENT OF PATHOLOGY, [facility] [place] [facility] [place], [place] [address] Gopal Flores M.D. Director [facility] # [id number] RUN DATE: 01/20/14 [facility] LAB LIVE PAGE 1 RUN TIME: 903 [facility] [place], [place] [address] Specimen Inquiry Name: SHAWN ZHOU : [address]: Liana Valero MD Acct: [id number] Unit: [id number] AGE: 38 Location: [facility] Re01/17/14 SEX: F Status: DEP ER SPEC: [id number] MATT: 01/17/[address] [facility] [address]: Liana Valero MD REQ: [id number] RECD: 01/18/14 STATUS: RAHEL VERGARA DR: Melinda Sherman MD _ SOURCE: URINE SPDESC: ORDERED: Urine Culture Procedure Result Verified Site Urine Culture Final 01/20/14- 09 ML Organism 1 ESCHERICHIA COLI Makinen Count 75-100,000 (Many) CFU/ML Organism 2 NORMAL MANUEL Makinen Count 10-25,000 (Moderate) CFU/ML 1. ESCHERICHIA COLI M.I.C. RX --------- ------ Ampicillin >=32 R Cefazolin <=4 S Cefepime <=1 S Ceftriaxone <=1 S Ciprofloxacin <=0.25 S Gentamicin <=1 S Levofloxacin <=0.12 S Meropenem <=0.25 S Nitrofurantoin <=16 S Tetracycline <=1 S Pipercillin/Tazobactam <=4 S Trimethoprim/Sulfamethoxazole <=20 S Amoxicillin/Clavulanic Acid 16 I Aztreonam <=1 S Contact the Microbiology Department for any additional antibiotic reporting. END OF REPORT * ML=Testing performed at Main Lab DEPARTMENT OF PATHOLOGY, [address] [place] [address] Gopal Flores M.D. Director [facility] # [id number] 85 Because ethnic data is not always readily available, this report includes an eGFR for both -Americans and non- Americans. The National Kidney Disease Education Program (NKDEP) does not endorse the use of the MDRD equation for patients that are not between the ages of 18 and 70, are , have extremes of body size, muscle mass, or nutritional status, or are non- or non-. According to the National Kidney Foundation, irrespective of diagnosis, the stage of the disease is based on the level of kidney function: Stage Description GFR(mL/min/1.73 m(2)) 1 Kidney damage with normal or decreased GFR 90 2 Kidney damage with mild decrease in GFR 60-89 3 Moderate decrease in GFR 30-59 4 Severe decrease in GFR 15-29 5 Kidney failure <15 (or dialysis) 86 RUN DATE: 02/02/13 [facility] LAB LIVE PAGE 1 RUN TIME: [address] [place], [place] [address] Specimen Inquiry Name: SHAWN ZHOU JO : [address]: Kilo Fleming MD Acct: [id number] Unit: [id number] AGE: 37 Location: [facility] Re02/01/13 SEX: F Status: DEP ER SPEC: [id number] MATT: 02/01/13-[address]: Kilo Fleming MD REQ: [id number] RECD: 02/02/13 STATUS: RAHEL VERGARA DR: Melinda Sherman MD _ SOURCE: VAGINAL SPDESC: ORDERED: Affirm Procedure Result Verified Site Affirm Vaginal DNA Probe Final 02/02/13- 1409 ML Organism 1 Negative Trichomonas Organism 2 POSITIVE GARDNERELLA Organism 3 Negative Shelly The presence of G. vaginalis, although suggestive, is not diagnostic for bacterial vaginosis. Results should be interpreted in conjunction with other clinical and laboratory data available. Women with vaginal discharge should be evaluated for risk factors of cervicitis and pelvic inflammatory disease, toxic shock syndrome (S.aureus), and if present, evaluated for organisms not included in this assay such as N. gonorrhoeae, C. trachomatis, Mobiluncus, Mycoplasma and/or Prevotella. Mixed infections may occur. The performance of this test on patient specimens collected during or immediately after antimicrobial therapy is unknown. The presence or absence of Shelly species, G. vaginalis or T. vaginalis cannot be used as a test for therapeutic success or failure. END OF REPORT * ML=Testing performed at Main Lab DEPARTMENT OF PATHOLOGY, [address] [place], [place] [address] Gopal Flores M.D. Director [facility] Permit #[id number] RUN DATE: 02/03/13 [facility] LAB LIVE PAGE 1 RUN TIME: [address] [place] [address] Specimen Inquiry Name: ABELARDOSHAWN : [address]: Kilo Fleming MD Acct: [id number] Unit: [id number] AGE: 37 Location: [facility] Re02/01/13 SEX: F Status: DEP ER SPEC: [id number] MATT: 02/01/13-[address] [facility] [address]: Kilo Fleming MD REQ: [id number] RECD: 02/02/13 STATUS: RAHEL VERGARA DR: Melinda Sherman MD _ SOURCE: ENDOCERVIX SPDESC: ORDERED: GC/Chlam RNA Procedure Result Verified Site Chlamydia Trachomatis RNA Final 02/03/13- 1426 ML POSITIVE for CHLAMYDIA TRACHOMATIS rRNA Limitations of the Procedure: The Aptima Combo 2 Assay is not intended for the evaluation of suspected sexual abuse or for other medico-legal indications. For those patients for whom a false positive result may have adverse psychosocial impact, the [facility] recommends retesting by a method using an alternate technology. Therapeutic failure or success cannot be determined with the Aptima Combo 2 Assay since nucleic acid may persist following appropriate antimicrobial therapy. Results from the Aptima Combo 2 Assay should be interpreted in conjunction with other laboratory and clinical data available to the clinican. Performance characteristics for detecting C. trachomatis and N. gonorrhoeae are derived from high prevalence populations. Positive results in low prevalence populations should be interpreted carefully with the understanding that the likelihood of a false positive may be higher than a true positive. GC (N. gonorrhoeae) RNA Final 02/03/13- 1426 ML NEGATIVE for Neisseria gonorrhoeae rRNA A negative result does not preclude the presence of a C. CONTINUED ON NEXT PAGE * ML=Testing performed at Main Lab DEPARTMENT OF PATHOLOGY, [facility] [place] [place] [facility] [place], [place] [address] Gopal Flores M.D. Director [facility] Permit #[id number] RUN DATE: 02/03/13 [facility] LAB LIVE PAGE 2 RUN TIME: 1425 [facility] [place] [place], [place] [address] Specimen Inquiry Patient: SHAWN ZHOU JO [id number] (Continued) Specimen: [id number] Collected: 02/01/13 Received: 02/02/13 (Continued) Procedure Result Verified Site GC (N. gonorrhoeae) RNA Final (continued) 02/03/13- 1425 trachomatis or N. gonorrhoeae infection because results are dependent on adequate specimen collection, absence of inhibitors, and sufficient rRNA to be detected. Test results may be affected by improper specimen collection, improper storage, technical error, or specimen mixup. Limitations of the Procedure: The Aptima Combo 2 Assay is not intended for the evaluation of suspected sexual abuse or for other medico-legal indications. For those patients for whom a false positive result may have adverse psychosocial impact, the CDC recommends retesting by a method using an alternate technology. Therapeutic failure or success cannot be determined with the Aptima Combo 2 Assay since nucleic acid may persist following appropriate antimicrobial therapy. Results from the Aptima Combo 2 Assay should be interpreted in conjunction with other laboratory and clinical data available to the clinican. Performance characteristics for detecting C. trachomatis and N. gonorrhoeae are derived from high prevalence populations. Positive results in low prevalence populations should be interpreted carefully with the understanding that the likelihood of a false positive may be higher than a true positive. END OF REPORT * ML=Testing performed at Main Lab DEPARTMENT OF PATHOLOGY, [address] [place] [address] Gopal Flores M.D. Director [facility] Permit #[id number] 88 -- REFERENCE VALUE -- <20.0 (Negative) Test Performed by: [address] [address] [employer] [place] Assistant: Abe Bonilla III, M.D. 89 Because ethnic data is not always readily available, this report includes an eGFR for both -Americans and non- Americans. The National Kidney Disease Education Program (NKDEP) does not endorse the use of the MDRD equation for patients that are not between the ages of 18 and 70, are , have extremes of body size, muscle mass, or nutritional status, or are non- or non-. According to the National Kidney Foundation, irrespective of diagnosis, the stage of the disease is based on the level of kidney function: Stage Description GFR(mL/min/1.73 m(2)) 1 Kidney damage with normal or decreased GFR 90 2 Kidney damage with mild decrease in GFR 60-89 3 Moderate decrease in GFR 30-59 4 Severe decrease in GFR 15-29 5 Kidney failure <15 (or dialysis) 90 -- REFERENCE VALUE -- <4.0 (Negative) 91 Interpretation: Positive (>9.0) -- REFERENCE VALUE -- <6.0 (Negative) Test Performed by: [place] [address] [employer] Assistant: Abe Bonilla III, M.D. 92 Microalbuminuria in a random sample is defined as: Microalbumin/Creatinine ratio of 30-299 ug/mg. 93 HDL Interpretation: Undesirable: High Risk: Less than 40 MG/DL Desirable: Low Risk: Greater than 60 MG/DL 94 LDL Interpretation: Low Risk Optimal Level: LDL Less than 100 MG/DL Near or Above Optimal: LDL 100-129 MG/DL Borderline High Risk: LDL 130-159 MG/DL High Risk: LDL 160-189 MG/DL Very High Risk: LDL Greater than 189 MG/DL 95 For research use only. Test Performed by: [place] [address] [employer] Assistant: Abe Bonilla III, M.D. 96 Test Performed by: [place] [address] [employer] Assistant: Abe Bonilla III, M.D. 97 A metabolite of Naproxen, O-desmethylnaproxen, has been shown to interfere with the Jendrassik-Lynnette method for measuring total bilirubin. Samples from patients who have taken Naproxen have shown spurious elevation in total bilirubin levels. 98 Because ethnic data is not always readily available, this report includes an eGFR for both -Americans and non- Americans. The National Kidney Disease Education Program (NKDEP) does not endorse the use of the MDRD equation for patients that are not between the ages of 18 and 70, are , have extremes of body size, muscle mass, or nutritional status, or are non- or non-. According to the National Kidney Foundation, irrespective of diagnosis, the stage of the disease is based on the level of kidney function: Stage Description GFR(mL/min/1.73 m(2)) 1 Kidney damage with normal or decreased GFR 90 2 Kidney damage with mild decrease in GFR 60-89 3 Moderate decrease in GFR 30-59 4 Severe decrease in GFR 15-29 5 Kidney failure <15 (or dialysis) 99 ---- RUN DATE: 12/10/11 [facility] NMI LIVE PAGE 1 RUN TIME: 921 Specimen Inquiry RUN USER: INTERFACE -- Name: ABELARDOSHAWN Status: REG REF Re12/04/11 Age/Sex: 36/F Unit#: [id number] Location: [facility] : [birth year] -- Specimen: [id number] Spec Date:12/04/[address]: Melinda figueroa MD Spec Type: CYTOLOGY Received:12/05/11-1118 Copies to: SOURCE ECTOCERVICAL/ENDOCERVICAL Thin Prep with Reflex HPV Test PATIENT INFORMATION ACTUAL COLLECTION DATE: 12/04/11 ? No POST MENOPAUSAL? No PREVIOUS ABNORMAL PAP SMEARS No LAST MENSTRUAL PERIOD: 11/09/11 ADEQUACY OF SPECIMEN Satisfactory for evaluation * Transformation zone component identified * DIAGNOSIS NEGATIVE FOR INTRAEPITHELIAL LESION OR MALIGNANCY * NOTE Specimen sent to [facility] [facility] in [place], [place] on 12/05/11 by DB at 1457. Results will be reported separately in an addendum. Less than 8 mls of fluid left in vial, sample will most likely be quantity not sufficient for HPV testing. ADDENDUM Addendum #1 Entered: 12/10/11 HPV DNA High Risk Test Cancelled. Quantity not sufficient. This test was developed and its performance characteristics determined by Laboratory Medicine and Pathology, [facility], [place], [place]. It has not been cleared or approved by the U.S. Food and Drug Administration. -- DEPARTMENT OF PATHOLOGY, [address] [place] [address] [facility] Permit #[id number] Gopal Flores M.D. Director Rashard Vazquez M.D. Senior Pensions Administrator abe -- -- RUN DATE: 12/10/11 [facility] NMI LIVE PAGE 2 RUN TIME: 921 Specimen Inquiry RUN USER: INTERFACE -- Name: SHAWN ZHOU JO Status: REG REF Re12/04/11 Age/Sex: 36/F Unit#: [id number] Location: [facility] : [birth year] -- -- CONTINUED -- ADDENDUM (Continued) Test Performed by: [facility] Dpt of lab Med and Pathology [address] [place] [address] [employer] Assistant: Abe Bonilla III, M.D. Original hard copy report from [employer] is available upon request by calling Pathology at [phone]. Addendum Review Adal RODRÍGUEZ([facility]) 12/10/11 -- This Pap test was evaluated with the assistance of the [employer] Pap Test Imaging System. The Pap Smear is a screening test designed to aid in the detection of premalign ant and malignant conditions of the uterine cervix. It is not a diagnostic procedure a nd should not be used as the sole means of detecting cervical cancer. Both false- positiv e and false-negative reports do occur. Depending on your risk status, a Pap smear meghan uld be obtained and evaluated every one to three years. Final Interpretation electronically signed by: Elsy HINES([facility]) 12/05/11 153 5 -- -- DEPARTMENT OF PATHOLOGY, [address] [place] [address] [facility] Permit #[id number] Gopal Flores M.D. Director Rashard Vazquez M.D. Senior Pensions Administrator Dir abe -- 100 RUN DATE: 12/05/11 [facility] NMI LIVE PAGE 1 RUN TIME: 1344 Specimen Inquiry RUN USER: INTERFACE Name: SHAWN ZHOU Status: REG REF Re12/04/11 Age/Sex: 36/F Unit#: [id number] Location: [facility] : [birth year] SPEC #: [id number] MATT: 12/04/11-9 STATUS: COMP REQ #: [id number] RECD: 12/04/11-[address]: Melinda Sherman MD SOURCE: ENDOCERVIX ENTR: 12/04/11-[address]: HELLEN: ORDERED: GC/YARELI APTIMA QUERIES: MEDENT REQUISITION # [id number] ACT WKST: [id number] 12/05/11 #1 Procedure Result Verified Site > CHLAMYDIA TRACHOMATIS RNA Final 12/05/11- 1344 ML NEGATIVE FOR CHLAMYDIA TRACHOMATIS rRNA A negative result does not preclude the presence of a C.trachomatis or N.gonorrhoeae infection because results are dependent on adequate specimen collection, absence of inhibitors, and sufficient rRNA to be detected. Test results may be affected by improper specimen collection, improper specimen storage, technical error, or specimen mixup. Limitations of the Procedure: The Aptima Combo 2 Assay is not intended for the evaluation of suspected sexual abuse or for other medico-legal indications. For those patients for whom a false positive result may have adverse psychosocial impact, the CDC recommends retesting by a method using an alternate technology. Therapeutic failure or success cannot be determined with the Aptima Combo 2 Assay since nucleic acid may persist following appropriate antimicrobial therapy. Results from the APTIMA Combo 2 Assay should be interpreted in conjunction with other laboraotry and clinical data available to the clinician. Performance characteristics for detecting C. trachomatis and N. gonorrhoeae are derived from high prevalence populations. Positive results in low prevalence populations should be interpreted carefully with the understanding that the likelihood of a false positive may be higher than a true positive. DEPARTMENT OF PATHOLOGY, [address] [place] [address] [facility] Permit #[id number] Shelly Hutchinson M.D. Consumer Educator RUN DATE: 12/05/11 [facility] NMI LIVE PAGE 2 RUN TIME: 1344 Specimen Inquiry RUN USER: INTERFACE Name: SHAWN ZHOU Status: REG REF Re12/04/11 Age/Sex: 36/F Unit#: [id number] Location: [facility]. : 77 -- -- CONTINU ED Procedure Result Verified Site > GC (N. GONORRHOEAE) RNA Final 12/05/11- 1344 ML NEGATIVE FOR NEISSERIA GONORRHOEAE rRNA A negative result does not preclude the presence of a C.trachomatis or N.gonorrhoeae infection because results are dependent on adequate specimen collection, absence of inhibitors, and sufficient rRNA to be detected. Test results may be affected by improper specimen collection, improper specimen storage, technical error, or specimen mixup. Limitations of the Procedure: The Aptima Combo 2 Assay is not intended for the evaluation of suspected sexual abuse or for other medico-legal indications. For those patients for whom a false positive result may have adverse psychosocial impact, the [facility] recommends retesting by a method using an alternate technology. Therapeutic failure or success cannot be determined with the Aptima Combo 2 Assay since nucleic acid may persist following appropriate antimicrobial therapy. Results from the APTIMA Combo 2 Assay should be interpreted in conjunction with other laboraotry and clinical data available to the clinician. Performance characteristics for detecting C. trachomatis and N. gonorrhoeae are derived from high prevalence populations. Positive results in low prevalence populations should be interpreted carefully with the understanding that the likelihood of a false positive may be higher than a true positive. - [facility] Permit #[id number] [facility] [place] [place] [address] DEPARTMENT OF PATHOLOGY, [facility] [place] [facility] [address] [place], [place] [address] [place] Permit #[id number] Gopal Flores M.D. Director Rashard Vazquez M.D. Consumer Educator [phone] RUN DATE: 12/05/11 [facility] NMI LIVE PAGE 1 RUN TIME: 1205 Specimen Inquiry RUN USER: INTERFACE Name: ABELARDOSHAWN Status: REG REF Re12/04/11 Age/Sex: 36/F Unit#: [id number] Location: [facility] : 77 SPEC #: [id number] MATT: 12/04/11-1009 STATUS: COMP REQ #: [id number] RECD: 12/04/11-[address]: Melinda Sherman MD SOURCE: VAGINAL ENTR: 12/04/11-[address]: KELL: ORDERED: AFFIRM QUERIES: MEDENT REQUISITION # [id number] Procedure Result Verified Site > VAGINAL DNA PROBE Final 12/05/11- 1205 ML TRICHOMONAS NEGATIVE GARDNERELLA NEGATIVE SHELLY SPP POSITIVE The presence of G. vaginalis, although suggestive, is not diagnostic for bacterial vaginosis. Results should be interpreted in conjunction with other clinical and laboratory data available. Women with vaginal discharge should be evaluated for risk factors of cervicitis and pelvic inflammatory disease, toxic shock syndrome (S.aureus), and if present, evaluated for organisms not included in this assay such as N. gonorrhoeae, C. trachomatis, Mobiluncus, Mycoplasma and/or Prevotella. Mixed infections may occur. The performance of this test on patient specimens collected during or immediately after antimicrobial therapy is unknown. The presence or absence of Shelly species, G. vaginalis or T. vaginalis cannot be used as a test for therapeutic success or failure. [facility] Permit #[id number] [address] [place] [id number] DEPARTMENT OF PATHOLOGY, [address] [place] [address] [facility] Permit #[id number] Gopal Flores M.D. Director Rashard Vazquez M.D. Consumer Educator 102 It is recognized that currently available assays for the detection of antibodies to HIV-1 and/or HIV-2 may not detect all infected individuals. HIV antibodies may be undetectable in some stages of the infection and in some clinical conditions. The performance of this assay has not been established for populations of infants or children. Assayed by Chemiluminescence Microparticle Immunoassay on the Halima Advia Centaur CP. Values obtained with different methods or kits cannot be used interchangeably.The diagnostic specificity of the ADVIA Centaur 1/O/2 Enhanced assay in the low risk population was 99.90% (6052/6058) with a 95% confidence interval of 99.78 to 99.96%. 103 CHOLESTEROL INTERPRETATION: Desirable: Less than 200 MG/DL Borderline-High Risk: 200-239 MG/DL High-Risk: 240 MG/DL and over 104 HDL INTERPRETATION: Undesirable: High Risk: Less than 40 MG/DL Desirable: Low Risk: Greater than 60 MG/DL 105 LDL INTERPRETATION: Low Risk Optimal Level: LDL Less than 100 MG/DL Near or Above Optimal: LDL 100-129 MG/DL Borderline High Risk: LDL 130-159 MG/DL High Risk: LDL 160-189 MG/DL Very High Risk: LDL Greater than 189 MG/DL 106 Anion gap measurement may be of limited value in the presence of any alkalosis, especially in a combined acid base disorder. . 107 A metabolite of Naproxen, O-desmethylnaproxen, has been shown to interfere with the Jendrassik-Lynnette method for measuring total bilirubin. Samples from patients who have taken Naproxen have shown spurious elevation in total bilirubin levels. 108 Because ethnic data is not always readily available, this report includes an eGFR for both -Americans and non- Americans. The National Kidney Disease Education Program (NKDEP) does not endorse the use of the MDRD equation for patients that are not between the ages of 18 and 70, are , have extremes of body size, muscle mass, or nutritional status, or are non- or non-. According to the National Kidney Foundation, irrespective of diagnosis, the stage of the disease is based on the level of kidney function: Stage Description GFR(mL/min/1.73 m(2)) 1 Kidney damage with normal or decreased GFR 90 2 Kidney damage with mild decrease in GFR 60-89 3 Moderate decrease in GFR 30-59 4 Severe decrease in GFR 15-29 5 Kidney failure <15 (or dialysis) 109 FEW EPITHELIAL CELLS MANY GRAM POSITIVE COCCI NONE 110 STAPHYLOCOCCUS AUREUS MOD^MODERATE^QTY Procedures Date CPT Code Description Status 05/20/2018 Inj/Aspir Major JT Or Bursa W/ US Completed 07/23/2017 Diabetic Retinal Eye Exam Completed 11/16/2013 Diabetic Retinal Eye Exam Completed 10/29/2012 53699 Rad Exam; Wrist Limited, 2 Views Completed 12/04/2011 02693 Admin Of Inj Completed 08/02/2011 Injection Single Tendon Origin/Insertion Completed 08/02/201166923 Inject Tendon Sheath Or Ligament Aponeurosis Eg Plantar Completed Fascia 08/02/201192299 Inject Tendon Sheath Or Ligament Aponeurosis Eg Plantar Completed Fascia Encounters Type Date Location Provider CPT E/M Dx Office Visit 07/16/2017 9:50a [facility] Internal Medicine Melinda Sherman M.D. 45690 Matilda0 [place] R74.0 A41.9 E10.10 Z91.14 F17.210 Z79.4 Office Visit 07/10[facility]2017 [facility] Maldon[facility] [address] E10.10 Hospitalists R50.9 N12 A41.9 Office Visit 07/09/2017 8:46a [facility], OCHOA Maldonado 39850 E10.10 Hospitalists R50.9 A41.9 N12 Office Visit 07/08/2017 8:45a [facility], Shannan [facility] 85669 E10.10 Hospitalists PINEDA Cheney N12 R50.9 A41.9 Office Visit 07/07/2017 7:19a [facility], Shannan [facility] 17532 E10.10 Hospitalists Noni, [employer] N12 R50.9 A41.9 Office Visit 07/06/2017 3:06p [facility] Morgan Mcguire, 74980 N12 Infectious Diseases M.DMarilee A41.9 E11.10 M54.2 R51 M79.1 Office Visit 07/06/2017 7:18a [facility], Katerina Koenig N.P. 44786 N12 Hospitalists R50.9 E10.10 A41.9 Office Visit 07/05/2017 7:17a [facility], Shannan [facility] 80876 E10.10 Hospitalists PINEDA Cheney A41.9 N12 Office Visit 07/04/2017 7:17a [facility], Katerina Koenig, N.P. 80969 N12 Hospitalists E10.10 A41.9 Office Visit 07/30/2016 8:30a [facility] Melinda Sherman, 71749 N81.11 - [place] [facility] N89.8 F17.210 Office Visit 05/23/2016 2:20p [facility] Melinda Sherman, 17473 L03.116 - [place] F17.210 M79.662 Office Visit 05/16/2016 1:50p [facility] [place] [address] E13.10 Assoc, Hospitalists L03.116 Z85.72 Office Visit 05/15/2016 1:49p [facility] [place], [address] E13.10 Assoc, Hospitaljuanita Bravo L03.116 Z85.72 Office Visit 05/14/2016 11:40a [facility] Ayah Matthews, N.P. 52921 L03.116 - [place] Office Visit 04/09/2016 4:00p [facility] Erick Harris, 67415 M79.672 - [place]ravo L03.116 Office Visit 02/07/2016 10:40a [facility] Internal Medicine - Alonso Forrester, [employer] EQUAL[employer]ER 30226 L03.116 [place] R21 Office Visit 12/22/2015 2:00p [facility] Erick Harris, 99068 L03.116 - [place] Office Visit 12/15/2015 11:20a [facility] Erick Harris, 07266 L03.116 - [place] L53.9 Office Visit 10/10/2015 1:40p [facility] Melinda Sherman M.D. 59047 B34.9 - [place] Office Visit 10/05/2015 12:10p [facility] Melinda Sherman M.D. 47819 R59.0 - [place] B34.9 R68.83 Office Visit 09/27/2015 11:20a [facility] Erick Harris, 11571 L03.119 - Qi [facility] Office Visit 03/20/2015 1[facility] 84359 250.10 Assoc, Hospitalists Shelly 276.51 Office Visit 03/19/2015 1:26p [facility] 31698 250.10 Assoc, Hospitalists Shelly 276.51 Office Visit 08/17/2014 10:50a [facility] Melinda Sherman M.D. 80856 599.0 - [place] 623.5 305.1 250.02 584.9 Office Visit 08/09/2014 11:23a [facility] Assoc, Katerina Koenig, N.P. 49829 584.9 Hospitalists 250.10 599.0 038.9 Office Visit 08/08/2014 11:23a [facility]oc, Hector Pace, 62613 584.9 Hospitalists N.P. 250.10 599.0 038.9 Office Visit 08/07/2014 11:22a [facility], 78773 599.0 Assoc, Hospitalists Shelly 038.9 250.10 584.9 Office Visit 05/24/2014 10:50a [facility] Melinda Sherman, 29596 789.03 - Qi [place] 112.2 Office Visit 01/27/2014 9:20a [facility] Erick Harris, 18507 780.96 - [place] Office Visit 10/29/2012 10:00a [facility] 72908 354.0 [place] Churchill M.D. 727.05 719.43 Office Visit 09/11/2012 9:50a [facility] Melinda Sehrman, 73359 728.85 - [place] 354.0 Office Visit 09/09/2012 9:30a [facility] Randal Thompson, 37787 728.85 - [place],FACP 729.89 Office Visit 02/06/2012 9:00a [facility] Internal Shellie Clark, 81069 682.7 Medicine - N.P. [place] Office Visit 01/14/2012 11:45a [facility] Internal Melinda Sherman M.D. 68749 305.1 Medicine - [place] Office Visit 01/07/2012 10:30a [facility] Internal Melinda Sherman M.D. 06842 305.1 Medicine - [place] 308.3 110.5 V10.79 Office Visit 12/04/2011 9:00a [facility] Melinda Sherman 20551 V72.31 - [place] V76.2 110.5 V74.5 465.9 305.1 V06.1 Office Visit 11/01/2011 2:15p [facility] Melinda Sherman 03590 727.43 - [place] 680.8 305.1 V69.0 Office Visit 10/22/2011 1:30p [facility] Melinda Sherman M.D. 25616 782.1 - [place] Office Visit 10/16/2011 12:40p [facility] Verna Nam M.D. 93688 680.8 - [place] 250.02 Office Visit 08/28/2011 4:40p [facility] Verna Nam M.D. 19775 110.4 - [place] 680.8 Office Visit 08/10/2011 9:15a [facility] Churchill, 22496 727.03 Of [place] [facility] Office Visit 08/02/2011 8:00a [facility] Nicci Churchill, 08876 727.03 [facility] [place] [facility] 727.04 Office Visit 07/19/2011 3:20p [facility] Verna Nam M.D. 71799 727.03 [facility] 842.10 685.1 692.9 250.02 Office Visit 11/23/2010 1:00p DO Not Use Driver Examiner AT Verna Nam M.D. 60980 674.30 [facility] 250.02 Plan of Care Future Appointment(s):07/04/2018 9:45 am - Darion Brito MD at [facility]05/20/2018 - Darion Brito, MDM19.212 Secondary osteoarthritis , left shoulderNew Xrays:Inj/Aspir Major JT Or Bursa W/ USFollow up:Follow up: 6 weeks
[2018-06-10 14:51] LABS: Urine Appearance Clear; Urine Blood 2+ (Negative); Urine Color Yellow; Urine Ketones Trace (Negative); Urine Protein Negative (Negative); Urine Red Blood Cell 3+(>10/hpf) (Absent); Urine Specific Gravity 1.029 (1.010-1.030); Urine Urobilinogen Negative (Negative); Urine White Blood Cell 1+(6-10/hpf) (Absent)
[2018-06-10 14:52] LABS: ABS Basophils 0.1 10^3/ul (0-0.2); ABS Eosinophils 0 10^3/ul (0-0.6); ABS Lymphocytes 1.4 10^3/ul (1.0-4.8); ABS Monocytes 0.6 10^3/ul (0-0.8); ABS Neutrophils 12.5 10^3/ul (1.5-7.7); ABS Nucleated RBC 0 10^3/ul; Eosinophil % 0.1 %; Hematocrit 43 % (35-47); Hemoglobin 14.6 g/dl (12.0-16.0); Lymphocyte % 9.8 %; Mean Corpuscular HGB Conc 34 g/dl (31-36); Mean Corpuscular Hemoglobin 33 pg (27-31); Mean Corpuscular Volume 97 fL (80-97); Mean Platelet Volume 7.3 fL (7.4-10.4); Nucleated Red Blood Cells % 0; Platelet Count 239 10^3/ul (150-450); Red Cell Distribution Width 13 % (10.5-15); White Blood Count 14.7 10^3/ul (3.5-10.8)
[2018-06-10 15:10] LABS: EGFR Non-African American 112.9 (>60)
--- NOTE | 2018-06-10 15:14 | ED ---
Complex/Multi-Sys Presentation - HPI Summary HPI Summary: Patient is a 42-year-old female who presents emergency department for fever, chills and myalgias that started today. Patient is a1 insulin-dependent diabetic. She states she was at [facility], working, when she developed chills and feeling ill. She notes mild ongoing cough and mild minimal discomfort. She denies associated symptoms of vomiting, diarrhea, dysuria throat. History of non-Hodgkin's lymphoma in remission. Patient notes history of recurrent UTIs , pyelonephritis, DKA. Symptoms are moderate in severity. No current modifying factors. - History Of Current Complaint Chief Complaint: EDFluSymptoms Time Seen by Provider: 06/10/18 13:46 Hx Obtained From: Patient - Allergies/Home Medications Allergies/Adverse Reactions: Allergies Allergy/AdvReac Type Severity Reaction Status Date / Time sulfamethoxazole Allergy Rash Verified 01/14/18 22:04 [From Bactrim] trimethoprim [From Bactrim] Allergy Rash Verified 01/14/18 22:04 PMH/Surg Hx/FS Hx/Imm Hx Previously Healthy: Yes Endocrine/Hematology History: Reports: Hx Diabetes - type 1 for about 10 years. Denies: Hx Anticoagulant Therapy, Hx Thyroid Disease Cardiovascular History: Denies: Hx Congestive Heart Failure, Hx Deep Vein Thrombosis, Hx Embolism, Hx Hypertension, Hx Myocardial Infarction, Hx Pacemaker/ICD, Other Cardiovascular Problems/Disorders Respiratory History: Denies: Hx Asthma, Hx Chronic Obstructive Pulmonary Disease (COPD), Hx Lung Cancer, Hx Pneumonia, Hx Pulmonary Embolism GI History: Reports: Hx Gastroesophageal Reflux Disease - per pt Denies: Hx Gall Bladder Disease, Hx Gastrointestinal Bleed, Hx Ulcer, Hx Urosepsis History: Reports: Other Problems/Disorders - States has stress incontinence with cough/sneeze Denies: Hx Kidney Stones, Hx Renal Disease Musculoskeletal History: Reports: Other Musculoskeletal History - Carpal tunnel Denies: Hx Bursitis, Hx Congenital Bone Abnormalities, Hx Fibromyalgia, Hx Gout, Hx Orthopedic Injury, Hx Osteoporosis, Hx Scoliosis, Hx Tendonitis Sensory History: Denies: Hx Contacts or Glasses, Hx Hearing Aid Opthamlomology History: Denies: Hx Contacts or Glasses Neurological History: Reports: Other Neuro Impairments/Disorders - CARPAL TUNNEL Denies: Hx Dementia, Hx Developmental Delay, Hx Headaches, Hx Migraine, Hx Nerve Disease, Hx Seizures, Hx Spinal Cord Injury, Hx Transient Ischemic Attacks (TIA) Psychiatric History: Denies: Hx Anxiety, Hx Depression, Hx Schizophrenia, Hx Bipolar Disorder - Cancer History Cancer Type, Location and Year: NON-HODGKIN'S LYMPHOMA Hx Chemotherapy: No Hx Radiation Therapy: No Hx Palliative Cancer Treatment: No - Surgical History Surgery Procedure, Year, and Place: RIGHT THUMB SURGERY 1997, , MOVED LEFT OVARY TO RIGHT SIDE, lymph node removed, mediport -placed and removed Hx Anesthesia Reactions: No - Immunization History Date of Tetanus Vaccine: PT STATES UNSURE Date of Influenza Vaccine: Never Infectious Disease History: No Infectious Disease History: Denies: Hx Clostridium Difficile, Hx Hepatitis, Hx Human Immunodeficiency Virus (HIV), Hx of Known/Suspected MRSA, Hx Shingles, Hx Tuberculosis, History Other Infectious Disease, Traveled Outside the [place] in Last 30 Days - Family History Known Family History: Positive: Hypertension, Diabetes - Social History Occupation: Employed Full-time Lives: With Family Alcohol Use: Rare Hx Substance Use: No Substance Use Type: Reports: None Hx Tobacco Use: Yes Smoking Status (MU): Light Every Day Tobacco Smoker Type: Cigarettes Amount Used/How Often: 7-10 cig./day Have You Smoked in the Last Year: Yes Review of Systems Positive: Fever, Chills Eyes: Negative Positive: Nasal Discharge Cardiovascular: Negative Positive: Cough. Negative: Shortness Of Breath Positive: Abdominal Pain. Negative: Vomiting, Diarrhea, Nausea Genitourinary: Negative Positive: Myalgia Skin: Negative Neurological: Negative All Other Systems Reviewed And Are Negative: Yes Physical Exam Triage Information Reviewed: Yes Vital Signs On Initial Exam: Initial Vitals Temp Pulse Resp BP Pulse Ox 99.2 F 113 20 138/87 100 06/10/18 12:20 06/10/18 12:20 06/10/18 12:20 06/10/18 12:20 06/10/18 12:20 Vital Signs Reviewed: Yes Appearance: Positive: Ill-Appearing - Pt. lying in bed wrapped in blankets. Appears to feel unwell. Skin: Positive: Warm, Dry Head/Face: Positive: Normal Head/Face Inspection Eyes: Positive: Normal, EOMI ENT: Positive: Pharynx normal, TMs normal, Other - Nasal congestion noted Neck: Positive: Supple, Nontender. Negative: Nuchal Rigidity Respiratory/Lung Sounds: Positive: Clear to Auscultation, Breath Sounds Present Cardiovascular: Positive: Normal, RRR Abdomen Description: Positive: Other: - Mild diffuse tenderness in all quadrants , slightly more tender to RLQ. No rebound tenderness or guarding. Neurological: Positive: Normal, CN Intact II-III Psychiatric: Positive: Affect/Mood Appropriate Diagnostics - Vital Signs Vital Signs Temp Pulse Resp BP Pulse Ox 06/10/18 14:54 99.7 F 91 21 121/75 98 06/10/18 12:20 99.2 F 113 20 138/87 100 - Laboratory Lab Results: Lab Results 06/10/18 06/10/18 06/10/18 Range/Units 12:14 14:13 14:42 WBC 14.7 H (3.5-10.8) 10^3/ul RBC 4.40 (4.00-5.40) 10^6/ul Hgb 14.6 (12.0-16.0) g/dl Hct 43 (35-47) % MCV 97 (80-97) fL MCH 33 H (27-31) pg MCHC 34 (31-36) g/dl RDW 13 (10.5-15) % Plt Count 239 (150-450) 10^3/ul MPV 7.3 L (7.4-10.4) fL Neut % (Auto) 85.1 % Lymph % (Auto) 9.8 % Stanley % (Auto) 4.4 % Eos % (Auto) 0.1 % Baso % (Auto) 0.6 % Absolute Neuts (auto) 12.5 H (1.5-7.7) 10^3/ul Absolute Lymphs (auto) 1.4 (1.0-4.8) 10^3/ul Absolute Monos (auto) 0.6 (0-0.8) 10^3/ul Absolute Eos (auto) 0 (0-0.6) 10^3/ul Absolute Basos (auto) 0.1 (0-0.2) 10^3/ul Absolute Nucleated RBC 0 10^3/ul Nucleated RBC % 0 Urine Color Yellow Urine Appearance Clear Urine pH 6.0 (5-9) Ur Specific [place] 1.029 (1.010-1.030) Urine Protein Negative (Negative) Urine Ketones Trace A (Negative) Urine Blood 2+ A (Negative) Urine Nitrate Negative (Negative) Urine Bilirubin Negative (Negative) Urine Urobilinogen Negative (Negative) Ur Leukocyte Esterase Negative (Negative) Urine WBC (Auto) 1+(6-10/hpf) A (Absent) Urine RBC (Auto) 3+(>10/hpf) A (Absent) Ur Squamous Epith Cells Present A (Absent) Urine Bacteria Absent (Absent) Urine Glucose 3+(>=500 mg/dl) A (Negative) Influenza A (Rapid) Negative (Negative) Influenza B (Rapid) Negative (Negative) Result Diagrams: 06/10/18 14:42 06/10/18 16:37 Lab Statement: Any lab studies that have been ordered have been reviewed, and results considered in the medical decision making process. Complex Multi-Symp Course/Dx Course Of Treatment: Patient presenting for fevers, chills and myalgia. Temperature 99.7F, mildly tachycardic 113 bpm, stable blood pressure. Oxygen saturation is 100% room air which is normal. Concern for systemic infection. Labs, urine, cxr ordered. Pt. started on IV fluids and tylenol given for pain and fever. She has a benign abd. exam. CBC shows was a dose of 14.7. Glucose 176. Normal anion gap. Urinalysis is contaminated but does show large bacteria and leukocytes, trace ketones. Chest x-ray is negative for acute findings, reading per radiology. Negative influenza. Patient was given a dose of IV Rocephin. Discussed results with patient. She is feeling better after medication. Discussed concerns for possible early sepsis given vital signs and blood cell count. Patient states she would like to go home tonight. To call her family doctor tomorrow for close follow-up appointment. To take antibiotic as directed, placed on Cipro. Tylenol or Motrin for pain and fever as directed. Increase fluids. To return to the ER if symptoms change or worsen. Patient understands and agrees with plan. - Diagnoses Provider Diagnoses: UTI (urinary tract infection) Discharge - Sign-Out/Discharge Documenting (check all that apply): Patient Departure - Discharge Plan Condition: Improved Disposition: HOME Prescriptions: Ciprofloxacin TAB* [Cipro 500 MG TAB*] 500 mg PO BID 20 Days #20 tab Patient Education Materials: Urinary Tract Infection in Women (ED) Referrals: Melinda Sherman MD [Primary Care Provider] - Additional Instructions: Call your PCP tomorrow for a close follow up appointment Take antibiotic as directed Increase fluids Tylenol or Motrin for pain as directed Return to ER if symptoms change or worsen - Billing Disposition and Condition Condition: IMPROVED Disposition: Home
[2018-06-10 17:19] VITALS: BP 112/78
== END | disposition home or self-care (01) ==
LOC: ED 12:16
DX: N39.0 Urinary tract infection, site not specified (principal); F17.210 Nicotine dependence, cigarettes, uncomplicated
CPT/HCPCS: 36415; 71046; 80053; 81003; 81015; 83605; 84702; 85025; 87086; 99282; A9270-GY; J0696

== ENCOUNTER 2019-03-12 10:46 | Inpatient (IN) | payer SELFPAY ==
[2019-03-12] MEDS ORDERED: NS 0.9% 1000 ML** 2,000 ML IV ONE (11:11)
--- NOTE | 2019-03-12 11:13 | ED ---
HPI Diabetic - HPI Summary HPI Summary: 43 year [place] F [place] [facility] [place] mother with a chief diabetic complaint since yesterday 03/11/19. Patient is experiencing chills during the ED visit, but is not febrile. Patient reports that she is tachycardic and had high blood sugar this morning. Patient reports myalgia throughout her body. The patient rates the pain 6/10 in severity. Symptoms aggravated by nothing. Symptoms alleviated by nothing. Patient reports that she was able to drink water after onset of symptoms, but had a decreased appetite. Patient also reports mild throat pain and additional pain in the roof of her mouth, there are alleged white spots on the roof of patients mouth per mother. She additionally notes bilateral pain that is currently being treated with abx for infection. Patient is urinating normally. Patient denies symptoms of congestion. Patient required assistance to move from a supine to upright position. Patient has a history of diabetes type I, and recently changed her insulin, per patient, per triage. Patient also reports a present history of bilateral ear infection (consulted with physician last 03/05/19), inducing bilateral ear pain today. - History Of Current Complaint Chief Complaint: EDDiabeticProb Time Seen by Provider: 03/12/19 10:54 Hx Obtained From: Patient, Family/It Technical Specialist - mother Hx Last Menstrual Period: [id number] Onset/Duration: Lasting Days - onset yesterday Timing: Days Severity Currently: Moderate - 6 Character: Alert Aggravating: Medication Change - recent insulin change Alleviating: Nothing Associated Signs & Symptoms: Negative - Fever, congestion, Chills Related History: DM I - Risk Factors Cardiac Risk Factors: Diabetes CVA Risk Factor: Diabetes - Allergies/Home Medications Allergies/Adverse Reactions: Allergies Allergy/AdvReac Type Severity Reaction Status Date / Time sulfamethoxazole Allergy Rash Verified 03/12/19 11:00 [From Bactrim] trimethoprim [From Bactrim] Allergy Rash Verified 03/12/19 11:00 Home Medications: Home Medications Insulin Glulisine [Apidra] 30 unit SQ Q12H 03/12/19 [History Confirmed 03/12/19] PMH/Surg Hx/FS Hx/Imm Hx Endocrine/Hematology History: Reports: Hx Diabetes - type 1 for about 10 years. Denies: Hx Anticoagulant Therapy, Hx Thyroid Disease Cardiovascular History: Denies: Hx Congestive Heart Failure, Hx Deep Vein Thrombosis, Hx Embolism, Hx Hypertension, Hx Myocardial Infarction, Hx Pacemaker/ICD, Other Cardiovascular Problems/Disorders Respiratory History: Reports: Other Respiratory Problems/Disorders - MEDIPORT Denies: Hx Asthma, Hx Chronic Obstructive Pulmonary Disease (COPD), Hx Lung Cancer, Hx Pneumonia, Hx Pulmonary Embolism GI History: Reports: Hx Gastroesophageal Reflux Disease - per pt Denies: Hx Gall Bladder Disease, Hx Gastrointestinal Bleed, Hx Ulcer, Hx Urosepsis History: Reports: Other Problems/Disorders - States has stress incontinence with cough/sneeze Denies: Hx Kidney Stones, Hx Renal Disease Musculoskeletal History: Reports: Other Musculoskeletal History - Carpal tunnel Denies: Hx Bursitis, Hx Congenital Bone Abnormalities, Hx Fibromyalgia, Hx Gout, Hx Orthopedic Injury, Hx Osteoporosis, Hx Scoliosis, Hx Tendonitis Sensory History: Denies: Hx Contacts or Glasses, Hx Hearing Aid Opthamlomology History: Denies: Hx Contacts or Glasses Neurological History: Reports: Other Neuro Impairments/Disorders - CARPAL TUNNEL Denies: Hx Dementia, Hx Developmental Delay, Hx Headaches, Hx Migraine, Hx Nerve Disease, Hx Seizures, Hx Spinal Cord Injury, Hx Transient Ischemic Attacks (TIA) Psychiatric History: Denies: Hx Anxiety, Hx Depression, Hx Schizophrenia, Hx Bipolar Disorder - Cancer History Cancer Type, Location and Year: NON-[facility] Hx Chemotherapy: No Hx Radiation Therapy: No Hx Palliative Cancer Treatment: No - Surgical History Surgical History: Yes Surgery Procedure, Year, and Place: RIGHT THUMB SURGERY 1997, , MOVED LEFT OVARY TO RIGHT SIDE, lymph node removed, mediport -placed and removed Hx Anesthesia Reactions: No - Immunization History Date of Tetanus Vaccine: PT STATES UNSURE Date of Influenza Vaccine: Never Infectious Disease History: No Infectious Disease History: Denies: Hx Clostridium Difficile, Hx Hepatitis, Hx Human Immunodeficiency Virus (HIV), Hx of Known/Suspected MRSA, Hx Shingles, Hx Tuberculosis, History Other Infectious Disease, Traveled Outside the [place] in Last 30 Days - Family History Known Family History: Positive: Hypertension, Diabetes - Social History Alcohol Use: None Hx Substance Use: No Substance Use Type: Reports: None Hx Tobacco Use: Yes Smoking Status (MU): Light Every Day Tobacco Smoker Type: Cigarettes Amount Used/How Often: 7-10 cig./day Have You Smoked in the Last Year: Yes Review of Systems Positive: Chills - patient is trembling. Negative: Fever ENT: Negative - patient denies congestion Positive: Sore Throat - mild sore throat since this morning, Ear Ache - due to infection, consulted by physician last 03/05/19, Other - Pain in patient 's roof of mouth. White bumps found on roof of mouth, per mother. Positive: Other - decreased appetite Genitourinary: Negative - normal urination Musculoskeletal: Other - muscle pain all over patient's body Positive: Weakness - needed assistance to sit up by mother and physician All Other Systems Reviewed And Are Negative: Yes Physical Exam - Summary Physical Exam Summary: Appearance: The patient is well-nourished in no acute distress and in no acute pain. Skin: The skin is warm and dry, and skin color reflects adequate perfusion. HEENT: The head is normocephalic and atraumatic. The pupils are equal and reactive. The conjunctivae are clear and without drainage. Nares are patent and without drainage. Mouth reveals moist mucous membranes, and the throat is without erythema and exudate. The external ears are intact. The ear canals are patent and without drainage. The tympanic membranes are intact. Neck: The neck is supple with full range of motion and non-tender. There are no carotid bruits. There is no neck vein distension. Respiratory: Chest is non-tender. Lungs are clear to auscultation and breath sounds are symmetrical and equal. Cardiovascular: Tachycardic. There is no murmur or rub auscultated. There is no peripheral edema and pulses are symmetrical and equal. Abdomen: The abdomen is soft and non-tender. There are normal bowel sounds heard in all four quadrants and there is no organomegaly palpated. Musculoskeletal: There is no back tenderness noted. Extremities are non-tender with full range of motion. There is good capillary refill. There is no peripheral edema or calf tenderness elicited. Neurological: Patient is alert and oriented to person, place and time. The patient has symmetrical motor strength in all four extremities. Cranial nerves are grossly intact. Deep tendon reflexes are symmetrical and equal in all four extremities. Psychiatric: The patient has an appropriate affect and does not exhibit any anxiety or depression. Triage Information Reviewed: Yes Vital Signs On Initial Exam: Initial Vitals Temp Pulse Resp BP Pulse Ox 98.0 F 123 18 125/78 100 03/12/19 10:48 03/12/19 10:48 03/12/19 10:48 03/12/19 10:48 03/12/19 10:48 Vital Signs Reviewed: Yes Diagnostics - Vital Signs Vital Signs Temp Pulse Resp BP Pulse Ox 03/12/19 10:48 98.0 F 123 18 125/78 100 - Laboratory Result Diagrams: 03/12/19 11:25 03/12/19 18:00 Lab Statement: Any lab studies that have been ordered have been reviewed, and results considered in the medical decision making process. Re-Evaluation - Re-Evaluation First Eval Re-Evaluation Time: 12:30 Comment: We discussed plan for admission. Diabetic Course/Dx - Course Course Of Treatment: Ms. Nash presented with generalized malaise and high blood sugars. She is diabetic and has been being treated for an ear infection. Her ears don't look bad today that she looks miserable. She is placed on a monitor and given IV fluids while labs were obtained. She was noted to be in DKA and was started on an insulin drip after a bolus. I spoke with the hospitalist Dr. Connelly mother about admission. - Diagnoses Provider Diagnoses: DKA (diabetic ketoacidoses) - Physician Notifications Discussed Care Of Patient With: Mariangel Ly Time Discussed With Above Provider: 12:28 Instructed by Provider To: Other - Dr. Ly, hospitalist, agreed to admit patient to the hospitalist. - Critical Care Time Critical Care Time: 30-74 min Discharge ED - Sign-Out/Discharge Documenting (check all that apply): Patient Departure - admitted to hospitalist Patient Received Moderate/Deep Sedation with Procedure: No - Discharge Plan Condition: Stable Disposition: ADMITTED TO [facility] - Billing Disposition and Condition Condition: STABLE Disposition: Admitted to [facility] - Attestation Statements Document Initiated by Scribe: Yes Documenting Scribe: Viridiana Arthur Provider For Whom Patriciaibteddy is Documenting (Include Credential): Ramirez Duarte MD Scribe Attestation: Viridiana Moseley, scribed for Ramirez Duarte MD on at 2050. Scribe Documentation Reviewed: Yes Provider Attestation: The documentation as recorded by the patriciaibteddy, Viridiana Arthur accurately reflects the service I personally performed and the decisions made by me, Ramirez Duarte MD Status of Scribe Document: Viewed
[2019-03-12 11:59] LABS: ABS Basophils 0.1 10^3/ul (0-0.2); ABS Lymphocytes 0.7 10^3/ul (1.0-4.8); ABS Monocytes 0.8 10^3/ul (0-0.8); ABS Neutrophils 18.9 10^3/ul (1.5-7.7); Hematocrit 44 % (35-47); Hemoglobin 14.6 g/dL (12.0-16.0); Lymphocyte % 3.5 %; Mean Corpuscular HGB Conc 33 g/dL (31-36); Mean Corpuscular Hemoglobin 33 pg (27-31); Mean Corpuscular Volume 101 fL (80-97); Mean Platelet Volume 8.4 fL (7.4-10.4); Nucleated Red Blood Cells % 0.1; Platelet Count 280 10^3/uL (150-450); Red Blood Count 4.37 10^6 /uL (3.70-4.87); Red Cell Distribution Width 14 % (10-15); White Blood Count 20.5 10^3/uL (3.5-10.8)
[2019-03-12 12:12] LABS: ALT 14 U/L (7-52); Albumin 4.3 g/dL (3.2-5.2); Albumin/Globulin Ratio 1.6 (1-3); Alkaline Phosphatase 77 U/L (34-104); BUN/Creatinine Ratio 23.6 (8-20); Blood Urea Nitrogen 25 mg/dL (6-24); C Reactive Protein 14.86 mg/L (<8.01); Calcium 8.8 mg/dL (8.6-10.3); Chloride 98 mmol/L (101-111); EGFR African American 69.1 (>60); EGFR Non-African American 57.1 (>60); Globulin 2.7 g/dL (2-4); Sodium 132 mmol/L (135-145)
[2019-03-12 12:16] LABS: Anion Gap 23 mmol/L (2-11); CO2 Carbon Dioxide 11 mmol/L (22-32); Glucose 510 mg/dL (70-100)
[2019-03-12] MEDS ORDERED: Insulin REGULAR(*) 1 UNITS UNIT IV PUSH ONE (12:19)
[2019-03-12] MEDS ORDERED: Insulin Infusion 100unit/100mL 100 UNITS/100 ML UNIT IV ONE (12:19)
[2019-03-12 13:42] LABS: Potassium Redraw 3.9 mmol/L (3.5-5.0)
[2019-03-12] MEDS ORDERED: NS 0.9% 1000 ML** 1,000 ML IV SCH ×3 (13:45→17:30)
[2019-03-12 13:50] LABS: Urine Appearance Clear; Urine Bacteria Absent (Absent); Urine Bilirubin Negative (Negative); Urine Blood 1+ (Negative); Urine Color Yellow; Urine Glucose 3+(>=500 mg/dL) (Negative); Urine Ketones 2+ (Negative); Urine Nitrite Negative (Negative); Urine Protein Negative (Negative); Urine Red Blood Cell 1+(3-5/hpf) (Absent); Urine Specific Gravity 1.024 (1.010-1.030); Urine Urobilinogen Negative (Negative); Urine White Blood Cell Absent (Absent)
[2019-03-12] MEDS ORDERED: D10W 1000 ML BAG* 1,000 ML IV SCH ×2 (16:00→17:30)
[2019-03-12 17:01] LABS: BUN/Creatinine Ratio 27.1 (8-20); Blood Urea Nitrogen 16 mg/dL (6-24); CO2 Carbon Dioxide 20 mmol/L (22-32); Calcium 8.3 mg/dL (8.6-10.3); Chloride 108 mmol/L (101-111); EGFR African American 135.9 (>60); EGFR Non-African American 112.3 (>60); Glucose 95 mg/dL (70-100); Phosphorus 2.2 mg/dL (2.5-5.0); Sodium 134 mmol/L (135-145)
[2019-03-12 17:15] LABS: Anion Gap 6 mmol/L (2-11)
--- NOTE | 2019-03-12 17:15 | HP ---
HISTORY AND PHYSICAL: DATE OF ADMISSION: 03/12/19 TIME OF EVALUATION: 1 p.m. PRIMARY CARE PROVIDER: Dr. Sherman but the patient is now following at the [facility]. CHIEF COMPLAINT: "I could not keep anything down." HISTORY OF PRESENT ILLNESS: Ms. Nash is a 43-year-old lady with a past medical history of insulin-dependent diabetes, carpal tunnel syndrome, who presents to the emergency room with complaints of nausea and vomiting. The patient states she was in her usual state of health until yesterday morning when she started to have malaise associated with multiple episodes of nausea and vomiting. She states that she was not able to eat yesterday and even with no food, her glucose was still elevated. She denies fever, chills, diarrhea, flank pain, urinary complaints. She states that earlier this year, she realized that she had lost her outpatient insurance. She states that for now, she has coverage while in the hospital but not as outpatient, so she has not seen her primary care provider nor her heavy equipment operator. She states that now she goes to the [facility] and recently her insulin was changed to Apidra and she is continuing to do her sliding scale. Last week, she was also treated for ear infection and she states that those symptoms have improved. She denies dietary indiscretions during the holiday. PAST MEDICAL HISTORY: 1. Insulin-dependent diabetes. Her last admission was end of 2016. At that time, she had sepsis secondary to pyelonephritis and DKA. 2. Carpal tunnel syndrome. MEDICATION LIST: 1. Insulin glulisine 30 units subcutaneously q.12 hours. 2. Insulin lispro sliding scale 1 unit for every 50 units above 100 and she also does carb coverage. 3. Ibuprofen 200 mg p.o. q.6 hours p.r.n. pain. ALLERGIES: To BACTRIM. FAMILY HISTORY: The patient is not aware of any significant issues in her immediate family. SOCIAL HISTORY: The patient is a smoker, pack a day. No history of alcohol or drug use. Surrogate decision maker is her mother, Nasima Nash, [phone]. REVIEW OF SYSTEMS: A 14-point review of systems was performed and all the pertinent negative and positive findings are in the HPI. PHYSICAL EXAMINATION GENERAL: The patient is a pleasant lady, lying in the ED stretcher, in no acute distress. VITAL SIGNS: Temperature 98.0, heart rate is 96, respiratory rate is 26, oxygen saturation 100% on room air, blood pressure is 122/68. HEENT: Pupils are equal. Dry mucous membranes. On external inspection of her ears, I do not see any erythema or edema. She declined otoscopic exam because when the otoscope is placed, "it hurts a lot"; but at this point, I do not see any drainage or other signs of infection from external inspection. CHEST: Breath sounds present bilaterally with no added sounds. CVS: Normal S1, S2. Regular rate and rhythm. Tachycardic. ABDOMEN: Soft, nontender, nondistended. Bowel sounds present. EXTREMITIES: No edema. NEURO: She is alert, oriented x3. Able to move all 4 extremities. DIAGNOSTIC STUDIES/LAB DATA: The patient had a CBC that showed a WBC of 20.5, hemoglobin of 14.6, hematocrit of 44, platelets of 280 with 92% neutrophils. VBG showed a pH of 7.13, pCO2 of 27, pO2 of 42, bicarb of 9.7, saturation of 76. Chemistry showed a sodium of 132, potassium was not measured, chloride 98, bicarb of 11, anion gap of 23, BUN of 25, creatinine of 1.06, glucose of 510, lactic acid is 3.3, calcium is 8.8. LFTs are normal. No urinalysis was sent at this time. ASSESSMENT AND PLAN: Ms. Nash is a 43-year-old female with past medical history of insulin-dependent diabetes and carpal tunnel syndrome who presents to the emergency room with complaints of nausea and vomiting, found to have diabetic ketoacidosis. 1. Diabetic ketoacidosis: The patient states that her insulin regimen was recently changed due to changes in insurance and now she needs to follow at the [facility]. She denies any dietary indiscretions and also urinary symptoms. She will be admitted to the intensive care unit and she will be started on an insulin drip. We will continue aggressive fluid resuscitation and we will replete electrolytes as necessary. We will check urinalysis, as in the past, her last episode of diabetic ketoacidosis was caused by an urinary tract infection. She does meet SIRS criteria with tachycardia, tachypnea, and leukocytosis, but I believe these are all related to her diabetic ketoacidosis and not necessarily due to sepsis. I do not think antibiotics are indicated at this time. She did have complaint of ear pain that she states is now improved. We will check a hemoglobin A1c and we will consult endocrinology while she is in the hospital. 2. DVT prophylaxis: The patient has a score of 2 on the DVT Prophylaxis Risk Assessment Guide and she will be started on subcutaneous heparin. 3. Code status is full. TIME SPENT: Approximately 50 minutes was spent with the patient interview, medical records review, physical examination to complete this admission, more than half of this time was spent [id number] with the patient and coordination of care. [id number]/CPS #: [id number] JEAN
--- NOTE | 2019-03-12 17:40 | PN ---
Hospitalist Progress Note Date of Service: 03/12/19 HOSPITALIST ADDENDUM Laboratory Tests 03/12/19 15:00 Sodium 134 L Potassium TNP Chloride 108 Carbon Dioxide 20 L Anion Gap 6 BUN 16 Creatinine 0.59 Glucose 95 Patient's glucose is better controlled, AG is closed and acidosis is improving. Will increase D10 to 100ml/h, decrease NS to 50ml/h, continue insulin drip at 1.5 units/h, start carb consistent diet, and replete phosphorus. As her sugar trends up, we can decrease her D10 infusion, and eventually transition from insulin drip to long acting.
[2019-03-12] MEDS: Insulin Infusion 100unit/100mL 100 UNITS/100 ML UNIT IV SCH (17:47)
[2019-03-12] MEDS: Heparin VIAL(*) 5000 UNITS/ML VIAL (FIVE THOUSAND) SUBCUT SCH ×2 (18:11→21:35)
[2019-03-12] MEDS ORDERED: Potassium Phosphate IV* 5 MMOLE in NS 0.9% 250 ML* 250 ML IVPB ONE (18:30)
[2019-03-12 21:33] LABS: ABS Basophils 0.1 10^3/ul (0-0.2); ABS Lymphocytes 2.1 10^3/ul (1.0-4.8); ABS Monocytes 0.6 10^3/ul (0-0.8); ABS Neutrophils 9.9 10^3/ul (1.5-7.7); Eosinophil % 0.2 %; Hematocrit 37 % (35-47); Hemoglobin 12.4 g/dL (12.0-16.0); Lymphocyte % 16.6 %; Mean Corpuscular HGB Conc 34 g/dL (31-36); Mean Corpuscular Hemoglobin 33 pg (27-31); Mean Corpuscular Volume 97 fL (80-97); Mean Platelet Volume 7.3 fL (7.4-10.4); Platelet Count 237 10^3/uL (150-450); Red Blood Count 3.75 10^6 /uL (3.70-4.87); Red Cell Distribution Width 13 % (10-15); White Blood Count 12.7 10^3/uL (3.5-10.8)
[2019-03-12] MEDS: Acetaminophen TAB* 325 MG PO PRN (21:35)
[2019-03-12 21:50] LABS: Anion Gap 10 mmol/L (2-11); BUN/Creatinine Ratio 22.4 (8-20); Blood Urea Nitrogen 17 mg/dL (6-24); CO2 Carbon Dioxide 17 mmol/L (22-32); Calcium 8.2 mg/dL (8.6-10.3); Chloride 104 mmol/L (101-111); EGFR African American 101.5 (>60); EGFR Non-African American 83.9 (>60); Glucose 359 mg/dL (70-100); Glucose Confirmatory 359 mg/dL (70-100); Phosphorus 2.2 mg/dL (2.5-5.0); Potassium 3.9 mmol/L (3.5-5.0); Sodium 131 mmol/L (135-145)
[2019-03-12 21:57] LABS: HCG Pregnancy < 0.60 mIU/mL
[2019-03-12 22:28] LABS: Albumin 3.4 g/dL (3.2-5.2)
[2019-03-13 00:04] LABS: BUN/Creatinine Ratio 27.1 (8-20); Calcium 8.1 mg/dL (8.6-10.3); EGFR African American 135.9 (>60); EGFR Non-African American 112.3 (>60); Phosphorus 1.5 mg/dL (2.5-5.0); Potassium 3.4 mmol/L (3.5-5.0)
[2019-03-13] MEDS ORDERED: Insulin GLARGINE(*) 1 UNITS UNIT SUBCUT SCH (02:30)
[2019-03-13] MEDS ORDERED: Insulin LISPRO* 1 UNITS UNIT SUBCUT ONE (04:45)
[2019-03-13] MEDS: Heparin VIAL(*) 5000 UNITS/ML VIAL (FIVE THOUSAND) SUBCUT SCH ×3 (05:32→21:40)
[2019-03-13 05:50] LABS: BUN/Creatinine Ratio 19.2 (8-20); Calcium 7.7 mg/dL (8.6-10.3); EGFR African American 106.3 (>60); EGFR Non-African American 87.9 (>60); Phosphorus 2.5 mg/dL (2.5-5.0); Potassium 3.7 mmol/L (3.5-5.0)
[2019-03-13] MEDS: Insulin Infusion 100unit/100mL 100 UNITS/100 ML UNIT IV SCH (05:50)
--- NOTE | 2019-03-13 08:39 | PN ---
Subjective - Subjective Reason for Note: Consultation Note History: Template not used Active Problems: Active Problems DKA (diabetic ketoacidoses) (Acute) E13.10 - Resolved. - This episode was likely brought on by use of fast insulins only. Patient received sample of Apidra at the [facility] and was using it as if it were long acting. - consult requested to assist with Lantus prescription. - Will transfer to medical floor and transition from insulin drip to Lantus. DVT prophylaxis (Acute) [id number] - SQ Heparin. Full code status (Acute) Z78.9 Current Medications: Current Medications Acetaminophen (Tylenol Tab*) 650 mg PO Q6H PRN PRN Reason: MILD PAIN or TEMP > 100.4 Last Admin: 03/12/19 21:35 Dose: 650 mg Heparin Sodium (Porcine) (Heparin Vial(*)) 5,000 units SUBCUT Q8HR [facility] Last Admin: 03/13/19 05:32 Dose: 5,000 units Insulin Human Regular (Insulin Regular Iv Drip 1 Unit/Ml) 100 units in 100 mls @ 6.804 mls/hr IV Q14H [facility]; Protocol Last Admin: 03/13/19 05:50 Dose: Not Given Sodium Chloride (Ns 0.9% 1000 Ml) 1,000 mls @ 50 mls/hr IV PER RATE [facility] Insulin Glargine (Lantus(*)) 30 units SUBCUT Q12H [facility] Last Admin: 03/13/19 02:36 Dose: 30 units Home Medications: Home Medications Medication Instructions Recorded Confirmed Type Insulin Lispro [Humalog] 1 unit SUBCUT TID WITH MEALS 12/07/15 03/12/19 History Ibuprofen [Advil] 200 mg PO Q6H PRN 07/17/16 03/12/19 History Insulin Glulisine [Apidra] 30 unit SQ Q12H 03/12/19 03/12/19 History Allergies: Allergies Allergy/AdvReac Type Severity Reaction Status Date / Time sulfamethoxazole Allergy Rash Verified 03/12/19 11:00 [From Bactrim] trimethoprim [From Bactrim] Allergy Rash Verified 03/12/19 11:00 Objective - Vital Signs Vital Signs: Vital Signs 03/12/19 03/12/19 03/12/19 10:48 11:41 11:43 Temperature 98.0 F Pulse Rate 123 102 Respiratory 18 22 23 Rate Blood Pressure 125/78 122/68 (mmHg) O2 Sat by Pulse 100 100 Oximetry 03/12/19 03/12/19 03/12/19 12:00 12:12 12:42 Temperature Pulse Rate 104 104 108 Respiratory 26 25 21 Rate Blood Pressure 126/71 139/84 (mmHg) O2 Sat by Pulse 100 99 99 Oximetry 03/12/19 03/12/19 03/12/19 13:00 13:12 13:42 Temperature Pulse Rate 109 107 108 Respiratory 24 18 25 Rate Blood Pressure 143/80 123/75 (mmHg) O2 Sat by Pulse 98 100 99 Oximetry 03/12/19 03/12/19 03/12/19 13:56 14:12 14:15 Temperature Pulse Rate 101 102 104 Respiratory 34 25 24 Rate Blood Pressure 121/72 110/69 121/66 (mmHg) O2 Sat by Pulse 99 98 98 Oximetry 03/12/19 03/12/19 03/12/19 14:21 14:30 14:45 Temperature 99.1 F Pulse Rate 102 105 104 Respiratory 18 25 24 Rate Blood Pressure 121/66 124/71 116/71 (mmHg) O2 Sat by Pulse 98 98 99 Oximetry 03/12/19 03/12/19 03/12/19 15:00 15:02 15:30 Temperature 98.8 F Pulse Rate 101 103 103 Respiratory 18 25 24 Rate Blood Pressure 111/76 103/67 118/76 (mmHg) O2 Sat by Pulse 99 95 97 Oximetry 03/12/19 03/12/19 03/12/19 15:45 16:00 16:30 Temperature 99 F Pulse Rate 97 99 Respiratory 24 27 Rate Blood Pressure 130/67 120/67 (mmHg) O2 Sat by Pulse 99 98 Oximetry 03/12/19 03/12/19 03/12/19 17:00 17:30 18:00 Temperature Pulse Rate 102 100 99 Respiratory 24 22 23 Rate Blood Pressure 109/65 130/68 118/64 (mmHg) O2 Sat by Pulse 99 100 99 Oximetry 03/12/19 03/12/19 03/12/19 18:04 18:30 19:00 Temperature Pulse Rate 99 106 103 Respiratory 22 22 23 Rate Blood Pressure 114/67 116/69 122/62 (mmHg) O2 Sat by Pulse 99 99 99 Oximetry 03/12/19 03/12/19 03/12/19 19:30 20:00 20:34 Temperature 100.2 F Pulse Rate 106 100 96 Respiratory 21 29 20 Rate Blood Pressure 104/56 119/65 116/75 (mmHg) O2 Sat by Pulse 98 97 96 Oximetry 03/12/19 03/12/19 03/12/19 21:00 21:30 22:00 Temperature Pulse Rate 99 93 96 Respiratory 29 29 14 Rate Blood Pressure 123/77 115/73 111/76 (mmHg) O2 Sat by Pulse 99 98 97 Oximetry 03/12/19 03/12/19 03/12/19 22:30 23:00 23:30 Temperature Pulse Rate 91 96 96 Respiratory 24 18 20 Rate Blood Pressure 110/73 105/69 114/71 (mmHg) O2 Sat by Pulse 97 96 97 Oximetry 03/13/19 03/13/19 03/13/19 00:00 00:30 01:00 Temperature 98.8 F Pulse Rate 91 83 85 Respiratory 20 21 22 Rate Blood Pressure 126/71 85/55 96/57 (mmHg) O2 Sat by Pulse 98 96 97 Oximetry 03/13/19 03/13/19 03/13/19 02:00 02:30 03:00 Temperature Pulse Rate 92 97 100 Respiratory 25 23 24 Rate Blood Pressure 117/69 120/73 142/79 (mmHg) O2 Sat by Pulse 99 98 100 Oximetry 03/13/19 03/13/19 03/13/19 04:00 04:01 04:15 Temperature 99.0 F Pulse Rate 101 103 103 Respiratory 21 21 21 Rate Blood Pressure 112/65 112/65 (mmHg) O2 Sat by Pulse 96 96 96 Oximetry 03/13/19 03/13/19 03/13/19 04:47 05:00 05:53 Temperature Pulse Rate 90 84 Respiratory 25 24 12 Rate Blood Pressure 119/67 (mmHg) O2 Sat by Pulse 98 99 Oximetry 03/13/19 03/13/19 06:00 07:56 Temperature 98.3 F Pulse Rate 78 Respiratory 23 Rate Blood Pressure 131/74 (mmHg) O2 Sat by Pulse 99 Oximetry - Intake and Output Intake and Output: Intake & Output 03/10/19 03/11/19 03/12/19 03/13/19 11:59 11:59 11:59 11:59 Intake Total 4307.8 Output Total 2750 Balance 1557.8 Weight 150 lb 170 lb 10.205 oz Intake: IV Fluids 2948 D10W 222 NS (0.9%) 726 IVPB 250 KPhos 250 Medicated IV 29.8 Insulin 29.8 Oral 1080 Output: Urine 2750 ADLs: Meal Record Start: 03/12/19 14: 21 Freq: 09,13,18 Status: Active Protocol: Created 03/12/19 14:21 System (Rec: 03/12/19 14:21 System [id number]) Document 03/12/19 18:00 [id number] (Rec: 03/12/19 19:52 [id number] [id number]) Intake and Output Start: 03/12/19 10: 52 Freq: Status: Cancelled Protocol: Created 03/12/19 10:52 System (Rec: 03/12/19 10:52 System [id number]) Intake and Output Start: 03/12/19 13: 36 Freq: 06,14,2200 Status: Complete Protocol: Created 03/12/19 13:36 [id number] (Rec: 03/12/19 13:36 BKG [id number]) Intake and Output Start: 03/12/19 14: 21 Freq: Q1HR Status: Active Protocol: Created 03/12/19 14:21 System (Rec: 03/12/19 14:21 System [id number]) Document 03/12/19 15:00 [id number] (Rec: 03/12/19 15:15 [id number] [id number]) Document 03/12/19 18:00 [id number] (Rec: 03/12/19 18:[id number] [facility] Document 03/12/19 21:00 [id number] (Rec: 03/12/19 21:14 [id number] ICU-C15) Document 03/12/19 22:00 [id number] (Rec: 03/12/19 22:10 [id number] ICU-C15) Document 03/12/19 23:00 [id number] (Rec: 03/12/19 23:17 [id number] ICU-C15) Document 03/13/19 02:00 [id number] (Rec: 03/13/19 02:21 [id number] ICU-C15) Document 03/13/19 05:00 [id number] (Rec: 03/13/19 05:[id number] [facility] [place] Results - Results Lab Results: Laboratory Results - last 24 hr 03/12/19 03/12/19 03/12/19 11:25 11:25 11:25 WBC 20.5 H RBC 4.37 Hgb 14.6 Hct 44 MCV 101 H MCH 33 H MCHC 33 RDW 14 Plt Count 280 MPV 8.4 Neut % (Auto) 92.1 Lymph % (Auto) 3.5 Glynn % (Auto) 4.0 Eos % (Auto) 0.0 Baso % (Auto) 0.4 Absolute Neuts (auto) 18.9 H Absolute Lymphs (auto) 0.7 L Absolute Monos (auto) 0.8 Absolute Eos (auto) 0.0 Absolute Basos (auto) 0.1 Absolute Nucleated RBC 0.0 Nucleated RBC % 0.1 VBG pH VBG pCO2 VBG pO2 VBG HCO3 VBG O2 Saturation VBG Base Excess Sodium 132 L Potassium TNP Chloride 98 L Carbon Dioxide 11 L* Anion Gap 23 H BUN 25 H Creatinine 1.06 H Est GFR ( Amer) 69.1 Est GFR (Non-Af Amer) 57.1 BUN/Creatinine Ratio 23.6 H Glucose 510 H* POC Glucose (mg/dL) Glucose Meter Confirm Lactic Acid 3.3 H* Calcium 8.8 Phosphorus Total Bilirubin 0.30 AST TNP ALT 14 Alkaline Phosphatase 77 C-Reactive Protein 14.86 H Total Protein 7.0 Albumin 4.3 Globulin 2.7 Albumin/Globulin Ratio 1.6 Beta HCG, Quant Urine Color Urine Appearance Urine pH Ur Specific Walker Urine Protein Urine Ketones Urine Blood Urine Nitrate Urine Bilirubin Urine Urobilinogen Ur Leukocyte Esterase Urine WBC (Auto) Urine RBC (Auto) Urine Bacteria Urine Glucose 03/12/19 03/12/19 03/12/19 11:25 13:09 13:27 WBC RBC Hgb Hct MCV MCH MCHC RDW Plt Count MPV Neut % (Auto) Lymph % (Auto) Glynn % (Auto) Eos % (Auto) Baso % (Auto) Absolute Neuts (auto) Absolute Lymphs (auto) Absolute Monos (auto) Absolute Eos (auto) Absolute Basos (auto) Absolute Nucleated RBC Nucleated RBC % VBG pH 7.13 L VBG pCO2 27 L VBG pO2 42.0 VBG HCO3 9.7 L VBG O2 Saturation 76.1 VBG Base Excess -18.7 L Sodium Potassium 3.9 Chloride Carbon Dioxide Anion Gap BUN Creatinine Est GFR ( Amer) Est GFR (Non-Af Amer) BUN/Creatinine Ratio Glucose 299 H POC Glucose (mg/dL) Glucose Meter Confirm Lactic Acid Calcium Phosphorus Total Bilirubin AST 11 L ALT Alkaline Phosphatase C-Reactive Protein Total Protein Albumin Globulin Albumin/Globulin Ratio Beta HCG, Quant Urine Color Yellow Urine Appearance Clear Urine pH 5.0 Ur Specific Walker 1.024 Urine Protein Negative Urine Ketones 2+ A Urine Blood 1+ A Urine Nitrate Negative Urine Bilirubin Negative Urine Urobilinogen Negative Ur Leukocyte Esterase Negative Urine WBC (Auto) Absent Urine RBC (Auto) 1+(3-5/hpf) A Urine Bacteria Absent Urine Glucose 3+(>=500 mg/dl) A 03/12/19 03/12/19 03/12/19 14:12 14:56 15:00 WBC RBC Hgb Hct MCV MCH MCHC RDW Plt Count MPV Neut % (Auto) Lymph % (Auto) Glynn % (Auto) Eos % (Auto) Baso % (Auto) Absolute Neuts (auto) Absolute Lymphs (auto) Absolute Monos (auto) Absolute Eos (auto) Absolute Basos (auto) Absolute Nucleated RBC Nucleated RBC % VBG pH VBG pCO2 VBG pO2 VBG HCO3 VBG O2 Saturation VBG Base Excess Sodium 134 L Potassium TNP Chloride 108 Carbon Dioxide 20 L Anion Gap 6 BUN 16 Creatinine 0.59 Est GFR ( Amer) 135.9 Est GFR (Non-Af Amer) 112.3 BUN/Creatinine Ratio 27.1 H Glucose 95 POC Glucose (mg/dL) 184 H 150 H Glucose Meter Confirm Lactic Acid Calcium 8.3 L Phosphorus 2.2 L Total Bilirubin AST ALT Alkaline Phosphatase C-Reactive Protein Total Protein Albumin Globulin Albumin/Globulin Ratio Beta HCG, Quant Urine Color Urine Appearance Urine pH Ur Specific Walker Urine Protein Urine Ketones Urine Blood Urine Nitrate Urine Bilirubin Urine Urobilinogen Ur Leukocyte Esterase Urine WBC (Auto) Urine RBC (Auto) Urine Bacteria Urine Glucose 03/12/19 03/12/19 03/12/19 15:55 16:02 17:19 WBC RBC Hgb Hct MCV MCH MCHC RDW Plt Count MPV Neut % (Auto) Lymph % (Auto) Glynn % (Auto) Eos % (Auto) Baso % (Auto) Absolute Neuts (auto) Absolute Lymphs (auto) Absolute Monos (auto) Absolute Eos (auto) Absolute Basos (auto) Absolute Nucleated RBC Nucleated RBC % VBG pH VBG pCO2 VBG pO2 VBG HCO3 VBG O2 Saturation VBG Base Excess Sodium Potassium Chloride Carbon Dioxide Anion Gap BUN Creatinine Est GFR ( Amer) Est GFR (Non-Af Amer) BUN/Creatinine Ratio Glucose POC Glucose (mg/dL) 92 73 Glucose Meter Confirm Lactic Acid 1.1 Calcium Phosphorus Total Bilirubin AST ALT Alkaline Phosphatase C-Reactive Protein Total Protein Albumin Globulin Albumin/Globulin Ratio Beta HCG, Quant Urine Color Urine Appearance Urine pH Ur Specific Walker Urine Protein Urine Ketones Urine Blood Urine Nitrate Urine Bilirubin Urine Urobilinogen Ur Leukocyte Esterase Urine WBC (Auto) Urine RBC (Auto) Urine Bacteria Urine Glucose 03/12/19 03/12/19 03/12/19 18:00 18:19 19:07 WBC RBC Hgb Hct MCV MCH MCHC RDW Plt Count MPV Neut % (Auto) Lymph % (Auto) Glynn % (Auto) Eos % (Auto) Baso % (Auto) Absolute Neuts (auto) Absolute Lymphs (auto) Absolute Monos (auto) Absolute Eos (auto) Absolute Basos (auto) Absolute Nucleated RBC Nucleated RBC % VBG pH VBG pCO2 VBG pO2 VBG HCO3 VBG O2 Saturation VBG Base Excess Sodium Potassium TNP Chloride Carbon Dioxide Anion Gap BUN Creatinine Est GFR ( Amer) Est GFR (Non-Af Amer) BUN/Creatinine Ratio Glucose POC Glucose (mg/dL) 91 181 H Glucose Meter Confirm Lactic Acid Calcium Phosphorus Total Bilirubin AST ALT Alkaline Phosphatase C-Reactive Protein Total Protein Albumin Globulin Albumin/Globulin Ratio Beta HCG, Quant Urine Color Urine Appearance Urine pH Ur Specific Walker Urine Protein Urine Ketones Urine Blood Urine Nitrate Urine Bilirubin Urine Urobilinogen Ur Leukocyte Esterase Urine WBC (Auto) Urine RBC (Auto) Urine Bacteria Urine Glucose 03/12/19 03/12/19 03/12/19 20:10 21:24 21:24 WBC 12.7 H RBC 3.75 Hgb 12.4 Hct 37 MCV 97 MCH 33 H MCHC 34 RDW 13 Plt Count 237 MPV 7.3 L Neut % (Auto) 77.8 Lymph % (Auto) 16.6 Glynn % (Auto) 4.6 Eos % (Auto) 0.2 Baso % (Auto) 0.8 Absolute Neuts (auto) 9.9 H Absolute Lymphs (auto) 2.1 Absolute Monos (auto) 0.6 Absolute Eos (auto) 0.0 Absolute Basos (auto) 0.1 Absolute Nucleated RBC 0.0 Nucleated RBC % 0.0 VBG pH VBG pCO2 VBG pO2 VBG HCO3 VBG O2 Saturation VBG Base Excess Sodium 131 L Potassium 3.9 Chloride 104 Carbon Dioxide 17 L Anion Gap 10 BUN 17 Creatinine 0.76 Est GFR ( Amer) 101.5 Est GFR (Non-Af Amer) 83.9 BUN/Creatinine Ratio 22.4 H Glucose 359 H POC Glucose (mg/dL) 422 H* Glucose Meter Confirm 359 H Lactic Acid Calcium 8.2 L Phosphorus 2.2 L Total Bilirubin AST ALT Alkaline Phosphatase C-Reactive Protein Total Protein Albumin 3.4 Globulin Albumin/Globulin Ratio Beta HCG, Quant < 0.60 Urine Color Urine Appearance Urine pH Ur Specific Walker Urine Protein Urine Ketones Urine Blood Urine Nitrate Urine Bilirubin Urine Urobilinogen Ur Leukocyte Esterase Urine WBC (Auto) Urine RBC (Auto) Urine Bacteria Urine Glucose 03/12/19 03/12/19 03/12/19 22:02 23:11 23:40 WBC RBC Hgb Hct MCV MCH MCHC RDW Plt Count MPV Neut % (Auto) Lymph % (Auto) Glynn % (Auto) Eos % (Auto) Baso % (Auto) Absolute Neuts (auto) Absolute Lymphs (auto) Absolute Monos (auto) Absolute Eos (auto) Absolute Basos (auto) Absolute Nucleated RBC Nucleated RBC % VBG pH VBG pCO2 VBG pO2 VBG HCO3 VBG O2 Saturation VBG Base Excess Sodium 134 L Potassium 3.4 L Chloride 107 Carbon Dioxide 19 L Anion Gap 8 BUN 16 Creatinine 0.59 Est GFR ( Amer) 135.9 Est GFR (Non-Af Amer) 112.3 BUN/Creatinine Ratio 27.1 H Glucose 166 H POC Glucose (mg/dL) 268 H 199 H Glucose Meter Confirm Lactic Acid Calcium 8.1 L Phosphorus 1.5 L Total Bilirubin AST ALT Alkaline Phosphatase C-Reactive Protein Total Protein Albumin Globulin Albumin/Globulin Ratio Beta HCG, Quant Urine Color Urine Appearance Urine pH Ur Specific Walker Urine Protein Urine Ketones Urine Blood Urine Nitrate Urine Bilirubin Urine Urobilinogen Ur Leukocyte Esterase Urine WBC (Auto) Urine RBC (Auto) Urine Bacteria Urine Glucose 03/13/19 03/13/19 03/13/19 00:11 00:54 01:58 WBC RBC Hgb Hct MCV MCH MCHC RDW Plt Count MPV Neut % (Auto) Lymph % (Auto) Glynn % (Auto) Eos % (Auto) Baso % (Auto) Absolute Neuts (auto) Absolute Lymphs (auto) Absolute Monos (auto) Absolute Eos (auto) Absolute Basos (auto) Absolute Nucleated RBC Nucleated RBC % VBG pH VBG pCO2 VBG pO2 VBG HCO3 VBG O2 Saturation VBG Base Excess Sodium Potassium Chloride Carbon Dioxide Anion Gap BUN Creatinine Est GFR ( Amer) Est GFR (Non-Af Amer) BUN/Creatinine Ratio Glucose POC Glucose (mg/dL) 138 H 91 135 H Glucose Meter Confirm Lactic Acid Calcium Phosphorus Total Bilirubin AST ALT Alkaline Phosphatase C-Reactive Protein Total Protein Albumin Globulin Albumin/Globulin Ratio Beta HCG, Quant Urine Color Urine Appearance Urine pH Ur Specific Walker Urine Protein Urine Ketones Urine Blood Urine Nitrate Urine Bilirubin Urine Urobilinogen Ur Leukocyte Esterase Urine WBC (Auto) Urine RBC (Auto) Urine Bacteria Urine Glucose 03/13/19 03/13/19 03/13/19 04:46 05:15 06:05 WBC RBC Hgb Hct MCV MCH MCHC RDW Plt Count MPV Neut % (Auto) Lymph % (Auto) Glynn % (Auto) Eos % (Auto) Baso % (Auto) Absolute Neuts (auto) Absolute Lymphs (auto) Absolute Monos (auto) Absolute Eos (auto) Absolute Basos (auto) Absolute Nucleated RBC Nucleated RBC % VBG pH VBG pCO2 VBG pO2 VBG HCO3 VBG O2 Saturation VBG Base Excess Sodium 134 L Potassium 3.7 Chloride 106 Carbon Dioxide 15 L Anion Gap 13 H BUN 14 Creatinine 0.73 Est GFR ( Amer) 106.3 Est GFR (Non-Af Amer) 87.9 BUN/Creatinine Ratio 19.2 Glucose 328 H POC Glucose (mg/dL) 323 H 297 H Glucose Meter Confirm Lactic Acid Calcium 7.7 L Phosphorus 2.5 Total Bilirubin AST ALT Alkaline Phosphatase C-Reactive Protein Total Protein Albumin Globulin Albumin/Globulin Ratio Beta HCG, Quant Urine Color Urine Appearance Urine pH Ur Specific Walker Urine Protein Urine Ketones Urine Blood Urine Nitrate Urine Bilirubin Urine Urobilinogen Ur Leukocyte Esterase Urine WBC (Auto) Urine RBC (Auto) Urine Bacteria Urine Glucose Assessment - Problem List Assessment: Patient Problems DKA (diabetic ketoacidoses) (Acute) DVT prophylaxis (Acute) Full code status (Acute) Cellulitis (Acute) Fever (Acute) Ketoacidosis in insulin-dependent diabetes mellitus without coma (Acute) Nausea & vomiting (Acute) Pyelonephritis (Acute) Sepsis (Acute) Tachycardia (Acute) Transaminitis (Acute) Urinary tract infection (Acute) Insulin dependent diabetes mellitus (Chronic) Non Hodgkin's lymphoma (Chronic)
--- NOTE | 2019-03-13 08:52 | PN ---
Subjective Date of Service: 03/13/19 Interval History: HOSPITALIST PROGRESS NOTE Patient seen and examined at bedside. Care reviewed and d/w Leena Martin RN. She feels a little better this AM. N/V is resolved, appetite has returned; her family actually brought her a sub last night and she ate it. Family History: Unchanged from Admission Social History: Unchanged from Admission Past Medical History: Unchanged from Admission Objective Active Medications: Acetaminophen (Tylenol Tab*) 650 mg PO Q6H PRN PRN Reason: MILD PAIN or TEMP > 100.4 Last Admin: 03/12/19 21:35 Dose: 650 mg Heparin Sodium (Porcine) (Heparin Vial(*)) 5,000 units SUBCUT Q8HR [facility] Last Admin: 03/13/19 05:32 Dose: 5,000 units Insulin Human Regular (Insulin Regular Iv Drip 1 Unit/Ml) 100 units in 100 mls @ 6.804 mls/hr IV Q14H [facility]; Protocol Last Admin: 03/13/19 05:50 Dose: Not Given Sodium Chloride (Ns 0.9% 1000 Ml) 1,000 mls @ 50 mls/hr IV PER RATE [facility] Insulin Glargine (Lantus(*)) 30 units SUBCUT Q12H [facility] Last Admin: 03/13/19 02:36 Dose: 30 units Vital Signs - 8 hr 03/13/19 03/13/19 03/13/19 01:00 02:00 02:30 Temperature Pulse Rate 85 92 97 Respiratory 22 25 23 Rate Blood Pressure 96/57 117/69 120/73 (mmHg) O2 Sat by Pulse 97 99 98 Oximetry 03/13/19 03/13/19 03/13/19 03:00 04:00 04:01 Temperature 99.0 F Pulse Rate 100 101 103 Respiratory 24 21 21 Rate Blood Pressure 142/79 112/65 (mmHg) O2 Sat by Pulse 100 96 96 Oximetry 03/13/19 03/13/19 03/13/19 04:15 04:47 05:00 Temperature Pulse Rate 103 90 84 Respiratory 21 25 24 Rate Blood Pressure 112/65 119/67 (mmHg) O2 Sat by Pulse 96 98 99 Oximetry 03/13/19 03/13/19 03/13/19 05:53 06:00 07:56 Temperature 98.3 F Pulse Rate 78 Respiratory 12 23 Rate Blood Pressure 131/74 (mmHg) O2 Sat by Pulse 99 Oximetry Oxygen Devices in Use Now: None Appearance: Pleasant middle aged lady lying in bed in NAD. Eyes: No Scleral Icterus Ears/Nose/Mouth/Throat: Mucous Membranes Moist Neck: Trachea Midline Respiratory: Symmetrical Chest Expansion and Respiratory Effort, Clear to Auscultation Cardiovascular: NL Sounds; No Murmurs; No JVD, RRR Neurological: Alert and Oriented x 3 Result Diagrams: 03/12/19 21:24 03/13/19 09:15 Microbiology and Other Data: Microbiology 03/12/19 15:10 Nasal Screen MRSA (PCR) - Final Nasal Mrsa Detected Assess/Plan/Problems-Billing Assessment: Mrs Nash is a 43yo F with PMH of insulin dependent diabetes, carpal tunnel syndrome, who presented to ED with c/o N/V, found to be in DKA. - Patient Problems (1) DKA (diabetic ketoacidoses) Code(s): E13.10 - OTH DIABETES MELLITUS WITH KETOACIDOSIS WITHOUT COMA SNOMED Code(s): 566808836 Comment: - Resolved. - This episode was likely brought on by use of fast insulins only. Patient received sample of Apidra at the [facility] and was using it as if it were long acting. - consult requested to assist with Lantus prescription. - Will transfer to medical floor and transition from insulin drip to Lantus. (2) DVT prophylaxis Comment: - SQ Heparin. (3) Full code status Status and Disposition: Inpatient. Transfer to medical floor.
[2019-03-13] MEDS ORDERED: Dextrose 50% VIAL 50 ml IV PUSH PRN ×2 (08:54→08:55)
[2019-03-13 10:00] LABS: BUN/Creatinine Ratio 23.1 (8-20); Calcium 7.8 mg/dL (8.6-10.3); EGFR African American 157.2 (>60); Potassium 3.2 mmol/L (3.5-5.0)
[2019-03-13] MEDS: Insulin LISPRO* 1 UNITS UNIT SUBCUT SCH ×5 (10:40→19:50)
[2019-03-13] MEDS: Insulin GLARGINE(*) 1 UNITS UNIT SUBCUT SCH ×2 (10:43→19:49)
[2019-03-13] MEDS: Potassium Chlor TAB* 20 MEQ TAB.ER PO SCH ×2 (10:43→14:22)
--- NOTE | 2019-03-13 13:42 | CONS ---
CC: Dr. Mariangel Castro; [facility] CONSULTATION REPORT: DATE OF CONSULT: 03/13/19 REASON FOR CONSULT: Diabetic ketoacidosis, poor diabetic control. HISTORY OF PRESENT ILLNESS: Maryse Nash is a 43-year-old white female. She followed with me a t my diabetes clinic as an outpatient. I last saw her 05/16/18, at which stage she had an A1c of 9.7 and a longstanding history of poorly controlled type 1 diabetes mellitus with no A1c below 9%. Her current presentation is documented by Dr. Mariangel Castro in her detailed admitting history and ph ysical. In short, she lost her health insurance at the end of 2018 and has been going to the [facility]. They obtained for her Apidra and were applying for Lantus. Unfortunately, the patient thought Apidra was a long- acting insulin and was taking 32 units twice daily and was also taking Humalog in sulin. She presented with symptoms of diabetic ketoacidosis with nausea and vomiting and frequent ur ination for 4 to 5 days prior to admission. DIABETES HISTORY: She has had type 1 diabetes since 2007 and has been insulin dependent since that t [facility]. She has had chronic poor glycemic control with multiple barriers. Her last eye examination was on 07/23/17. She had mild background diabetic retinopathy without proliferative retinopathy. On , she had a urine test and had no microalbumin and she had no previous history of diabetic neph ropathy. She has no previous history of diabetic neuropathy. Macrovascular disease, she has no hist ory of coronary artery disease, peripheral vascular disease, or cerebrovascular disease. She has no history of liver disease. Other risk factors, she admits to smoking 7 cigarettes a day. She denies habitual alcohol use, thoug h she says she drank some alcohol recently. She denies other substance abuse, I specifically asked a bout opioids and methamphetamines. Her last lipid profile was 05/13/18, total cholesterol 184, LDL 123, triglycerides 42, HDL 52.7. She has no history of any other organ specific autoimmune diseases. OUTPATIENT MEDICATIONS: 1. Apidra 32 units twice daily, this should have been Lantus insulin. 2. Humalog insulin 1 unit for every 15 g of carbohydrate and 1 unit for every 50 mg/dL over 150 mg/d L. DRUG ALLERGIES: DOXYCYCLINE gave her angioedema and BACTRIM a rash. FAMILY HISTORY: Sister with malignant melanoma. No type 1 diabetes or autoimmune disease. 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 She is a single parent . Her daughter is 8 years old. She has housing insecurity in that she cannot make her rent payments . She says that she potentially has food insecurity, transportation is becoming a problem because marika espinal cannot make her car payments. She states that her insurance only covers hospital stay and not home prescriptions. She stopped coming to my office because she could not pay and she also stopped going to see her primary care doctor, Dr. Sherman, for the same reason. She is under a lot of stress both a t work and at home. REVIEW OF SYSTEMS: 12-systems reviewed. She has had problems with pain in her ears which has been t reated at the [facility], was having "pimples" for which she has been given topical medication. She does not remember when her last period was; however, her test in the hospital has been neg ative. She has had some pain in the roof of her mouth. PHYSICAL EXAM: Vital Signs: Temperature 98.3, pulse 77, respirations 23, oxygen saturation 99% on r oom air, blood pressure 131/74. She is 64 inches, 170 pounds. She has no cyanosis, anemia, jaundice, clubbing, or lymphadenopathy. She is not in any acute distress, not showing Kussmaul respirations. Endocrine System: Thyroid; she is clinically euthyroid, no goiter. She has no evidence of Roberto syndrome, acromegaly, acanthosis nigricans, eruptive xanthoma, xanthelasmata, vitiligo, or evidence o f adrenal insufficiency. Cardiovascular System: Pulse regular, normal character and volume. Venous pressure not elevated. Heart sounds normal, no added sounds or murmurs. No pedal edema. Pedal pul ses present. Respiratory System: Chest is clear. Abdomen: No distention, masses, tenderness, or org anomegaly. Bowel sounds present. Nervous System: Alert and oriented. Conjugate eye movements. Fun di looks normal. I could not see any retinopathy; however, I did not dilate her pupils. Cranial ner ves II through XII intact. Normal speech. Alert and oriented. Affect flat. Moving her arms and leg s. She has normal sensation to light touch in her feet. Foot Examination: No ulcers, calluses, or infections. She has mild tinea pedis in between her lateral toe interspaces. DIAGNOSTIC STUDIES/LAB DATA: Investigation at presentation: Sodium 132, potassium 3.9, chloride 98, carbon dioxide 11, anion gap 23, BUN 25, creatinine 1.06, glucose 510. C-reactive protein 14.86. N ormal LFTs. White count 20.5, hemoglobin 14.6, hematocrit 44, platelets 280, percent neutrophils 92. 1. Venous blood gases; pH 7.13, pCO2 of 27, bicarbonate 9.7. Urinalysis 2+ ketones, 1+ blood. No imaging. ASSESSMENT AND PLAN: 1. Diabetic ketoacidosis. Maryse Nash presents with hyperglycemia and mild diabetic ketoacido sis. This is on account of her not having supply of basal insulin. She was taking a short-acting in sulin Apidra by her account as a basal insulin together with Humalog insulin and this led to worsenin g of her chronically poorly controlled type 1 diabetes. Barriers to care are: Psychological, due to stress, anxiety, and depression. Social; she has poor insurance, she has housing insecurity, food i nsecurity, and transportation insecurity. Physical; she has had inattention to her diabetes manageme nt for many years. In order to sustainably help her remain in the community, she needs a secure supp ly of basal and bolus insulin. She tells me that [facility]; h owever, she is going to need to bridge this. She also would be better off following with primary car e and my office, and we will discuss how this can be arranged. As to her hospitalization, she needs to have reestablished to basal bolus regimen. She needs to be discouraged from eating food that is b ought in for her. Last night, she ate a large amount of carbohydrates, and this morning, her anion g ap is widening again. However, I do not feel that giving her IV insulin is a solution to her eating inappropriately while in the hospital. 2. Complications of type 1 diabetes. She has a history of mild diabetic retinopathy. She is due fo r an eye exam towards the end of this year. I could see no evidence of any hemorrhages when I examin ed her eyes, but her pupils were fairly small. She has no evidence of nephropathy, peripheral neurop athy, and no macrovascular disease. 3. Tobacco abuse. Once again, I have counseled her to quit smoking; however, this is after many sim ilar attempts in the past. 4. Social situation. We asked the social media director to see her. She has employment at the present time at [employer] at a higher level than the baseline. She needs to have some advice at advocating for her self to get better insurance from her employer. She also needs advocacy concerning her housing as marika espinal is housing insecure. She has problems of transportation and affording her car. She is not priorit izing things in a way that allows her to rise above these challenges. I note that she is a single pa rent and that her 8-year-old daughter is usually living with her, but she is staying at present with her mother. 5. Depressive disorder. This is currently not being treated and does require some attention as she is unable to formulate ways of coping at the present time. This should be addressed by her primary c are team; however, the social media director hopefully will discuss this with her during her hospital stay. I discussed the above with the patient. [id number]/[facility] #: [id number]
[2019-03-14] MEDS: Acetaminophen TAB* 325 MG PO PRN (03:25)
[2019-03-14] MEDS: Heparin VIAL(*) 5000 UNITS/ML VIAL (FIVE THOUSAND) SUBCUT SCH (05:21)
[2019-03-14 08:31] LABS: BUN/Creatinine Ratio 19.6 (8-20); Calcium 8.1 mg/dL (8.6-10.3); EGFR African American 181.1 (>60); EGFR Non-African American 149.7 (>60); Potassium 3.8 mmol/L (3.5-5.0)
[2019-03-14] MEDS: Insulin GLARGINE(*) 1 UNITS UNIT SUBCUT SCH (10:04)
--- NOTE | 2019-03-14 10:27 | PN ---
Subjective - Subjective Reason for Note: Consultation Note History: Follow up Endocrinology Consultation note. She is much better today. She had an episode of mild hypoglycemia. She is eating and drinking and no longer is needing IVF. She is in no pain. She has been walking around. Active Problems: Active Problems DKA (diabetic ketoacidoses) (Acute) E13.10 - Resolved. - This episode was likely brought on by use of fast insulins only. Patient received sample of Apidra at the [facility] and was using it as if it were long acting. - consult requested to assist with Lantus prescription. - Will transfer to medical floor and transition from insulin drip to Lantus. Nausea & vomiting (Acute) R11.2 Improved, continue antiemetics PRN. DVT prophylaxis (Chronic) [id number] - SQ Heparin. Depression (Chronic) F32.9 Full code status (Chronic) Z78.9 Tobacco abuse (Chronic) Z72.0 Current Medications: Current Medications Acetaminophen (Tylenol Tab*) 650 mg PO Q6H PRN PRN Reason: MILD PAIN or TEMP > 100.4 Last Admin: 03/14/19 03:25 Dose: 650 mg Dextrose (Dextrose 50% Vial 50 Ml*) 25 ml IV PUSH .FOR FS < 60 - SS PRN PRN Reason: FS < 60 Heparin Sodium (Porcine) (Heparin Vial(*)) 5,000 units SUBCUT Q8HR [facility] Last Admin: 03/14/19 05:21 Dose: 5,000 units Insulin Glargine (Lantus(*)) 40 units SUBCUT Q12H [facility] Last Admin: 03/14/19 10:04 Dose: 40 units Insulin Human Lispro (Humalog*) 0 units SUBCUT AC [facility]; Protocol Last Admin: 03/14/19 10:06 Dose: 5 units Insulin Human Lispro (Humalog*) 0 units SUBCUT ACHS [facility]; Protocol Last Admin: 03/14/19 10:05 Dose: 2 units Home Medications: Home Medications Medication Instructions Recorded Confirmed Type Insulin Lispro [Humalog] 1 unit SUBCUT TID WITH MEALS 12/07/15 03/12/19 History Ibuprofen [Advil] 200 mg PO Q6H PRN 07/17/16 03/12/19 History Insulin Glulisine [Apidra] 30 unit SQ Q12H 03/12/19 03/12/19 History Allergies: Allergies Allergy/AdvReac Type Severity Reaction Status Date / Time sulfamethoxazole Allergy Rash Verified 03/12/19 11:00 [From Bactrim] trimethoprim [From Bactrim] Allergy Rash Verified 03/12/19 11:00 Objective - Vital Signs Vital Signs: Vital Signs 03/13/19 03/13/19 03/13/19 11:00 11:01 12:00 Temperature Pulse Rate 89 86 85 Respiratory 15 15 18 Rate Blood Pressure 130/73 133/87 (mmHg) O2 Sat by Pulse 98 99 97 Oximetry 03/13/19 03/13/19 03/13/19 12:40 12:52 16:00 Temperature 99.1 F 99.1 F 98.7 F Pulse Rate 80 80 92 Respiratory 18 18 24 Rate Blood Pressure 119/66 119/66 118/73 (mmHg) O2 Sat by Pulse 99 99 97 Oximetry 03/13/19 03/13/19 03/14/19 19:00 20:00 00:00 Temperature 98.5 F 98.2 F Pulse Rate 100 84 Respiratory 14 14 20 Rate Blood Pressure 120/72 117/73 (mmHg) O2 Sat by Pulse 99 97 Oximetry 03/14/19 03:35 Temperature 97.5 F Pulse Rate 90 Respiratory 14 Rate Blood Pressure 117/52 (mmHg) O2 Sat by Pulse 96 Oximetry - Intake and Output Intake and Output: Intake & Output 03/11/19 03/12/19 03/13/19 03/14/19 11:59 11:59 11:59 11:59 Intake Total 5238.8 808 Output Total 3350 500 Balance 1888.8 308 Weight 150 lb 170 lb 10.205 oz Intake: IV Fluids 3148 D10W 222 NS (0.9%) 926 IVPB 250 KPhos 250 Medicated IV 40.8 Insulin 40.8 Oral 1800 808 Output: Urine 3350 500 ADLs: Meal Record Start: 03/12/19 14: 21 Freq: ,,18 Status: Active Protocol: Created 03/12/19 14:21 System (Rec: 03/12/19 14:21 System ICU-M28) Document 03/12/19 18:00 [id number] (Rec: 03/12/19 19:52 [id number] ICU-C15) Document 03/13/19 09:00 [id number] (Rec: 03/13/19 10:36 [id number] ICU-L03) Document 03/13/19 18:00 [id number] (Rec: 03/13/19 21:22 [id number] MED-C09) Document 03/14/19 09:00 [id number] (Rec: 03/14/19 09:57 [id number] MED-C11) Intake and Output Start: 03/12/19 10: 52 Freq: Status: Cancelled Protocol: Created 03/12/19 10:52 System (Rec: 03/12/19 10:52 System ED-C24) Intake and Output Start: 03/12/19 13: 36 Freq: 06,14,2200 Status: Complete Protocol: Created 03/12/19 13:36 [id number] (Rec: 03/12/19 13:36 BKG SIA-BG12) Intake and Output Start: 03/12/19 14: 21 Freq: 06,14,2200 Status: Active Protocol: Created 03/12/19 14:21 System (Rec: 03/12/19 14:21 System ICU-M28) Document 03/12/19 15:00 [id number] (Rec: 03/12/19 15:15 [id number] ICU-M28) Document 03/12/19 18:00 [id number] (Rec: 03/12/19 18:14 [id number] G-M07) Document 03/12/19 21:00 [id number] (Rec: 03/12/19 21:14 [id number] ICU-C15) Document 03/12/19 22:00 [id number] (Rec: 03/12/19 22:10 [id number] ICU-C15) Document 03/12/19 23:00 [id number] (Rec: 03/12/19 23:17 [id number] ICU-C15) Document 03/13/19 02:00 [id number] (Rec: 03/13/19 02:21 [id number] ICU-C15) Document 03/13/19 05:00 [id number] (Rec: 03/13/19 05:35 [id number] IMG-M07) Document 03/13/19 08:00 [id number] (Rec: 03/13/19 09:30 [id number] ICU-C15) Document 03/13/19 09:00 [id number] (Rec: 03/13/19 10:52 [id number] ICU-L03) Document 03/13/19 10:00 [id number] (Rec: 03/13/19 13:01 [id number] ICU-C15) Document 03/13/19 12:20 [id number] (Rec: 03/13/19 13:01 [id number] ICU-C15) Document 03/13/19 16:00 [id number] (Rec: 03/13/19 16:31 [id number] MED-C11) Document 03/14/19 05:04 [id number] (Rec: 03/14/19 05:06 [id number] MED-C12) Results - Results Lab Results: Laboratory Results - last 24 hr 03/12/19 03/13/19 03/13/19 11:05 05:15 05:15 Sodium Potassium Chloride Carbon Dioxide Anion Gap BUN Creatinine Est GFR ( Amer) Est GFR (Non-Af Amer) BUN/Creatinine Ratio Glucose POC Glucose (mg/dL) > 444 H* Hemoglobin A1c 10.4 H Calcium TSH 1.12 03/13/19 03/13/19 03/13/19 07:25 08:13 10:14 Sodium Potassium Chloride Carbon Dioxide Anion Gap BUN Creatinine Est GFR ( Amer) Est GFR (Non-Af Amer) BUN/Creatinine Ratio Glucose POC Glucose (mg/dL) 167 H 153 H 121 H Hemoglobin A1c Calcium TSH 03/13/19 03/13/19 03/13/19 14:26 17:08 19:35 Sodium Potassium Chloride Carbon Dioxide Anion Gap BUN Creatinine Est GFR ( Amer) Est GFR (Non-Af Amer) BUN/Creatinine Ratio Glucose POC Glucose (mg/dL) 241 H 188 H 239 H Hemoglobin A1c Calcium TSH 03/14/19 03/14/19 03/14/19 03:11 03:43 05:24 Sodium Potassium Chloride Carbon Dioxide Anion Gap BUN Creatinine Est GFR ( Amer) Est GFR (Non-Af Amer) BUN/Creatinine Ratio Glucose POC Glucose (mg/dL) 57 L 135 H 223 H Hemoglobin A1c Calcium TSH 03/14/19 03/14/19 07:12 07:59 Sodium 140 Potassium 3.8 Chloride 110 Carbon Dioxide 26 Anion Gap 4 BUN 9 Creatinine 0.46 L Est GFR ( Amer) 181.1 Est GFR (Non-Af Amer) 149.7 BUN/Creatinine Ratio 19.6 Glucose 151 H POC Glucose (mg/dL) 147 H Hemoglobin A1c Calcium 8.1 L TSH Assessment - Problem List Assessment: Patient Problems DKA (diabetic ketoacidoses) (Acute) Nausea & vomiting (Acute) DVT prophylaxis (Chronic) Depression (Chronic) Full code status (Chronic) Tobacco abuse (Chronic) Insulin dependent diabetes mellitus (Chronic) Plan: Diabetic ketoacidosis/nausea and vomiting/Insulin dependent diabetes mellitus ( Chronic) She is back on a basal/bolus regimen. I will trim down the lantus insulkn now that she is less insulin resistant - presumably she has metabolized all the ketones as she had a hypoglycemic episode. She has financial barriers and needs a supply of basal insulin. The hospital pharmacy will supply 2 vials of lantus insulin She will take: Lantus insulin 32 units twice daily. Humalog insulin carb counting 1 unit for every 10 grams of carbohydrates plus 1 unit for every 50 mg/dl greater than 150 mg/dl. DVT prophylaxis (Chronic) ongoing Depression (Chronic) This needs to be addressed as an outpatient Full code status (Chronic) Tobacco abuse (Chronic) I counseled her to discontinue She has major social, psychological and physical barriers: Social: Financial, insurance, occupational. I recommended she obtains insurance ([employer] or [employer]). I suggested she should speak to her bank ([employer]) to advice her about her financial stresses. 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 This is not currently being addressed pharmacologically or with counseling. Physical: She has labile type 1 diabetes mellitus. She has problems with troubleshooting or implementing programs. Evon Pierre NP has met with her and will help as her diabetes career specialist. I have suggested she visit me as an outpatient in the upcoming week.
[2019-03-14 10:40] VITALS: BP 101/57
[2019-03-14] MEDS ORDERED: Insulin LISPRO* 1 UNITS UNIT SUBCUT SCH ×2 (11:30)
--- NOTE | 2019-03-14 20:56 | DS ---
CC: Dr. Melinda Sherman; Dr. Zurita DISCHARGE SUMMARY: DATE OF ADMISSION: 03/12/19 DATE OF DISCHARGE: 03/14/19 PRIMARY CARE PROVIDER: Dr. Melinda Sherman. ASSOCIATE PROFESSOR OF CHEMISTRY: Dr. Zurita. DISCHARGE DIAGNOSIS: Diabetic ketoacidosis. SECONDARY DIAGNOSES: 1. Type 1 diabetes. 2. Carpal tunnel syndrome. MEDICATION LIST: Ibuprofen 200 mg p.o. q.6 hours p.r.n. for pain. New Medications: 1. Insulin lispro sliding scale a.c. h.s. as follows: Fingerstick 131 to 150 two units; 151 to 200 three units; 201 to 250 six units; 251 to 300 nine units; 301 to 350 twelve units; 351 to 400 fifteen units; greater than [address] Zurita's office. 2. Lispro carb coverage a.c., 1 unit for each 10 g of carbs with meals. 3. Lantus 32 units subcutaneously b.i.d. 4. Augmentin 875 mg p.o. b.i.d. for 7 days. 5. Acetaminophen 650 mg p.o. q.6 hours p.r.n. for pain or fever. HOSPITAL COURSE: Mrs. Nash is a 43-year-old female with a past medical history stated above who p resents to the emergency room with recurrent nausea and vomiting, found to be in DKA. For more detai ls of her presentation, I refer you to her history and physical. The patient has lost her insurance and she is receiving medical care through the [facility]. She re ceived samples of Apidra and mistakenly thought that it was long-acting insulin, so she is being hill ranjit with only short-acting insulin and that is the reason for this episode of DKA. The patient was admitted to the intensive care unit, was started on an insulin drip, and had resoluti on of her DKA. The patient was seen in consultation by Endocrinology (Dr. Zurita) and his recommendation was to resume her long-acting insulin (Lantus vials were provided by our pharmacy) and the plan is for her to follo w up as outpatient. The patient has complaints of left ear pain. She was seen at [facility] and prescribed antibiotic d rops that has not helped her symptoms. Her otoscopy shows tympanic membrane erythema suggestive of o titis media. I do not see any signs of otitis externa or necrotizing otitis, so I am going to start Augmentin. I do not think she needs pseudomonas coverage at this point. The patient was also seen by elementary school social worker to assist with her lack of insurance. PHYSICAL EXAMINATION: Vital Signs: Temperature 98.2, heart rate 76, respiratory rate 15, oxygen sat uration is 98% on room air, blood pressure is 101/57. General: The patient is a pleasant lady, sitti ng up in bed, in no acute distress. CVS: Normal S1, S2. Regular rate and rhythm. Chest: Breath so unds bilaterally with no added sounds. Otoscopy: The left ear shows erythema of the tympanic membra ne. No active discharge. Neuro: She is alert and oriented x3. Able to move all 4 extremities. DIET: Consistent carb diet. ACTIVITIES: As tolerated. DISPOSITION: To home. STATUS WHILE IN THE HOSPITAL: Inpatient. CONDITION AT THE TIME OF DISCHARGE: Fair. The patient received education about the need for tobacco cessation and for compliance with her treat ment and with followup. Please keep in mind that this is a summarized version of this patient's hospital stay. If you need m ore information, please feel free to call me at [phone] or please obtain full medical records. TIME SPENT: Approximately 45 minutes were spent to complete this discharge. [id number]/[facility] #: [id number]
== END 2019-03-14 12:00 | disposition home or self-care (01) | DRG 638 ==
LOC: ED 10:46 → ICU 13:45 → MED 03-13 10:23
PROVIDERS: ADMIT Internal Medicine; ATTEND Internal Medicine
DX: E10.10 Type 1 diabetes mellitus with ketoacidosis without coma (principal); C85.90 Non-Hodgkin lymphoma, unspecified, unspecified site; G56.00 Carpal tunnel syndrome, unspecified upper limb; H66.92 Otitis media, unspecified, left ear; F17.210 Nicotine dependence, cigarettes, uncomplicated; F32.9 Major depressive disorder, single episode, unspecified; R74.0 Nonspecific elevation of levels of transaminase and lactic acid dehydrogenase [LDH]; E10.319 Type 1 diabetes mellitus with unspecified diabetic retinopathy without macular edema; Z79.4 Long term (current) use of insulin; Z79.1 Long term (current) use of non-steroidal anti-inflammatories (NSAID); Z88.1 Allergy status to other antibiotic agents; Z80.8 Family history of malignant neoplasm of other organs or systems; Z88.2 Allergy status to sulfonamides; Z83.3 Family history of diabetes mellitus; Z82.49 Family history of ischemic heart disease and other diseases of the circulatory system
CPT/HCPCS: 36415; 80048; 80053; 81003; 81015; 82040; 82533; 82803; 82947; 83036; 83605; 84100; 84443; 84702; 85025; 86140; 87040; 87641; 99285; 99406; A9270-GY; J1644; J1815

== ENCOUNTER 2019-08-08 07:37 | Inpatient (IN) | payer SELFPAY ==
[2019-08-08] MEDS ORDERED: NS 0.9% 1000 ML** 1,000 ML IV ONE ×3 (08:16→08:35)
[2019-08-08 08:34] LABS: ABS Lymphocytes 0.7 10^3/ul (1.0-4.8); ABS Monocytes 0.4 10^3/ul (0-0.8); ABS Neutrophils 14.3 10^3/ul (1.5-7.7); Hematocrit 45 % (35-47); Hemoglobin 14.8 g/dL (12.0-16.0); Lymphocyte % 4.7 %; Mean Corpuscular HGB Conc 33 g/dL (31-36); Mean Corpuscular Hemoglobin 34 pg (27-31); Mean Corpuscular Volume 102 fL (80-97); Mean Platelet Volume 8.2 fL (7.4-10.4); Platelet Count 274 10^3/uL (150-450); Red Cell Distribution Width 14 % (10-15); White Blood Count 15.4 10^3/uL (3.5-10.8)
[2019-08-08] MEDS ORDERED: Ondansetron INJ* 2 MG/ML VIAL IV ONE (08:35)
--- NOTE | 2019-08-08 08:37 | ED ---
HPI Diabetic - HPI Summary HPI Summary: Pt. is a 43 y.o female who presents to the ER for nausea, vomiting, and fatigue x 1 day. Pt. is an insulin dependent diabetic. Pt. notes she has been moving the last few days and has not been taking her insulin on a routine basis and has not been checking her glucose levels. Sxs are moderate in severity. No current modifying factors. - History Of Current Complaint Chief Complaint: EDNauseaVomitDiarrh Time Seen by Provider: 08/08/19 08:31 Hx Obtained From: Patient Hx Last Menstrual Period: [id number] - Allergies/Home Medications Allergies/Adverse Reactions: Allergies Allergy/AdvReac Type Severity Reaction Status Date / Time Sulfa (Sulfonamide Allergy Rash Verified 08/08/19 07:45 Antibiotics) sulfamethoxazole Allergy Rash Verified 03/12/19 11:00 [From Bactrim] trimethoprim [From Bactrim] Allergy Rash Verified 03/12/19 11:00 PMH/Surg Hx/FS Hx/Imm Hx Previously Healthy: Yes Endocrine/Hematology History: Reports: Hx Diabetes - type 1 for about 10 years. Denies: Hx Anticoagulant Therapy, Hx Thyroid Disease Cardiovascular History: Denies: Hx Congestive Heart Failure, Hx Deep Vein Thrombosis, Hx Embolism, Hx Hypertension, Hx Myocardial Infarction, Hx Pacemaker/ICD, Other Cardiovascular Problems/Disorders Respiratory History: Reports: Other Respiratory Problems/Disorders - MEDIPORT Denies: Hx Asthma, Hx Chronic Obstructive Pulmonary Disease (COPD), Hx Lung Cancer, Hx Pneumonia, Hx Pulmonary Embolism GI History: Reports: Hx Gastroesophageal Reflux Disease - per pt Denies: Hx Gall Bladder Disease, Hx Gastrointestinal Bleed, Hx Ulcer, Hx Urosepsis History: Reports: Hx Kidney Infection - bladder inf, Other Problems/ Disorders - States has stress incontinence with cough/sneeze Denies: Hx Kidney Stones, Hx Renal Disease Musculoskeletal History: Reports: Other Musculoskeletal History - Carpal tunnel Denies: Hx Bursitis, Hx Congenital Bone Abnormalities, Hx Fibromyalgia, Hx Gout, Hx Orthopedic Injury, Hx Osteoporosis, Hx Scoliosis, Hx Tendonitis Sensory History: Denies: Hx Contacts or Glasses, Hx Hearing Aid Opthamlomology History: Denies: Hx Contacts or Glasses Neurological History: Reports: Other Neuro Impairments/Disorders - CARPAL TUNNEL Denies: Hx Dementia, Hx Developmental Delay, Hx Headaches, Hx Migraine, Hx Nerve Disease, Hx Seizures, Hx Spinal Cord Injury, Hx Transient Ischemic Attacks (TIA) Psychiatric History: Denies: Hx Anxiety, Hx Depression, Hx Schizophrenia, Hx Bipolar Disorder - Cancer History Cancer Type, Location and Year: NON-HODGKIN'S LYMPHOMA Hx Chemotherapy: No Hx Radiation Therapy: No Hx Palliative Cancer Treatment: No - Surgical History Surgery Procedure, Year, and Place: RIGHT THUMB SURGERY 1997, , MOVED LEFT OVARY TO RIGHT SIDE, lymph node removed, mediport -placed and removed Hx Anesthesia Reactions: No - Immunization History Date of Tetanus Vaccine: PT STATES UNSURE Date of Influenza Vaccine: Never Infectious Disease History: Yes Infectious Disease History: Denies: Hx Clostridium Difficile, Hx Hepatitis, Hx Human Immunodeficiency Virus (HIV), Hx of Known/Suspected MRSA, Hx Shingles, Hx Tuberculosis, History Other Infectious Disease, Traveled Outside the [place] in Last 30 Days - Family History Known Family History: Positive: Hypertension, Diabetes, Non-Contributory - Social History Occupation: Employed Full-time Lives: With Family Alcohol Use: None Hx Substance Use: No Substance Use Type: Reports: None Hx Tobacco Use: Yes Smoking Status (MU): Light Every Day Tobacco Smoker Type: Cigarettes Amount Used/How Often: 7-10 cig./day Have You Smoked in the Last Year: Yes Review of Systems Constitutional: Negative Negative: Fever Cardiovascular: Negative Respiratory: Negative Positive: Abdominal Pain, Vomiting, Nausea Skin: Negative Neurological: Negative All Other Systems Reviewed And Are Negative: Yes Physical Exam Triage Information Reviewed: Yes Vital Signs On Initial Exam: Initial Vitals Temp Pulse Resp BP Pulse Ox 97.1 F 111 19 95/60 99 08/08/19 07:42 08/08/19 07:42 08/08/19 07:42 08/08/19 07:42 08/08/19 07:42 Vital Signs Reviewed: Yes Appearance: Positive: Ill-Appearing - Pt. lying in bed with eyes closed. Family present. Skin: Positive: Warm, Dry Head/Face: Positive: Normal Head/Face Inspection Eyes: Positive: Normal, EOMI, ISMAEL Neck: Positive: Supple Respiratory/Lung Sounds: Positive: Clear to Auscultation, Breath Sounds Present Cardiovascular: Positive: Tachycardia Abdomen Description: Positive: Nontender, Soft Neurological: Positive: Normal, Alert, Oriented to Person Place, Time, CN Intact II-III Diagnostics - Vital Signs Vital Signs Temp Pulse Resp BP Pulse Ox 08/08/19 07:42 97.1 F 111 19 95/60 99 - Laboratory Lab Results: Lab Results 08/08/19 08/08/19 Range/Units 07:50 08:11 WBC 15.4 H (3.5-10.8) 10^3/uL RBC 4.40 (3.70-4.87) 10^6 /uL Hgb 14.8 (12.0-16.0) g/dL Hct 45 (35-47) % MCV 102 H (80-97) fL MCH 34 H (27-31) pg MCHC 33 (31-36) g/dL RDW 14 (10-15) % Plt Count 274 (150-450) 10^3/uL MPV 8.2 (7.4-10.4) fL Neut % (Auto) 92.9 % Lymph % (Auto) 4.7 % [place] % (Auto) 2.3 % Eos % (Auto) 0.0 % Baso % (Auto) 0.1 % Absolute Neuts (auto) 14.3 H (1.5-7.7) 10^3/ul Absolute Lymphs (auto) 0.7 L (1.0-4.8) 10^3/ul Absolute Monos (auto) 0.4 (0-0.8) 10^3/ul Absolute Eos (auto) 0.0 (0-0.6) 10^3/ul Absolute Basos (auto) 0.0 (0-0.2) 10^3/ul Absolute Nucleated RBC 0.0 10^3/ul Nucleated RBC % 0.0 POC Glucose (mg/dL) > 444 H* (70-100) mg/dL Result Diagrams: 08/08/19 08:11 08/08/19 08:09 Lab Statement: Any lab studies that have been ordered have been reviewed, and results considered in the medical decision making process. Re-Evaluation - Re-Evaluation First Eval Re-Evaluation Time: 09:55 - Pt. resting with cloth over eyes. Family present. Change: Unchanged Diabetic Course/Dx - Course Course Of Treatment: Pt. presenting with vomiting after not taking her insulin routinely over the last few days. Afebrile. Tachycardic. Mildy hypotensive. IV access established x 2. NSS started. WBC 15.4, VBG shows pH of 7.05, bicarb 8, anion gap 29, glucose 612, lactic acid 2.9, K 5.7. Pt. given insulin bolus and started on insulin drip. Case discussed with it account manager, Dr. Boothe, who accepts pt. to her service. Pt. has remained stable in ED. - Diagnoses Differential Dx: Diabetic Ketoacidosis, Hyperglycemia, Hyperosmolar State, Sepsis Provider Diagnoses: DKA (diabetic ketoacidosis) - Critical Care Time Critical Care Time: 30-74 min - 30 minutes including direct pt. care and consultation. Discharge ED - Sign-Out/Discharge Documenting (check all that apply): Patient Departure - Discharge Plan Condition: Stable Disposition: ADMITTED TO [facility] Referrals: Melinda Sherman MD [Primary Care Provider] - - Billing Disposition and Condition Condition: STABLE Disposition: Admitted to [facility]
[2019-08-08 08:38] LABS: Glucose 612 mg/dL (70-100); Glucose Confirmatory 612 mg/dL (70-100)
[2019-08-08 08:59] LABS: Alcohol < 10 mg/dL (<10)
[2019-08-08 09:20] LABS: Albumin 4.5 g/dL (3.2-5.2); Calcium 9.7 mg/dL (8.6-10.3); Chloride 95 mmol/L (101-111); Magnesium 2.4 mg/dL (1.9-2.7); Sodium 132 mmol/L (135-145)
[2019-08-08 09:23] LABS: CO2 Carbon Dioxide 8 mmol/L (22-32)
[2019-08-08 09:26] LABS: ALT 20 U/L (7-52); Albumin/Globulin Ratio 1.4 (1-3); Alkaline Phosphatase 82 U/L (34-104); Blood Urea Nitrogen 32 mg/dL (6-24); C Reactive Protein 1.61 mg/L (<8.01); Creatine Kinase 37 U/L (10-223); EGFR African American 58.2 (>60); EGFR Non-African American 48.1 (>60); Globulin 3.3 g/dL (2-4); Total Protein 7.8 g/dL (6.4-8.9)
[2019-08-08 09:33] LABS: Anion Gap 29 mmol/L (2-11); Potassium 5.7 mmol/L (3.5-5.0)
[2019-08-08 09:42] LABS: AST 19 U/L (13-39)
[2019-08-08] MEDS ORDERED: Insulin REGULAR(*) 1 UNITS UNIT IV ONE (09:42)
[2019-08-08] MEDS ORDERED: Insulin Infusion 100unit/100mL 100 UNIT/100 ML BAG IV ONE (10:00)
[2019-08-08] MEDS ORDERED: Metoclopramide IV* 5 MG/ML 2 ML VIAL IV PRN (10:52)
[2019-08-08] MEDS ORDERED: Acetaminophen TAB* 325 MG PO PRN (11:10)
--- NOTE | 2019-08-08 11:23 | HP ---
H&P (Free Text) History and Physical: ATTENDING: Robyn Ansari MD DATE OF ADMISSION: 08/08/19 REASON FOR ADMISSION: Diabetic ketoacidosis CC: Nausea and vomiting HPI: Maryse Nash is a 43 year-old woman with a history of type 1 diabetes and history of non-Hodgkins lymphoma who presented to the ED with nausea and vomiting that started this morning. She was in her usual state of health last night. She skipped her insulin yesterday evening because she is moving and could not find her supplies. She denies missing any other doses of insulin, although she was told her dose may need to be adjusted. The patient began to have nausea on her way to work this morning and then also began vomiting. She reports dizziness once she got to work so went to the ED. She denies abdominal pain before coming to the ED, but she reports that she has mild RLQ abdominal pain since arriving to the ED. She denies recent fevers/chills. She denies chest pain or shortness of breath. In the ED, she received 3L NS and 7 units insulin. Insulin gtt was also started. PMH: Type 1 diabetes, NHL, Smoker PSH: Left inguinal lymph node biopsy, C section, port placement Home Medications Medication Instructions Recorded Confirmed Type Ibuprofen [Advil] 200 mg PO Q6H PRN 07/17/16 08/08/19 History Acetaminophen TAB* [Tylenol TAB*] 650 mg PO Q6H PRN tab 03/14/19 08/08/19 Rx Insulin GLARGINE(*) [Lantus 100 32 units SUBCUT Q12H unit 03/14/19 08/08/19 Rx unist/ml 10 ml VIAL (*)] Insulin LISPRO* [HumaLOG 100 0 units SUBCUT AC unit 03/14/19 08/08/19 Rx units/ml 3 ml VIAL *] Insulin LISPRO* [HumaLOG 100 0 units SUBCUT ACHS unit 03/14/19 08/08/19 Rx units/ml 3 ml VIAL *] Allergies Sulfa (Sulfonamide Antibiotics) Allergy (Verified 08/08/19 07:45) Rash sulfamethoxazole [From Bactrim] Allergy (Verified 03/12/19 11:00) Rash trimethoprim [From Bactrim] Allergy (Verified 03/12/19 11:00) Rash FH: Mother is healthy. Father had HTN and January 2019 due to pneumonia. Her sister has a h/o of skin cancer. SH: The patient just moved in with her mother. She also lives with her daughter. She smokes about 0.5ppd and started smoking at 12-13 years old. She denies alcohol or drug use. 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 ROS: 10-point review of systems was obtained. Pertinent positives and negatives are documented in HPI. PHYSICAL EXAM: In the ED, afebrile. HR 110s, RR 20s. Normotensive. General: No acute distress but appears uncomfortable. Head: Normocephalic and atraumatic. Eyes: Pupils equal. No scleral icterus. Mouth: Moist mucous membranes. Neck: Supple, trachea midline. CV: Regular rhythm, tachycardic Respiratory: Bilateral air entry. Clear to auscultation. No accessory muscle use. Abdomen: Soft, nondistended, mildly tenderness to palpation in the RLQ. No rebound or guarding. Extremities: Warm, no pedal edema. Skin: Warm and dry. Intact. Neuro: Alert and oriented x3. Moves all extremities equally. No facial asymmetry. Speech clear. Psych: Affect normal LABS: Na 132, K 5.7, Cl 95, Bicarb 8, BUN 32, Cr 1.23, Glucose 612. Anion gap 29 WBC 15.4, Hgb 14.8, Hct 45, Plt 274 VBG pH 7.05 CXR- no acute findings. IMPRESSION; 43F presenting with DKA. Diabetic ketoacidosis Type 1 diabetes ALEX due to dehydration PLAN: Neuro: Tylenol prn for pain. Delirium precautions. CV: Maintain MAP >65. Monitor tachycardic for now, anticipate improvement with hydration Respiratory: On room air. Titrate FiO2 to maintain O2 sat >90% GI: NPO. Monitor abd pain. Abdominal exam does not suggeset acute abdomen, but consider imaging if pain persists. GI ppx: Not indicated Renal: Hydration with D5-NS Recheck BMP this afternoon to follow up electrolyte (Na, K, Cl) abnormalities, ALEX, anion gap ID: Leukocytosis on admission but no other evidence of infection. Daily CBC Heme: H&H normal. Daily CBC Endo: Insulin gtt per DKA protocol and POC blood glucose q1h MSK: Activity ad emelina. Wounds: None Code status: Full Status: Critical Dispo: ICU for treatment of DKA Time spent on admission: 60 minutes
[2019-08-08] MEDS ORDERED: D5NS 0.9% 1000 ML BAG* 1,000 ML IV SCH (12:00)
[2019-08-08] MEDS ORDERED: Insulin Infusion 100unit/100mL 100 UNIT/100 ML BAG IV SCH (12:00)
[2019-08-08 16:06] LABS: Influenza A Molecular Negative (Negative); Influenza B Molecular Negative (Negative)
[2019-08-08 17:18] LABS: Urine Appearance Clear; Urine Bilirubin Negative (Negative); Urine Blood 1+ (Negative); Urine Color Yellow; Urine Glucose 2+(150 mg/dL) (Negative); Urine Ketones 2+ (Negative); Urine Nitrite Negative (Negative); Urine Protein Negative (Negative); Urine Specific Gravity 1.017 (1.010-1.030); Urine Urobilinogen Negative (Negative)
[2019-08-08 17:21] LABS: Urine Bacteria Absent (Absent); Urine Red Blood Cell Trace(0-2/hpf) (Absent); Urine Squamous Epithelial Cell Present (Absent); Urine White Blood Cell Absent (Absent)
[2019-08-08 17:34] LABS: BUN/Creatinine Ratio 29.9 (8-20); Calcium 7.9 mg/dL (8.6-10.3); EGFR Non-African American 82.6 (>60); Potassium 4.4 mmol/L (3.5-5.0)
[2019-08-08 23:15] LABS: BUN/Creatinine Ratio 27.7 (8-20); Calcium 7.9 mg/dL (8.6-10.3); EGFR African American 121.5 (>60); EGFR Non-African American 100.4 (>60); Potassium 3.9 mmol/L (3.5-5.0)
[2019-08-09] MEDS ORDERED: Insulin GLARGINE(*) 1 UNITS UNIT SUBCUT SCH (00:30)
[2019-08-09 03:40] LABS: ABS Lymphocytes 2.4 10^3/ul (1.0-4.8); ABS Monocytes 0.6 10^3/ul (0-0.8); ABS Neutrophils 6.8 10^3/ul (1.5-7.7); Eosinophil % 0.1 %; Hematocrit 34 % (35-47); Hemoglobin 11.6 g/dL (12.0-16.0); Lymphocyte % 24.5 %; Mean Corpuscular HGB Conc 34 g/dL (31-36); Mean Corpuscular Hemoglobin 33 pg (27-31); Mean Corpuscular Volume 98 fL (80-97); Mean Platelet Volume 7.3 fL (7.4-10.4); Nucleated Red Blood Cells % 0.1; Platelet Count 191 10^3/uL (150-450); Red Blood Count 3.49 10^6 /uL (3.70-4.87); Red Cell Distribution Width 13 % (10-15); White Blood Count 9.9 10^3/uL (3.5-10.8)
[2019-08-09 03:49] LABS: BUN/Creatinine Ratio 21.7 (8-20); Calcium 7.8 mg/dL (8.6-10.3); EGFR African American 113.4 (>60); EGFR Non-African American 93.8 (>60); Potassium 3.5 mmol/L (3.5-5.0)
[2019-08-09] MEDS ORDERED: Dextrose 50% Syringe 50 ML* 25 GM/50 ML SYRINGE IV PUSH PRN (05:18)
[2019-08-09 06:40] LABS: BUN/Creatinine Ratio 22.6 (8-20); Blood Urea Nitrogen 14 mg/dL (6-24); CO2 Carbon Dioxide 15 mmol/L (22-32); Calcium 7.7 mg/dL (8.6-10.3); Chloride 109 mmol/L (101-111); EGFR African American 128.4 (>60); EGFR Non-African American 106.1 (>60); Glucose 226 mg/dL (70-100); Sodium 132 mmol/L (135-145)
[2019-08-09 06:52] LABS: Anion Gap 8 mmol/L (2-11)
[2019-08-09] MEDS: Insulin LISPRO* 1 UNITS UNIT SUBCUT SCH ×2 (08:07→11:11)
[2019-08-09] MEDS ORDERED: Insulin GLARGINE(*) 1 UNITS UNIT SUBCUT ONE (11:39)
--- NOTE | 2019-08-09 12:45 | DS ---
43 y/o female IDDM presents with DKA secondary to non-adherence. Hgb A1C 11.5 and rising. Treated with IVF and insulin gtt. Lantus given last PM and DKA has resolved along with acute kidney injury. AG is 8 and renal function is normal along with normalization of WBC. Exam without localizing abnormality/complaint or fever this AM and vitals are otherwise stable. She is ambulating in ICU feeling sure on her feet and nursing expresses no concerns about discharge. I offered pt another night verses DC to home, which she had been requesting even prior to my arrival at the bedside, and she asked to be allowed to go home. We then gave her home dose of Lantus and are currently observing her for reasonable glycemic control and if attained will DC her to home. We discussed her HgbA1C and my inclination to increase her Lantus but she seemed to acknowledge that her usage of the medicine may be at least as much in play as the dose. In that light I am hesitant to raise the dose and risk hypoglycemia. I asked her to follow up with her PCP within 48 hrs and she stated that she would. This conversation was had in the presence of nursing and the patient's mother who expressed understanding and appreciation for the care. DC Diagnoses: Diabetic Ketoacidosis IDDM Acute Kidney Injury
[2019-08-09 13:10] VITALS: BP 114/72
== END 2019-08-09 14:55 | disposition home or self-care (01) | DRG 638 ==
LOC: ED 07:37 → ICU 11:10
PROVIDERS: ADMIT Surgery Surgical Critical Care; ATTEND Internal Medicine Critical Care Medicine
DX: E10.10 Type 1 diabetes mellitus with ketoacidosis without coma (principal); N17.9 Acute kidney failure, unspecified; F17.210 Nicotine dependence, cigarettes, uncomplicated; E86.0 Dehydration; D72.829 Elevated white blood cell count, unspecified; Z91.14 Patient's other noncompliance with medication regimen; Z85.72 Personal history of non-Hodgkin lymphomas; Z88.2 Allergy status to sulfonamides; Z88.1 Allergy status to other antibiotic agents; Z28.21 Immunization not carried out because of patient refusal
CPT/HCPCS: 36415; 71046; 80048; 80053; 80320; 81003; 81015; 82010; 82550; 82803; 82947; 83036; 83605; 83735; 85025; 85730; 86140; 87641; 96374; 99285; G0480; J2405

== ENCOUNTER 2019-10-02 20:25 | Emergency (ER) | payer SELFPAY ==
--- NOTE | 2019-10-02 20:49 | UC ---
Skin Complaint HPI - HPI Summary HPI Summary: 43 y/o female presents to the urgent care c/o left eye w/ a stye and also left lateral side of left ankle w/ a red rash and tenderness for the past 2-3 days. Pt reports she removed her mascara today and noticed the stye was getting worse. She also states Hx of cellulitis and she thinks she has it in her left ankle after shaving and scratching. Pt states pain at touch is 7/10. Pt denies fever, visual changes, photophobia, KING, dizziness, cough, URI symptoms, SOB, chest pain, abdominal pain, N/V/D, Hx of MRSA, sick contacts or recent travel. Pt is allergic to Bactrim PO. - History of Current Complaint Time Seen by Provider: 10/02/19 20:47 Stated Complaint: EYE/SKIN COMPLAINT Hx Obtained From: Patient Hx Last Menstrual Period: [id number] Onset/Duration: Gradual Onset, Lasting Days - 2-3 days, Still Present Skin Exposure Onset/Duration: Days Ago - 2-3 days Timing: Constant Onset Severity: Mild Current Severity: Moderate Pain Intensity: 7 Pain Scale Used: 0-10 Numeric Location: Discrete - left eye stye and left ankle red rash Character: Swelling, Redness, Painful Aggravating Factor(s): Touch - left eye and left ankle Alleviating Factor(s): Nothing Associated Signs & Symptoms: Positive: Rash - lateral side of left ankle, Tenderness. Negative: Nausea, Vomiting, Numbness, Fever, Chills, Cough, Hoarseness, Throat Tightening, Drainage, Red Streaks Related History: Other: - Hx of cellulitis - Allergy/Home Medications Allergies/Adverse Reactions: Allergies Allergy/AdvReac Type Severity Reaction Status Date / Time Sulfa (Sulfonamide Allergy Rash Verified 10/02/19 20:54 Antibiotics) sulfamethoxazole Allergy Rash Verified 10/02/19 20:54 [From Bactrim] trimethoprim [From Bactrim] Allergy Rash Verified 10/02/19 20:54 Home Medications: Home Medications Insulin GLARGINE(*) [Lantus 100 units/ml 10 ml VIAL (*)] 32 units SUBCUT Q12H unit 03/14/19 [Rx Confirmed 10/02/19] Insulin LISPRO* [HumaLOG 100 units/ml 3 ml VIAL *] 0 units SUBCUT ACHS unit 01/23 [Rx Confirmed 10/02/19] Cephalexin CAP* [Keflex CAP*] 500 mg PO QID #27 cap 10/02/19 [Rx] Erythromycin OPTH OINT* [Erythromycin 0.5% OPTH OINT*] 1 applic LEFT EYE TID #1 ophth.oint 10/02/19 [Rx] PMH/Surg Hx/FS Hx/Imm Hx Previously Healthy: Yes Endocrine History: Diabetes Other History Of: HIV Negative For: Hepatitis B, Hepatitis C, Anticoagulant Therapy - Surgical History Surgical History: Yes Surgery Procedure, Year, and Place: RIGHT THUMB SURGERY 1997, , MOVED LEFT OVARY TO RIGHT SIDE, lymph node removed, mediport -placed and removed - Family History Known Family History: Positive: Hypertension, Diabetes, Non-Contributory - Social History Occupation: Employed Full-time Lives: With Family Alcohol Use: Rare Substance Use Type: None Smoking Status (MU): Light Every Day Tobacco Smoker Type: Cigarettes Amount Used/How Often: 7-10 cig./day Have You Smoked in the Last Year: Yes Household Exposure Type: Cigarettes - Immunization History Most Recent Influenza Vaccination: unk Most Recent Tetanus Shot: unk Most Recent Pneumonia Vaccination: never Review of Systems All Other Systems Reviewed And Are Negative: Yes Constitutional: Positive: Negative Skin: Positive: Negative Eyes: Positive: Eye Redness - left eye redness w/ a stye ENT: Positive: Negative Respiratory: Positive: Negative Cardiovascular: Positive: Negative Gastrointestinal: Positive: Negative Genitourinary: Positive: Negative Motor: Positive: Negative Neurovascular: Positive: Negative Musculoskeletal: Positive: Other: - left ankle pain w/ a red rash on lateral side Neurological/Mental Status: Positive: Negative Psychological: Positive: Negative Is Patient Immunocompromised?: No Physical Exam - Summary Physical Exam Summary: Vital Signs Reviewed: Yes General: Well appearing, well nourished female in no apparent pain distress Eyes: Positive: Left Conjunctiva Inflamed - Visual acuity: WNL,Visual rausch: full to confrontation. mild periorbital soft tissue swelling at medial aspect of the LF lower eyelid with erythema and white small pustule in the medial side of eyelid, tender to palpation. PERRLA, EOMI intact w/out limitation or complaint of pain. eyelashes clear. mild tearing and yellowish drainage observed. No ciliary flush. No chemosis, No photophobia. Normal fundoscopic exam; no proptosis, exophthalmos, nystagmus. ENT: Positive: Normal ENT inspection, Hearing grossly normal, Pharynx normal, Nasal congestion, Nasal drainage - clear, TMs normal - B/L external ear canal clear , TM's WNL. Negative: Tonsillar swelling, Tonsillar exudate Neck: Positive: Supple, Nontender, No Lymphadenopathy Respiratory: Positive: Chest nontender, Lungs clear, Normal breath sounds, No respiratory distress Cardiovascular: Positive: RRR, No Murmur, Pulses Normal, Brisk Capillary Refill Abdomen Description: Positive: Nontender, No Organomegaly, Soft. Negative: CVA Tenderness (R), CVA Tenderness (L) Bowel Sounds: Positive: Present Musculoskeletal: Positive: Strength Intact, ROM Intact, No Edema Neurological Exam: Normal Psychological Exam: Normal Skin Exam: Skin: Positive: Lateral side of the left ankle above the lateral malleolus w/ a positive erythematous patch w/ indistinct borders, warm and tender to palpation, no drainage observed about 1.0cm x 1.0cm in size. pulses WNL, capillary refill brisk, sensation WNL. Triage Information Reviewed: Yes Course/Dx - Course Course Of Treatment: 43 y/o female presents to the urgent care c/o left eye w/ a stye and also left lateral side of left ankle w/ a red rash and tenderness for the past 2-3 days. Pt reports she removed her mascara today and noticed the stye was getting worse. She also states Hx of cellulitis and she thinks she has it in her left ankle after shaving and scratching. Pt states pain at touch is 7/10. Pt denies fever, visual changes, photophobia, KING, dizziness, cough, URI symptoms, SOB, chest pain, abdominal pain, N/V/D, Hx of MRSA, sick contacts or recent travel. Pt is allergic to Bactrim PO. Hx obtained. Pt with LF lower eyelid external hordeolum and cellulitis of left ankle on examination. Pt Rx Bacitracin Ophthalmic Ointment. Pt given first dose at the clinic and dispense the rest home. PT advised to apply warm compresses and massage the eye with gentle pressure 4-5 times for 10-15min throughout the day. Then apply ABX and if not improvement of symptoms to f/u with sales research analyst Dr Correa or PCP in 3 days for further evaluation and treatment. Pt Rx Keflex PO as directed below. Fisr dose givne at the clinic. rash demarcated with a skin marker and Advised if rash doubles in size and if she develops a fever to go to the ER for further treatment. D/C instructions explained. Pt understood and agreed w/ plan of care - Differential Diagnoses - Skin Complaint Differential Diagnoses: Abscess, Cellulitis, Contact Dermatitis, Local Allergic Reaction, MRSA, Urticaria - Diagnoses Provider Diagnosis: Hordeolum externum left lower eyelid, Cellulitis of left ankle Discharge ED - Sign-Out/Discharge Documenting (check all that apply): Patient Departure - D/C home All imaging exams completed and their final reports reviewed: No Studies - Discharge Plan Condition: Stable Disposition: HOME Prescriptions: Cephalexin CAP* [Keflex CAP*] 500 mg PO QID #27 cap Erythromycin OPTH OINT* [Erythromycin 0.5% OPTH OINT*] 1 applic LEFT EYE TID #1 ophth.oint Patient Education Materials: Cellulitis (ED), Stye (ED) Referrals: Melinda Sherman MD [Primary Care Provider] - 3 Days Oj Correa MD [Medical Doctor] - If Needed Additional Instructions: 1-Please apply ophthalmic ointment in your LF lower eye lid as directed. Please apply warm compresses and massage the eye with gentle pressure 4-5 times for 10- 15min throughout the day. Encourage hand washing to avoid spread. 2-Please take full course of Antibiotic. First dose given tonight. Take Tylenol PO q6hrs prn to alleviate pain 3- If redness and swelling doubles in size after 48 hrs of taking antibiotic and fever develops please go to the ER immediately. 4-Avoid standing for long periods of time or flexing your let ankle, keep it elevated. If not improvement please f/u w/ your PCP in 2-3 days for further management. 5- If you do not improve or if symptoms worsen please f/u with sales research analyst DR Correa in 3 days for further evaluation and treatment - Billing Disposition and Condition Condition: STABLE Disposition: Home
[2019-10-02 21:02] VITALS: BP 128/83
[2019-10-02] MEDS ORDERED: Cephalexin CAP* 500 MG PO ONE (21:13)
[2019-10-02] MEDS ORDERED: Erythromycin OPTH OINT* APPLIC OINT LEFT EYE ONE (21:14)
== END 2019-10-02 22:07 | disposition home or self-care (01) ==
LOC: UCEAST 20:25
DX: H00.015 Hordeolum externum left lower eyelid (principal); L03.116 Cellulitis of left lower limb; E11.9 Type 2 diabetes mellitus without complications; Z79.4 Long term (current) use of insulin; Z21 Asymptomatic human immunodeficiency virus [HIV] infection status; Z88.2 Allergy status to sulfonamides
CPT/HCPCS: 99213; A9270-GY; G0463

== ENCOUNTER 2020-05-13 23:36 | Inpatient (IN) ==
[2020-05-14 00:14] LABS: Hematocrit 47 % (35-47); Hemoglobin 14.7 g/dL (12.0-16.0); Mean Corpuscular HGB Conc 32 g/dL (31-36); Mean Corpuscular Hemoglobin 33 pg (27-31); Mean Corpuscular Volume 106 fL (80-97); Mean Platelet Volume 8.1 fL (7.4-10.4); Platelet Count 318 10^3/uL (150-450); Red Blood Count 4.41 10^6 /uL (3.70-4.87); Red Cell Distribution Width 14 % (10-15); White Blood Count 20.4 10^3/uL (3.5-10.8)
[2020-05-14] MEDS ORDERED: Insulin Infusion 100unit/100mL 100 UNIT/100 ML BAG IV ONE (00:26)
[2020-05-14 00:30] LABS: ALT 23 U/L (7-52); Albumin 4.4 g/dL (3.2-5.2); Albumin/Globulin Ratio 1.4 (1-3); Alkaline Phosphatase 88 U/L (34-104); BUN/Creatinine Ratio 24.8 (8-20); Blood Urea Nitrogen 38 mg/dL (6-24); Calcium 9.8 mg/dL (8.6-10.3); Chloride 90 mmol/L (101-111); EGFR Non-African American 37.2 (>60); Globulin 3.2 g/dL (2-4); Sodium 129 mmol/L (135-145); Total Protein 7.6 g/dL (6.4-8.9)
[2020-05-14] MEDS: NS 0.9% 1000 ml BAG 2,000 ML IV ONE ×2 (00:30→01:00)
[2020-05-14 00:35] LABS: CO2 Carbon Dioxide 7 mmol/L (22-32); Glucose 756 mg/dL (70-100)
[2020-05-14 00:36] LABS: HCG Pregnancy < 0.60 mIU/mL
[2020-05-14 01:01] LABS: AST 23 U/L (13-39); Anion Gap 32 mmol/L (2-11); Potassium 5.9 mmol/L (3.5-5.0); Troponin I 0.02 ng/mL (<0.03)
[2020-05-14 01:31] LABS: Urine Appearance Cloudy; Urine Bilirubin Negative (Negative); Urine Blood 2+ (Negative); Urine Color Yellow; Urine Glucose 3+(>=500 mg/dL) (Negative); Urine Ketones 2+ (Negative); Urine Nitrite Negative (Negative); Urine Protein 1+(30 mg/dL) (Negative); Urine Specific Gravity 1.016 (1.010-1.030); Urine Urobilinogen Negative (Negative)
[2020-05-14 01:55] LABS: Urine Bacteria Absent (Absent); Urine Red Blood Cell Trace(0-2/hpf) (Absent); Urine Squamous Epithelial Cell Present (Absent); Urine White Blood Cell Trace(0-5/hpf) (Absent)
[2020-05-14] MEDS ORDERED: Insulin REGULAR drip 100 units/100 ml per Titration Protocol IV SCH (02:00)
[2020-05-14 03:02] LABS: ABS Basophils 0.1 10^3/ul (0-0.2); ABS Lymphocytes 1.5 10^3/ul (1.0-4.8); ABS Monocytes 0.6 10^3/ul (0-0.8); ABS Neutrophils 18.2 10^3/ul (1.5-7.7); Eosinophil % 0.1 %; Lymphocyte % 7.2 %
[2020-05-14 03:33] LABS: Magnesium 2.2 mg/dL (1.9-2.7); Phosphorus 9.4 mg/dL (2.5-5.0)
[2020-05-14] MEDS: NS 0.9% 1000 ml BAG 1,000 ML IV SCH ×4 (03:35→23:24)
[2020-05-14 04:42] LABS: Glucose Confirmatory 472 mg/dL (70-100)
[2020-05-14 05:52] LABS: C Reactive Protein 5.31 mg/L (<8.01)
[2020-05-14 05:52] LABS: Hematocrit 39 % (35-47); Hemoglobin 12.9 g/dL (12.0-16.0); Mean Corpuscular HGB Conc 33 g/dL (31-36); Mean Corpuscular Hemoglobin 33 pg (27-31); Mean Corpuscular Volume 100 fL (80-97); Platelet Count 271 10^3/uL (150-450); Red Blood Count 3.89 10^6 /uL (3.70-4.87); Red Cell Distribution Width 13 % (10-15); White Blood Count 21.1 10^3/uL (3.5-10.8)
[2020-05-14 05:54] LABS: ABS Lymphocytes 2.2 10^3/ul (1.0-4.8); ABS Monocytes 1.6 10^3/ul (0-0.8); ABS Neutrophils 17.3 10^3/ul (1.5-7.7); Lymphocyte % 10.3 %
[2020-05-14 06:39] LABS: Calcium 8.1 mg/dL (8.6-10.3); Chloride 104 mmol/L (101-111); Sodium 135 mmol/L (135-145)
[2020-05-14 06:45] LABS: BUN/Creatinine Ratio 29.7 (8-20); Blood Urea Nitrogen 38 mg/dL (6-24); EGFR African American 55.3 (>60); EGFR Non-African American 45.7 (>60); Glucose 472 mg/dL (70-100)
[2020-05-14 06:46] LABS: Anion Gap 24 mmol/L (2-11); CO2 Carbon Dioxide 7 mmol/L (22-32)
[2020-05-14 06:59] LABS: BUN/Creatinine Ratio 30.8 (8-20); Calcium 7.9 mg/dL (8.6-10.3); EGFR Non-African American 56.2 (>60); Phosphorus 1.6 mg/dL (2.5-5.0)
[2020-05-14] MEDS ORDERED: ICU Lab Reminder 1 NOTE MISC FOLLOW UP SCH (07:00)
[2020-05-14 07:24] LABS: Potassium 3.8 mmol/L (3.5-5.0)
[2020-05-14 07:39] LABS: Magnesium 1.6 mg/dL (1.9-2.7)
[2020-05-14] MEDS ORDERED: Potassium Chlor 20 meq TAB.ER PO ONE (07:46)
[2020-05-14] MEDS ORDERED: Magnesium Sulf 4 GM/100 ML IV 4,000 MG/100 ML BAG IVPB ONE (07:47)
[2020-05-14] MEDS ORDERED: Piperacillin/Tazobac ADVAN 3.375 GM in NS 0.9% 100 ml BAG 100 ML IV ONE (07:55)
[2020-05-14] MEDS ORDERED: Zosyn per Pharmacy NOTE FOLLOW UP SCH (08:00)
[2020-05-14] MEDS ORDERED: Potassium Phosphate IV 15 MMOLE in NS 0.9% 250 ml 250 ML IVPB ONE (08:37)
[2020-05-14 08:54] LABS: Calcium 7.6 mg/dL (8.6-10.3); EGFR African American 85.3 (>60); EGFR Non-African American 70.5 (>60); Potassium 3.4 mmol/L (3.5-5.0)
[2020-05-14] MEDS: ZOSYN 3.375 GM Q8H per EXTENDED INFUSION IV SCH ×2 (12:26→22:09)
[2020-05-14 12:46] LABS: BUN/Creatinine Ratio 32.1 (8-20); EGFR African American 93.8 (>60); EGFR Non-African American 77.5 (>60); Magnesium 2.5 mg/dL (1.9-2.7); Potassium 4.2 mmol/L (3.5-5.0)
[2020-05-14] MEDS ORDERED: Dextrose 50% Syringe 50 ml 25 GM/50 ML SYRINGE IV PUSH PRN (13:51)
[2020-05-14] MEDS ORDERED: Insulin GLARGINE 100 un/ml 10 ml VIAL SUBCUT SCH (14:00)
[2020-05-14 14:37] LABS: Phosphorus 1.2 mg/dL (2.5-5.0)
[2020-05-14] MEDS: Heparin 5000 UNITS/ML 1 mL VIAL SUBCUT SCH ×2 (15:15→22:09)
[2020-05-14] MEDS ORDERED: Magnesium Sulfate IV 0.5 GM/ML 2 ml VIAL (1 gm) IVPB PRN (16:00)
[2020-05-14] MEDS ORDERED: Calcium Gluconate 1 GM/10 ML VIAL (in Pyxis) IV PRN (16:00)
[2020-05-14] MEDS ORDERED: POTASSIUM PHOSPHATE IV PRN (16:00)
[2020-05-14] MEDS ORDERED: SODIUM PHOSPHATE IVPB PRN (16:00)
[2020-05-14] MEDS ORDERED: Potassium Chlor 20 meq TAB.ER PO PRN (16:00)
[2020-05-14] MEDS ORDERED: [UNRECOGNIZED DRUG - OTHER] IV PRN (16:00)
[2020-05-14] MEDS ORDERED: [UNRECOGNIZED DRUG - OTHER] IVPB PRN (16:00)
[2020-05-14] MEDS ORDERED: KCL 20 MEQ/100 ML IV PRN (16:00)
[2020-05-14 16:44] LABS: INR 1.04 (0.82-1.09)
[2020-05-14 17:36] LABS: BUN/Creatinine Ratio 28.9 (8-20); Calcium 7.7 mg/dL (8.6-10.3); EGFR Non-African American 83.5 (>60); Potassium 4.5 mmol/L (3.5-5.0)
[2020-05-14 18:19] LABS: Phosphorus 2.2 mg/dL (2.5-5.0)
[2020-05-14 18:24] LABS: ABS Basophils 0.1 10^3/ul (0-0.2); ABS Lymphocytes 1.6 10^3/ul (1.0-4.8); ABS Neutrophils 16.6 10^3/ul (1.5-7.7); Hematocrit 37 % (35-47); Hemoglobin 12.4 g/dL (12.0-16.0); Lymphocyte % 8.5 %; Mean Corpuscular HGB Conc 33 g/dL (31-36); Mean Corpuscular Hemoglobin 33 pg (27-31); Mean Corpuscular Volume 98 fL (80-97); Mean Platelet Volume 7.3 fL (7.4-10.4); Platelet Count 238 10^3/uL (150-450); Red Blood Count 3.77 10^6 /uL (3.70-4.87); Red Cell Distribution Width 13 % (10-15); White Blood Count 19.3 10^3/uL (3.5-10.8)
[2020-05-14] MEDS ORDERED: Calcium Gluconate 2 GM in NS 0.9% 100 ml BAG 100 ML IV ONE (19:00)
[2020-05-14 22:26] LABS: BUN/Creatinine Ratio 29.4 (8-20); Calcium 8.1 mg/dL (8.6-10.3); EGFR African American 114.8 (>60); EGFR Non-African American 94.9 (>60); Potassium 4.1 mmol/L (3.5-5.0)
[2020-05-15] MEDS: ZOSYN 3.375 GM Q8H per EXTENDED INFUSION IV SCH ×3 (04:36→21:27)
[2020-05-15 05:23] LABS: Calcium 7.7 mg/dL (8.6-10.3)
[2020-05-15 05:29] LABS: BUN/Creatinine Ratio 18.3 (8-20); EGFR African American 132.7 (>60); EGFR Non-African American 109.6 (>60)
[2020-05-15] MEDS: Heparin 5000 UNITS/ML 1 mL VIAL SUBCUT SCH ×3 (05:37→21:17)
[2020-05-15 05:46] LABS: Hematocrit 36 % (35-47); Mean Corpuscular HGB Conc 33 g/dL (31-36); Mean Corpuscular Hemoglobin 33 pg (27-31); Mean Corpuscular Volume 100 fL (80-97); Mean Platelet Volume 7.7 fL (7.4-10.4); Platelet Count 189 10^3/uL (150-450); Red Blood Count 3.65 10^6 /uL (3.70-4.87); Red Cell Distribution Width 14 % (10-15); White Blood Count 15.4 10^3/uL (3.5-10.8)
[2020-05-15 07:06] LABS: ABS Lymphocytes 2.9 10^3/ul (1.0-4.8); ABS Monocytes 0.5 10^3/ul (0-0.8); ABS Neutrophils 11.9 10^3/ul (1.5-7.7); Eosinophil % 0.2 %; Lymphocyte % 18.6 %
[2020-05-15] MEDS ORDERED: Insulin GLARGINE 100 un/ml 10 ml VIAL SUBCUT ONE (08:33)
[2020-05-15 10:55] LABS: BUN/Creatinine Ratio 12.7 (8-20); Calcium 8.4 mg/dL (8.6-10.3); EGFR African American 125.4 (>60); EGFR Non-African American 103.6 (>60); Potassium 3.9 mmol/L (3.5-5.0)
[2020-05-15] MEDS ORDERED: Potassium Chlor 20 meq TAB.ER PO ONE (11:12)
[2020-05-15] MEDS: Insulin GLARGINE 100 un/ml 10 ml VIAL SUBCUT SCH (21:15)
[2020-05-16] MEDS: ZOSYN 3.375 GM Q8H per EXTENDED INFUSION IV SCH ×2 (04:23→14:16)
[2020-05-16] MEDS: Heparin 5000 UNITS/ML 1 mL VIAL SUBCUT SCH ×2 (06:22→14:11)
[2020-05-16 06:44] LABS: Calcium 8.4 mg/dL (8.6-10.3); EGFR African American 180.3 (>60); Magnesium 1.5 mg/dL (1.9-2.7)
[2020-05-16] MEDS ORDERED: Magnesium Sulf 4 GM/100 ML IV 4,000 MG/100 ML BAG IVPB ONE (08:30)
[2020-05-16] MEDS: Insulin GLARGINE 100 un/ml 10 ml VIAL SUBCUT SCH (09:09)
[2020-05-16 16:01] VITALS: BP 137/78
== END 2020-05-16 15:56 | disposition home or self-care (01) | DRG 420 ==
LOC: ED 23:36 → ICU 05-14 02:03 → MEDTELE 05-15 14:02
PROVIDERS: ADMIT Internal Medicine; ATTEND Internal Medicine

== ENCOUNTER 2020-06-30 16:46 | Inpatient (IN) ==
[2020-06-30 19:08] LABS: ABS Basophils 0.1 10^3/ul (0-0.2); ABS Lymphocytes 0.9 10^3/ul (1.0-4.8); ABS Monocytes 0.4 10^3/ul (0-0.8); ABS Neutrophils 13.4 10^3/ul (1.5-7.7); Eosinophil % 0.1 %; Hematocrit 46 % (35-47); Lymphocyte % 6.1 %; Mean Corpuscular HGB Conc 33 g/dL (31-36); Mean Corpuscular Hemoglobin 34 pg (27-31); Mean Corpuscular Volume 103 fL (80-97); Mean Platelet Volume 8.1 fL (7.4-10.4); Platelet Count 270 10^3/uL (150-450); Red Blood Count 4.43 10^6 /uL (3.70-4.87); Red Cell Distribution Width 14 % (10-15); White Blood Count 14.7 10^3/uL (3.5-10.8)
[2020-06-30 19:30] LABS: ALT 17 U/L (7-52); Albumin 4.4 g/dL (3.2-5.2); Albumin/Globulin Ratio 1.4 (1-3); Alkaline Phosphatase 94 U/L (34-104); BUN/Creatinine Ratio 25.6 (8-20); Blood Urea Nitrogen 31 mg/dL (6-24); C Reactive Protein 6.69 mg/L (<8.01); Calcium 9.8 mg/dL (8.6-10.3); Chloride 93 mmol/L (101-111); EGFR Non-African American 48.8 (>60); Globulin 3.1 g/dL (2-4); Magnesium 2.1 mg/dL (1.9-2.7); Sodium 129 mmol/L (135-145); Total Protein 7.5 g/dL (6.4-8.9)
[2020-06-30 19:31] LABS: Urine Appearance Cloudy; Urine Bilirubin Negative (Negative); Urine Blood 1+ (Negative); Urine Color Yellow; Urine Glucose 3+(>=500 mg/dL) (Negative); Urine Ketones 2+ (Negative); Urine Nitrite Negative (Negative); Urine Protein 1+(30 mg/dL) (Negative); Urine Specific Gravity 1.016 (1.010-1.030); Urine Urobilinogen Negative (Negative)
[2020-06-30 19:33] LABS: HCG Pregnancy < 0.60 mIU/mL
[2020-06-30 19:36] LABS: CO2 Carbon Dioxide 10 mmol/L (22-32); Glucose 698 mg/dL (70-100)
[2020-06-30 19:36] LABS: Urine Bacteria Absent (Absent); Urine Red Blood Cell Trace(0-2/hpf) (Absent); Urine Squamous Epithelial Cell Present (Absent); Urine White Blood Cell Absent (Absent)
[2020-06-30] MEDS: Lactated Ringers 1000 ml BAG 1,000 ML IV SCH (19:47)
[2020-06-30 19:50] LABS: Anion Gap 26 mmol/L (2-11); Potassium 6.1 mmol/L (3.5-5.0)
[2020-06-30 19:52] LABS: AST 14 U/L (13-39)
[2020-06-30] MEDS ORDERED: Insulin Infusion 100unit/100mL 100 UNIT/100 ML BAG IV SCH (20:00)
[2020-06-30 20:19] LABS: Influenza A Molecular Negative (Negative); Influenza B Molecular Negative (Negative)
[2020-06-30] MEDS ORDERED: Lidocaine 1% VIAL 10 MG/ML VIAL ONE (23:00)
[2020-06-30 23:05] LABS: BUN/Creatinine Ratio 29.1 (8-20); EGFR African American 61.4 (>60); EGFR Non-African American 50.7 (>60)
[2020-06-30 23:27] LABS: Potassium 4.3 mmol/L (3.5-5.0)
[2020-07-01 00:02] LABS: Magnesium 1.8 mg/dL (1.9-2.7); Phosphorus 4.4 mg/dL (2.5-5.0)
[2020-07-01] MEDS: KCL 20 MEQ/100 ML IVPREMIX 20 MEQ/100 ML BAG IV SCH ×4 (00:09→15:51)
[2020-07-01] MEDS ORDERED: Magnesium Sulfate IV 1GM/100ML 1 GM/100 ML BAG IV ONE (00:10)
[2020-07-01 02:48] LABS: BUN/Creatinine Ratio 30.6 (8-20); Blood Urea Nitrogen 30 mg/dL (6-24); Calcium 8.9 mg/dL (8.6-10.3); Chloride 103 mmol/L (101-111); EGFR African American 75.3 (>60); EGFR Non-African American 62.2 (>60); Glucose 194 mg/dL (70-100); Potassium 3.9 mmol/L (3.5-5.0); Sodium 134 mmol/L (135-145)
[2020-07-01 02:50] LABS: Anion Gap 19 mmol/L (2-11); CO2 Carbon Dioxide 12 mmol/L (22-32)
[2020-07-01] MEDS: Lactated Ringers 1000 ml BAG 1,000 ML IV SCH ×3 (02:52→04:08)
[2020-07-01] MEDS: POTASSIUM CHLORIDE IV SCH ×2 (04:08→16:03)
[2020-07-01] MEDS: SODIUM CHLORIDE IV SCH ×2 (04:08→16:03)
[2020-07-01] MEDS: DEXTROSE IV SCH ×2 (04:08→16:03)
[2020-07-01 04:34] LABS: BUN/Creatinine Ratio 35.1 (8-20); Calcium 8.7 mg/dL (8.6-10.3); EGFR African American 104.1 (>60); EGFR Non-African American 86.1 (>60); Potassium 3.8 mmol/L (3.5-5.0)
[2020-07-01 06:31] LABS: ABS Lymphocytes 1.8 10^3/ul (1.0-4.8); ABS Monocytes 0.8 10^3/ul (0-0.8); ABS Neutrophils 11.3 10^3/ul (1.5-7.7); Hematocrit 36 % (35-47); Hemoglobin 12.1 g/dL (12.0-16.0); Lymphocyte % 12.9 %; Mean Corpuscular HGB Conc 34 g/dL (31-36); Mean Corpuscular Hemoglobin 33 pg (27-31); Mean Corpuscular Volume 98 fL (80-97); Mean Platelet Volume 7.6 fL (7.4-10.4); Platelet Count 225 10^3/uL (150-450); Red Blood Count 3.63 10^6 /uL (3.70-4.87); Red Cell Distribution Width 13 % (10-15); White Blood Count 13.8 10^3/uL (3.5-10.8)
[2020-07-01 06:47] LABS: BUN/Creatinine Ratio 36.4 (8-20); Calcium 8.5 mg/dL (8.6-10.3); EGFR African American 118.8 (>60); EGFR Non-African American 98.2 (>60); Potassium 4.3 mmol/L (3.5-5.0)
[2020-07-01] MEDS ORDERED: Lactated Ringers 1000 ml BAG 1,000 ML IV SCH ×2 (08:00→08:13)
[2020-07-01] MEDS ORDERED: Lactated Ringers 1000 ml BAG 500 ML IV SCH (08:00)
[2020-07-01] MEDS ORDERED: Insulin GLARGINE 100 un/ml 10 ml VIAL SUBCUT SCH (09:00)
[2020-07-01 09:26] LABS: BUN/Creatinine Ratio 31.1 (8-20); Calcium 8.3 mg/dL (8.6-10.3); EGFR African American 104.1 (>60); EGFR Non-African American 86.1 (>60)
[2020-07-01 09:30] LABS: Potassium 5.3 mmol/L (3.5-5.0)
[2020-07-01] MEDS ORDERED: Insulin Infusion 100unit/100mL 100 UNIT/100 ML BAG IV SCH (11:00)
[2020-07-01 12:48] LABS: BUN/Creatinine Ratio 27.5 (8-20); Calcium 8.3 mg/dL (8.6-10.3); EGFR African American 112.9 (>60); EGFR Non-African American 93.3 (>60); Magnesium 1.8 mg/dL (1.9-2.7); Potassium 3.9 mmol/L (3.5-5.0)
[2020-07-01] MEDS ORDERED: Dextrose 50% Syringe 50 ml 25 GM/50 ML SYRINGE IV PUSH PRN ×2 (15:08→17:22)
[2020-07-01] MEDS ORDERED: Dextrose 50% Syringe 50 ml 25 GM/50 ML SYRINGE ONE (15:09)
[2020-07-01] MEDS: cefTRIAXone 1 gm/50 mL NS BAG 1 GM/50 ML BAG IVPB SCH (15:47)
[2020-07-01 16:33] LABS: BUN/Creatinine Ratio 24.6 (8-20); Calcium 8.1 mg/dL (8.6-10.3); EGFR African American 130.1 (>60); EGFR Non-African American 107.6 (>60)
[2020-07-01] MEDS ORDERED: Insulin GLARGINE 100 un/ml 10 ml VIAL SUBCUT ONE (16:42)
[2020-07-01] MEDS ORDERED: Enoxaparin 40 MG/0.4 ML SYR SUBCUT SCH (17:30)
[2020-07-01] MEDS ORDERED: D10W 500 ml BAG 500 ML IV SCH (18:00)
[2020-07-01] MEDS ORDERED: D10W 1000 ml BAG 500 ML IV SCH (18:00)
[2020-07-01 19:51] LABS: BUN/Creatinine Ratio 18.2 (8-20); Calcium 7.8 mg/dL (8.6-10.3); EGFR African American 118.8 (>60); EGFR Non-African American 98.2 (>60); Potassium 3.9 mmol/L (3.5-5.0)
[2020-07-02 00:28] LABS: BUN/Creatinine Ratio 18.6 (8-20); Calcium 7.8 mg/dL (8.6-10.3); EGFR African American 135.3 (>60); EGFR Non-African American 111.8 (>60)
[2020-07-02] MEDS: cefTRIAXone 1 gm/50 mL NS BAG 1 GM/50 ML BAG IVPB SCH ×2 (04:09→15:02)
[2020-07-02 04:38] LABS: ABS Eosinophils 0.1 10^3/ul (0-0.6); ABS Lymphocytes 3.7 10^3/ul (1.0-4.8); ABS Monocytes 0.3 10^3/ul (0-0.8); ABS Neutrophils 6.6 10^3/ul (1.5-7.7); Eosinophil % 0.5 %; Hematocrit 36 % (35-47); Lymphocyte % 34.2 %; Mean Corpuscular HGB Conc 34 g/dL (31-36); Mean Corpuscular Hemoglobin 33 pg (27-31); Mean Corpuscular Volume 99 fL (80-97); Mean Platelet Volume 7.2 fL (7.4-10.4); Platelet Count 189 10^3/uL (150-450); Red Blood Count 3.61 10^6 /uL (3.70-4.87); Red Cell Distribution Width 13 % (10-15); White Blood Count 10.7 10^3/uL (3.5-10.8)
[2020-07-02 04:52] LABS: Magnesium 1.7 mg/dL (1.9-2.7); Phosphorus 1.4 mg/dL (2.5-5.0)
[2020-07-02] MEDS ORDERED: Magnesium Sulfate 2 gm BAG 2 GM/50 ML BAG IVPB ONE ×2 (05:13→07:48)
[2020-07-02] MEDS ORDERED: Dextrose 50% Syringe 50 ml 25 GM/50 ML SYRINGE IV PUSH PRN (06:21)
[2020-07-02 06:51] LABS: BUN/Creatinine Ratio 16.1 (8-20); Calcium 7.6 mg/dL (8.6-10.3); EGFR African American 127.7 (>60); EGFR Non-African American 105.6 (>60); Potassium 3.9 mmol/L (3.5-5.0)
[2020-07-02] MEDS ORDERED: Insulin GLARGINE 100 un/ml 10 ml VIAL SUBCUT STA (07:51)
[2020-07-02] MEDS ORDERED: Insulin GLARGINE 100 un/ml 10 ml VIAL SUBCUT ONE (08:20)
[2020-07-02] MEDS ORDERED: Potassium Phosphate IV 15 MMOLE in NS 0.9% 250 ml 250 ML IVPB ONE (08:30)
[2020-07-02] MEDS: Enoxaparin 40 MG/0.4 ML SYR SUBCUT SCH ×2 (08:45→21:34)
[2020-07-02] MEDS ORDERED: Insulin GLARGINE 100 un/ml 10 ml VIAL SUBCUT SCH ×2 (09:00→21:00)
[2020-07-02 11:40] LABS: BUN/Creatinine Ratio 15.3 (8-20); Calcium 7.7 mg/dL (8.6-10.3); EGFR African American 135.3 (>60); EGFR Non-African American 111.8 (>60); Potassium 3.7 mmol/L (3.5-5.0)
[2020-07-02 15:23] LABS: BUN/Creatinine Ratio 13.1 (8-20); Calcium 7.9 mg/dL (8.6-10.3); EGFR African American 130.1 (>60); EGFR Non-African American 107.6 (>60); Potassium 4.5 mmol/L (3.5-5.0)
[2020-07-03] MEDS: cefTRIAXone 1 gm/50 mL NS BAG 1 GM/50 ML BAG IVPB SCH ×2 (03:39→16:18)
[2020-07-03] MEDS: Enoxaparin 40 MG/0.4 ML SYR SUBCUT SCH (08:56)
[2020-07-03] MEDS ORDERED: Insulin GLARGINE 100 un/ml 10 ml VIAL SUBCUT ONE (11:49)
[2020-07-03 13:50] LABS: ABS Eosinophils 0.1 10^3/ul (0-0.6); ABS Lymphocytes 2.1 10^3/ul (1.0-4.8); ABS Monocytes 0.3 10^3/ul (0-0.8); ABS Neutrophils 2.2 10^3/ul (1.5-7.7); Eosinophil % 1.6 %; Hematocrit 36 % (35-47); Hemoglobin 12.3 g/dL (12.0-16.0); Mean Corpuscular HGB Conc 34 g/dL (31-36); Mean Corpuscular Hemoglobin 33 pg (27-31); Mean Corpuscular Volume 97 fL (80-97); Mean Platelet Volume 7.7 fL (7.4-10.4); Platelet Count 179 10^3/uL (150-450); Red Cell Distribution Width 13 % (10-15); White Blood Count 4.6 10^3/uL (3.5-10.8)
[2020-07-03 13:59] LABS: Calcium 8.6 mg/dL (8.6-10.3); EGFR African American 163.7 (>60); EGFR Non-African American 135.3 (>60); Magnesium 1.8 mg/dL (1.9-2.7)
[2020-07-03 17:07] VITALS: BP 124/78
[2020-07-03] MEDS ORDERED: Insulin GLARGINE 100 un/ml 10 ml VIAL SUBCUT SCH (21:00)
[2020-07-04] MEDS: Enoxaparin 40 MG/0.4 ML SYR SUBCUT SCH (00:28)
== END 2020-07-03 23:59 | disposition left against medical advice (07) | DRG 720 ==
LOC: ED 16:46 → ICU 22:41 → MED 07-02 21:05
PROVIDERS: ADMIT Internal Medicine; ATTEND Internal Medicine

== ENCOUNTER 2020-09-12 21:58 | Inpatient (IN) ==
[~2020-09-12 21:58] MED LIST changes: -Acetaminophen TAB* 325 MG PO ONE; +Enoxaparin 30 MG/0.3 ML SYR SUBCUT SCH; -NS 0.9% 1000 ML* 1,000 ML IV ONE; -cefTRIAXone(*) 1 GM in NS 0.9% 50 ML* 50 ML IVPB ONE
[2020-09-12] MEDS ORDERED: NS 0.9% 1000 ml BAG 2,000 ML IV ONE (22:13)
[2020-09-12] MEDS ORDERED: NS 0.9% 1000 ml BAG 1,000 ML IV ONE (22:13)
[2020-09-12] MEDS ORDERED: Ondansetron 4 mg VIAL 2 MG/ML 2 ml VIAL IV ONE (22:13)
[2020-09-12] MEDS ORDERED: Pantoprazole VIAL 40 MG VIAL IV ONE (22:29)
[2020-09-12 23:48] LABS: ALT 31 U/L (7-52); Albumin 4.1 g/dL (3.2-5.2); Albumin/Globulin Ratio 1.4 (1-3); Alkaline Phosphatase 127 U/L (34-104); BUN/Creatinine Ratio 24.4 (8-20); Blood Urea Nitrogen 43 mg/dL (6-24); C Reactive Protein 12.04 mg/L (<8.01); Calcium 9.1 mg/dL (8.6-10.3); Chloride 78 mmol/L (101-111); EGFR African American 38.3 (>60); EGFR Non-African American 31.7 (>60); Magnesium 2.7 mg/dL (1.9-2.7); Sodium 120 mmol/L (135-145); Total Protein 7.1 g/dL (6.4-8.9)
[2020-09-12 23:50] LABS: Troponin I 0.01 ng/mL (<0.03)
[2020-09-13] MEDS ORDERED: NS 0.9% 1000 ml BAG 1,000 ML IV ONE ×3 (00:02→01:05)
[2020-09-13 00:13] LABS: CO2 Carbon Dioxide < 7 mmol/L (22-32)
[2020-09-13 00:14] LABS: Glucose 1148 mg/dL (70-100)
[2020-09-13 00:28] LABS: Lipase 1846 U/L (11.0-82.0)
[2020-09-13 00:33] LABS: AST Redraw 22 U/L (13-39)
[2020-09-13 00:37] LABS: Hematocrit 47 % (35-47); Hemoglobin 13.6 g/dL (12.0-16.0); Mean Corpuscular HGB Conc 29 g/dL (31-36); Mean Corpuscular Hemoglobin 33 pg (27-31); Mean Corpuscular Volume 115 fL (80-97); Platelet Count 300 10^3/uL (150-450); Red Blood Count 4.08 10^6 /uL (3.70-4.87); Red Cell Distribution Width 15 % (10-15); White Blood Count 24.4 10^3/uL (3.5-10.8)
[2020-09-13 00:45] LABS: ABS Basophils 0.1 10^3/ul (0-0.2); ABS Lymphocytes 3.7 10^3/ul (1.0-4.8); ABS Monocytes 1.9 10^3/ul (0-0.8); ABS Neutrophils 18.7 10^3/ul (1.5-7.7); Eosinophil % 0.1 %; Lymphocyte % 15.3 %; Nucleated Red Blood Cells % 0.1
[2020-09-13 00:47] LABS: Potassium Redraw 6.7 mmol/L (3.5-5.0)
[2020-09-13 01:09] LABS: Triglycerides 337 mg/dL
[2020-09-13] MEDS ORDERED: NS 0.9% 1000 ml BAG 2,000 ML IV ONE (01:40)
[2020-09-13] MEDS ORDERED: Dextrose 50% Syringe 50 ml 25 GM/50 ML SYRINGE IV PUSH ONE ×2 (01:42→16:15)
[2020-09-13] MEDS ORDERED: NS 0.9% 1000 ml BAG 1,000 ML IV SCH (02:00)
[2020-09-13] MEDS ORDERED: Ondansetron 4 mg VIAL 2 MG/ML 2 ml VIAL IV PRN ×2 (02:10→02:32)
[2020-09-13 02:23] LABS: Urine Appearance Cloudy; Urine Bilirubin Negative (Negative); Urine Blood 3+ (Negative); Urine Color Yellow; Urine Glucose 3+(>=500 mg/dL) (Negative); Urine Ketones 2+ (Negative); Urine Nitrite Negative (Negative); Urine Protein 1+(30 mg/dL) (Negative); Urine Specific Gravity 1.016 (1.010-1.030); Urine Urobilinogen Negative (Negative)
[2020-09-13 02:28] LABS: Urine Bacteria Absent (Absent); Urine Red Blood Cell 3+(>10/hpf) (Absent); Urine Squamous Epithelial Cell Present (Absent); Urine White Blood Cell 1+(6-10/hpf) (Absent)
[2020-09-13] MEDS: Insulin Infusion 100unit/100mL 100 UNIT/100 ML BAG IV SCH ×2 (03:05→11:30)
[2020-09-13 03:16] LABS: Albumin 4.1 g/dL (3.2-5.2); Indirect Bilirubin 0.2 mg/dL (0.3-1.0); Total Bilirubin 0.3 mg/dL (0.2-1.0)
[2020-09-13 03:22] LABS: Albumin/Globulin Ratio 1.4 (1-3); Globulin 2.9 g/dL (2-4)
[2020-09-13 03:35] LABS: Folate > 20.00 ng/mL (>3.99)
[2020-09-13 03:36] LABS: Vitamin B12 833 pg/mL (180-914)
[2020-09-13] MEDS: Enoxaparin 30 MG/0.3 ML SYR SUBCUT SCH ×2 (03:41→19:58)
[2020-09-13] MEDS: Pantoprazole VIAL 40 MG VIAL IV SCH (03:42)
[2020-09-13 03:44] LABS: Glucose Confirmatory 1003 mg/dL (70-100)
[2020-09-13 04:32] LABS: BUN/Creatinine Ratio 27.8 (8-20); Blood Urea Nitrogen 42 mg/dL (6-24); Calcium 7.7 mg/dL (8.6-10.3); Chloride 92 mmol/L (101-111); EGFR African American 45.7 (>60); EGFR Non-African American 37.8 (>60); Sodium 127 mmol/L (135-145)
[2020-09-13 04:37] LABS: CO2 Carbon Dioxide < 7 mmol/L (22-32)
[2020-09-13] MEDS: NORMOSOL-R pH 7.4 1000 mL BAG 1,000 ML IV SCH ×4 (04:45→19:25)
[2020-09-13 04:53] LABS: Glucose 834 mg/dL (70-100)
[2020-09-13 06:18] LABS: Glucose Confirmatory 721 mg/dL (70-100)
[2020-09-13 06:36] LABS: BUN/Creatinine Ratio 29.7 (8-20); Blood Urea Nitrogen 41 mg/dL (6-24); Calcium 7.7 mg/dL (8.6-10.3); Chloride 96 mmol/L (101-111); EGFR African American 50.7 (>60); EGFR Non-African American 41.9 (>60); Phosphorus 3.6 mg/dL (2.5-5.0); Potassium 4.1 mmol/L (3.5-5.0); Sodium 131 mmol/L (135-145)
[2020-09-13] MEDS ORDERED: KCL 20 MEQ/100 ML IVPREMIX 20 MEQ/100 ML BAG IV ONE ×2 (06:54→15:39)
[2020-09-13 06:59] LABS: CO2 Carbon Dioxide < 7 mmol/L (22-32); Glucose 615 mg/dL (70-100); Glucose Confirmatory 615 mg/dL (70-100)
[2020-09-13] MEDS ORDERED: NORMOSOL-R pH 7.4 1000 mL BAG 1,000 ML IV SCH (07:00)
[2020-09-13 07:40] LABS: Potassium Redraw 4.1 mmol/L (3.5-5.0)
[2020-09-13 08:32] LABS: Glucose Confirmatory 424 mg/dL (70-100)
[2020-09-13 08:32] LABS: Glucose Confirmatory 490 mg/dL (70-100)
[2020-09-13] MEDS: KCL 20 MEQ/100 ML IVPREMIX 20 MEQ/100 ML BAG IV SCH ×3 (08:40→13:44)
[2020-09-13] MEDS: Ciprofloxacin 400mg IVPREMIX 400 MG/200 ML BAG IVPB SCH ×2 (09:24→19:50)
[2020-09-13] MEDS: metroNIDAZOLE IV 500 MG/100ML 500 MG/100 ML BAG IVPB SCH ×2 (10:47→16:28)
[2020-09-13 10:59] LABS: BUN/Creatinine Ratio 29.8 (8-20); Calcium 7.5 mg/dL (8.6-10.3); EGFR African American 70.3 (>60); EGFR Non-African American 58.1 (>60); Potassium 4.3 mmol/L (3.5-5.0)
[2020-09-13] MEDS ORDERED: D10W 1000 ml BAG 1,000 ML IV SCH ×2 (11:00→15:39)
[2020-09-13 12:08] LABS: Urine Benzodiazepine Screen None Detected (None Detect); Urine Cannabinoids Screen None Detected (None Detect); Urine Opiates Screen None Detected (None Detect)
[2020-09-13 15:07] LABS: BUN/Creatinine Ratio 28.8 (8-20); Calcium 7.7 mg/dL (8.6-10.3); EGFR African American 95.2 (>60); EGFR Non-African American 78.7 (>60); Potassium 4.1 mmol/L (3.5-5.0)
[2020-09-13] MEDS ORDERED: Insulin GLARGINE 100 un/ml 10 ml VIAL SUBCUT ONE (16:00)
[2020-09-13 18:52] LABS: BUN/Creatinine Ratio 24.3 (8-20); Calcium 7.6 mg/dL (8.6-10.3); EGFR Non-African American 91.8 (>60); Potassium 4.1 mmol/L (3.5-5.0)
[2020-09-13] MEDS ORDERED: Dextrose 50% Syringe 50 ml 25 GM/50 ML SYRINGE IV PUSH PRN (19:24)
[2020-09-13 23:29] LABS: Calcium 7.6 mg/dL (8.6-10.3); EGFR Non-African American 91.8 (>60); Potassium 4.4 mmol/L (3.5-5.0)
[2020-09-14] MEDS: metroNIDAZOLE IV 500 MG/100ML 500 MG/100 ML BAG IVPB SCH ×3 (00:32→16:53)
[2020-09-14] MEDS ORDERED: Dextrose 50% Syringe 50 ml 25 GM/50 ML SYRINGE IV PUSH ONE (00:54)
[2020-09-14] MEDS ORDERED: NORMOSOL-R pH 7.4 1000 mL BAG 1,000 ML IV ONE (01:00)
[2020-09-14] MEDS ORDERED: KCL 20 MEQ/100 ML IVPREMIX 20 MEQ/100 ML BAG IV ONE ×2 (01:04→08:00)
[2020-09-14 01:26] LABS: Magnesium 1.9 mg/dL (1.9-2.7); Phosphorus 1.8 mg/dL (2.5-5.0)
[2020-09-14 02:41] LABS: BUN/Creatinine Ratio 15.8 (8-20); Calcium 7.5 mg/dL (8.6-10.3); EGFR Non-African American 83.5 (>60); Potassium 3.5 mmol/L (3.5-5.0)
[2020-09-14] MEDS ORDERED: Potassium Chlor 20 meq TAB.ER PO ONE (02:50)
[2020-09-14] MEDS ORDERED: Dextrose 50% Syringe 50 ml 25 GM/50 ML SYRINGE IV PUSH PRN (03:04)
[2020-09-14] MEDS: NORMOSOL-R pH 7.4 1000 mL BAG 1,000 ML IV SCH ×4 (03:17→23:47)
[2020-09-14] MEDS ORDERED: Magnesium Sulfate IV 1GM/100ML 1 GM/100 ML BAG IV ONE (03:37)
[2020-09-14] MEDS ORDERED: Potassium Phosphate IV 15 MMOLE in NS 0.9% 250 ml 250 ML IVPB ONE ×2 (03:37→20:43)
[2020-09-14] MEDS ORDERED: NS 0.9% 250 ml 250 ML ONE (03:46)
[2020-09-14] MEDS: Calcium Carb (TUMS) 500 mg CHEW TAB PO SCH ×4 (03:49→20:46)
[2020-09-14 04:51] LABS: ABS Basophils 0.1 10^3/ul (0-0.2); ABS Lymphocytes 1.9 10^3/ul (1.0-4.8); ABS Monocytes 0.7 10^3/ul (0-0.8); ABS Neutrophils 11.2 10^3/ul (1.5-7.7); Hematocrit 32 % (35-47); Hemoglobin 10.9 g/dL (12.0-16.0); Lymphocyte % 13.9 %; Mean Corpuscular HGB Conc 34 g/dL (31-36); Mean Corpuscular Hemoglobin 33 pg (27-31); Mean Corpuscular Volume 97 fL (80-97); Mean Platelet Volume 6.9 fL (7.4-10.4); Platelet Count 156 10^3/uL (150-450); Red Blood Count 3.32 10^6 /uL (3.70-4.87); Red Cell Distribution Width 13 % (10-15); White Blood Count 13.9 10^3/uL (3.5-10.8)
[2020-09-14 05:10] LABS: Anion Gap 9 mmol/L (2-11); BUN/Creatinine Ratio 14.9 (8-20); Blood Urea Nitrogen 10 mg/dL (6-24); CO2 Carbon Dioxide 19 mmol/L (22-32); Calcium 7.7 mg/dL (8.6-10.3); Chloride 107 mmol/L (101-111); EGFR African American 116.8 (>60); EGFR Non-African American 96.5 (>60); Glucose 157 mg/dL (70-100); Magnesium 2.2 mg/dL (1.9-2.7); Potassium 3.6 mmol/L (3.5-5.0); Sodium 135 mmol/L (135-145)
[2020-09-14 05:14] LABS: Phosphorus < 1.0 mg/dL (2.5-5.0)
[2020-09-14 07:29] LABS: Lipase 1233 U/L (11.0-82.0)
[2020-09-14] MEDS: Ciprofloxacin 400mg IVPREMIX 400 MG/200 ML BAG IVPB SCH ×2 (08:21→19:56)
[2020-09-14] MEDS: Pantoprazole VIAL 40 MG VIAL IV SCH (08:21)
[2020-09-14 08:57] LABS: BUN/Creatinine Ratio 13.8 (8-20); Calcium 7.8 mg/dL (8.6-10.3); EGFR African American 137.9 (>60); Potassium 4.4 mmol/L (3.5-5.0)
[2020-09-14] MEDS: Insulin GLARGINE 100 un/ml 10 ml VIAL SUBCUT SCH (09:12)
[2020-09-14 20:35] LABS: BUN/Creatinine Ratio 7.8 (8-20); Calcium 7.8 mg/dL (8.6-10.3); EGFR Non-African American 132.2 (>60); Magnesium 2.1 mg/dL (1.9-2.7); Phosphorus 1.4 mg/dL (2.5-5.0); Potassium 3.7 mmol/L (3.5-5.0)
[2020-09-14] MEDS: Enoxaparin 30 MG/0.3 ML SYR SUBCUT SCH (20:46)
[2020-09-15] MEDS: metroNIDAZOLE IV 500 MG/100ML 500 MG/100 ML BAG IVPB SCH ×3 (01:29→17:16)
[2020-09-15] MEDS: NORMOSOL-R pH 7.4 1000 mL BAG 1,000 ML IV SCH (06:15)
[2020-09-15 06:18] LABS: ABS Monocytes 0.3 10^3/ul (0-0.8); ABS Neutrophils 3.7 10^3/ul (1.5-7.7); Eosinophil % 0.2 %; Hematocrit 30 % (35-47); Hemoglobin 10.1 g/dL (12.0-16.0); Lymphocyte % 33.3 %; Mean Corpuscular HGB Conc 34 g/dL (31-36); Mean Corpuscular Hemoglobin 33 pg (27-31); Mean Corpuscular Volume 98 fL (80-97); Mean Platelet Volume 7.1 fL (7.4-10.4); Nucleated Red Blood Cells % 0.1; Platelet Count 106 10^3/uL (150-450); Red Blood Count 3.03 10^6 /uL (3.70-4.87); Red Cell Distribution Width 14 % (10-15); White Blood Count 6.1 10^3/uL (3.5-10.8)
[2020-09-15] MEDS ORDERED: Potassium Phosphate IV 15 MMOLE in NS 0.9% 250 ml 250 ML IVPB ONE (06:32)
[2020-09-15 06:34] LABS: BUN/Creatinine Ratio 10.6 (8-20); Calcium 7.3 mg/dL (8.6-10.3); EGFR African American 175.8 (>60); EGFR Non-African American 145.3 (>60); Magnesium 2.1 mg/dL (1.9-2.7); Phosphorus 2.3 mg/dL (2.5-5.0); Potassium 4.1 mmol/L (3.5-5.0)
[2020-09-15] MEDS: Insulin GLARGINE 100 un/ml 10 ml VIAL SUBCUT SCH (08:52)
[2020-09-15] MEDS: Ciprofloxacin 400mg IVPREMIX 400 MG/200 ML BAG IVPB SCH ×2 (08:54→19:50)
[2020-09-15] MEDS: Calcium Carb (TUMS) 500 mg CHEW TAB PO SCH ×3 (08:54→21:31)
[2020-09-15] MEDS: Pantoprazole VIAL 40 MG VIAL IV SCH (08:55)
[2020-09-15] MEDS: Lactated Ringers 1000 ml BAG 1,000 ML IV SCH (15:57)
[2020-09-15] MEDS: Enoxaparin 40 MG/0.4 ML SYR SUBCUT SCH (21:31)
[2020-09-16] MEDS: metroNIDAZOLE IV 500 MG/100ML 500 MG/100 ML BAG IVPB SCH ×2 (00:55→08:02)
[2020-09-16 06:21] LABS: ABS Monocytes 0.3 10^3/ul (0-0.8); ABS Neutrophils 2.2 10^3/ul (1.5-7.7); Hematocrit 34 % (35-47); Hemoglobin 11.7 g/dL (12.0-16.0); Lymphocyte % 44.3 %; Mean Corpuscular HGB Conc 34 g/dL (31-36); Mean Corpuscular Hemoglobin 33 pg (27-31); Mean Corpuscular Volume 97 fL (80-97); Mean Platelet Volume 7.2 fL (7.4-10.4); Platelet Count 121 10^3/uL (150-450); Red Blood Count 3.56 10^6 /uL (3.70-4.87); Red Cell Distribution Width 13 % (10-15); White Blood Count 4.6 10^3/uL (3.5-10.8)
[2020-09-16 06:26] LABS: BUN/Creatinine Ratio 14.6 (8-20); Calcium 8.5 mg/dL (8.6-10.3); EGFR African American 205.9 (>60); EGFR Non-African American 170.1 (>60); Magnesium 1.7 mg/dL (1.9-2.7); Potassium 3.4 mmol/L (3.5-5.0)
[2020-09-16] MEDS ORDERED: Magnesium Sulfate IV 3 GM in NS 0.9% 100 ml BAG 100 ML IVPB ONE (06:41)
[2020-09-16] MEDS: Lactated Ringers 1000 ml BAG 1,000 ML IV SCH (07:11)
[2020-09-16] MEDS: Calcium Carb (TUMS) 500 mg CHEW TAB PO SCH ×2 (08:02→13:15)
[2020-09-16] MEDS: Ciprofloxacin 400mg IVPREMIX 400 MG/200 ML BAG IVPB SCH (08:02)
[2020-09-16] MEDS: KCL 10 MEQ/50 ML IVPREMIX 10 MEQ/50 ML BAG IV SCH ×4 (08:02→11:26)
[2020-09-16] MEDS ORDERED: Insulin GLARGINE 100 un/ml 10 ml VIAL SUBCUT SCH (09:00)
[2020-09-16] MEDS: Enoxaparin 40 MG/0.4 ML SYR SUBCUT SCH (21:34)
[2020-09-17 05:30] LABS: BUN/Creatinine Ratio 19.6 (8-20); Calcium 8.5 mg/dL (8.6-10.3); EGFR Non-African American 132.2 (>60); HDL Cholesterol 29.8 mg/dL; Magnesium 1.6 mg/dL (1.9-2.7); Potassium 3.9 mmol/L (3.5-5.0)
[2020-09-17] MEDS ORDERED: Magnesium Sulfate 2 gm BAG 2 GM/50 ML BAG IVPB ONE (07:58)
[2020-09-17] MEDS ORDERED: Magnesium Sulfate IV 3 GM in NS 0.9% 100 ml BAG 100 ML IVPB ONE (07:58)
[2020-09-17] MEDS ORDERED: Insulin GLARGINE 100 un/ml 10 ml VIAL SUBCUT SCH ×2 (09:00)
[2020-09-17 11:41] VITALS: BP 97/55
== END 2020-09-17 14:35 | disposition home or self-care (01) | DRG 720 ==
LOC: ED 21:58 → ICU 23:50 → MED 09-15 15:53
PROVIDERS: ADMIT Internal Medicine; ATTEND Internal Medicine

== ENCOUNTER 2023-09-10 15:36 | Inpatient (IN) ==
[2023-09-10] MEDS: Ondansetron 4 mg VIAL 2 MG/ML 2 ml VIAL IV ONE (16:21)
[2023-09-10 16:23] LABS: Venous Bicarbonate HCO3 9.1 mmol/L (24-28)
[2023-09-10 16:30] LABS: Hematocrit 42.2 % (35-45); Hemoglobin 12.9 g/dL (11.5-14.3); Mean Corpuscular Hemoglobin 33.3 pg (27-33); Mean Corpuscular Hgb Conc 30.7 g/dL (31-36); Mean Corpuscular Volume 108.7 fL (80-97); Mean Platelet Volume 8.1 fL (7.5-11.2); Platelet Count 265 10^3/uL (150-450); Red Blood Count 3.88 10^6/uL (3.63-4.92); Red Cell Distribution Width 14.9 % (12-17); White Blood Count 14.9 10^3/uL (3.8-11.8)
[2023-09-10] MEDS: Piperacillin/Tazobac 3.375 BAG 3.375 GM/100 ML BAG IV ONE (16:42)
[2023-09-10] MEDS: NS 0.9% 1000 ml BAG 1,000 ML IV ONE ×2 (16:42)
[2023-09-10 16:53] LABS: High Sens Troponin Baseline 14 pg/mL (<15)
[2023-09-10 17:06] LABS: ABS Eosinophils 0.1 10^3/uL (0.0-0.5); ABS Lymphocytes 1.2 10^3/uL (1.0-4.8); ABS Monocytes 0.8 10^3/uL (0.0-0.9); ABS Neutrophils 12.8 10^3/uL (1.5-7.6); ABS Nucleated RBC 0.01 10^3/ul; Anisocytosis 1+; Eosinophil % 0.5 %; Hypochromasia 1+; Lymphocyte % 8.4 %; Macrocytosis 1+; Nucleated Red Blood Cells % 0.1 %/100WBC (0.0-0.8)
[2023-09-10] MEDS: Vancomycin 1,250 MG in NS 0.9% 250 ml 250 ML IVPB ONE (17:06)
[2023-09-10 17:33] LABS: ALT 20 U/L (7-52); AST 14 U/L (13-39); Albumin/Globulin Ratio 1.4 (1-3); Alkaline Phosphatase 84 U/L (35-149); Blood Urea Nitrogen 39 mg/dL (6-24); C Reactive Protein 46.87 mg/L (<8.01); Calcium 9.5 mg/dL (8.6-10.3); Chloride 80 mmol/L (101-111); Creatinine, Serum 1.72 mg/dL (0.51-0.95); Globulin 2.8 g/dL (2-4); Lipase 137 U/L (11.0-82.0); Magnesium 2.3 mg/dL (1.9-2.7); Phosphorus 9.2 mg/dL (2.5-5.0); Potassium 5.9 mmol/L (3.5-5.0); Sodium 122 mmol/L (135-145); Total Bilirubin 0.4 mg/dL (0.2-1.0); Total Protein 6.8 g/dL (6.4-8.9); eGFR CKD-EPI 36.9 (>60)
[2023-09-10 17:34] LABS: Anion Gap 33 mmol/L (2-16); CO2 Carbon Dioxide 9 mmol/L (22-32); HCG Pregnancy < 0.60 mIU/mL
[2023-09-10 17:35] LABS: Glucose 1011 mg/dL (70-100)
[2023-09-10 17:36] LABS: Urine Appearance Clear; Urine Bacteria 1+ /HPF (Absent); Urine Bilirubin Negative (Negative); Urine Blood 3+ (Negative); Urine Color Light-Yellow; Urine Glucose 4+ (>=1000 mg/dL) (Negative); Urine Ketones 2+ (Negative); Urine Nitrite Negative (Negative); Urine Protein Negative (Negative); Urine Red Blood Cell Trace(0-2/hpf) /HPF (0-Trace); Urine Squamous Epithelial Cell Present /HPF (Absent); Urine Urobilinogen Negative (Negative); Urine White Blood Cell Trace(0-5/hpf) /HPF (0-Trace)
[2023-09-10] MEDS ORDERED: Dextrose 50% Syringe 50 ml 25 GM/50 ML SYRINGE IV PUSH PRN (17:41)
[2023-09-10] MEDS: Insulin Infusion 100unit/100mL 100 UNIT/100 ML BAG IV SCH (18:10)
[2023-09-10] MEDS: NORMOSOL-R pH 7.4 1000 mL BAG 1,000 ML IV ONE (18:37)
[2023-09-10 19:46] LABS: Activated Partial Thrombo Time 25.6 seconds (26.0-38.0); INR 1.08 (0.83-1.13)
[2023-09-10 20:01] LABS: High Sensitivity Troponin 1 Hr 15 pg/mL (<15)
[2023-09-10 21:40] LABS: Calcium 8.1 mg/dL (8.6-10.3); Creatinine, Serum 1.52 mg/dL (0.51-0.95); Potassium 4.7 mmol/L (3.5-5.0); eGFR CKD-EPI 42.8 (>60)
[2023-09-10] MEDS: Heparin 5000 UNITS/ML 1 mL VIAL SUBCUT SCH (22:45)
[2023-09-10] MEDS: Sodium Bicarbonate 8.4% SYR 50 ml SYRINGE IV ONE (22:46)
[2023-09-11 00:45] LABS: Glucose Confirmatory 486 mg/dL (70-100)
[2023-09-11 01:40] LABS: Glucose Confirmatory 420 mg/dL (70-100)
[2023-09-11 01:44] LABS: Creatinine, Serum 1.21 mg/dL (0.51-0.95); Potassium 3.7 mmol/L (3.5-5.0); eGFR CKD-EPI 56.3 (>60)
[2023-09-11 04:08] LABS: Hematocrit 31.2 % (35-45); Hemoglobin 10.8 g/dL (11.5-14.3); Mean Corpuscular Hemoglobin 33.8 pg (27-33); Mean Corpuscular Hgb Conc 34.7 g/dL (31-36); Mean Corpuscular Volume 97.4 fL (80-97); Mean Platelet Volume 7.3 fL (7.5-11.2); Platelet Count 213 10^3/uL (150-450); Red Blood Count 3.21 10^6/uL (3.63-4.92); Red Cell Distribution Width 13.1 % (12-17); White Blood Count 13.4 10^3/uL (3.8-11.8)
[2023-09-11 04:54] LABS: Creatinine, Serum 1.08 mg/dL (0.51-0.95); Potassium 3.5 mmol/L (3.5-5.0); eGFR CKD-EPI 64.6 (>60)
[2023-09-11] MEDS: D5W 1/2 NS 1000 ml BAG 1,000 ML IV SCH (04:55)
[2023-09-11] MEDS ORDERED: D5LR 1000 ml BAG 1,000 ML IV SCH (05:00)
[2023-09-11] MEDS: Insulin GLARGINE 100 un/ml 10 ml VIAL SUBCUT ONE (05:24)
[2023-09-11] MEDS: Insulin Infusion 100unit/100mL 100 UNIT/100 ML BAG IV SCH (07:33)
[2023-09-11 09:05] LABS: Calcium 8.2 mg/dL (8.6-10.3); Creatinine, Serum 0.89 mg/dL (0.51-0.95); Potassium 3.6 mmol/L (3.5-5.0); eGFR CKD-EPI 81.4 (>60)
[2023-09-11 15:13] VITALS: BP 123/66
== END 2023-09-11 15:30 | disposition home or self-care (01) | DRG 420 ==
LOC: ED 15:36 → EDHOLD 18:02 → ICU 19:49
PROVIDERS: ADMIT Surgery Surgical Critical Care; ATTEND Surgery Surgical Critical Care